=== PATIENT | male | born 1955 | race Caucasian/White ===

== ENCOUNTER 2024-01-23 14:36 | Inpatient (IN) | payer MEDICARE, SELFPAY ==
--- NOTE | ~2024-01-23 | CT_ITS ---
CT brain wo con Ordering provider: Karlie Poon PA-C History: 68 years Male with . SAH on prior image . Comparison: January 24, 2024 Technique: CT of the head without contrast. Radiation reduction technique utilized. DLP is 205.33 mGy . FINDINGS: BRAIN PARENCHYMA AND CSF SPACES: The areas seen in the right cerebellar hemisphere of slightly increa sed density are unchanged. Differential as mentioned previously. Adjacent encephalomalacia seen in th e right cerebellar hemisphere. Mild brain atrophy. No midline shift, mass effect or definite hemorrha ge. The brain parenchyma and CSF spaces are otherwise normal. VISUALIZED PARANASAL SINUSES: Well aerated. MASTOIDS: Right mastoid air cells effusion BONES: The bones appear intact. SOFT TISSUES: Visualized nasopharynx is normal. Superficial soft tissues are normal. IMPRESSION: No change from previous examination. Encephalomalacia in the right cerebellar area medially with slig htly hyperdense areas are noted. Reviewed, dictated and finalized at location A. IMPRESSION: No change from previous examination. Encephalomalacia in the right cerebellar a jennifer medially with slightly hyperdense areas are noted.
--- NOTE | ~2024-01-23 | CT_ITS ---
EXAMINATION: CT brain wo con DATE: 01/24/2024 11:46 INDICATION: Altered mental status post fall TECHNIQUE: Computed tomography (CT) of the head was performed without intravenous contrast. Sagittal and coronal reconstructions were performed. The mA was adjusted according to patient size. Iterative reconstruction technique was employed. The dose-length product was 681.00 mGy-cm. COMPARISON: None FINDINGS: No fracture. Small region of encephalomalacia along the inferomedial aspect of the right cerebellar h emisphere likely sequela of chronic infarction. Lungs reveal encephalomalacia there are couple small regions of mild increased density which could represent either small amount of subarachnoid hemorrhag e or dystrophic calcification related to the suspected prior infarct. No acute infarction or abnormal extra axial fluid collection. Symmetric prominence of the sulci and subarachnoid spaces consistent w ith mild age-appropriate diffuse cerebral and cerebellar volume loss. Ventricles are normal and symme tric. No mass/mass effect. Changes of bilateral intraocular lens replacement. The orbits, paranasal s inuses and left mastoid air cells are normal. Right mastoid effusion. IMPRESSION: 1. Small region of encephalomalacia at the inferomedial right cerebellar hemisphere consistent with s equela of old infarct. 2. Couple small regions of mild increased attenuation along the margins of the region of encephalomal acia which could represent either small amount of acute subarachnoid hemorrhage or dystrophic calcifi c lesion related to the prior infarct. Findings were discussed with Saud Hernandez, the nurse caring for the patient, at 12:01 PM. Reviewed, dictated and finalized at location A. IMPRESSION: 1. Small region of encephalomalacia at the inferomedial right cerebellar hemisp here consistent with sequela of old infarct. 2. Couple small regions of mild increased attenuation along the margins of the region of encephalomalacia which could represent either small amount of acute s ubarachnoid hemorrhage or dystrophic calcific lesion related to the prior infar ct. Findings were discussed with Saud Hernandez, the nurse caring for the patie nt, at 12:01 PM.
--- NOTE | ~2024-01-23 | CT_ITS ---
CT abdomen pelvis wo con Ordering provider: Lala Jackson PA-C History: . flank pain, hematuria . Comparison: None. Technique: CT abdomen without IV and without oral contrast. Additional reduction technique utilized. Findings: VISUALIZED LOWER CHEST: Dependent atelectatic changes with very tiny pleural-based nodules. Calcified left hilar lymph nodes. Coronary calcifications. UPPER ABDOMINAL ORGANS: Liver: Normal. Gallbladder: Normal. Spleen: Tiny calcifications. Stomach/duodenum: Slightly thickened wall of the stomach. Pancreas: Normal. Adrenals: Normal. Kidneys: Left kidney lower pole exophytic cyst measuring 4.7 x 5.1 cm. No stones or hydronephrotic ch anges. Urinary bladder: Normal. VISUALIZED BOWEL AND MESENTERY: Thickening shaped Calcification in the right side of the transverse c olon on defined nature. Fecal material is loaded in the colon. No evidence of appendicitis. The bowel is otherwise normal. No free air or free fluid. No mesenteric lymphadenopathy. RETROPERITONEUM: Mild atheromatous disease of the abdominal aorta. No retroperitoneal lymphadenopathy . MUSCULOSKELETAL: Small right inguinal fat containing gadolinium. Calcifications in the subcutaneous f at seen posteriorly in the lower abdomen which may be postinjection. Otherwise, The superficial soft tissues are normal. Age appropriate degenerative changes of the spine. Bilateral sacroiliacs. Loss of volume of L1 which may be acute or chronic. Healing fracture in the left 11th rib. IMPRESSION: No evidence of renal stones are hydronephrotic changes. Left renal cyst. Constipation No evidence of obstruction or perforation. Area of calcification in the right side of the colon which may be foreign body. Healing fracture of the left 11th rib. Fracture L1 of indeterminate age. Reviewed, dictated and finalized at location A.
[2024-01-23 14:40] VITALS: BP 146/73; PULSE 65; RESP 18; TEMP 36.4; O2SAT 100
[2024-01-23 15:38] VITALS: BP 160/88; PULSE 69; RESP 17; TEMP 36.6; O2SAT 100
[2024-01-23 16:01] LABS: Basophils Absolute Auto 0.1 K/mm3 (0.0-0.1); Basophils Percent Auto 0.9 % (0.2-1.2); Eosinophils Absolute Auto 0.1 K/mm3 (0-0.3); Eosinophils Percent Auto 0.9 % (0-4.4); Hematocrit 42.1 % (42.0-52.0); Hemoglobin 13.9 g/dL (14.0-18.0); Immature Granulocyte Absolute 0.01 K/mm3 (0.00-0.031); Immature Granulocyte Percent A 0.1 % (0-0.5); Lymphocytes Percent Auto 26.2 % (18.3-44.2); Mean Corpuscular Hemoglobin 31.1 pg (26-34); Mean Corpuscular Volume 94.2 fl (80-100); Mean Platelet Volume 10.9 fl (7.4-10.4); Monocytes Absolute Auto 0.6 K/mm3 (0.1-0.6); Monocytes Percent Auto 8.9 % (2.6-8.5); Neutrophils Absolute Auto 4.3 K/mm3 (1.3-6.7); Platelet Count Result 196 k/mm3 (150-375); Red Blood Count 4.47 M/mm3 (4.6-6.20); Red Cell Distribution Width 12.8 % (11.5-14.5); White Blood Count 6.9 K/mm3 (4.5-10.0)
[2024-01-23 16:05] LABS: Appearance Urine Cloudy (Clear); Bacteria Urine 4+ /hpf; Bilirubin Urine Negative (Negative); Blood Urine 3+ (Negative); Color Urine Yellow (Yellow); Glucose Urine UA 3+ mg/dL (Negative); Ketones Urine Trace mg/dL (Negative); Leukocyte Esterase Ur 1+ LEU/UL (Negative); Nitrate Urine Positive (Negative); Non Pathogenic Casts 0-2; Protein Urine 1+ mg/dL (Negative); RBC Urine 51-100 /hpf (0-2); Specific Grav Ur 1.026 (1.001-1.035); Squamous Epithelial Cell Urine None Seen /hpf (Few); WBC Urine >100 /hpf (0-3); pH Urine 5.5 (5.0-9.0)
[2024-01-23 16:11] LABS: Alanine Aminotransferase 16 U/L (6-50); Albumin Level 3.9 g/dL (3.5-5.1); Alkaline Phosphatase 63 U/L (38-126); Anion Gap 5 mmol/L (4-12); Aspartate Amino Transferase 16 U/L (17-59); Bilirubin,Total 0.6 mg/dL (0.2-1.3); Blood Urea Nitrogen 24 mg/dL (9-20); Calcium 9.2 mg/dL (8.4-10.2); Carbon Dioxide 28 mmol/L (22-30); Chloride 105 mmol/L (98-107); Estimated CRCL calculation 63 ml/min; Estimated Glomerular Filt Rate > 60; Glucose 70 mg/dL (65-110); Potassium 4.4 mmol/L (3.4-5.0); Sodium 138 mmol/L (137-145)
[2024-01-23 16:13] LABS: Add Urine Microscopic? YES
[2024-01-23 17:01] VITALS: BP 155/88; PULSE 68; RESP 15; O2SAT 97
--- NOTE | 2024-01-23 17:42 | ED.MALEGU ---
HPI - Male Genitourinary General Chief complaint: Urogenital-Male <Lala Jackson PA-C - Last Filed: 01/23/24 20:59> Stated complaint: blood in urine <Lala Jackson PA-C - Last Filed: 01/23/24 20:59> Time Seen by Provider: 01/23/24 16:30 <Lala Jackson PA-C - Last Filed: 01/23/24 20:59> Source: patient <CURRY Andujar Last Filed: 01/23/24 20:59> Mode of arrival: ambulatory <Lala Jackson PA-C - Last Filed: 01/23/24 20:59> Limitations: other ( poor historian) <Lala Jackson PA-C - Last Filed: 01/23/24 20:59> History of Present Illness HPI Narrative: This is a 68-year-old male that presents to the emergency department for blood in his urine. Reports he has noted this since yesterday. Also reports some flank/low back pain. His brother reports he has had some falls lately. Reports today he fell while in the shower and landed on his bottom. He did not hit his head or lose consciousness. Denies fevers or vomiting. <Lala Jackson PA-C - Last Filed: 01/23/24 20:59> Related Data Home medications: Home Medications Medication Instructions Recorded Confirmed alprazolam 0.5 mg tablet 0.5 mg PO TID PRN Anxiety 01/26/21 01/23/24 benztropine 1 mg tablet 1 mg PO BID 01/26/21 01/23/24 lamotrigine 100 mg tablet 150 mg PO BID 01/26/21 01/23/24 aspirin 81 mg tablet,delayed 81 mg PO DAILY 01/23/24 01/23/24 release baclofen 20 mg tablet 20 mg BID PRN Pain 01/23/24 01/23/24 diclofenac sodium 75 mg 75 mg PO BID PRN hip pain 01/23/24 01/23/24 tablet,delayed release donepezil 10 mg tablet 10 mg PO HS 01/23/24 01/23/24 empagliflozin 10 mg tablet 10 mg PO DAILY 01/23/24 01/23/24 (Jardiance) ergocalciferol (vitamin D2) 1,250 50,000 unit PO WEEKLY 01/23/24 01/23/24 mcg (50,000 unit) capsule (Vitamin D2) fluoxetine 40 mg capsule 40 mg PO QAM 01/23/24 01/23/24 icosapent ethyl 1 gram capsule 1 g PO BIDWMEAL 01/23/24 01/23/24 (Vascepa) lubiprostone 24 mcg capsule 24 mcg PO BIDWMEAL 01/23/24 01/23/24 memantine 10 mg tablet 10 mg PO DAILY 01/23/24 01/23/24 omeprazole 20 mg capsule,delayed 20 mg PO BIDAC 01/23/24 01/23/24 release quetiapine 300 mg tablet,extended 300 mg PO HS 01/23/24 01/23/24 release 24 hr senna 2 tab-cap PO HS 01/23/24 01/23/24 simvastatin 40 mg tablet 40 mg PO HS 01/23/24 01/23/24 sodium chloride 1 g PO BID 01/23/24 01/23/24 tamsulosin 0.4 mg capsule 0.4 mg PO HS 01/23/24 01/23/24 <Lala Jackson PA-C - Last Filed: 01/23/24 20:59> Allergies/Adverse reactions: Allergies Allergy/AdvReac Type Severity Reaction Status Date / Time No Known Allergies Allergy Verified 01/26/21 10:01 <Lala Jackson PA-C - Last Filed: 01/23/24 20:59> Review of Systems Review of Systems: CONSTITUTIONAL: Denies fever GASTROINTESTINAL: Denies abdominal pain, nausea, vomiting GENITOURINARY: Reports hematuria. Denies dysuria <Lala Jackson PA-C - Last Filed: 01/23/24 20:59> All systems reviewed & are unremarkable except as noted in HPI and below <aLla Jackson PA-C - Last Filed: 01/23/24 20:59> [facility] Past Medical History Medical History: Medical History (Updated 01/23/24 @ 20:59 by Lala Jackson PA-C) History of hyperlipidemia <Lala Jackson PA-C - Last Filed: 01/23/24 20:59> Social History Social History: Social History (Updated 01/23/24 @ 17:43 by Lala Jackson PA-C) Substance use: never <Lala Jackson PA-C - Last Filed: 01/23/24 20:59> Exam Narrative: GENERAL: Well-appearing, well-nourished, and in no acute distress. HEAD: Normocephalic, atraumatic. EYES: EOMI. CHEST: Clear to auscultation. No respiratory distress. No wheezes rales or rhonchi HEART: Regular rate and rhythm. No murmur heard. Normal peripheral pulses. ABDOMEN: Soft, nontender, nondistended, normal active bowel sounds. No CVA tenderness EXTREMITIES: Normal range of motion. No edema or obvious deformity. SKIN: Warm, dry, no rash.
[2024-01-23 18:20] VITALS: BP 162/80; PULSE 68; RESP 18; TEMP 36.7; O2SAT 96
--- NOTE | 2024-01-23 19:38 | PM.IMHP ---
H&P: HPI History of Present Illness Date/Time: 01/23/24 19:38 Chief Complaint: fall Narrative: This is a 68 yo male with PMHx significant for Dementia, T2DM, benign prostatic hyperplasia. patient presents to the emergency room after having a fall in the shower however patient has no recollection of this can not really tell why he is in the hospital. A states that he was walking and all of a sudden he felt pain in his body like lightning bolt and then kept repeating this. he knows that he is at [facility] when asked which is day approaching holiday he states weekend. When asked if he has any pain points towards left lower quadrant. Preliminary workup was significant for urinalysis with numerous WBCs present, CT of abdomen and pelvis was significant for healing 11th rib fracture and on the time in at age lumbar vertebrae fracture at the level of L1. Patient has been admitted for further evaluation management and treatment. CT abdomen pelvis wo con Ordering provider: Lala Jackson PA-C History: . flank pain, hematuria . Comparison: None. Technique: CT abdomen without IV and without oral contrast. Additional reduction technique utilized. Findings: VISUALIZED LOWER CHEST: Dependent atelectatic changes with very tiny pleural-based nodules. Calcified left hilar lymph nodes. Coronary calcifications. UPPER ABDOMINAL ORGANS: Liver: Normal. Gallbladder: Normal. Spleen: Tiny calcifications. Stomach/duodenum: Slightly thickened wall of the stomach. Pancreas: Normal. Adrenals: Normal. Kidneys: Left kidney lower pole exophytic cyst measuring 4.7 x 5.1 cm. No stones or hydronephrotic changes. Urinary bladder: Normal. VISUALIZED BOWEL AND MESENTERY: Thickening shaped Calcification in the right side of the transverse colon on defined nature. Fecal material is loaded in the colon. No evidence of appendicitis. The bowel is otherwise normal. No free air or free fluid. No mesenteric lymphadenopathy. RETROPERITONEUM: Mild atheromatous disease of the abdominal aorta. No retroperitoneal lymphadenopathy. MUSCULOSKELETAL: Small right inguinal fat containing gadolinium. Calcifications in the subcutaneous fat seen posteriorly in the lower abdomen which may be postinjection. Otherwise, The superficial soft tissues are normal. Age appropriate degenerative changes of the spine. Bilateral sacroiliacs. Loss of volume of L1 which may be acute or chronic. Healing fracture in the left 11th rib. IMPRESSION: No evidence of renal stones are hydronephrotic changes. Left renal cyst. Constipation No evidence of obstruction or perforation. Area of calcification in the right side of the colon which may be foreign body. Healing fracture of the left 11th rib. Fracture L1 of indeterminate age. Review of Systems Review of Systems: ROS unobtainable: Yes unobtainable due to medical condition (cognitive impairment ) [facility] Past Medical History Medical History (Updated 01/24/24 @ 20:31 by David Lu MD) Anxiety and depression Coronary artery disease GERD (gastroesophageal reflux disease) History of hyperlipidemia Hyperlipidemia Hypertension Seizure Family History Family History (Updated 01/24/24 @ 04:16 by Maile May) Sibling Acute myocardial infarction Sibling Acute myocardial infarction Social History Social History (Updated 01/24/24 @ 04:16 by Maile May) Smoking status: Never smoker Alcohol intake: never Substance use: never Substance use type: does not use Do You Feel Safe in your Home?: Yes Lack of Transportation: No Lack of Food: Never True Current Housing: I Have Housing Concerned About Future Housing: No Difficulty Paying Gas/Electric Bills: No Difficulty Paying for Meds: No Currently Unemployed: No Education: Don't Know Difficulty w/ Childcare or Family Care: No Living arrangements: with family Gender identity (if verbalized by the patient): Male
[2024-01-23 20:45] VITALS: BMI 30.7
[2024-01-23 21:20] VITALS: BP 166/83; PULSE 70; RESP 18; TEMP 36.4; O2SAT 98
--- NOTE | 2024-01-23 23:15 | ADMGEN ---
This patient, Marlon Hicks, was admitted to [facility] Surg Room 317-02 at 2044. Patient/family oriented to hospital policies and general routines including ID bracelet, bed and alarms, visiting hours, pain management, procedures, bathroom and other care routines, personal items, smoking policy, room service/diet, and visiting hours. Information on how to activate the Rapid Response Team has been discussed. Patient/Family are encouraged to report perceived risks to care and to ask questions if they do not understand what they are told or what they should do.
[2024-01-24] MEDS: QUEtiapine FUMARATE XR 200 MG TAB.ER.24H BY MOUTH ×2 (00:26→21:56)
[2024-01-24] MEDS: QUEtiapine FUMARATE XR 50 MG TAB.ER.24H 100 MG BY MOUTH ×2 (00:26→21:57)
[2024-01-24] MEDS: lamoTRIgine 50 MG TABLET PO ×3 (00:26→22:01)
[2024-01-24] MEDS: BENZTROPINE MESYLATE 1 MG TABLET PO ×3 (00:27→21:57)
[2024-01-24] MEDS: lamoTRIgine 100 MG TABLET PO ×3 (00:27→21:57)
[2024-01-24] MEDS: DONEPEZIL HCL 10 MG TABLET PO ×2 (00:28→21:57)
[2024-01-24] MEDS: TAMSULOSIN HCL 0.4 MG CAPSULE PO ×2 (00:28→21:57)
[2024-01-24] MEDS: SIMVASTATIN 20 MG TABLET 40 MG PO ×2 (00:28→21:56)
[2024-01-24] MEDS: ALPRAZolam (*CRX) 0.5 MG TABLET PO (00:28)
[2024-01-24 04:10] VITALS: BP 126/66; PULSE 58; RESP 20; TEMP 35.9; O2SAT 97
[2024-01-24] MEDS: PANTOPRAZOLE 40 MG TABLET PO ×2 (06:10→17:47)
[2024-01-24] MEDS: BACLOFEN 10 MG TABLET 20 MG BY MOUTH (06:58)
--- NOTE | 2024-01-24 07:10 | PM.IMPN ---
Progress Note: A&P Assessment and Plan (1) Subarachnoid hemorrhage: Code(s): I60.9 - Nontraumatic subarachnoid hemorrhage, unspecified Status: Acute Assessment and Plan: Patient reports frequent falls causing him to hit his head. - CT head revealed small region of encephalomalacia at the inferomedial right cerebellar hemisphere consistent with sequela of old infarct and a couple small regions of mild increased attenuation along the margins of the region of encephalomalacia which could represent either small amount of acute subarachnoid hemorrhage or dystrophic calcific lesion related to the prior infarct. - Call made to Dr. Pina neurosurgery. No intervention needed at this time as this is a small SAH and will likely resolve on its own. Will repeat scan in the am to monitor. Per Dr. Pina even if repeat scan shows acute blood likely no need for intervention if no neurological changes. - ASA on hold at this time. - Neuro checks q 2h. He will need to be transferred to IMU for this. RN aware and states she will perform Q2 neurochecks until patient is transferred to IMU (2) Urinary tract infection: Qualifiers: Hematuria presence: with hematuria Urinary tract infection type: acute cystitis Qualified Code(s): N30.01 - Acute cystitis with hematuria Code(s): N39.0 - Urinary tract infection, site not specified Status: Acute Assessment and Plan: - Symptoms: hematuria, increased falls - UA: Cloudy appearance with 1+ protein, 3+ glucose, trace ketones, 3+ blood, positive nitrates, 1+ leukocytes, 51-100 RBC, > 100 WBC, 4+ bacteria - UC obtained on 01/22: pending - No previous micro to be reviewed - started on Rocephin 01/22 - Monitor vital signs, I&Os, BUN/creatinine - Monitor serum electrolytes, Keep serum Potassium>4 and serum Magnesium>2 and CBC (3) Frequent falls: Code(s): R29.6 - Repeated falls Status: Acute Assessment and Plan: Patient reports multiple falls per day, occuring every 2.5 hours. He states that his falls are often mechanical from him tripping over his wheeled walker. He denies dizziness but states he has lost consciousness in the past. He also reports hitting his head on past falls. He is unsure if he is having seizures during those episodes. He remains on Lamictal and levels pending. - CT abdomen/pelvis: Healing fracture of the left 11th rib.Fracture L1 of indeterminate age. 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 - PT/OT, recommending SNF (4) Compression fracture: Status: Acute Assessment and Plan: - See frequent falls #2 (5) Seizure: Code(s): R56.9 - Unspecified convulsions Status: Acute Assessment and Plan: Per patient, he follows Dr. Guerrero. - Continue lamotrigine 150 mg BID - Lamotrigine level ordered - Monitor (6) Anxiety and depression: Code(s): F41.9 - Anxiety disorder, unspecified; F32.A - Depression, unspecified Status: Acute Assessment and Plan: Well controlled on home medications. - Fluoxetine 40 mg daily - Quetiapine 300 mg daily (7) GERD (gastroesophageal reflux disease): Code(s): K21.9 - Gastro-esophageal reflux disease without esophagitis Status: Acute Assessment and Plan: Well controlled on home medications. - Pantoprazole 40 mg BID Time Spent With Patient Time with patient: 25 - 35 minutes Subjective Date/time seen: 01/24/24 07:10 Interval history: 68 year old male with past medical history of hypertension, hyperlipidemia, CAD, seizures, GERD and anxiety/depression presents to the hospital for hematuria and frequent fall
[2024-01-24 08:22] LABS: Basophils Absolute Auto 0.1 K/mm3 (0.0-0.1); Basophils Percent Auto 0.9 % (0.2-1.2); Eosinophils Absolute Auto 0.1 K/mm3 (0-0.3); Eosinophils Percent Auto 1.3 % (0-4.4); Hematocrit 43.7 % (42.0-52.0); Hemoglobin 14.2 g/dL (14.0-18.0); Immature Granulocyte Absolute 0.02 K/mm3 (0.00-0.031); Immature Granulocyte Percent A 0.3 % (0-0.5); Lymphocytes Absolute Auto 1.32 K/mm3 (0.9-3.2); Lymphocytes Percent Auto 19.4 % (18.3-44.2); Mean Corpuscular HGB Conc 32.5 g/dl (32-36); Mean Corpuscular Hemoglobin 30.7 pg (26-34); Mean Corpuscular Volume 94.4 fl (80-100); Monocytes Absolute Auto 0.5 K/mm3 (0.1-0.6); Monocytes Percent Auto 7.8 % (2.6-8.5); Neutrophils Absolute Auto 4.8 K/mm3 (1.3-6.7); Neutrophils Percent Auto 70.3 % (45.5-73.1); Platelet Count Result 191 k/mm3 (150-375); Red Blood Count 4.63 M/mm3 (4.6-6.20); Red Cell Distribution Width 12.7 % (11.5-14.5); White Blood Count 6.8 K/mm3 (4.5-10.0)
[2024-01-24 08:41] LABS: Alanine Aminotransferase 14 U/L (6-50); Albumin Level 3.8 g/dL (3.5-5.1); Alkaline Phosphatase 67 U/L (38-126); Anion Gap 6 mmol/L (4-12); Aspartate Amino Transferase 14 U/L (17-59); Bilirubin,Total 0.9 mg/dL (0.2-1.3); Blood Urea Nitrogen 20 mg/dL (9-20); Calcium 8.8 mg/dL (8.4-10.2); Carbon Dioxide 26 mmol/L (22-30); Chloride 106 mmol/L (98-107); Estimated CRCL calculation 76 ml/min; Estimated Glomerular Filt Rate > 60; Glucose 89 mg/dL (65-110); Potassium 3.9 mmol/L (3.4-5.0); Sodium 138 mmol/L (137-145)
[2024-01-24] MEDS: LUBIPROSTONE 24 MCG CAPSULE PO ×2 (09:30→17:47)
[2024-01-24] MEDS: SODIUM CHLORIDE 1 GM TABLET PO ×2 (09:31→17:46)
[2024-01-24] MEDS: MEMANTINE 10 MG TABLET PO (09:31)
[2024-01-24] MEDS: EMPAGLIFLOZIN 10 MG TABLET PO (09:31)
[2024-01-24] MEDS: OMEGA 3 POLYUNSAT FATTY ACIDS 1 GM CAP PO ×2 (09:31→17:47)
[2024-01-24] MEDS: FLUoxetine HCL 20 MG CAPSULE 40 MG PO (09:31)
[2024-01-24] MEDS: ASPIRIN 81 MG ENTERIC TABLET PO (09:32)
[2024-01-24 14:00] VITALS: BP 143/75; PULSE 77; RESP 16; TEMP 35.9; O2SAT 98
--- NOTE | 2024-01-24 15:48 | WPDNEUROPN ---
Subjective Date/time seen: 01/24/24 15:48 Interval history: Received message from 3 med/surg company secretary regarding consult for possible SAH. I discussed with hospitalist, Yolanda Poon that any concerns regarding SAH should be addressed by neurosurgical service. Recommended reaching out to NSY at tertiary care center for further recommendations. If there are other neurological concerns, I would be happy to consult. Objective Data Vital Signs Vital Signs: Vital Signs - 24 hr 01/23/24 17:01 01/23/24 18:20 01/23/24 21:20 Temperature 36.7 C 36.4 C Pulse Rate 68 68 70 Respiratory Rate 15 18 18 Blood Pressure 155/88 H 162/80 H 166/83 H Pulse Oximetry 97 96 98 Oxygen Delivery 01/23/24 20:45 01/24/24 04:10 01/24/24 09:55 Temperature 35.9 C L Pulse Rate 58 L Respiratory Rate 20 Blood Pressure 126/66 Pulse Oximetry 97 Oxygen Delivery Room Air Room Air 01/24/24 11:30 01/24/24 14:00 Temperature 35.9 C L Pulse Rate 77 Respiratory Rate 16 Blood Pressure 143/75 H Pulse Oximetry 98 Oxygen Delivery Room Air Intake/Output Intake/Output: Intake & Output 01/21/24 01/22/24 01/23/24 01/24/24 23:59 23:59 23:59 23:59 Intake Total 300 1930 Balance 300 1930 Meds/Results Medications: Active Medications Generic Name Dose Route Start Last Admin Trade Name Freq PRN Reason Stop Dose Admin Acetaminophen 650 mg 01/23/24 21:28 Acetaminophen 325 Mg Tablet PO Q4H PRN Mild Pain (1-3) or Fever Al Hydrox/Mg Hydrox/Simethicone 30 ml 01/23/24 21:28 Mag Hydrox/Al Hydrox/Simeth 30 Ml Udc PO QID PRN Dyspepsia Alprazolam 0.5 mg 01/23/24 23:21 01/24/24 00:28 Alprazolam (*Crx) 0.5 Mg Tablet PO 0.5 mg TID PRN Administration Anxiety Aspirin 81 mg 01/24/24 09:00 01/24/24 09:32 Aspirin 81 Mg Enteric Tablet PO 81 mg DAILY ESTEFANIA Administration Baclofen 20 mg 01/23/24 23:21 01/24/24 06:58 Baclofen 10 Mg Tablet BY MOUTH 20 mg BID PRN Administration Pain Benztropine Mesylate 1 mg 01/23/24 23:50 01/24/24 09:30 Benztropine Mesylate 1 Mg Tablet PO 1 mg Q12HR ESTEFANIA Administration Diclofenac Sodium 75 mg 01/23/24 23:21 Diclofenac Sod 75 Mg Tablet.Ec PO BID PRN hip pain Donepezil HCl 10 mg 01/23/24 23:45 01/24/24 00:28 Donepezil Hcl 10 Mg Tablet PO 10 mg HS ESTEFANIA Administration Empagliflozin 10 mg 01/24/24 09:00 01/24/24 09:31 Empagliflozin 10 Mg Tablet PO 10 mg DAILY ESTEFANIA Administration Ergocalciferol 50,000 units 02/02/24 09:00 Ergocalciferol 50,000 Units Capsule PO Harvey@0900 [facility] Fish Oil 1 gm 01/24/24 08:00 01/24/24 09:31 [place] 3 Polyunsat Fatty Acids 1 Gm Cap PO 1 gm BIDWM ESTEFANIA Administration Fluoxetine HCl 40 mg 01/24/24 09:00 01/24/24 09:31 Fluoxetine Hcl 20 Mg Capsule PO 40 mg QAM [facility] Administration Ceftriaxone Sodium 1 gm in 50 mls @ 100 mls/hr 01/24/24 18:00 Rocephin 1 Gm/Ns 50 Ml IVPB Q24H [facility] Lamotrigine 50 mg 01/23/24 23:45 01/24/24 09:30 Lamotrigine 50 Mg Tablet PO 50 mg Q12HR ESTEFANIA Administration Lamotrigine 100 mg 01/23/24 23:45 01/24/24 09:30 Lamotrigine 100 Mg Tablet PO 100 mg Q12HR ESTEFANIA Administration Lubiprostone 24 mcg 01/24/24 08:00 01/24/24 09:30 Lubiprostone 24 Mcg Capsule PO 24 mcg BIDWM [facility] Administration Magnesium Hydroxide 30 ml 01/23/24 21:28 Magnesium Hydroxide Susp 30 Ml Udc PO DAILY PRN Constipation Memantine 10 mg 01/24/24 09:00 01/24/24 09:31 Memantine 10 Mg Tablet PO 10 mg DAILY ESTEFANIA Administration Ondansetron HCl 4 mg 01/23/24 21:28 Ondansetron Inj 4 Mg/2 Ml Vial IV PUSH Q6H PRN Nausea And Vomiting Pantoprazole Sodium 40 mg 01/24/24 06:30 01/24/24 06:10 Pantoprazole 40 Mg Tablet PO 40 mg BIDAC ESTEFANIA Administration Quetiapine Fumarate 200 mg 01/23/24 23:50 01/24/24 00:26 Quetiapine Fumarate Xr 200 Mg Tab.Er.24h BY MOUTH 2
[2024-01-24 20:00] VITALS: PULSE 65; RESP 14; O2SAT 96
[2024-01-24 21:06] VITALS: BP 137/68; PULSE 65; RESP 14; TEMP 36.3; O2SAT 96
[2024-01-24] MEDS: SENNOSIDES 8.6 MG TABLET 17.2 MG PO (21:57)
[2024-01-25] MEDS: ACETAMINOPHEN 325 MG TABLET 650 MG PO ×2 (02:19→21:13)
[2024-01-25] MEDS: PANTOPRAZOLE 40 MG TABLET PO ×2 (05:30→16:50)
[2024-01-25 06:00] VITALS: BP 174/86; PULSE 70; RESP 18; TEMP 36.1; O2SAT 96
[2024-01-25 06:57] LABS: Basophils Absolute Auto 0.1 K/mm3 (0.0-0.1); Basophils Percent Auto 1.4 % (0.2-1.2); Eosinophils Absolute Auto 0.1 K/mm3 (0-0.3); Eosinophils Percent Auto 2.4 % (0-4.4); Hematocrit 45.1 % (42.0-52.0); Hemoglobin 14.4 g/dL (14.0-18.0); Immature Granulocyte Absolute 0.01 K/mm3 (0.00-0.031); Immature Granulocyte Percent A 0.2 % (0-0.5); Lymphocytes Absolute Auto 1.67 K/mm3 (0.9-3.2); Lymphocytes Percent Auto 28.8 % (18.3-44.2); Mean Corpuscular HGB Conc 31.9 g/dl (32-36); Mean Corpuscular Hemoglobin 30.4 pg (26-34); Mean Corpuscular Volume 95.1 fl (80-100); Monocytes Absolute Auto 0.5 K/mm3 (0.1-0.6); Monocytes Percent Auto 8.4 % (2.6-8.5); Neutrophils Absolute Auto 3.4 K/mm3 (1.3-6.7); Neutrophils Percent Auto 58.8 % (45.5-73.1); Platelet Count Result 208 k/mm3 (150-375); Red Blood Count 4.74 M/mm3 (4.6-6.20); Red Cell Distribution Width 12.6 % (11.5-14.5); White Blood Count 5.8 K/mm3 (4.5-10.0)
[2024-01-25 07:12] LABS: Alanine Aminotransferase 14 U/L (6-50); Albumin Level 3.8 g/dL (3.5-5.1); Alkaline Phosphatase 72 U/L (38-126); Anion Gap 6 mmol/L (4-12); Aspartate Amino Transferase 14 U/L (17-59); Bilirubin,Total 0.8 mg/dL (0.2-1.3); Blood Urea Nitrogen 19 mg/dL (9-20); Calcium 8.9 mg/dL (8.4-10.2); Carbon Dioxide 28 mmol/L (22-30); Chloride 105 mmol/L (98-107); Estimated CRCL calculation 76 ml/min; Estimated Glomerular Filt Rate > 60; Glucose 96 mg/dL (65-110); Potassium 3.7 mmol/L (3.4-5.0); Sodium 139 mmol/L (137-145)
[2024-01-25] MEDS: OMEGA 3 POLYUNSAT FATTY ACIDS 1 GM CAP PO ×2 (08:30→16:50)
[2024-01-25] MEDS: BENZTROPINE MESYLATE 1 MG TABLET PO ×2 (08:30→21:15)
[2024-01-25] MEDS: lamoTRIgine 50 MG TABLET PO ×2 (08:30→21:14)
[2024-01-25] MEDS: lamoTRIgine 100 MG TABLET PO ×2 (08:30→21:15)
[2024-01-25] MEDS: SODIUM CHLORIDE 1 GM TABLET PO ×2 (08:30→16:50)
[2024-01-25] MEDS: FLUoxetine HCL 20 MG CAPSULE 40 MG PO (08:31)
[2024-01-25] MEDS: LUBIPROSTONE 24 MCG CAPSULE PO ×2 (08:31→16:50)
[2024-01-25] MEDS: EMPAGLIFLOZIN 10 MG TABLET PO (08:31)
[2024-01-25] MEDS: MEMANTINE 10 MG TABLET PO (08:31)
--- NOTE | 2024-01-25 08:49 | P.PNIM_ITS ---
Progress Note: A&P Assessment and Plan (1) Subarachnoid hemorrhage: Code(s): I60.9 - Nontraumatic subarachnoid hemorrhage, unspecified Status: Acute Assessment and Plan: Patient reports frequent falls causing him to hit his head. 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 - Call made to Dr. Pina neurosurgery. No intervention needed at this time as this is a small SAH and will likely resolve on its own. Will repeat scan in the am to monitor. Per Dr. Pina even if repeat scan shows acute blood likely no need for intervention if no neurological changes. - CT head 01/24 showed No change from previous examination. Encephalomalacia in the right cerebellar area medially with slightly hyperdense areas are noted. - ASA on hold at this time. - Neuro checks q 4h. (2) Urinary tract infection: Qualifiers: Hematuria presence: with hematuria Urinary tract infection type: acute cystitis Qualified Code(s): N30.01 - Acute cystitis with hematuria Code(s): N39.0 - Urinary tract infection, site not specified Status: Acute Assessment and Plan: - Symptoms: hematuria, increased falls - UA: Cloudy appearance with 1+ protein, 3+ glucose, trace ketones, 3+ blood, positive nitrates, 1+ leukocytes, 51-100 RBC, > 100 WBC, 4+ bacteria - UC obtained on 01/22: Final results- no growth - No previous micro to be reviewed - Discontinued Rocephin - Monitor vital signs, I&Os, BUN/creatinine - Monitor serum electrolytes, Keep serum Potassium>4 and serum Magnesium>2 and CBC (3) Frequent falls: Code(s): R29.6 - Repeated falls Status: Acute Assessment and Plan: Patient reports multiple falls per day, occuring every 2.5 hours. He states that his falls are often mechanical from him tripping over his wheeled walker. He denies dizziness but states he has lost consciousness in the past. He also reports hitting his head on past falls. He is unsure if he is having seizures during those episodes. He remains on Lamictal and levels pending. - CT abdomen/pelvis: Healing fracture of the left 11th rib.Fracture L1 of indeterminate age. 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 - PT/OT, recommending SNF . care coordination following (4) Compression fracture: Status: Acute Assessment and Plan: - See frequent falls #3 (5) Seizure: Code(s): R56.9 - Unspecified convulsions Status: Acute Assessment and Plan: Per patient, he follows Dr. Guerrero. - Continue lamotrigine 150 mg BID - Lamotrigine level ordered - Monitor (6) Anxiety and depression: Code(s): F41.9 - Anxiety disorder, unspecified; F32.A - Depression, unspecified Status: Acute Assessment and Plan: Well controlled on home medications. - Fluoxetine 40 mg daily - Quetiapine 300 mg katharine (7) GERD (gastroesophageal reflux disease): Code(s): K21.9 - Gastro-esophageal reflux disease without esophagitis Status: Acute
[2024-01-25 14:00] VITALS: BP 148/84; PULSE 75; RESP 18; TEMP 36.4; O2SAT 99
[2024-01-25 14:30] VITALS: BP 179/80; PULSE 80; RESP 20; TEMP 36.4; O2SAT 97
[2024-01-25 14:53] LABS: Glucose Point of Care 126 mg/dl (65-105)
[2024-01-25] MEDS: LOSARTAN POTASSIUM 12.5 MG TABLET PO (18:46)
[2024-01-25 21:06] VITALS: BP 155/88; PULSE 88; RESP 16; TEMP 36.9; O2SAT 96
[2024-01-25] MEDS: QUEtiapine FUMARATE XR 200 MG TAB.ER.24H BY MOUTH (21:13)
[2024-01-25] MEDS: QUEtiapine FUMARATE XR 50 MG TAB.ER.24H 100 MG BY MOUTH (21:14)
[2024-01-25] MEDS: SIMVASTATIN 20 MG TABLET 40 MG PO (21:14)
[2024-01-25] MEDS: SENNOSIDES 8.6 MG TABLET 17.2 MG PO (21:14)
[2024-01-25] MEDS: TAMSULOSIN HCL 0.4 MG CAPSULE PO (21:14)
[2024-01-25] MEDS: DONEPEZIL HCL 10 MG TABLET PO (21:15)
[2024-01-26 00:31] LABS: Glucose Point of Care 105 mg/dl (65-105)
[2024-01-26 06:00] VITALS: BP 135/79; PULSE 77; RESP 16; TEMP 36.4; O2SAT 97
[2024-01-26] MEDS: PANTOPRAZOLE 40 MG TABLET PO ×2 (06:06→16:24)
[2024-01-26 06:14] LABS: Basophils Absolute Auto 0.1 K/mm3 (0.0-0.1); Basophils Percent Auto 0.6 % (0.2-1.2); Eosinophils Absolute Auto 0.1 K/mm3 (0-0.3); Eosinophils Percent Auto 0.9 % (0-4.4); Hematocrit 43.4 % (42.0-52.0); Hemoglobin 14.3 g/dL (14.0-18.0); Immature Granulocyte Absolute 0.02 K/mm3 (0.00-0.031); Immature Granulocyte Percent A 0.3 % (0-0.5); Lymphocytes Absolute Auto 1.52 K/mm3 (0.9-3.2); Lymphocytes Percent Auto 19.3 % (18.3-44.2); Mean Corpuscular HGB Conc 32.9 g/dl (32-36); Mean Corpuscular Hemoglobin 30.6 pg (26-34); Mean Corpuscular Volume 92.9 fl (80-100); Mean Platelet Volume 10.8 fl (7.4-10.4); Monocytes Absolute Auto 0.7 K/mm3 (0.1-0.6); Monocytes Percent Auto 8.5 % (2.6-8.5); Neutrophils Absolute Auto 5.6 K/mm3 (1.3-6.7); Neutrophils Percent Auto 70.4 % (45.5-73.1); Platelet Count Result 202 k/mm3 (150-375); Red Blood Count 4.67 M/mm3 (4.6-6.20); Red Cell Distribution Width 12.8 % (11.5-14.5); White Blood Count 7.9 K/mm3 (4.5-10.0)
[2024-01-26 06:31] LABS: Alanine Aminotransferase 14 U/L (6-50); Albumin Level 3.6 g/dL (3.5-5.1); Alkaline Phosphatase 66 U/L (38-126); Anion Gap 6 mmol/L (4-12); Aspartate Amino Transferase 15 U/L (17-59); Bilirubin,Total 0.6 mg/dL (0.2-1.3); Blood Urea Nitrogen 21 mg/dL (9-20); Calcium 9.1 mg/dL (8.4-10.2); Carbon Dioxide 27 mmol/L (22-30); Chloride 106 mmol/L (98-107); Estimated CRCL calculation 76 ml/min; Estimated Glomerular Filt Rate > 60; Glucose 102 mg/dL (65-110); Potassium 3.8 mmol/L (3.4-5.0); Sodium 139 mmol/L (137-145)
--- NOTE | 2024-01-26 08:40 | PM.IMPN ---
Progress Note: A&P Assessment and Plan (1) Subarachnoid hemorrhage: Code(s): I60.9 - Nontraumatic subarachnoid hemorrhage, unspecified Status: Acute Assessment and Plan: Patient reports frequent falls causing him to hit his head. 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 - Call made to Dr. Pina neurosurgery. No intervention needed at this time as this is a small SAH and will likely resolve on its own. Will repeat scan in the am to monitor. Per Dr. Pina even if repeat scan shows acute blood likely no need for intervention if no neurological changes. - CT head 01/24 showed No change from previous examination. Encephalomalacia in the right cerebellar area medially with slightly hyperdense areas are noted. - ASA on hold at this time. - Neuro checks q 4h. (2) Urinary tract infection: Qualifiers: Hematuria presence: with hematuria Urinary tract infection type: acute cystitis Qualified Code(s): N30.01 - Acute cystitis with hematuria Code(s): N39.0 - Urinary tract infection, site not specified Status: Acute Assessment and Plan: - Symptoms: hematuria, increased falls - UA: Cloudy appearance with 1+ protein, 3+ glucose, trace ketones, 3+ blood, positive nitrates, 1+ leukocytes, 51-100 RBC, > 100 WBC, 4+ bacteria - UC obtained on 01/22: Final results- no growth - No previous micro to be reviewed - Discontinued Rocephin - Monitor vital signs, I&Os, BUN/creatinine - Monitor serum electrolytes, Keep serum Potassium>4 and serum Magnesium>2 and CBC (3) Frequent falls: Code(s): R29.6 - Repeated falls Status: Acute Assessment and Plan: Patient reports multiple falls per day, occuring every 2.5 hours. He states that his falls are often mechanical from him tripping over his wheeled walker. He denies dizziness but states he has lost consciousness in the past. He also reports hitting his head on past falls. He is unsure if he is having seizures during those episodes. He remains on Lamictal and levels pending. - CT abdomen/pelvis: Healing fracture of the left 11th rib.Fracture L1 of indeterminate age. 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 - PT/OT, recommending SNF. Care coordination following (4) Compression fracture: Status: Acute Assessment and Plan: - See frequent falls #3 (5) Seizure: Code(s): R56.9 - Unspecified convulsions Status: Acute Assessment and Plan: Per patient, he follows Dr. Guerrero. - Continue lamotrigine 150 mg BID - Lamotrigine level ordered - Monitor (6) Anxiety and depression: Code(s): F41.9 - Anxiety disorder, unspecified; F32.A - Depression, unspecified Status: Acute Assessment and Plan: Well controlled on home medications. - Fluoxetine 40 mg daily - Quetiapine 300 mg katharine (7) GERD (gastroesophageal reflux disease): Code(s): K21.9 - Gastro-esophageal reflux disease without esophagitis Status: Acute Assessment and Plan: Well controlled on home medications. - Pantoprazole 40 mg BID (8) Hypertension: Code(s): I10 - Essential (primary) hypertension Status: Acute Assessment and Plan: Patients remains hypertensive throughout admission. Started on low-dose losartan. Will continue to monitor blood pr
[2024-01-26] MEDS: SODIUM CHLORIDE 1 GM TABLET PO ×2 (10:23→16:25)
[2024-01-26] MEDS: MEMANTINE 10 MG TABLET PO (10:23)
[2024-01-26] MEDS: EMPAGLIFLOZIN 10 MG TABLET PO (10:24)
[2024-01-26] MEDS: lamoTRIgine 100 MG TABLET PO ×2 (10:24→21:10)
[2024-01-26] MEDS: LUBIPROSTONE 24 MCG CAPSULE PO ×2 (10:24→16:24)
[2024-01-26] MEDS: OMEGA 3 POLYUNSAT FATTY ACIDS 1 GM CAP PO ×2 (10:24→16:25)
[2024-01-26] MEDS: lamoTRIgine 50 MG TABLET PO ×2 (10:24→21:11)
[2024-01-26] MEDS: BENZTROPINE MESYLATE 1 MG TABLET PO ×2 (10:24→21:11)
[2024-01-26] MEDS: FLUoxetine HCL 20 MG CAPSULE 40 MG PO (10:24)
[2024-01-26] MEDS: LOSARTAN POTASSIUM 12.5 MG TABLET PO (10:24)
[2024-01-26] MEDS: ACETAMINOPHEN 325 MG TABLET 650 MG PO (10:29)
[2024-01-26 14:00] VITALS: BP 171/89; PULSE 88; RESP 22; TEMP 36.9; O2SAT 97
[2024-01-26] MEDS: HALOPERIDOL LACTATE 5 MG/ML VIAL IV PUSH (16:25)
[2024-01-26] MEDS: HALOPERIDOL LACTATE 5 MG/ML VIAL IM (20:52)
[2024-01-26] MEDS: diphenhydrAMINE HCl INJ 50 MG/ML VIAL IM (20:53)
[2024-01-26] MEDS: LORazepam INJ (*CRX) 2 MG/ML VIAL 1 MG IM (20:53)
[2024-01-26] MEDS: TAMSULOSIN HCL 0.4 MG CAPSULE PO (21:10)
[2024-01-26] MEDS: SIMVASTATIN 20 MG TABLET 40 MG PO (21:11)
[2024-01-26] MEDS: DONEPEZIL HCL 10 MG TABLET PO (21:11)
[2024-01-26] MEDS: QUEtiapine FUMARATE XR 50 MG TAB.ER.24H 100 MG BY MOUTH (21:12)
[2024-01-26] MEDS: SENNOSIDES 8.6 MG TABLET 17.2 MG PO (21:12)
[2024-01-26] MEDS: QUEtiapine FUMARATE XR 200 MG TAB.ER.24H BY MOUTH (21:13)
[2024-01-26 21:51] VITALS: BP 145/85; PULSE 82; RESP 20; TEMP 36.7; O2SAT 94
[2024-01-26] MEDS: LORazepam INJ (*CRX) 2 MG/ML VIAL 1 MG IV PUSH (23:44)
[2024-01-26] MEDS: ALPRAZolam (*CRX) 0.5 MG TABLET PO (23:48)
[2024-01-27 06:19] LABS: Basophils Absolute Auto 0.1 K/mm3 (0.0-0.1); Basophils Percent Auto 1.1 % (0.2-1.2); Eosinophils Absolute Auto 0.2 K/mm3 (0-0.3); Eosinophils Percent Auto 2.1 % (0-4.4); Hematocrit 44.5 % (42.0-52.0); Hemoglobin 13.9 g/dL (14.0-18.0); Immature Granulocyte Absolute 0.01 K/mm3 (0.00-0.031); Immature Granulocyte Percent A 0.1 % (0-0.5); Lymphocytes Absolute Auto 2.48 K/mm3 (0.9-3.2); Lymphocytes Percent Auto 34.3 % (18.3-44.2); Mean Corpuscular HGB Conc 31.2 g/dl (32-36); Mean Corpuscular Hemoglobin 30.2 pg (26-34); Mean Corpuscular Volume 96.5 fl (80-100); Mean Platelet Volume 10.9 fl (7.4-10.4); Monocytes Absolute Auto 0.7 K/mm3 (0.1-0.6); Monocytes Percent Auto 10.2 % (2.6-8.5); Neutrophils Absolute Auto 3.8 K/mm3 (1.3-6.7); Neutrophils Percent Auto 52.2 % (45.5-73.1); Platelet Count Result 197 k/mm3 (150-375); Red Blood Count 4.61 M/mm3 (4.6-6.20); Red Cell Distribution Width 12.6 % (11.5-14.5); White Blood Count 7.2 K/mm3 (4.5-10.0)
[2024-01-27 06:30] LABS: Alanine Aminotransferase 15 U/L (6-50); Albumin Level 3.6 g/dL (3.5-5.1); Alkaline Phosphatase 65 U/L (38-126); Anion Gap 3 mmol/L (4-12); Aspartate Amino Transferase 23 U/L (17-59); Bilirubin,Total 0.8 mg/dL (0.2-1.3); Blood Urea Nitrogen 18 mg/dL (9-20); Calcium 8.8 mg/dL (8.4-10.2); Carbon Dioxide 27 mmol/L (22-30); Chloride 108 mmol/L (98-107); Estimated CRCL calculation 76 ml/min; Estimated Glomerular Filt Rate > 60; Glucose 89 mg/dL (65-110); Potassium 4.1 mmol/L (3.4-5.0); Sodium 138 mmol/L (137-145)
--- NOTE | 2024-01-27 07:37 | PM.IMPN ---
Progress Note: A&P Assessment and Plan (1) Altered mental status: Code(s): R41.82 - Altered mental status, unspecified Status: Acute Assessment and Plan: Patient remains AOx4, however throughout assessment will become confused and his stories do not make sense. Brother states that this is not his baseline. Confusion likely due to his dementia and cocurrent delirium. - Neuro checks q4 - No signs of acute infection, labs unremarkable - Imaging unremarkable (2) Subarachnoid hemorrhage: Code(s): I60.9 - Nontraumatic subarachnoid hemorrhage, unspecified Status: Acute Assessment and Plan: Patient reports frequent falls causing him to hit his head. 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 - Call made to Dr. Pina neurosurgery. No intervention needed at this time as this is a small SAH and will likely resolve on its own. Will repeat scan in the am to monitor. Per Dr. Pina even if repeat scan shows acute blood likely no need for intervention if no neurological changes. - CT head 01/24 showed No change from previous examination. Encephalomalacia in the right cerebellar area medially with slightly hyperdense areas are noted. - ASA on hold at this time. - Neuro checks q 4h. (3) Urinary tract infection: Qualifiers: Hematuria presence: with hematuria Urinary tract infection type: acute cystitis Qualified Code(s): N30.01 - Acute cystitis with hematuria Code(s): N39.0 - Urinary tract infection, site not specified Status: Acute Assessment and Plan: - Symptoms: hematuria, increased falls - UA: Cloudy appearance with 1+ protein, 3+ glucose, trace ketones, 3+ blood, positive nitrates, 1+ leukocytes, 51-100 RBC, > 100 WBC, 4+ bacteria - UC obtained on 01/22: Final results- no growth - No previous micro to be reviewed - Discontinued Rocephin - Monitor vital signs, I&Os, BUN/creatinine - Monitor serum electrolytes, Keep serum Potassium>4 and serum Magnesium>2 and CBC (4) Frequent falls: Code(s): R29.6 - Repeated falls Status: Acute Assessment and Plan: Patient reports multiple falls per day, occuring every 2.5 hours. He states that his falls are often mechanical from him tripping over his wheeled walker. He denies dizziness but states he has lost consciousness in the past. He also reports hitting his head on past falls. He is unsure if he is having seizures during those episodes. He remains on Lamictal and levels pending. - CT abdomen/pelvis: Healing fracture of the left 11th rib.Fracture L1 of indeterminate age. 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 - PT/OT, recommending SNF. Care coordination following (5) Compression fracture: Status: Acute Assessment and Plan: - See frequent falls #3 (6) Schizophrenia: Code(s): F20.9 - Schizophrenia, unspecified Status: Acute Assessment and Plan: Patient states he was diagnosed with schizophrenia in 1980. Brother confirms and states that this has been well controlled on home medications, fluphenazine injections q 2 weeks. Patient is due for an injection tomorrow. RN called [facility] to confirm dosing. - Continue fluphenazine (7) Seizure: Code(s): R56.9 - Unspecified convulsions Status: Acute Assessment and
[2024-01-27 08:00] VITALS: PULSE 82; RESP 20; O2SAT 94
--- NOTE | 2024-01-27 08:24 | PCPTNOTE ---
attempted PT treatment, per RN pt is snowed and to try this afternoon , pt is currently drowsy and in restraints, will follow
[2024-01-27] MEDS: lamoTRIgine 50 MG TABLET PO ×2 (08:27→21:05)
[2024-01-27] MEDS: LUBIPROSTONE 24 MCG CAPSULE PO ×2 (08:27→17:56)
[2024-01-27] MEDS: EMPAGLIFLOZIN 10 MG TABLET PO (08:27)
[2024-01-27] MEDS: FLUoxetine HCL 20 MG CAPSULE 40 MG PO (08:27)
[2024-01-27] MEDS: MEMANTINE 10 MG TABLET PO (08:27)
[2024-01-27] MEDS: lamoTRIgine 100 MG TABLET PO ×2 (08:27→21:05)
[2024-01-27] MEDS: LOSARTAN POTASSIUM 12.5 MG TABLET PO (08:27)
[2024-01-27] MEDS: SODIUM CHLORIDE 1 GM TABLET PO ×2 (08:27→17:57)
[2024-01-27] MEDS: OMEGA 3 POLYUNSAT FATTY ACIDS 1 GM CAP PO ×2 (08:27→17:57)
[2024-01-27] MEDS: BENZTROPINE MESYLATE 1 MG TABLET PO ×2 (08:27→21:06)
[2024-01-27 14:00] VITALS: BP 151/87; PULSE 88; RESP 20; TEMP 36.5; O2SAT 96
[2024-01-27] MEDS: PANTOPRAZOLE 40 MG TABLET PO (17:56)
[2024-01-27 20:00] VITALS: O2SAT 96
[2024-01-27 21:00] VITALS: BP 112/81; PULSE 70; RESP 14; TEMP 36.8; O2SAT 96
[2024-01-27] MEDS: QUEtiapine FUMARATE XR 50 MG TAB.ER.24H 100 MG BY MOUTH (21:05)
[2024-01-27] MEDS: SENNOSIDES 8.6 MG TABLET 17.2 MG PO (21:05)
[2024-01-27] MEDS: TAMSULOSIN HCL 0.4 MG CAPSULE PO (21:05)
[2024-01-27] MEDS: SIMVASTATIN 20 MG TABLET 40 MG PO (21:05)
[2024-01-27] MEDS: QUEtiapine FUMARATE XR 200 MG TAB.ER.24H BY MOUTH (21:05)
[2024-01-27] MEDS: ALPRAZolam (*CRX) 0.5 MG TABLET PO (21:05)
[2024-01-27] MEDS: DONEPEZIL HCL 10 MG TABLET PO (21:06)
[2024-01-28 05:06] VITALS: BP 127/81; PULSE 61; RESP 13; TEMP 36.2; O2SAT 100
[2024-01-28] MEDS: PANTOPRAZOLE 40 MG TABLET PO ×2 (05:55→16:33)
[2024-01-28 06:35] LABS: Basophils Absolute Auto 0.1 K/mm3 (0.0-0.1); Basophils Percent Auto 1.6 % (0.2-1.2); Eosinophils Absolute Auto 0.2 K/mm3 (0-0.3); Eosinophils Percent Auto 3.3 % (0-4.4); Hematocrit 44.9 % (42.0-52.0); Immature Granulocyte Absolute 0.02 K/mm3 (0.00-0.031); Immature Granulocyte Percent A 0.3 % (0-0.5); Lymphocytes Absolute Auto 2.01 K/mm3 (0.9-3.2); Lymphocytes Percent Auto 31.8 % (18.3-44.2); Mean Corpuscular HGB Conc 31.2 g/dl (32-36); Mean Corpuscular Hemoglobin 30.2 pg (26-34); Mean Corpuscular Volume 96.8 fl (80-100); Mean Platelet Volume 11.2 fl (7.4-10.4); Monocytes Absolute Auto 0.6 K/mm3 (0.1-0.6); Monocytes Percent Auto 9.8 % (2.6-8.5); Neutrophils Absolute Auto 3.4 K/mm3 (1.3-6.7); Neutrophils Percent Auto 53.2 % (45.5-73.1); Platelet Count Result 200 k/mm3 (150-375); Red Blood Count 4.64 M/mm3 (4.6-6.20); Red Cell Distribution Width 12.8 % (11.5-14.5); White Blood Count 6.3 K/mm3 (4.5-10.0)
[2024-01-28 06:52] LABS: Alanine Aminotransferase 18 U/L (6-50); Albumin Level 3.5 g/dL (3.5-5.1); Alkaline Phosphatase 67 U/L (38-126); Anion Gap 5 mmol/L (4-12); Aspartate Amino Transferase 16 U/L (17-59); Bilirubin,Total 0.8 mg/dL (0.2-1.3); Blood Urea Nitrogen 19 mg/dL (9-20); Calcium 8.6 mg/dL (8.4-10.2); Carbon Dioxide 27 mmol/L (22-30); Chloride 105 mmol/L (98-107); Estimated CRCL calculation 76 ml/min; Estimated Glomerular Filt Rate > 60; Glucose 95 mg/dL (65-110); Potassium 3.9 mmol/L (3.4-5.0); Sodium 137 mmol/L (137-145)
--- NOTE | 2024-01-28 07:53 | PM.IMPN ---
Progress Note: A&P Assessment and Plan (1) Altered mental status: Code(s): R41.82 - Altered mental status, unspecified Status: Acute Assessment and Plan: Patient remains AOx4, however throughout assessment will become confused and his stories do not make sense. Brother states that this is not his baseline. Confusion likely due to his dementia and cocurrent delirium. - Neuro checks q4 - No signs of acute infection, labs unremarkable - Imaging unremarkable (2) Subarachnoid hemorrhage: Code(s): I60.9 - Nontraumatic subarachnoid hemorrhage, unspecified Status: Acute Assessment and Plan: Patient reports frequent falls causing him to hit his head. 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 - Call made to Dr. Pina neurosurgery. No intervention needed at this time as this is a small SAH and will likely resolve on its own. Will repeat scan in the am to monitor. Per Dr. Pina even if repeat scan shows acute blood likely no need for intervention if no neurological changes. - CT head 01/24 showed No change from previous examination. Encephalomalacia in the right cerebellar area medially with slightly hyperdense areas are noted. - ASA on hold at this time. - Neuro checks q 4h. (3) Frequent falls: Code(s): R29.6 - Repeated falls Status: Acute Assessment and Plan: Patient reports multiple falls per day, occuring every 2.5 hours. He states that his falls are often mechanical from him tripping over his wheeled walker. He denies dizziness but states he has lost consciousness in the past. He also reports hitting his head on past falls. He is unsure if he is having seizures during those episodes. He remains on Lamictal and levels pending. - CT abdomen/pelvis: Healing fracture of the left 11th rib.Fracture L1 of indeterminate age. 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 - PT/OT, recommending SNF. Care coordination following (4) Urinary tract infection: Qualifiers: Hematuria presence: with hematuria Urinary tract infection type: acute cystitis Qualified Code(s): N30.01 - Acute cystitis with hematuria Code(s): N39.0 - Urinary tract infection, site not specified Status: Acute Assessment and Plan: - Symptoms: hematuria, increased falls - UA: Cloudy appearance with 1+ protein, 3+ glucose, trace ketones, 3+ blood, positive nitrates, 1+ leukocytes, 51-100 RBC, > 100 WBC, 4+ bacteria - UC obtained on 01/22: Final results- no growth - No previous micro to be reviewed - Discontinued Rocephin - Monitor vital signs, I&Os, BUN/creatinine - Monitor serum electrolytes, Keep serum Potassium>4 and serum Magnesium>2 and CBC (5) Compression fracture: Status: Acute Assessment and Plan: - See frequent falls #3 (6) Schizophrenia: Code(s): F20.9 - Schizophrenia, unspecified Status: Acute Assessment and Plan: Patient states he was diagnosed with schizophrenia in 1980. Brother confirms and states that this has been well controlled on home medications, fluphenazine injections q 2 weeks. Patient is due for an injection tomorrow. RN called [facility] to confirm dosing. - Continue fluphenazine. Brother bring injection from [place] and nurse is to administer today. (7) Seizure: Code(s): R
[2024-01-28 08:00] VITALS: O2SAT 100
[2024-01-28] MEDS: BENZTROPINE MESYLATE 1 MG TABLET PO ×2 (08:23→21:02)
[2024-01-28] MEDS: FLUoxetine HCL 20 MG CAPSULE 40 MG PO (08:24)
[2024-01-28] MEDS: EMPAGLIFLOZIN 10 MG TABLET PO (08:29)
[2024-01-28] MEDS: lamoTRIgine 50 MG TABLET PO ×2 (08:29→21:02)
[2024-01-28] MEDS: LUBIPROSTONE 24 MCG CAPSULE PO ×2 (08:29→16:33)
[2024-01-28] MEDS: lamoTRIgine 100 MG TABLET PO ×2 (08:29→21:02)
[2024-01-28] MEDS: MEMANTINE 10 MG TABLET PO (08:29)
[2024-01-28] MEDS: OMEGA 3 POLYUNSAT FATTY ACIDS 1 GM CAP PO ×2 (08:29→16:33)
[2024-01-28] MEDS: LOSARTAN POTASSIUM 12.5 MG TABLET PO (08:29)
[2024-01-28] MEDS: SODIUM CHLORIDE 1 GM TABLET PO ×2 (08:30→16:33)
[2024-01-28] MEDS: BACLOFEN 10 MG TABLET 20 MG BY MOUTH (13:30)
[2024-01-28 14:00] VITALS: BP 150/74; PULSE 74; RESP 18; TEMP 37; O2SAT 98
--- NOTE | 2024-01-28 15:13 | PHAR ---
PT'S HOME MED FLUPHENAZINE DECANOATE 25 MG/ML MULTI-DOSE VIAL VERIFIED BY PHARMACY
[2024-01-28] MEDS: SIMVASTATIN 20 MG TABLET 40 MG PO (21:01)
[2024-01-28] MEDS: DONEPEZIL HCL 10 MG TABLET PO (21:01)
[2024-01-28] MEDS: QUEtiapine FUMARATE XR 50 MG TAB.ER.24H 100 MG BY MOUTH (21:02)
[2024-01-28] MEDS: QUEtiapine FUMARATE XR 200 MG TAB.ER.24H BY MOUTH (21:02)
[2024-01-28] MEDS: TAMSULOSIN HCL 0.4 MG CAPSULE PO (21:02)
[2024-01-28] MEDS: SENNOSIDES 8.6 MG TABLET 17.2 MG PO (21:04)
[2024-01-28 21:50] VITALS: BP 147/81; PULSE 70; RESP 18; TEMP 36.7; O2SAT 99
[2024-01-29] MEDS: PANTOPRAZOLE 40 MG TABLET PO ×2 (05:17→16:23)
[2024-01-29 05:57] VITALS: BP 134/71; PULSE 98; RESP 18; TEMP 37; O2SAT 98
[2024-01-29 06:23] LABS: Basophils Absolute Auto 0.1 K/mm3 (0.0-0.1); Basophils Percent Auto 1.4 % (0.2-1.2); Eosinophils Absolute Auto 0.2 K/mm3 (0-0.3); Eosinophils Percent Auto 3.1 % (0-4.4); Hematocrit 46.2 % (42.0-52.0); Hemoglobin 14.9 g/dL (14.0-18.0); Immature Granulocyte Absolute 0.02 K/mm3 (0.00-0.031); Immature Granulocyte Percent A 0.3 % (0-0.5); Lymphocytes Absolute Auto 1.79 K/mm3 (0.9-3.2); Lymphocytes Percent Auto 27.5 % (18.3-44.2); Mean Corpuscular HGB Conc 32.3 g/dl (32-36); Mean Corpuscular Hemoglobin 30.5 pg (26-34); Mean Corpuscular Volume 94.7 fl (80-100); Mean Platelet Volume 11.1 fl (7.4-10.4); Monocytes Absolute Auto 0.6 K/mm3 (0.1-0.6); Monocytes Percent Auto 8.4 % (2.6-8.5); Neutrophils Absolute Auto 3.9 K/mm3 (1.3-6.7); Neutrophils Percent Auto 59.3 % (45.5-73.1); Platelet Count Result 191 k/mm3 (150-375); Red Blood Count 4.88 M/mm3 (4.6-6.20); Red Cell Distribution Width 12.7 % (11.5-14.5); White Blood Count 6.5 K/mm3 (4.5-10.0)
[2024-01-29 06:45] LABS: Alanine Aminotransferase 21 U/L (6-50); Albumin Level 3.6 g/dL (3.5-5.1); Alkaline Phosphatase 75 U/L (38-126); Anion Gap 4 mmol/L (4-12); Aspartate Amino Transferase 18 U/L (17-59); Bilirubin,Total 0.9 mg/dL (0.2-1.3); Blood Urea Nitrogen 16 mg/dL (9-20); Calcium 8.8 mg/dL (8.4-10.2); Carbon Dioxide 29 mmol/L (22-30); Chloride 104 mmol/L (98-107); Estimated CRCL calculation 76 ml/min; Estimated Glomerular Filt Rate > 60; Glucose 93 mg/dL (65-110); Potassium 3.8 mmol/L (3.4-5.0); Sodium 137 mmol/L (137-145)
[2024-01-29] MEDS: MEMANTINE 10 MG TABLET PO (08:29)
[2024-01-29] MEDS: BENZTROPINE MESYLATE 1 MG TABLET PO ×2 (08:29→20:14)
[2024-01-29] MEDS: lamoTRIgine 50 MG TABLET PO ×2 (08:29→20:14)
[2024-01-29] MEDS: lamoTRIgine 100 MG TABLET PO ×2 (08:29→20:14)
[2024-01-29] MEDS: EMPAGLIFLOZIN 10 MG TABLET PO (08:29)
[2024-01-29] MEDS: OMEGA 3 POLYUNSAT FATTY ACIDS 1 GM CAP PO ×2 (08:29→16:23)
[2024-01-29] MEDS: LOSARTAN POTASSIUM 12.5 MG TABLET PO (08:29)
[2024-01-29] MEDS: SODIUM CHLORIDE 1 GM TABLET PO ×2 (08:29→16:23)
[2024-01-29] MEDS: FLUoxetine HCL 20 MG CAPSULE 40 MG PO (08:29)
[2024-01-29] MEDS: LUBIPROSTONE 24 MCG CAPSULE PO ×2 (08:29→16:23)
--- NOTE | 2024-01-29 09:15 | P.PNIM_ITS ---
Progress Note: A&P Assessment and Plan (1) Altered mental status: Code(s): R41.82 - Altered mental status, unspecified Status: Acute Assessment and Plan: Patient remains AOx4, however throughout assessment will become confused and his stories do not make sense. Brother states that this is not his baseline. Confusion likely due to his dementia and cocurrent delirium. - Neuro checks q4 - No signs of acute infection, labs unremarkable - Imaging unremarkable (2) Subarachnoid hemorrhage: Code(s): I60.9 - Nontraumatic subarachnoid hemorrhage, unspecified Status: Acute Assessment and Plan: Patient reports frequent falls causing him to hit his head. 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 - Call made to Dr. Pina neurosurgery. No intervention needed at this time as this is a small SAH and will likely resolve on its own. Will repeat scan in the am to monitor. Per Dr. Pina even if repeat scan shows acute blood likely no need for intervention if no neurological changes. - CT head 01/24 showed No change from previous examination. Encephalomalacia in the right cerebellar area medially with slightly hyperdense areas are noted. - ASA on hold at this time. - Neuro checks q 4h. (3) Frequent falls: Code(s): R29.6 - Repeated falls Status: Acute Assessment and Plan: Patient reports multiple falls per day, occuring every 2.5 hours. He states that his falls are often mechanical from him tripping over his wheeled walker. He denies dizziness but states he has lost consciousness in the past. He also reports hitting his head on past falls. He is unsure if he is having seizures during those episodes. He remains on Lamictal and levels pending. - CT abdomen/pelvis: Healing fracture of the left 11th rib.Fracture L1 of indeterminate age. 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 - PT/OT, recommending SNF. Care coordination following (4) Urinary tract infection: Qualifiers: Hematuria presence: with hematuria Urinary tract infection type: acute cystitis Qualified Code(s): N30.01 - Acute cystitis with hematuria Code(s): N39.0 - Urinary tract infection, site not specified Status: Acute Assessment and Plan: - Symptoms: hematuria, increased falls - UA: Cloudy appearance with 1+ protein, 3+ glucose, trace ketones, 3+ blood, positive nitrates, 1+ leukocytes, 51-100 RBC, > 100 WBC, 4+ bacteria - UC obtained on 01/22: Final results- no growth - No previous micro to be reviewed - Discontinued Rocephin - Monitor vital signs, I&Os, BUN/creatinine - Monitor serum electrolytes, Keep serum Potassium>4 and serum Magnesium>2 and CBC - No notable UTI (5) Compression fracture: Status: Acute Assessment and Plan: - See frequent falls #3 (6) Schizophrenia: Code(s): F20.9 - Schizophrenia, unspecified Status: Acute Assessment and Plan: Patient states he was diagnosed with pa
[2024-01-29 13:50] VITALS: BP 117/54; PULSE 97; RESP 20; TEMP 36.2; O2SAT 83
[2024-01-29] MEDS: BACLOFEN 10 MG TABLET 20 MG BY MOUTH (20:13)
[2024-01-29] MEDS: DONEPEZIL HCL 10 MG TABLET PO (20:14)
[2024-01-29] MEDS: QUEtiapine FUMARATE XR 50 MG TAB.ER.24H 100 MG BY MOUTH (20:14)
[2024-01-29] MEDS: QUEtiapine FUMARATE XR 200 MG TAB.ER.24H BY MOUTH (20:14)
[2024-01-29] MEDS: SENNOSIDES 8.6 MG TABLET 17.2 MG PO (20:14)
[2024-01-29] MEDS: SIMVASTATIN 20 MG TABLET 40 MG PO (20:15)
[2024-01-29] MEDS: TAMSULOSIN HCL 0.4 MG CAPSULE PO (20:15)
[2024-01-29 21:18] VITALS: BP 159/83; PULSE 66; RESP 16; TEMP 36.6; O2SAT 96
[2024-01-30 06:00] VITALS: BP 133/69; PULSE 63; RESP 16; TEMP 36.3; O2SAT 99
[2024-01-30] MEDS: PANTOPRAZOLE 40 MG TABLET PO (06:17)
--- NOTE | 2024-01-30 07:44 | PM.DS ---
DS: Admitting Diagnosis Discharge Date 01/30/2024 1200 Admitting Diagnosis hematuria and falls DS: Discharge Diagnosis Discharge Diagnosis (1) Altered mental status: Code(s): R41.82 - Altered mental status, unspecified Status: Acute Assessment and Plan: Patient remains AOx4, however throughout assessment will become confused and his stories do not make sense. Brother states that this is not his baseline. Confusion likely due to his dementia and cocurrent delirium. - Neuro checks q4 - No signs of acute infection, labs unremarkable - Imaging unremarkable (2) Subarachnoid hemorrhage: Code(s): I60.9 - Nontraumatic subarachnoid hemorrhage, unspecified Status: Acute Assessment and Plan: Patient reports frequent falls causing him to hit his head. 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 - Call made to Dr. Pina neurosurgery. No intervention needed at this time as this is a small SAH and will likely resolve on its own. Will repeat scan in the am to monitor. Per Dr. Pina even if repeat scan shows acute blood likely no need for intervention if no neurological changes. - CT head 01/24 showed No change from previous examination. Encephalomalacia in the right cerebellar area medially with slightly hyperdense areas are noted. - ASA on hold at this time. - Neuro checks q 4h. (3) Frequent falls: Code(s): R29.6 - Repeated falls Status: Acute Assessment and Plan: Patient reports multiple falls per day, occuring every 2.5 hours. He states that his falls are often mechanical from him tripping over his wheeled walker. He denies dizziness but states he has lost consciousness in the past. He also reports hitting his head on past falls. He is unsure if he is having seizures during those episodes. He remains on Lamictal and levels pending. - CT abdomen/pelvis: Healing fracture of the left 11th rib.Fracture L1 of indeterminate age. 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 - PT/OT, recommending SNF. Care coordination following (4) Urinary tract infection: Qualifiers: Hematuria presence: with hematuria Urinary tract infection type: acute cystitis Qualified Code(s): N30.01 - Acute cystitis with hematuria Code(s): N39.0 - Urinary tract infection, site not specified Status: Acute Assessment and Plan: - Symptoms: hematuria, increased falls - UA: Cloudy appearance with 1+ protein, 3+ glucose, trace ketones, 3+ blood, positive nitrates, 1+ leukocytes, 51-100 RBC, > 100 WBC, 4+ bacteria - UC obtained on 01/22: Final results- no growth - No previous micro to be reviewed - Discontinued Rocephin - Monitor vital signs, I&Os, BUN/creatinine - Monitor serum electrolytes, Keep serum Potassium>4 and serum Magnesium>2 and CBC - No notable UTI (5) Compression fracture: Status: Acute Assessment and Plan: - See frequent falls #3 (6) Schizophrenia: Code(s): F20.9 - Schizophrenia, unspecified Status: Acute Assessment and Plan: Patient states he was diagnosed with schizophrenia in 1980. Brother confirms and states that this has been well controlled on home medications, fluphenazine injections q 2 weeks. Patient is due for an injection tomorrow. RN called [facility] to confirm dosing.
[2024-01-30] MEDS: FLUoxetine HCL 20 MG CAPSULE 40 MG PO (08:35)
[2024-01-30] MEDS: LUBIPROSTONE 24 MCG CAPSULE PO (08:35)
[2024-01-30] MEDS: OMEGA 3 POLYUNSAT FATTY ACIDS 1 GM CAP PO (08:35)
[2024-01-30] MEDS: BENZTROPINE MESYLATE 1 MG TABLET PO (08:35)
[2024-01-30] MEDS: EMPAGLIFLOZIN 10 MG TABLET PO (08:35)
[2024-01-30] MEDS: lamoTRIgine 50 MG TABLET PO (08:35)
[2024-01-30] MEDS: SODIUM CHLORIDE 1 GM TABLET PO (08:36)
[2024-01-30] MEDS: LOSARTAN POTASSIUM 12.5 MG TABLET PO (08:36)
[2024-01-30] MEDS: lamoTRIgine 100 MG TABLET PO (08:36)
[2024-01-30] MEDS: MEMANTINE 10 MG TABLET PO (08:36)
[2024-01-30 13:23] LABS: SARS-CoV-2 RNA PCR Negative (Negative)
[2024-01-31 16:04] LABS: Lamotrigine Lamictal 5.1 mcg/mL (2.5-15.0)
== END 2024-01-30 14:18 | DRG 884 ==
LOC: ANHED 16:51 → ANH3MEDSUR 20:19
PROVIDERS: Family Medicine; Student in an Organized Health Care Education/Training Program; Admitting Provider Internal Medicine; Emergency Provider Physician Assistant; PCP Internal Medicine; Visit Provider Nurse Practitioner
DX: F03.92 Unspecified dementia, unspecified severity, with psychotic disturbance (principal); S06.6X0A Traumatic subarachnoid hemorrhage without loss of consciousness, initial encounter; G93.41 Metabolic encephalopathy; F05 Delirium due to known physiological condition; D64.9 Anemia, unspecified; R26.9 Unspecified abnormalities of gait and mobility; E78.5 Hyperlipidemia, unspecified; Z20.822 Contact with and (suspected) exposure to COVID-19; W18.2XXA Fall in (into) shower or empty bathtub, initial encounter; R29.6 Repeated falls; R56.9 Unspecified convulsions; R31.9 Hematuria, unspecified; F41.9 Anxiety disorder, unspecified; F32.A Depression, unspecified; K21.9 Gastro-esophageal reflux disease without esophagitis; I10 Essential (primary) hypertension; I25.10 Atherosclerotic heart disease of native coronary artery without angina pectoris
CPT/HCPCS: 36415; 70450; 74176; 80053; 80175; 81001; 82948; 85025; 87086; 87088; 87635; 96365; 97110; 97116; 97161; 97166; 97530; 97535; 99285; A9270; G0378; J0696; J1200; J1630; J2060

== ENCOUNTER 2024-03-01 21:40 | Emergency (ER) | payer MEDICARE, MEDICAID, SELFPAY ==
[2024-03-01] VITALS (11 sets, daily range): BP systolic 122–140; BP diastolic 80–82; PULSE 64–74; RESP 15–18; TEMP 36.7; O2SAT 96–99
--- NOTE | ~2024-03-01 | CT_ITS ---
CT cervical spine wo con Ordering provider: Lala Jackson PA-C History: . neck pain, fall . Comparison: None. Technique: CT of the cervical spine was performed without contrast. Sagittal and coronal reformatted images were also obtained and reviewed. Automated exposure control and iterative reconstruction lei hnique were employed. The dose-length product was 503.52 mGy-cm. FINDINGS: VERTEBRAE: No subluxation or acute fracture. The occipital condyles are intact. Slight loss of volum e of C6 most likely chronic. Degenerative changes of the spine. DISC SPACES: Degenerative disc disease at the level of C3-C4 and C6-C7. Multilevel uncovertebral join t osteoarthritic changes. Bilateral narrowing of the foramina at the level of C3-C4. Bilateral narrow ing of the foramina at the level of C4-C5 bilateral narrowing of the foramina at the level of C6-C7. PARASPINOUS SOFT TISSUES: Bilateral carotid calcifications. Possible nodule in the right lobe of the thyroid. Ultrasound evaluation advised. IMPRESSION: No acute osseous abnormality cervical spine. Reviewed, dictated and finalized at location A.
--- NOTE | ~2024-03-01 | XR_ITS ---
XR hip RT 2V w AP pelvis Ordering provider: Lala Jackson History: . right hip pain, fall . Comparison: None. FINDINGS: BONES: No acute fracture or dislocation. HIP JOINT SPACES: Bilateral hip osteoarthritic changes. SACROILIAC JOINT SPACES/LUMBAR SPINE: The sacroiliac joint spaces are normal. Mild degenerative rowe es of the visualized lower lumbar spine. PUBIC SYMPHYSIS: Normal. SOFT TISSUES: Normal. IMPRESSION: No acute osseous abnormality pelvis and right hip. Reviewed, dictated and finalized at location A.
--- NOTE | ~2024-03-01 | XR_ITS ---
EXAMINATION: XR chest 2V DATE: 03/01/2024 23:06 INDICATION: Fall with neck and low back pain TECHNIQUE: frontal and lateral views of the chest were obtained. COMPARISON: None FINDINGS: Eventration of the anterior right hemidiaphragm. No airspace opacities, pulmonary edema, pleural effu jennifer or pneumothorax. The cardiomediastinal silhouette is normal. Left pectoral implantable cardiac m onitor. Mild thoracic dextrocurvature with mild spondylosis. IMPRESSION: 1. No acute cardiopulmonary disease. Reviewed, dictated and finalized at location A.
--- NOTE | ~2024-03-01 | CT_ITS ---
CT lumbar spine wo con Ordering provider: Lala Jackson PA-C History: 68 years Male with . low back pain, fall . Comparison: None. Technique: CT lumbar spine without contrast. Automated exposure control and iterative reconstruction technique were employed. The dose-length product was 503.52 mGy-cm. FINDINGS: VERTEBRAE: Old fracture of the superior endplate of L1 with sclerotic changes. Schmorl's node is seen in the area. Normal height and alignment. No subluxation or visible acute fracture. Degenerative samm nges of the spine. Facet joint disease at the level of L3-L4, L4-L5 and L5-S1 bilaterally. DISC SPACES: Slight narrowing of the level of L4-L5. Evaluation of the neural foramina and spinal can al are limited without intrathecal contrast. T12-L1: No stenosis. L1-L2: No stenosis. L2-L3: No stenosis. Mild diffuse disc bulge. L3-L4: No stenosis. Diffuse disc bulge with bilateral narrowing of the foramina and the root compress ion. L4-L5: Diffuse disc bulge with bilateral narrowing of the foramina and the root compression. L5-S1: No stenosis. Diffuse disc bulge. PARASPINOUS SOFT TISSUES: Mild atheromatous disease of the abdominal aorta. Right renal cysts. Bilateral sacroiliacs. IMPRESSION: No acute osseous abnormality. Reviewed, dictated and finalized at location A.
--- NOTE | ~2024-03-01 | CT_ITS ---
CT brain wo con Ordering provider: Lala Jackson PA-C History: 68 years Male with . head injury . Comparison: None. Technique: CT of the head without contrast. Radiation reduction technique utilized. DLP is 681mGy-cm. FINDINGS: BRAIN PARENCHYMA AND CSF SPACES: Mild leukoaraiosis and diffuse cortical atrophy. Mild atheromatous d isease. No midline shift, mass effect or hemorrhage. The brain parenchyma and CSF spaces are otherwi se normal. VISUALIZED PARANASAL SINUSES: Well aerated. MASTOIDS: Effusion in the right mastoid air cells. BONES: The bones appear intact. SOFT TISSUES: Visualized nasopharynx is normal. Superficial soft tissues are normal. IMPRESSION: No acute intracranial findings. Reviewed, dictated and finalized at location A.
--- NOTE | 2024-03-01 22:31 | ED.FALL ---
HPI - Fall General Chief Complaint: Fall Stated Complaint: HEAD INJURY & HIP PAIN S/P FALL OUT OF W/C Time Seen by Provider: 03/01/24 22:00 Source: patient and EMS Mode of arrival: EMS Limitations: dementia History of Present Illness HPI Narrative: This is a 68-year-old male that presents to the emergency department after a fall out of wheelchair. Reports he was reaching for to grab something and fell. He did hit his head. He did not lose consciousness. Reports he has had right hip pain since. Also reports low back pain. Denies vomiting, numbness or weakness. Related Data Home Medications Medication Instructions Recorded Confirmed benztropine 1 mg tablet 1 mg PO BID 01/26/21 01/23/24 lamotrigine 100 mg tablet 150 mg PO BID 01/26/21 01/23/24 aspirin 81 mg tablet,delayed 81 mg PO DAILY 01/23/24 01/23/24 release baclofen 20 mg tablet 20 mg BID PRN Pain 01/23/24 01/23/24 diclofenac sodium 75 mg 75 mg PO BID PRN hip pain 01/23/24 01/23/24 tablet,delayed release donepezil 10 mg tablet 10 mg PO HS 01/23/24 01/23/24 empagliflozin 10 mg tablet 10 mg PO DAILY 01/23/24 01/23/24 (Jardiance) ergocalciferol (vitamin D2) 1,250 50,000 unit PO WEEKLY 01/23/24 01/23/24 mcg (50,000 unit) capsule (Vitamin D2) fluoxetine 40 mg capsule 40 mg PO QAM 01/23/24 01/23/24 icosapent ethyl 1 gram capsule 1 g PO BIDWMEAL 01/23/24 01/23/24 (Vascepa) lubiprostone 24 mcg capsule 24 mcg PO BIDWMEAL 01/23/24 01/23/24 memantine 10 mg tablet 10 mg PO DAILY 01/23/24 01/23/24 omeprazole 20 mg capsule,delayed 20 mg PO BIDAC 01/23/24 01/23/24 release quetiapine 300 mg tablet,extended 300 mg PO HS 01/23/24 01/23/24 release 24 hr senna 2 tab-cap PO HS 01/23/24 01/23/24 simvastatin 40 mg tablet 40 mg PO HS 01/23/24 01/23/24 sodium chloride 1 g PO BID 01/23/24 01/23/24 tamsulosin 0.4 mg capsule 0.4 mg PO HS 01/23/24 01/23/24 fluphenazine decanoate 25 mg/mL 50 mg IM DIRECTED 01/28/24 01/28/24 injection solution Allergies Allergy/AdvReac Type Severity Reaction Status Date / Time No Known Allergies Allergy Verified 03/01/24 21:50 Review of Systems Review of Systems: CONSTITUTIONAL: Denies fever GASTROINTESTINAL: Denies vomiting MUSCULOSKELETAL: Reports back pain, joint pain, and myalgia. NEUROLOGIC: Denies numbness, or weakness. All systems reviewed & are unremarkable except as noted in HPI and below PMFSH Past Medical History Medical History (Updated 03/02/24 @ 01:37 by Lala Jackson PA-C) Anxiety and depression Coronary artery disease GERD (gastroesophageal reflux disease) History of hyperlipidemia Hyperlipidemia Hypertension Seizure Family History Family History (Updated 01/24/24 @ 04:16 by Maile May) Sibling Acute myocardial infarction Sibling Acute myocardial infarction Social History Social History (Updated 01/24/24 @ 04:16 by Maile May) Smoking status: Never smoker Alcohol intake: never Substance use: never Substance use type: does not use Do You Feel Safe in your Home?: Yes Lack of Transportation: No Lack of Food: Never True Current Housing: I Have Housing Concerned About Future Housing: No Difficulty Paying Gas/Electric Bills: No Difficulty Paying for Meds: No Currently Unemployed: No Education: Don't Know Difficulty w/ Childcare or Family Care: No Living arrangements: with family Gender identity (if verbalized by the patient): Male Spiritual care concerns: No Agree to blood products: Yes Exam Narrative: GENERAL: Well-appearing, well-nourished, and in no acute distress. HEAD: Normocephalic, atraumatic. EYES: PERRLA and EOMI. ENT: Nares clear, no rhinorrhea or epistaxis. Mucous membranes moist. Oropharynx without tonsillar hypertrophy exudate or other lesions. Bilateral TMs pearly curtis non-bulging NECK: Supple. No adenopathy or masses. Tender to palpation of midline cervical spine CHEST: Clear to auscultation. No respiratory distress. N
[2024-03-02] VITALS (15 sets, daily range): BP systolic 122–148; BP diastolic 79–93; PULSE 64–69; RESP 16–21; O2SAT 95–98
--- NOTE | 2024-03-02 00:30 | PC.NURSE ---
Patient brief changed. Patient also used urinal with assistance. Patient had 100ml urine output.
--- NOTE | 2024-03-02 01:53 | PC.NURSE ---
Report called to RAMA Wagner at [facility] at 0157. Patient awaiting EMS to take him back home.
--- NOTE | 2024-03-02 02:42 | PC.NURSE ---
EMS here to transport patient back to [facility]. Patient transferred with h is chart and belongings.
== END 2024-03-02 02:50 ==
PROVIDERS: Emergency Provider Physician Assistant; PCP Internal Medicine
DX: S09.90XA Unspecified injury of head, initial encounter (principal); M25.551 Pain in right hip; I25.10 Atherosclerotic heart disease of native coronary artery without angina pectoris; E78.5 Hyperlipidemia, unspecified; I10 Essential (primary) hypertension; W05.0XXA Fall from non-moving wheelchair, initial encounter
CPT/HCPCS: 70450; 71046; 72125; 72131; 73502; 99284

== ENCOUNTER 2024-03-31 13:27 | Emergency (ER) | payer MEDICARE, MEDICAID, SELFPAY ==
--- NOTE | ~2024-03-31 | CT_ITS ---
EXAMINATION: CT cervical spine wo con DATE: 03/31/2024 13:56 INDICATION: Head injury. TECHNIQUE: Computed tomography (CT) of the cervical spine was performed without intravenous contrast. Automated exposure control and iterative reconstruction technique were employed. The dose-length pro duct was 681.00 mGy-cm. COMPARISON: CT cervical spine 03/01/2024 FINDINGS: There is a right mastoid effusion. There is kyphosis of lower cervical spine. Vertebral bod y heights are normal. There is moderately decreased disc height at C3-C4 and severely decreased disc height at C6-C7. The following disc levels are specifically discussed: C2-C3: There is mild bilateral uncovertebral joint osteoarthritis. There is mild bilateral facet join t osteoarthritis. There is no neural foraminal stenosis. There is mild central canal stenosis. C3-C4: There is severe bilateral uncovertebral joint osteoarthritis. There is mild bilateral facet diana int osteoarthritis. There is moderate right and mild left neural foraminal stenosis. There is mild ce ntral canal stenosis. C4-C5: There is mild bilateral uncovertebral joint osteoarthritis. There is moderate right and mild l eft facet joint osteoarthritis. There is mild bilateral neural foraminal stenosis. There is mild cent ral canal stenosis. C5-C6: There is no uncovertebral joint osteoarthritis. There is no facet joint osteoarthritis. There is no neural foraminal stenosis. There is mild central canal stenosis. C6-C7: There is severe bilateral uncovertebral joint osteoarthritis. There is moderate right and mild left facet joint osteoarthritis. There is moderate bilateral neural foraminal stenosis. There is mod erate central canal stenosis. C7-T1: There is no uncovertebral joint osteoarthritis. There is mild bilateral facet joint osteoarthr itis. There is mild left neural foraminal stenosis. There is mild central canal stenosis. IMPRESSION: 1. No fracture. 2. Severe cervical spondylosis. Reviewed, dictated and finalized at location A.
--- NOTE | ~2024-03-31 | CT_ITS ---
CT brain wo con Ordering provider: Ashlyn Johnson History: 68 years Male with . fall, hit head no LOC no blood thinners . Comparison: March 01, 2024 Technique: CT of the head without contrast. Radiation reduction technique utilized. The dose-length product was 681 mGy FINDINGS: BRAIN PARENCHYMA AND CSF SPACES: Mild leukoaraiosis and diffuse cortical atrophy. Mild atheromatous d isease. No midline shift, mass effect or hemorrhage. The brain parenchyma and CSF spaces are otherwi se normal. VISUALIZED PARANASAL SINUSES: Well aerated. MASTOIDS: Effusion in the right mastoid air cells. BONES: The bones appear intact. SOFT TISSUES: Visualized nasopharynx is normal. Superficial soft tissues are normal. IMPRESSION: No acute intracranial findings. Reviewed, dictated and finalized at location A.
[2024-03-31 13:27] VITALS: BP 123/75; PULSE 66; RESP 16; TEMP 36.6; O2SAT 97
--- NOTE | 2024-03-31 14:19 | ED.FALL ---
HPI - Fall General Chief Complaint: Fall Stated Complaint: fall Time Seen by Provider: 03/31/24 13:36 History of Present Illness HPI Narrative: 68-year-old male history of schizophrenia, diabetes, BPH, high cholesterol presents to the emergency room for evaluation of a head injury. Patient states that he fell last night. Denies any LOC or altered mental status. States he was talking to his brother on the phone earlier today when he told his brother that he fell and hit his head. Family encouraged patient to come here for further evaluation. Patient denies vision or hearing changes. Denies any neck pain. Related Data Home Medications Medication Instructions Recorded Confirmed benztropine 1 mg tablet 1 mg PO BID 01/26/21 01/23/24 lamotrigine 100 mg tablet 150 mg PO BID 01/26/21 01/23/24 aspirin 81 mg tablet,delayed 81 mg PO DAILY 01/23/24 01/23/24 release baclofen 20 mg tablet 20 mg BID PRN Pain 01/23/24 01/23/24 diclofenac sodium 75 mg 75 mg PO BID PRN hip pain 01/23/24 01/23/24 tablet,delayed release donepezil 10 mg tablet 10 mg PO HS 01/23/24 01/23/24 empagliflozin 10 mg tablet 10 mg PO DAILY 01/23/24 01/23/24 (Jardiance) ergocalciferol (vitamin D2) 1,250 50,000 unit PO WEEKLY 01/23/24 01/23/24 mcg (50,000 unit) capsule (Vitamin D2) fluoxetine 40 mg capsule 40 mg PO QAM 01/23/24 01/23/24 icosapent ethyl 1 gram capsule 1 g PO BIDWMEAL 01/23/24 01/23/24 (Vascepa) lubiprostone 24 mcg capsule 24 mcg PO BIDWMEAL 01/23/24 01/23/24 memantine 10 mg tablet 10 mg PO DAILY 01/23/24 01/23/24 omeprazole 20 mg capsule,delayed 20 mg PO BIDAC 01/23/24 01/23/24 release quetiapine 300 mg tablet,extended 300 mg PO HS 01/23/24 01/23/24 release 24 hr senna 2 tab-cap PO HS 01/23/24 01/23/24 simvastatin 40 mg tablet 40 mg PO HS 01/23/24 01/23/24 sodium chloride 1 g PO BID 01/23/24 01/23/24 tamsulosin 0.4 mg capsule 0.4 mg PO HS 01/23/24 01/23/24 fluphenazine decanoate 25 mg/mL 50 mg IM DIRECTED 01/28/24 01/28/24 injection solution Allergies Allergy/AdvReac Type Severity Reaction Status Date / Time No Known Allergies Allergy Verified 03/01/24 21:50 Review of Systems Review of Systems: ROS unremarkable except for noted in HPI [facility] Past Medical History Medical History Anxiety and depression Coronary artery disease GERD (gastroesophageal reflux disease) History of hyperlipidemia Hyperlipidemia Hypertension Seizure Family History Family History Sibling Acute myocardial infarction Sibling Acute myocardial infarction Social History Social History Smoking status: Never smoker Alcohol intake: never Substance use: never Substance use type: does not use Do You Feel Safe in your Home?: Yes Lack of Transportation: No Lack of Food: Never True Current Housing: I Have Housing Concerned About Future Housing: No Difficulty Paying Gas/Electric Bills: No Difficulty Paying for Meds: No Currently Unemployed: No Education: Don't Know Difficulty w/ Childcare or Family Care: No Living arrangements: with family Gender identity (if verbalized by the patient): Male Spiritual care concerns: No Agree to blood products: Yes Exam Narrative: GENERAL: Well-appearing, well-nourished, no physical limitations, and in no acute distress. HEAD: Normocephalic, atraumatic. EYES: Conjunctivae normal, PERRLA and EOMI. ENT: External nose normal, Nares clear, no rhinorrhea or epistaxis. Mucous membranes moist. Oropharynx without tonsillar hypertrophy exudate or other lesions. External ears normal, bilateral TMs normal bilaterally NECK: Supple. No meningeal signs. No adenopathy or masses. No carotid bruits or JVD CHEST: Clear to auscultation. No respiratory distress. No wheezes rales or rhonchi. No tenderness. HEART: Re
[2024-03-31 14:37] LABS: Basophils Absolute Auto 0.1 K/mm3 (0.0-0.1); Basophils Percent Auto 0.9 % (0.2-1.2); Eosinophils Absolute Auto 0.1 K/mm3 (0-0.3); Hematocrit 40.9 % (42.0-52.0); Hemoglobin 13.6 g/dL (14.0-18.0); Immature Granulocyte Absolute 0.01 K/mm3 (0.00-0.031); Immature Granulocyte Percent A 0.1 % (0-0.5); Lymphocytes Absolute Auto 1.36 K/mm3 (0.9-3.2); Lymphocytes Percent Auto 16.9 % (18.3-44.2); Mean Corpuscular HGB Conc 33.3 g/dl (32-36); Mean Corpuscular Hemoglobin 30.8 pg (26-34); Mean Corpuscular Volume 92.5 fl (80-100); Mean Platelet Volume 10.5 fl (7.4-10.4); Monocytes Absolute Auto 0.5 K/mm3 (0.1-0.6); Monocytes Percent Auto 6.5 % (2.6-8.5); Neutrophils Percent Auto 74.6 % (45.5-73.1); Platelet Count Result 227 k/mm3 (150-375); Red Blood Count 4.42 M/mm3 (4.6-6.20); Red Cell Distribution Width 13.1 % (11.5-14.5)
[2024-03-31 14:49] LABS: Alanine Aminotransferase 17 U/L (6-50); Albumin Level 3.8 g/dL (3.5-5.1); Alkaline Phosphatase 58 U/L (38-126); Anion Gap 8 mmol/L (4-12); Aspartate Amino Transferase 18 U/L (17-59); Bilirubin,Total 0.5 mg/dL (0.2-1.3); Blood Urea Nitrogen 14 mg/dL (9-20); Calcium 8.9 mg/dL (8.4-10.2); Carbon Dioxide 30 mmol/L (22-30); Chloride 96 mmol/L (98-107); Estimated Glomerular Filt Rate > 60; Glucose 104 mg/dL (65-110); Potassium 3.9 mmol/L (3.4-5.0); Sodium 134 mmol/L (137-145)
[2024-03-31 15:11] LABS: Add Urine Microscopic? YES; Appearance Urine Cloudy (Clear); Bacteria Urine 4+ /hpf; Bilirubin Urine Negative (Negative); Blood Urine Trace (Negative); Color Urine Yellow (Yellow); Glucose Urine UA Negative (Negative); Ketones Urine Negative (Negative); Leukocyte Esterase Ur 3+ LEU/UL (Negative); Nitrate Urine Positive (Negative); Non Pathogenic Casts 0-2; Protein Urine Negative (Negative); RBC Urine 0-2 /hpf (0-2); Specific Grav Ur 1.008 (1.001-1.035); Squamous Epithelial Cell Urine None Seen /hpf (Few); WBC Urine >100 /hpf (0-3)
[2024-03-31 16:00] VITALS: BP 114/68; PULSE 84; RESP 16; O2SAT 98
== END 2024-03-31 19:10 | disposition home or self-care (01) ==
PROVIDERS: Emergency Provider Nurse Practitioner Family; PCP Internal Medicine
DX: S09.90XA Unspecified injury of head, initial encounter (principal); N39.0 Urinary tract infection, site not specified; I25.10 Atherosclerotic heart disease of native coronary artery without angina pectoris; E11.9 Type 2 diabetes mellitus without complications; E78.00 Pure hypercholesterolemia, unspecified; N40.0 Benign prostatic hyperplasia without lower urinary tract symptoms; K21.9 Gastro-esophageal reflux disease without esophagitis; F20.9 Schizophrenia, unspecified; F41.9 Anxiety disorder, unspecified; F32.A Depression, unspecified; Z79.82 Long term (current) use of aspirin; Z79.899 Other long term (current) drug therapy; Z79.84 Long term (current) use of oral hypoglycemic drugs; W19.XXXA Unspecified fall, initial encounter
CPT/HCPCS: 36415; 70450; 72125; 80053; 81001; 85025; 87077; 87086; 87088; 87181; 99284

== ENCOUNTER 2024-12-31 13:25 | Inpatient (IN) | payer OTHER, SELFPAY ==
--- NOTE | ~2024-12-31 | XR_ITS ---
XR chest 1V portable 01/08/2025 14:37 Indication: Cough Procedure: AP portable chest Comparison: 12/31/2024 Findings: Heart size normal. No focal air space disease, pulmonary edema, pleural effusion or suspect ed pneumothorax. Lingular infiltrate may represent atelectasis or pneumonia. Impression: 1: Lingular infiltrate, most likely atelectasis/scarring. Reviewed, dictated and finalized at location A. Impression: 1: Lingular infiltrate, most likely atelectasis/scarring.
--- NOTE | ~2024-12-31 | MR_ITS ---
EXAMINATION: MR cervical spine wo con DATE: 01/12/2025 08:41 INDICATION: Cervical radiculopathy TECHNIQUE: Magnetic resonance imaging (MRI) of the cervical spine was performed without intravenous c ontrast. Sequences included sagittal T2-weighted FSE, sagittal T2-weighted FS FSE, sagittal T1-weight ed FSE, axial MERGE and axial T2-weighted FSE. COMPARISON: CT dated 03/31/2024 FINDINGS: Evaluation mildly limited by motion blurring or small amount of motion artifact on multiple sequences . Unchanged mild kyphosis at the lower cervical spine. Vertebral body heights are normal. Moderate d isc height loss at C3-C4, severe disc height loss at C6-C7 and mild disc height loss at remaining cer vical levels. Annular fissure at C6-C7. No are likely artifactual regions of increased cord signal wi th varying locations on a few sequences with no consistent cord signal abnormality identified. Cervic al soft tissues are unremarkable. The following disc levels are specifically discussed: C2-C3: Disc is mildly bulging. There is mild bilateral uncovertebral joint osteoarthritis. There is m ild bilateral facet joint osteoarthritis. There is no neural foraminal stenosis. There is mild centra l canal stenosis. C3-C4: Disc is bulging. There is severe bilateral uncovertebral joint osteoarthritis. There is mild l eft and moderate right facet joint osteoarthritis. There is mild to moderate left and moderate right neural foraminal stenosis. There is mild central canal stenosis. C4-C5: Disc is bulging. There is mild bilateral uncovertebral joint osteoarthritis. There is mild lef t and moderate right facet joint osteoarthritis. There is mild left and mild to moderate right neural foraminal stenosis. There is mild central canal stenosis. C5-C6: Disc is bulging. There is mild bilateral uncovertebral joint osteoarthritis. There is mild grayson ateral facet joint osteoarthritis. There is mild bilateral neural foraminal stenosis. There is mild c entral canal stenosis. C6-C7: Disc is bulging with annular fissure. There is some heterotopic ossification along the posteri or longitudinal ligament. There is severe bilateral uncovertebral joint osteoarthritis. There is mode rate bilateral facet joint osteoarthritis. There is moderate bilateral neural foraminal stenosis. The re is moderate central canal stenosis with indention of the ventral surface of the cord. C7-T1: Disc is bulging. There is no uncovertebral joint osteoarthritis. There is mild bilateral facet joint osteoarthritis. There is mild left neural foraminal stenosis. There is mild central canal sten osis. IMPRESSION: 1. No significant change in severe cervical spondylosis. Reviewed, dictated and finalized at location A.
--- NOTE | ~2024-12-31 | MR_ITS ---
MRI of the lumbar spine Clinical History: Lumbosacral radiculopathy Technique: Axial T2-weighted images, and sagittal T1-weighted, T2-weighted, and and T2 fat-sat images were acquired. Findings: No acute fracture or subluxation of lumbar spine seen. Mild chronic compression deformity o f L1 present. No suspicious bone marrow signal abnormality seen. At L1-L2, there is no disc bulge or herniation. No spinal canal stenosis or neural foraminal narrowin g. L2-L3, there is no disc bulge or herniation. There is moderate facet arthropathy. No central canal st enosis. There is minimal bilateral neural foraminal narrowing. At L3-L4, there is diffuse disc bulge and severe facet arthropathy. There is severe spinal canal sten osis/thecal sac compression. There is severe bilateral neural foraminal compromise. At L4-L5, there is diffuse disc bulge with severe facet arthropathy. There is severe spinal canal judy nosis/thecal sac compression. There is severe bilateral neural foraminal narrowing. At L5-S1, there is minimal disc bulge with moderate to advanced facet arthropathy. No central canal s tenosis. There is moderate to advanced right neural foraminal narrowing, and moderate left neural for aminal narrowing. Paravertebral soft tissues are unremarkable. Impression: Severe degenerative spondylosis at L3-L4 and L4-L5, as detailed above. Moderate to advanced degenerative spondylosis at L5-S1, as detailed above. Mild chronic compression deformity of L1. Reviewed, dictated and finalized at [facility]. Impression: Severe degenerative spondylosis at L3-L4 and L4-L5, as detailed above. Moderate to advanced degenerative spondylosis at L5-S1, as detailed above. Mild chronic compression deformity of L1.
--- NOTE | ~2024-12-31 | CT_ITS ---
EXAMINATION: CT diagnostic chest wo con DATE: 01/09/2025 22:27 INDICATION: Cough TECHNIQUE: Computed tomography (CT) of the chest was performed without intravenous contrast. Addition al 3D reconstructions utilizing coronal maximum intensity projection (MIP) were performed. Automated exposure control and iterative reconstruction technique were employed. The dose-length product was 29 2.79 mGy-cm. COMPARISON: None FINDINGS: Mild discoid atelectasis in the bilateral lower lobes. There are multiple tiny nodules in the basilar left lower lobe with tree-in-bud pattern consistent with endobronchial spread of disease and age-ind eterminate pneumonia. Small calcified left lower lobe nodule along with calcified left hilar lymph no elodia and a few scattered hepatic and splenic calcifications, all consistent with old granulomatous dis ease. There are a couple individual larger 4 mm pulmonary nodules in the bilateral lower lobes which are unchanged since 01/23/2024 most consistent with additional noncalcified benign granuloma.. There a re some mild bronchial wall thickening and a few small subsegmental mucous impacted bronchi in the bi lateral lower lobes. No pulmonary edema or pleural effusion. Heart size is normal. Atherosclerotic co ronary artery calcification is. Minimal pericardial effusion. Thoracic aorta is normal in caliber. No pathologically enlarged thoracic lymphadenopathy. Mild thoracic dextrocurvature with mild to moderat e thoracic spondylosis. Chronic L1 compression fracture with one third anterior vertebral body height loss. IMPRESSION: 1. Tree-in-bud opacities in the basilar left lower lobe consistent with endobronchial spread of disea se and age-indeterminate pneumonia. There is however some associated bronchial wall thickening and so me mucous plugging in the bilateral lower lobes suggesting this is more likely acute. Reviewed, dictated and finalized at location A. IMPRESSION: 1. Tree-in-bud opacities in the basilar left lower lobe consistent with endobro nchial spread of disease and age-indeterminate pneumonia. There is however some associated bronchial wall thickening and some mucous plugging in the bilateral lower lobes suggesting this is more likely acute.
--- NOTE | ~2024-12-31 | XR_ITS ---
XR chest 2V Ordering provider: Franco Sheets MD History: 69 years Male with . weak, HEART PALPITATIONS . Comparison: March 01, 2024 FINDINGS: MEDIASTINUM: The cardiac silhouette is not enlarged. Device projected over the left hemithorax. LUNGS: No infiltrates, effusions or pneumothorax. OTHER: No free air under the diaphragm. Degenerative changes of the spine with dextroscoliosis. IMPRESSION: No acute cardiopulmonary pathology. Reviewed, dictated and finalized at location A.
--- NOTE | ~2024-12-31 | MR_ITS ---
MRI of the thoracic spine Clinical History: Myelopathy Technique: Axial T2-weighted and gradient images, and sagittal T1-weighted, T2-weighted, and STIR herve ges were acquired. Findings: There is no fracture or subluxation of the thoracic spine. Vertebral bodies maintain normal height and alignment. Mild chronic L1 compression fracture is present. There is multilevel moderate degenerative disc narrowing at the mid to lower thoracic spine. No signi ficant disc bulge or herniation seen. No spinal canal stenosis or cord compression at any thoracic le renetta. There is moderate to advanced bilateral neural foraminal narrowing at T10-T11 and T11-T12, with facet joint degenerative changes at these levels. There is advanced left neural foraminal narrowing a t T8-T9 and T9-T10, with facet arthropathy at these levels. No abnormal signal seen in the spinal cord. Paravertebral soft tissues are unremarkable. Impression: Moderate degenerative spondylosis of the lower thoracic spine, as detailed above, with multilevel tereza ral foraminal narrowing. Reviewed, dictated and finalized at location . Impression: Moderate degenerative spondylosis of the lower thoracic spine, as detailed abov e, with multilevel neural foraminal narrowing.
[2024-12-31 13:25] VITALS: BP 111/56; PULSE 54; RESP 18; TEMP 36.8; O2SAT 99
--- NOTE | 2024-12-31 13:33 | ECG_ITS ---
Test Date: 2024-12-31 13:34:10 Measurements Intervals [place] Rate: 53 P: 8 MT: 259 QRS: 21 QRSD: 77 T: 90 QT: 466 QTc: 438 Interpretive Statements SINUS BRADYCARDIA WITH FIRST DEGREE AV BLOCK NONSPECIFIC T-WAVE ABNORMALITY No previous ECG available for comparison Electronically Signed On 12-31-2024 14:15:29 CDT by Harry Alonzo M.D.
[2024-12-31 14:17] LABS: Basophils Absolute Auto 0.1 K/mm3 (0.0-0.1); Basophils Percent Auto 1.4 % (0.2-1.2); Eosinophils Absolute Auto 0.2 K/mm3 (0-0.3); Eosinophils Percent Auto 2.3 % (0-4.4); Hematocrit 42.7 % (42.0-52.0); Hemoglobin 13.1 g/dL (14.0-18.0); Immature Granulocyte Absolute 0.02 K/mm3 (0.00-0.031); Immature Granulocyte Percent A 0.3 % (0-0.5); Lymphocytes Absolute Auto 1.46 K/mm3 (0.9-3.2); Lymphocytes Percent Auto 22.4 % (18.3-44.2); Mean Corpuscular HGB Conc 30.7 g/dl (32-36); Mean Corpuscular Hemoglobin 29.4 pg (26-34); Mean Platelet Volume 11.4 fl (7.4-10.4); Monocytes Absolute Auto 0.9 K/mm3 (0.1-0.6); Monocytes Percent Auto 13.5 % (2.6-8.5); Neutrophils Absolute Auto 3.9 K/mm3 (1.3-6.7); Neutrophils Percent Auto 60.1 % (45.5-73.1); Platelet Count Result 216 k/mm3 (150-375); Red Blood Count 4.45 M/mm3 (4.6-6.20); Red Cell Distribution Width 13.7 % (11.5-14.5); White Blood Count 6.5 K/mm3 (4.5-10.0)
[2024-12-31 14:31] VITALS: BP 115/61; PULSE 53; RESP 14; O2SAT 98
[2024-12-31 14:31] LABS: Alanine Aminotransferase 34 U/L (6-50); Albumin Level 3.5 g/dL (3.5-5.1); Alkaline Phosphatase 57 U/L (38-126); Anion Gap 5 mmol/L (4-12); Aspartate Amino Transferase 26 U/L (17-59); Bilirubin,Total 0.5 mg/dL (0.2-1.3); Blood Urea Nitrogen 26 mg/dL (9-20); Carbon Dioxide 29 mmol/L (22-30); Chloride 105 mmol/L (98-107); Estimated CRCL calculation 65 ml/min; Estimated Glomerular Filt Rate > 60; Sodium 139 mmol/L (137-145)
[2024-12-31 14:42] LABS: Calcium 8.3 mg/dL (8.4-10.2); Glucose 82 mg/dL (65-110); Potassium 4.3 mmol/L (3.4-5.0)
[2024-12-31 15:31] LABS: Add Urine Microscopic? YES; Appearance Urine Turbid (Clear); Bacteria Urine 4+ /hpf; Bilirubin Urine 1+ (Negative); Blood Urine 3+ (Negative); Budding Yeast Urine Present /hpf; Color Urine Dark Yellow (Yellow); Glucose Urine UA Negative (Negative); Ketones Urine 1+ mg/dL (Negative); Leukocyte Esterase Ur 3+ LEU/UL (Negative); Need Manual Microscopic Reviewed; Nitrate Urine Negative (Negative); Non Pathogenic Casts 0-2; Protein Urine 2+ mg/dL (Negative); RBC Urine >100 /hpf (0-2); Specific Grav Ur 1.029 (1.001-1.035); Squamous Epithelial Cell Urine None Seen /hpf (Few); WBC Urine >100 /hpf (0-3)
--- NOTE | 2024-12-31 15:57 | ED.WEAKNESS ---
HPI - Weakness General Chief complaint: Weakness Stated complaint: weakness Time Seen by Provider: 12/31/24 15:53 History of Present Illness HPI Narrative: Pt presents from [facility] with generalized weakness for a few days but worse today to the point he can't walk due to leg weakness. Pt denies fever. Pt has some intermittent pain in legs. Pt denies low back pain or numbness or one sided weakness. Pt denies dysuria or cough Related Data Home Medications ?Medication ?Instructions ?Recorded ?Confirmed ?Last Taken ?Type benztropine 1 mg tablet 1 mg PO BID 01/26/21 01/23/24 Unknown History lamotrigine 100 mg tablet 150 mg PO BID 01/26/21 01/23/24 01/23/24 History aspirin 81 mg tablet,delayed 81 mg PO DAILY 01/23/24 01/23/24 Unknown History release baclofen 20 mg tablet 20 mg BID PRN Pain 01/23/24 01/23/24 Unknown History diclofenac sodium 75 mg 75 mg PO BID PRN hip pain 01/23/24 01/23/24 Unknown History tablet,delayed release donepezil 10 mg tablet 10 mg PO HS 01/23/24 01/23/24 Unknown History empagliflozin 10 mg tablet 10 mg PO DAILY 01/23/24 01/23/24 Unknown History (Jardiance) ergocalciferol (vitamin D2) 1,250 50,000 unit PO WEEKLY 01/23/24 01/23/24 01/19/24 History mcg (50,000 unit) capsule (Vitamin D2) fluoxetine 40 mg capsule 40 mg PO QAM 01/23/24 01/23/24 01/23/24 History icosapent ethyl 1 gram capsule 1 g PO BIDWMEAL 01/23/24 01/23/24 Unknown History (Vascepa) lubiprostone 24 mcg capsule 24 mcg PO BIDWMEAL 01/23/24 01/23/24 Unknown History memantine 10 mg tablet 10 mg PO DAILY 01/23/24 01/23/24 Unknown History omeprazole 20 mg capsule,delayed 20 mg PO BIDAC 01/23/24 01/23/24 Unknown History release quetiapine 300 mg tablet,extended 300 mg PO HS 01/23/24 01/23/24 Unknown History release 24 hr senna 2 tab-cap PO HS 01/23/24 01/23/24 Unknown History simvastatin 40 mg tablet 40 mg PO HS 01/23/24 01/23/24 01/22/24 History sodium chloride 1 g PO BID 01/23/24 01/23/24 Unknown History tamsulosin 0.4 mg capsule 0.4 mg PO HS 01/23/24 01/23/24 01/22/24 History fluphenazine decanoate 25 mg/mL 50 mg IM DIRECTED 01/28/24 01/28/24 Unknown History injection solution Allergies Allergy/AdvReac Type Severity Reaction Status Date / Time No Known Allergies Allergy Verified 12/31/24 13:34 Review of Systems Review of Systems: All systems reviewed & are unremarkable except as noted in HPI and below PMFSH Past Medical History Medical History (Updated 12/31/24 @ 18:33 by Chinyere Conroy APRN) Subarachnoid hemorrhage Post fall, January 2024 Dementia Seizure GERD (gastroesophageal reflux disease) Coronary artery disease Hypertension Anxiety and depression Hyperlipidemia Family History Family History Sibling Acute myocardial infarction Sibling Acute myocardial infarction Social History Social History Smoking status: Never smoker Alcohol intake: never Substance use: never Substance use type: does not use Do You Feel Safe in your Home?: Yes Lack of Transportation: No Lack of Food: Never True Current Housing: I Have Housing Concerned About Future Housing: No Difficulty Paying Gas/Electric Bills: No Difficulty Paying for Meds: No Currently Unemployed: No Education: Don't Know Difficulty w/ Childcare or Family Care: No Living arrangements: with family Gender identity (if verbalized by the patient): Male Spiritual care concerns: No Agree to blood products: Yes Exam Const: General: healthy appearing Nutritional Appearance: well nourished Orientation/consciousness: patient oriented x3 Limitations: no limitations HENMT: Throat: posterior oropharynx normal Eyes: EOM: EOMs intact bilaterally Resp: Effort & Inspection: normal respiratory effort Auscultation: clear to auscultation bilaterally Cardio: Rate: regular rate Rhythm: regular rhythm GI: GI Palp: Yes Soft to palpation and No Tenderness to palpation present (GI) Auscultation: normal bowel sounds Skin: General skin exam: normal color Rashes: no rashes Wounds: no wounds Neuro: General: patient oriented x3, moves all extremities, no meningeal signs, no focal motor deficits and CN's II-XI intact bilaterally Speech: normal speech Extrem: General: normal to inspection and no clubbing, cyanosis or edema Psych: Mental Status: mental status grossly normal Affect: normal affect Attitude: cooperative Course Vital Signs Vital signs: Vital Signs Temperature 98.2 F 12/31/24 13:25 Pulse Rate 54 L 12/31/24 13:25 Respiratory Rate 18 12/31/24 13:25 Blood Pressure 111/56 L 12/31/24 13:25 Pulse Oximetry 99 12/31/24 13:25 Oxygen Delivery Autopap 12/31/24 13:25 Temperature 98.2 F 12/31/24 13:25 Pulse Rate 78 12/31/24 18:37 Respiratory Rate 16 12/31/24 18:37 Blood Pressure 115/69 12/31/24 18:37 Pulse Oximetry 98 12/31/24 18:37 Oxygen Delivery Autopap 12/31/24 13:25 MDM - Weakness MDM Narrative Medical decision making narrative: [place] from local [place] with generalized weakness. will get sepsis work up. Pt has UTI. will start rocephin and admit. discussed with Chinyere Conroy and agrees to admit. Lab Data 12/31/24 14:12 12/31/24 14:12 Labs: Lab Results 12/31/24 12/31/24 Range/Units 14:12 14:46 WBC 6.5 (4.5-10.0) K/mm3 RBC 4.45 L (4.6-6.20) M/mm3 Hgb 13.1 L (14.0-18.0) g/dL Hct 42.7 (42.0-52.0) % MCV 96.0 (80-100) fl MCH 29.4 (26-34) pg MCHC 30.7 L (32-36) g/dl RDW 13.7 (11.5-14.5) % Plt Count 216 (150-375) k/mm3 MPV 11.4 H (7.4-10.4) fl Immature Gran % (Auto) 0.3 (0-0.5) % Neut % (Auto) 60.1 (45.5-73.1) % Lymph % (Auto) 22.4 (18.3-44.2) % [place] % (Auto) 13.5 H (2.6-8.5) % Eos % (Auto) 2.3 (0-4.4) % Baso % (Auto) 1.4 H (0.2-1.2) % Lymph # (Auto) 1.46 (0.9-3.2) K/mm3 [place] # (Auto) 0.9 H (0.1-0.6) K/mm3 Eos # (Auto) 0.2 (0-0.3) K/mm3 Baso # (Auto) 0.1 (0.0-0.1) K/mm3 Abs Immat Gran (auto) 0.02 (0.00-0.031) K/mm3 Absolute Neuts (auto) 3.9 (1.3-6.7) K/mm3 Absolute Nucleated RBC 0.000 (0.0-0.012) K/mm3 Nucleated RBC % 0.0 (0.0-0.2) % Sodium 139 (137-145) mmol/L Potassium 4.3 (3.4-5.0) mmol/L Chloride 105 (98-107) mmol/L Carbon Dioxide 29 (22-30) mmol/L Anion Gap 5 (4-12) mmol/L BUN 26 H D (9-20) mg/dL Creatinine 1.03 (0.7-1.3) mg/dL Estim Creat Clear Calc 65 ml/min Estimated GFR > 60 (59 - ) Glucose 82 (65-110) mg/dL Calcium 8.3 L (8.4-10.2) mg/dL Total Bilirubin 0.5 (0.2-1.3) mg/dL AST 26 (17-59) U/L ALT 34 (6-50) U/L Alkaline Phosphatase 57 (38-126) U/L Total Protein 6.0 L (6.3-8.2) g/dL Albumin 3.5 (3.5-5.1) g/dL Urine Color Dark yellow (Yellow) Urine Appearance Turbid H (Clear) Urine pH 6.0 (5.0-9.0) Ur Specific [place] 1.029 (1.001-1.035) Urine Protein 2+ H (Negative) mg/dL Urine Glucose (UA) Negative (Negative) mg/dL Urine Ketones 1+ H (Negative) mg/dL Ur Blood (Man) 3+ H (Negative) Urine Nitrate Negative (Negative) Urine Bilirubin 1+ H (Negative) Urine Urobilinogen 1.0 (<2.0) mg/dL Add Ur Microanalysis Reviewed Leukocyte Esterase Rfl 3+ H (Negative) DONALD/UL Urine RBC >100 H (0-2) /hpf Urine WBC >100 H (0-3) /hpf Ur Squamous Epith Cells None seen (Few) /hpf Urine Bacteria 4+ H /hpf Urine Casts 0-2 Urine Yeast (Budding) Present H (None) /hpf Discharge Plan Discharge Clinical Impression: Acute UTI, Weakness Patient Disposition: Still a Patient Condition: Stable
[2024-12-31 15:59] VITALS: BP 160/86; PULSE 55; RESP 20; O2SAT 99
--- OUTSIDE RECORDS SUMMARY | 2024-12-31 16:15 | XMS_ITS | Data Portability ---
Author Organization [facility], Main Office Address [address] [place] [address] Assessment Encounter Date Assessment Date Assessment LastModified by Organization Details LastModified Time 10/30/2023 10/30/2023 Assessment: Moderate OSAHS, AHI = 21 PLMD Hypoventilation Plan: The following were reviewed and explained to the patient: primary care/referral note [facility] split night sleep study 10/18/22 HI = 22, supine HI = 62, Figueroa & Cecille large Vitera full face mask @ 8 cmH2O [facility] diagnostic sleep study 10/14/23 AHI = 21, supine AHI = 33, REM AHI = 71 General information on sleep disordered breathing, evaluation of sleep disordered breathing, treatment with PAP therapy, and living with PAP therapy were covered. PSG is medically necessary to determine the management of sleep apnea. We discussed with the patient the impact of weight on: Sleep disordered breathing Prediabetes Hyperlipidemia Hypertension CHF CAD MADELEINE Urge urinary incontinence Gout We discussed with the patient the benefit of PAP therapy on: Sleep disordered breathing Epilepsy Dementia Mood disorders Rhinitis Prediabetes Hypertension CHF DE MADELEINE Urge urinary incontinence Educated the patient on sleep hygiene measures. Relaxing rituals to rest easy, understanding foods with positive and negative impact on sleep, creating a peaceful sleep environment, timing of exercise, using herbal sleep aids, and practicing sleep-friendly meditation were covered. To determine how much sleep is needed, the patient will assess where he falls on the spectrum, examine what lifestyle factor such as stress is affecting the quality and quantity of sleep. In general, adults need 7-9 hours of sleep. Educated the patient regarding foods that promote sleep. These include but are not limited to cherries, bananas, toast, oatmeal, and warm milk. Educated the patient regarding foods and drinks to avoid before bedtime. These include but are not limited to aged cheese, chocolate, spicy foods, tomato-based sauces, soy, ginseng tea and processed meat. Advocated influenza vaccination annually and pneumonia vaccination ANDREAS. Advocated weight loss through diet and exercise. Patient's ideal body weight according to height and gender is up to 185 lbs. Encouraged patient to adjust caloric intake to maintain/achieve ideal body weight, emphasizing on fruits, vegetables, whole grains, and fat-free or low-fat products. These include lean meats, poultry, fish, beans, eggs, and nuts and foods that are low in saturated fats, trans-fats, cholesterol, salt (sodium), and glycemic index. Stressed the importance of regular exercise up to the patient's capacity limits. In this case, we recommend regular (4 x a week or more) walking or other light activity. Patient to monitor BP daily and bring records to PCP for further management. Follow-up: 1 week after titration sleep study [email or web address] Not available 10/30/2023 12:00:24 10/08/2024 10/08/2024 This note is dictated and transcribed by [employer] Software. Street Commissioner variances may occur. Despite proofreading, typographical errors may occur. Occasional wrong-word or '[id number]' substitutions may have occurred due to the inherent limitations of voice recording. Read the chart carefully and recognize, using context, where substitutions have occurred. rob Not available 10/08/2024 14:52:45 Plan of Treatment Reminders Order Date Submit Date Provider Last Modified By Organization Details Last Modified Time Details Appointments None recorded. Lab None recorded. Referral None recorded. Procedures None recorded. Surgeries None recorded. Imaging XR, toe(s), 2 or more view 2024 025 [email or web address] [facility] [place], [address], [place], [address], 5 15:37:04 polysomnog jonas, titration study [email or web address] [place] [address] [facility] [place], [address] [place], [address], 4 09:23:35 Medication Orders None recorded. Patient TargetsNo targets recorded. Patient InstructionsNo instructions recorded. Reason for Referral None Reported. Results Created Date Observation Date Name Description Value Unit Range Abnormal Flag Note LastModifiedBy Organization Detail LastModifiedTime 10/23/19 23 10/18/2022 polys omnog jonas, split night No observ ation record ed. [facility] Not Available 2022 09:35:14 10/24/19 24 10/14/2023 polys omnog jonas, diagn ostic , 6 yrs or older No observ ation record ed. BARCODE Not Available 2023 15:59:56 10/08/19 25 XR, toe(s ), 2 or more view No observ ation record ed. [email or web address] [facility] [place] [address], [place], [address], 10/08/2024 15:37:03 Result Notes None recorded. Problems Name Problem SNOMED Code Status Onset Date Resolution Date Notes Provider Name and Address Organization Details Recorded Time Acquired trigger finger 4768419 Active Not Available [facility] 3 05:55:41 Hypertensi ve disorder 26620114 Active 2019 Not Available [facility] 3 05:55:41 Onychomyco sis 426586124 Active 2019 Not Available [facility] 3 05:55:41 Heart disease 13371833 Active 2017 Not Available [facility] 3 05:55:41 Mental disorder 70114819 Active 1980 Not Available [facility] 3 05:55:41 Obstructiv e sleep apnea syndrome 97029250 Active 2023 Jose Daniel Alejandro MD [address], [address], [place], [address] , [employer] 4 11:59:01 Avulsion of toenail of right foot 7089870723446 9102 Active 2024 Hussain Nation DPM [address], [address], [place], [address] , [employer] 5 14:53:15 Open wound of toe of right foot 2045021882864 9100 Active 2024 Hussain Nation DPM [address], [address], [place], [address] , [employer] 5 14:53:22 Notes:Medical History: Epile psy Dementia Anxiety/Depression/Schizophrenia Bilateral tinnitus Rhinitis with postnasal drip Obesity with mod OSAHS, AHI = 21, 10/14/23 Prediabetes Hyperlipidemia Hypertension with LVH Diastolic CHF CAD s/p DE MADELEINE BPH Urge urinary incontinence Vit D deficiency Gout Onychomycosis Procedure History: Coronary angioplasty/stent placement 2017 Bilateral cataract extraction 2018 Nasoseptal surgery 2019 Left 3rd trigger finger release 2020 Biotronik implantable loop recorder implantation 2020 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 Procedures Surgical History Date Name Laterality Status Provider Name and Address Organization Details Recorded Time 5 Nail Debridement completed Hussain Nation DPM [address], [address], [place], [address], [employer] 10/08/2024 14:52:15 3 Nail Debridement completed Hussain Nation DPM [address], [employer], [place], [address], [employer] 04/30/2023 16:08:42 Imaging Results Imaging Date Name Status LastModified by Organiz ation Details LastModified Time 10/18/2022 polysomnogr am, split night completed [facility] Information not available 10/22/2022 09:35:14 10/14/2023 polysomnogr am, diagnostic, 6 yrs or older completed [facility] Information not available 10/24/2023 15:59:56 10/08/2024 XR, toe(s), 2 or more view completed [email or web address] [facility] [place] [address], [place], [address], 10/08/2024 15:37:03 Procedure Notes None recorded. Medical Equipment None Reported. Allergies No known drug allergies Medications Name Sig Start Date Stop Date Status Note LastModified by Organization Details LastModified Time fluoxetine 40 mg capsule active Not Available Not Available Not Available amoxicillin 500 mg capsule active Not Available Not Available Not Available furosemide 40 mg tablet Take 1 tablet every day by oral route. 06/11 completed Not Available Not Available Not Available atorvastati n 40 mg tablet Take 1 tablet every day by oral route. 06/11 completed Not Available Not Available Not Available metformin 500 mg tablet active Not Available Not Available Not Available carvedilol 6.25 mg tablet Take 1 tablet twice a day by oral route. 06/11 completed Not Available Not Available Not Available Niacor 500 mg tablet active Not Available Not Available No t Available doxycycline hyclate 100 mg capsule 04/27 completed Not Available Not Available Not Available donepezil 5 mg tablet 06/11 completed Not Available Not Available Not Available clindamycin HCl 300 mg capsule 06/11 completed Not Available Not Available Not Available trazodone 50 mg tablet 06/11 completed Not Available Not Available Not Available polyethylen e glycol 3350 17 gram oral powder packet active Not Available Not Available Not Available IBU 800 mg tablet 09/16 completed Not Available Not Available Not Available bisoprolol 10 mg-hydrochl orothiazide 6.25 mg tablet 06/11 completed Not Available Not Available Not Available ofloxacin 0.3 % eye drops 10/19 completed Not Available Not Available Not Available hydrocodone 5 mg-acetamin ophen 325 mg tablet active Not Available Not Available No t Available senna 8.6 mg tablet active Not Available Not Available No t Available donepezil 10 mg tablet active Not Available Not Available Not Available prednisone 20 mg tablet 10/19 completed Not Available Not Available Not Available clonazepam 0.5 mg tablet 06/11 completed Not Available Not Available Not Available sodium chloride 1 gram tablet Take by oral route. active Not Available Not Available No t Available permethrin 5 % topical cream 10/19 completed Not Available Not Available Not Available meclizine 12.5 mg tablet 10/19 completed Not Available Not Available Not Available acetaminoph en 300 mg-codeine 30 mg tablet 09/16 completed Not Available Not Available Not Available clopidogrel 75 mg tablet active Not Available Not Available Not Available allopurinol 100 mg tablet 06/11 completed Not Available Not Available Not Available ciprofloxac in 500 mg tablet active Not Available Not Available Not Available sulfamethox azole 800 mg-trimetho prim 160 mg tablet 09/16 completed Not Available Not Available Not Available tramadol 50 mg tablet 06/11 completed Not Available Not Available Not Available simvastatin 40 mg tablet active Not Available Not Available Not Available baclofen 20 mg tablet active Not Available Not Available No t Available ketorolac 0.5 % eye drops 10/19 completed Not Available Not Available Not Available alprazolam 0.5 mg tablet Take 1 tablet 3 times a day by oral route. active Not Available Not Available No t Available famotidine 20 mg tablet 10/29 completed Not Available Not Available Not Available prednisolon e acetate 1 % eye drops,suspe nsion 10/19 completed Not Available Not Available Not Available tamsulosin 0.4 mg capsule active Not Available Not Available Not Available fluphenazin e decanoate 25 mg/mL injection solution active Not Available Not Available Not Available OneTouch Ultra Test strips 10/19 completed Not Available Not Available Not Available Kenalog 10 mg/mL suspension for injection In office injection administe red by the provider 09/16 completed [facility]: 0003- 0494- 20 Not Available Not Available Not Available meclizine 25 mg tablet 10/29 completed Not Available Not Available Not Available colesevelam 625 mg tablet active Not Available Not Available Not Available baclofen 10 mg tablet 10/29 completed Not Available Not Available Not Available hydrocodone 7.5 mg-acetamin ophen 325 mg tablet 06/11 completed Not Available Not Available Not Available cephalexin 500 mg capsule active Not Available Not Available Not Available pantoprazol e 40 mg tablet,ihsan yed release Take 1 tablet every day by oral route. 06/11 completed Not Available Not Available Not Available simvastatin 20 mg tablet 06/11 completed Not Available Not Available Not Available nystatin 100,000 unit/gram topical cream 10/19 completed Not Available Not Available Not Available ranitidine 150 mg tablet 09/16 completed Not Available Not Available Not Available promethazin e 25 mg tablet 06/11 completed Not Available Not Available Not Available losartan 25 mg tablet Take 1 tablet every day by oral route. 10/29 completed Not Available Not Available Not Available brimonidine 0.2 % eye drops INSTILL 1 DROP INTO AFFECTED EYE(S) BY OPHTHALMI C ROUTE EVERY 8 HOURS 06/11 completed Not Available Not Available Not Available benztropine 1 mg tablet active Not Available Not Available Not Available fluoxetine 10 mg capsule 09/16 completed Not Available Not Available Not Available betamethaso ne dipropionat e 0.05 % topical cream 10/19 completed Not Available Not Available Not Available oxybutynin chloride ER 5 mg tablet,exte nded release 24 hr 10/19 completed Not Available Not Available Not Available gabapentin 300 mg capsule 06/11 completed Not Available Not Available Not Available omeprazole 20 mg capsule,del ayed release active Not Available Not Available Not Available diclofenac sodium 75 mg tablet,ihsan yed release Take 1 tablet twice a day by oral route. active Not Available Not Available No t Available Vitamin D2 1,250 mcg (50,000 unit) capsule active Not Available Not Available Not Available losartan 50 mg-hydrochl orothiazide 12.5 mg tablet active Not Available Not Available Not Available trihexyphen idyl 2 mg tablet 06/11 completed Not Available Not Available Not Available losartan 100 mg tablet 10/19 completed Not Available Not Available Not Available fluoxetine 20 mg capsule 10/29 completed Not Available Not Available Not Available lamotrigine 100 mg tablet active Not Available Not Available Not Available amoxicillin 875 mg-potassiu m clavulanate 125 mg tablet active Not Available Not Available Not Available nabumetone 500 mg tablet 10/29 completed Not Available Not Available Not Available Ventolin HFA 90 mcg/actuati on aerosol inhaler active Not Available Not Available Not Available valsartan 160 mg tablet 06/11 completed Not Available Not Available Not Available Ciprodex 0.3 %-0.1 % ear drops,suspe nsion active Not Available Not Available Not Available memantine 10 mg tablet active Not Available Not Available Not Available memantine 5 mg tablet active Not Available Not Available No t Available Alcohol Prep Pads active Not Available Not Available No t Available solifenacin 10 mg tablet 06/11 completed Not Available Not Available Not Available potassium acetate 06/11 completed Not Available Not Available Not Available Aspir-81 06/11 completed Not Available Not Available Not Available lubiproston e 24 mcg capsule active Not Available Not Available Not Available lidocaine (PF) 10 mg/mL (1 %) injection solution In office injection administe red by the provider 09/16 completed [facility]: 0409- 4276- 17 Not Available Not Available Not Available varenicline tartrate 1 mg tablet 10/19 completed Not Available Not Available Not Available peg 3350-electr olytes 236 gram-22.74 gram-6.74 gram-5.86 gram solution 06/11 completed Not Available Not Available Not Available quetiapine ER 300 mg tablet,exte nded release 24 hr active Not Available Not Available Not Available diclofenac 1 % topical gel 10/19 completed Not Available Not Available Not Available DOK 100 mg tablet Take 1 tablet every day by oral route. 10/19 completed Not Available Not Available Not Available quetiapine ER 150 mg tablet,exte nded release 24 hr active Not Available Not Available Not Available GaviLyte-N 420 gram oral solution 06/11 completed Not Available Not Available Not Available Suprep Bowel Prep Kit 17.5 gram-3.13 gram-1.6 gram oral solution 06/11 completed Not Available Not Available Not Available ticagrelor 90 mg tablet Take 1 tablet twice a day by oral route. 06/11 completed Not Available Not Available Not Available Chantix Starting Month Box 0.5 mg (11)-1 mg (42) tablets in dose pack active Not Available Not Available No t Available Linzess 145 mcg capsule 06/11 completed Not Available Not Available Not Available Vascepa 1 gram capsule Take 1 capsule twice a day by oral route. active Not Available Not Available No t Available Jardiance 10 mg tablet Take 1 tablet every day by oral route. active Not Available Not Available No t Available Senna-Time S 8.6 mg-50 mg tablet Take 2 tablets every day by oral route. active Not Available Not Available No t Available OneTouch Verio Flex Meter 10/19 completed Not Available Not Available Not Available magnesium 200 mg (as magnesium oxide) tablet Take by oral route. 06/11 completed Not Available Not Available Not Available latanoprost (PF) 0.005 % eye drops 06/11 completed Not Available Not Available Not Available Flucelvax Quad 60 mcg (15 mcg x 4)/0.5 mL IM suspension ADM 0.5ML IM UTD 06/11 completed Not Available Not Available Not Available OneTouch Delica Plus Lancet 30 gauge 10/19 completed Not Available Not Available Not Available aspirin 81 mg capsule Take 1 capsule every day by oral route. active Not Available Not Available No t Available Vitals Date Recorded Body mass index (BMI) Body height Oxygen saturation Oxygen saturation in Arterial blood by Pulse oximetry Heart rate Respiratory rate Body temperature Body weight Provider Name and Address Organization Details Last Updated DateTime 1 38.4 kg/m2 175.26 cm 98 % 98 % 75 /min 18 /min 97.9 [degF] 025266. 02 g Not Available [facility] 3 05:53:31 Date Recorded Body mass index (BMI) Body height Body weight Provider Name and Address Organization Details Last Updated DateTime 04/27/2022 38.4 kg/m2 175.26 cm 245627.02 g Not Available [facility] 10/10/2022 05:53:32 Date Recorded Heart rate Respiratory rate Oxygen saturation Oxygen saturation in Arterial blood by Pulse oximetry Systolic blood pressure Diastolic blood pressure Provider Name and Address Organization Details Last Updated DateTime 3 81 /min 14 /min 98 % 98 % 134 mm[Hg] 79 mm[Hg] Sarah Snyder [facility] 3 16:00:05 Date Recorded Body height Body mass index (BMI) Body weight Body temperature Heart rate Oxygen saturation Oxygen saturation in Arterial blood by Pulse oximetry Systolic blood pressure Diastolic blood pressure Provider Name and Address Organization Details Last Updated DateTime 4 180.34 cm 32.4 kg/m2 320391. 43 g 97.5 [degF] 87 /min 96 % 96 % 126 mm[Hg] 72 mm[Hg] Nancy Castro MA [facility] 4 11:15:55 Date Recorded Heart rate Respiratory rate Provider N jenn and Address Organization Details Last Updated DateTime 10/30/2023 87 /min 15 /min Jose Daniel Alejandro MD [address], [address], [place], [address], [employer] 10/30/2023 12:08:19 Date Recorded Body height Body mass index (BMI) Body weight Heart rate Respiratory rate Oxygen saturation Oxygen saturation in Arterial blood by Pulse oximetry Systolic blood pressure Diastolic blood pressure Provider Name and Address Organization Details Last Updated DateTime 180.34 cm 32.4 kg/m2 307522. 43 g 71 /min 14 /min 97 % 97 % 130 mm[Hg] 77 mm[Hg] Sarah Snyder [employer] 14:18:50 Social History Question Answer Notes LastModified by Organizat ion Details LastModified Time Tobacco Smoking Status Never Smoker Not Available [employer] 10/10/2022 05:52:03 What Is Your Level Of Caffeine Consumption? None Information not available 10/30/2023 In The 14 Days Before Symptom Onset, Have You Had Close Contact With A Laboratory-confir med COVID-19 While That Case Was Ill? No Information not available 10/30/2023 In The 14 Days Before Symptom Onset, Have You Had Close Contact With A Person Who Is Under Investigation For COVID-19 While That Person Was Ill? No Information not available 10/30/2023 What Type Of Diet Are You Following? REGULAR Information not available 10/30/2023 Do You Have An Electrostatic Air Filter? No Information not available 10/30/2023 Do You Have A Humidifier? No Information not available 10/30/2023 Where Do You Live? SingleLevelHouse Information not available 10/30/2023 Do You Have Moisture Problems In Your Home? No Information not available 10/30/2023 What Was The Date Of Your Most Recent Tobacco Screening? 10/30/2023 Information not available 10/30/2023 Do You Have Any Pets? Yes Information not available 10/30/2023 Do You Use Your Seat Belt Or Car Seat Routinely? Yes Information not available 10/30/2023 Do You Have Smoke And Carbon Monoxide Detectors In Your Home? Yes Information not available 10/30/2023 Are You Passively Exposed To Smoke? No Information no t available 10/30/2023 Do You Use Sunscreen Routinely? No Information not available 10/30/2023 Have You Recently Traveled Abroad? No [id number] Information not available 10/10/2022 Do You Have Any Dietary Restrictions? No Information not available 10/30/2023 Sex: Unknown Functional Status Question Answer Note LastModified by Organizat ion Details LastModified Time Do you use any illicit or recreational drugs? No Information not available 10/30/2023 What is your level of alcohol consumption? None Information not available 10/30/2023 Have you been exposed to chemicals or toxins? Not that aware of Information not available 10/30/2023 What is your exercise level? None Information not available 10/30/2023 Mental Status Question Answer Note LastModified by Organization D etails LastModified Time Do you feel stressed (tense, restless, nervous, or anxious, or unable to sleep at night)? [id number] Information not available 10/30/2023 Family History Relationship Description Onset Age of this Age Resolved Age Notes LastModified by Organization Details LastModified Time Mother Cerebrovascu lar accident [email or web address] Not available 11:58:10 Mother Open heart surgery [email or web address] Not available 2023 11:58:20 Mother Fracture of lower leg [email or web address] Not available 2023 11:58:33 Brother Congestive heart failure [email or web address] Not available 2023 12:00:04 Brother Osteoarthrit is [email or web address] Not available 2023 12:00:31 Notes:Unable to say Medical History Condition Response HEART DISEASE/HEART PROBLEMS Y Immunizations Vaccine Type Date Status Note Provider Nam e and Address Organization Details Recorded Time Influenza, split virus, quadrivalent, preservative 9 completed Not Available [employer] 10/10/2022 06:04:45 Past Encounters Encounter ID Performer Location Encounter Start Date Encounter Closed Date Diagnosis/Indication Diagnosis SNOMED-CT Code Diagnosis ICD10 Code Diagnosis Note [id number] [facility]_ DEFAULT_1 _1 , 05/05/2021 00:00:00 05/07/2021 20:59:11 [id number] [facility]_ DEFAULT_1 _1 , 04/27/2022 00:00:00 04/29/2022 14:15:51 [id number] Hussain Nation DPM [facility] Pod[facility] [address] [place] [address] 0 04/30/2023 15:57:41 04/30/2023 16:36:27 Onychomycosis 294467284 B35.1 M79.676 Z74.1 recommend over-the-c ounter topical antifungal medication Nails were debrided without incidentFo llow-up in 3 months for nail care [id number] Jose Daniel Alejandro MD [facility] [place] [address] 10/30/2023 10:55:51 10/31/2023 09:11:58 Obstructive sleep apnea syndrome 38747674 G47.33 G47.36 G47.61 G47.30 [id number] Hussain Nation DPM [facility] [place] [address] [place] [address] 10/08/2024 14:13:31 10/09/2024 13:58:48 Onychomycosis 226778136 B35.1 M79.676 Z74.1 recommend over-the-c ounter topical antifungal medication Nails were debrided without incidentFo llow-up in 3 months for nail care Open wound of toe of right foot 9210906073 7177070 S91.201A apply topical antibiotic ointment with Band-Aid daily until healedmoni tor for infection at present seek medical attention immediatel yfollow-up 1 week Avulsion o f toenail of right foot 7278541535 9984533 S91.201A right great toenail as above Health Concerns Section Related Observation LastModified by Organization Detai ls LastModified Time None Recorded Concern Status LastModified by Organization Details LastModified Time None Recorded Advance Directives Directive None Recorded Payers Encounter Date Sequence Insurance Name Policy Number Policy [place] Covered Member ID [place] Member ID Guarantor Name 04/30/2023 1 [place] OR MEDICARE REPLACEMENT PRIMARY) Marlon Hicks [id number] Marlon Hicks 04/30/2023 1 [employer] (MEDICARE REPLACEMENT/AD VANTAGE - PPO) Marlon Loera [place] [id number] Marlon Loera [place] 10/30/2023 1 [employer] (MEDICARE REPLACEMENT/AD VANTAGE - PPO) Marlon Loera [place] [id number] Marlon Hicks 10/08/2024 1 [place]PLACEMENT [place]) Marlon Hicks [id number] Marlon Hicks 10/08/2024 1 [place] Marlon Hicks [id number] Marlon Hicks Notes Date Note Type Note Provider Name and Address Organization Details Recorded Time 04/30/2023 text/html Patient is a 67-year-old male who presents to the office with onychomycosis of his toenails. Patient states he is unable to cut his nails due to the thickened nature. Patient would like to have them cut. Patient states the toenails cause pain to his toes. Patient denies any redness or drainage. Patient denies any other complaints. Hussain Nation, DPM [address] [place] [address], [phone], [facility] 04/30/2023 16:09:10 10/30/2023 text/html Primary care/Referring provider: Juan Carlos Oden MD; Terrance Rucker MD; Ash Steel MD During the [facility] split night sleep study on 10/18/22, HI = 22, supine HI = 62. A [employer] large Vitera full face mask was applied @ 8 cmH2O. He returned his CPAP unit because his [id number]-[id number] full face mask was smashing his nose. During the [facility] diagnostic sleep study on 10/14/23, AHI = 21, supine AHI = 33, REM AHI = 71. At home, the patient sleeps from 10 pm to 8 am and wakes up without an alarm. Snoring: heavy, since 1970s. Snorting: yes Choking: yes Coughing: no Gasping: yes Gagging: yes Sighing: yes Witnessed apnea: yes Twitching or jerking of leg(s), arm(s), body, head: yes Teeth grinding: n/a Teeth clenching: n/a Sleeptalking: yes Sleepwalking: no Sleep crying: yes Bedwetting: no Tongue/lip/gum/sara k biting: no Sleeping with open mouth: yes Sleep paralysis: yes Hypnagogic hallucinations: no Hypnopompic hallucinations: no Vivid dreams: no Difficulty with sleep onset: no Difficulty with sleep maintenance: yes Sleep interruptions: dreams Patient wakes up with: fatigue, xerostomia, jaw pain, disorientation, mobility impairment, dexterity impairment Daytime cataplexy: no Morning hypersomnolence: yes Afternoon hypersomnolence: yes Caffeine sources in diet: coffee 4 cups per day, tea 1 cup per day, soda 1 bottle per week, chocolate 1 candy bar per day Associated medical and psychiatric conditions: Congestive heart failure: yes Coronary artery disease: yes Myocardial infarction: yes Hypertension: yes Stroke: no Bronchial asthma: no Chronic obstructive pulmonary disease: no Depression: yes Bipolar disorder: no Anxiety: yes Panic disorder: no Posttraumatic stress disorder: no Attention deficit and hyperactivity disorder: no Obsessive Compulsive disorder: no Schizophrenia: yes Schizoaffective disorder: no Personality disorder: no Chronic analgesic use: no Chronic sedative/hypnotic use: no EPWORTH SLEEPINESS SCALE (ESS) CHANCE OF DOZING SCORE 0 = would never doze 1 = slight chance of dozing 2 = moderate chance of dozing 3 = high chance of dozing SITUATION AND CHANCE OF DOZING Sitting and reading - 3 Watching television - 3 Sitting inactive in a public place (e.g. a theater or meeting) - 0 As a passenger in a car for an hour without a break - 3 Lying down to rest in the afternoon when circumstances permit - 3 Sitting and talking to someone - 2 Sitting quietly after lunch without alcohol - 3 In a car, while stopped for a few minutes in the traffic - 0 TOTAL SCORE 17 Subjectively, patient has a high chance of dozing. Jose Daniel Alejandro MD [address] [place] [address], [facility] [address], [place], [id number], [place] [employer] 10/30/2023 12:08:42 10/08/2024 text/html . Patient is a 69-year-old male he presents the office with complaints of elongated toenails that are painful. Patient uses a walker to get around. Patient states that he injured the right great toenail to which he has ripped off the right great toenail has a small wound to the dorsal aspect of the nail bed. Patient denies any other complaints. Hussain Nation DPM [address] [address], [place], [phone], [employer] 10/08/2024 15:38:58
--- OUTSIDE RECORDS SUMMARY | 2024-12-31 16:16 | XMS_ITS | CONTINUITY OF CARE DOCUMENT ---
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 Welding Machine Operator Name Role Phone Juan Carlos Oden MD Unavailable GURWINDER ORTEGA MD Unavailable GURWINDER ORTEGA MD Unavailable PROBLEMS Condition Status Date Provider Notes Renal disease, chronic, mild active Juan Carlos Oden MD on jardance beata arb, neg uacr S/P Implantable Loop Recorder-Biotronik ( MRI safe) active Stephanie Keita Hyperlipidemia;NEG CRP active Juan Carlos Oden MD Syncope active Pearlene Mood-Young Vitamin D deficiency active Juan Carlos Miller PREDIABETES active Juan Carlos Oden MD ABNORMAL STRESS NUCLEAR SCAN;2008 WITH 30% STENOSIS CATH active - Juan Carlos Oden MD Dizziness;will croft completed - Juan Carlos Oden MD SHORTNESS OF BREATH completed - Juan Carlos Oden MD Exposure to SARS-associated coronavirus;neg igg;had vaccine active Shilpa Pascual NP Arthritis of hip active Juan Carlos Oden MD Leg pain, bilateral completed - Juan Carlos Oden MD Sleep apnea;non compliant active Juan Carlos Oden MD MICROVASCULAR ANGINA;HELPED BY ECP active Juan Carlos Oden MD Screening active Juan Carlos Oden MD Diastolic CHF AND LVH active Juan Carlos Oden MD Orthostatic;ISORDIL STOPPED AND BP MEDS MOVED TO BEDTIME completed - Juan Carlos Oden MD R/O Sleep apnea;neg home sleep completed - Juan Carlos Oden MD Microvascular angina;ECP HELPed completed - Juan Carlos Oden MD PVD;NEG SOLA 14 completed - Juan Carlos Oden MD CHF;NML BNP 14 completed - Juan Carlos Oden MD ISCHEMIA;MILDLY ABNL 14 NUC, 30% LAD 14 completed - Juan Carlos Oden MD GALLSTONES;NEG US completed - Juan Carlos Oden MD SCHIZOPHRENIA;CONTROLLE D active Juan Carlos Oden MD EPILEPSY, GENERALIZED NONCONVULSIVE active Juan Carlos Oden MD OBESITY; active Juan Carlos Oden MD FAMILY HISTORY OF HEART DISEASE active Juan Carols Oden MD COLONIC POLYPS;REMOVED 2009 active Juan Carlos Oden MD AV block, 1st degree;NML TSH active Juan Carlos Oden MD BRADYCARDIA SINUS;tsh ok active Juan Carlos Oden MD ALKALINE PHOSPHATASE, ELEVATED;PER PRIMARY 2008 completed - Juan Carlos Oden MD LOW HDL completed - Juan Carlos Oden MD CHEST PAIN, 01/18 NUC ISCHEMIA completed - Juan Carlos Oden MD CAD-01/18 CATH NONOBS CAD EF 60 active - Juan Carlos Oden MD CHEST PAIN-TYPE TO BE DETERMINED;12/18, WILL W/U completed - Juan Carlos Oden MD Tobacco use quit active Juan Carlos Oden MD LVH;NML BNP 2009 completed - Juan Carlos Oden MD CHEST PAIN-07/15 NUC FX AP DEF completed - Juan Carlos Oden MD HTN;LABS PER PRIMARY active Juan Carlos Miller insruance no rp;m CAD;CAROTID PLAQUE active Juan Carlos Oden MD cannot tiol x[place]oto HYPERCHOLESTEROLEMIA; GREAT 15 completed - MYOCARDIAL INFARCTION;2003 active Juan Carlos Oden MD BENIGN POSITIONAL VERTIGO active Juan Carlos Oden MD STENT -MULT BM OPEN 14 completed 1 - Juan Carlos Oden MD ENCOUNTERS Date Type Provider Location Encounter Diag nosis - In-person encounter Office Visit Juan Carlos Oden MD [facility] HTN;LABS PER PRIMARYLeg pain, bilateralArthritis of hip - In-person encounter Office Visit Wale Atwood MD [place] [facility] - In-person encounter Office Visit Juan Carlos Oden MD [place] [facility] - In-person encounter Office Visit Juan Carlos Oden MD [place] [facility] - In-person encounter Office Visit Juan Carlos Oden MD [facility] Diastolic CHF AND LVH - In-person encounter Office Visit Juan Carlos Oden MD [place] [facility] CAD;CAROTID PLAQUETobacco use quitAV block, 1st degree;NML TSHSleep apnea;non compliant - In-person encounter Office Visit Juan Carlos Oden MD [place] [facility] - In-person encounter Office Visit Juan Carlos Oden MD [place] [facility] Tobacco use quitExposure to SARS-associated coronavirus;neg igg;had vaccine - In-person encounter Office Visit Juan Carlos Oden MD [place] [facility] Tobacco use quitMICROVASCULAR ANGINA;HELPED BY ECPExposure to SARS-associated coronavirus;neg igg;had vaccine - In-person encounter Office Visit Juan Carlos Oden MD [place] [facility] Tobacco use quitGALLSTONES;NEG USPVD;NEG SOLA 14Microvascular angina;ECP HELPedR/O Sleep apnea;neg home sleep - In-person encounter Office Visit Juan Carlos Oden MD [place] [facility] Tobacco use quitBRADYCARDIA SINUS;tsh okOBESITY;Screening - In-person encounter Office Visit Juan Carlos Oden MD [place] [facility] LOW HDLBRADYCARDIA SINUS;tsh okAV block, 1st degree;NML TSHDizziness;will wuISCHEMIA;MILDLY ABNL 14 NUC, 30% LAD 14CHF;NML BNP 14Diastolic CHF AND LVHScreening - In-person encounter Office Visit Juan Carlos Oden MD [place] [facility] - In-person encounter Office Visit Juan Carlos Oden MD [place] [facility] BRADYCARDIA SINUS;tsh okDiastolic CHF AND LVH - In-person encounter Office Visit Juan Carlos Oden MD [place] [facility] R/O Sleep apnea;neg home sleepOrthostatic;ISORDIL STOPPED AND BP MEDS MOVED TO BEDTIME - In-person encounter Office Visit Judith Alfonso MD [place] [facility] - In-person encounter Office Visit Juan Carlos Oden MD [place] [facility] Microvascular angina;ECP HELPed - In-person encounter Office Visit Juan Carlos Oden MD [place] [facility] Tobacco use quitOBESITY;Dizziness;will wuSHORTNESS OF BREATHMicrovascular angina;ECP HELPedR/O Sleep apnea;neg home sleep - In-person encounter Office Visit Juan Carlos Oden MD [place] [facility] CAD;CAROTID PLAQUESCHIZOPHRENIA;CONTRO LLED - In-person encounter Office Visit Juan Carlos Oden MD [place] [facility] HYPERCHOLESTEROLEMIA; GREAT 15OBESITY;ISCHEMIA;MILDLY ABNL 14 NUC, 30% LAD 14 - In-person encounter Office Visit Juan Carlos Oden MD [place] [facility] - In-person encounter Office Visit Juan Carlos Oden MD [place] - In-person encounter Office Visit Juan Carlos Oden MD [place] [facility] - In-person encounter Office Visit Juan Carlos Oden MD [facility] - In-person encounter Office Visit Juan Carlos Oden MD [place] [facility] - In-person encounter Office Visit Juan Carlos Oden MD [place] [facility] STENT -MULT BM OPEN 14ABNORMAL STRESS NUCLEAR SCAN;2008 WITH 30% STENOSIS CATHOBESITY;Dizziness;will wuISCHEMIA;MILDLY ABNL 14 NUC, 30% LAD 14 - In-person encounter Office Visit Juan Carlos Oden MD [place] [facility] - In-person encounter Office Visit Juan Carlos Oden MD [place] [facility] - In-person encounter Office Visit Juan Carlos Oden MD [place] - In-person encounter Office Visit Juan Carlos Oden MD [place] Tobacco use quitDizziness;will wuISCHEMIA;MILDLY ABNL 14 NUC, 30% LAD 14 - In-person encounter Office Visit Juan Carlos Oden MD [place] [facility] BENIGN POSITIONAL VERTIGOCAD;CAROTID PLAQUETobacco use quitOBESITY;Dizziness;will wuGALLSTONES;NEG US - In-person encounter Office Visit Juan Carlos Oden MD [place] [facility] STENT -MULT BM OPEN 14MYOCARDIAL INFARCTION;2003CAD;CAROTID PLAQUEHTN;LABS PER PRIMARYLVH;NML BNP 2009LOW HDLBRADYCARDIA SINUS;tsh okAV block, 1st degree;NML TSHCOLONIC POLYPS;REMOVED 2010FAMILY HISTORY OF HEART DISEASEOBESITY;EPILEPSY, GENERALIZED NONCONVULSIVESCHIZOPHRENIA ;CONTROLLED - In-person encounter Office Visit Juan Carlos Oden MD [place] [facility] BENIGN POSITIONAL VERTIGOHTN;LABS PER PRIMARYTobacco use quitCHEST PAIN-TYPE TO BE DETERMINED;12/18, WILL W/UCAD-01/18 CATH NONOBS CAD EF 60CHEST PAIN, 01/18 NUC ISCHEMIALOW HDLALKALINE PHOSPHATASE, ELEVATED;PER PRIMARY 2009BRADYCARDIA SINUS;tsh okAV block, 1st degree;NML TSHABNORMAL STRESS NUCLEAR SCAN;2008 WITH 30% STENOSIS CATH - In-person encounter Office Visit Juan Carlos Oden MD [place] [facility] MYOCARDIAL INFARCTION;2002HYPERCHOLES TEROLEMIA; GREAT 15Tobacco use quit - In-person encounter Office Visit Juan Carlos Oden MD [place] [facility] CHEST PAIN-07/15 NUC FX AP DEFLVH;NML BNP 2008 - In-person encounter Office Visit Juan Carlos Oden MD [place] [facility] STENT -MULT BM OPEN 14BENIGN POSITIONAL VERTIGOMYOCARDIAL INFARCTION;2002HYPERCHOLES TEROLEMIA; GREAT 15CAD;CAROTID PLAQUE VITAL SIGNS Date Observation Value Provider Body Mass Index (Ratio) 32.28 kg/m2 Be Atwood MD pulse rate 86 /min [facility] blood pressure, cuff size regular [facility] blood pressure, diastolic 91 mm[Hg] Peyman [facility] blood pressure, systolic 130 mm[Hg] [facility] respiratory rate E&M 16 /min [facility] oxygen saturation, oximetry 98 % [facility] weight E&M 238 [lb_av] [facility] y height E&M 72 [in_i] [facility] Body Mass Index (Ratio) 37.02 kg/m2 Dae Oden MD blood pressure, diastolic 91 mm[Hg] Sh nadya Sarah blood pressure, systolic 150 mm[Hg] She eldaraghav Sarah oxygen saturation, oximetry 97 % Lissa Smith weight E&M 273 [lb_av] Lissa Smith pulse rate 81 /min Lissa Smith respiratory rate E&M 20 /min Lissa Smith height E&M 72 [in_i] Lissa Smith Body Mass Index (Ratio) 37.16 kg/m2 Dae Oden MD blood pressure, diastolic 109 mm[Hg] St jenni Holden blood pressure, systolic 168 mm[Hg] Elizabeth whitlock Hold[facility] weight E&M 274 [lb_av] Elo Holden oxygen saturation, oximetry 96 % Elo Holden respiratory rate E&M 18 /min Elo Angela min pulse rate 91 /min Elo Holden height E&M 72 [in_i] Elo Holden Body Mass Index (Ratio) 37.02 kg/m2 Dae Oden MD blood pressure, cuff size large Ri pennie Fragoso blood pressure, diastolic 75 mm[Hg] Ri pennie Fragoso blood pressure, systolic 144 mm[Hg] Gavin pedro Fragoso pulse rate 94 /min Miya urbina respiratory rate E&M 16 /min Doris Fragoso oxygen saturation, oximetry 95 % Miya Fragoso weight E&M 273 [lb_av] Miya Rich son height E&M 72 [in_i] Miya urbina Body Mass Index (Ratio) 36.07 kg/m2 Dae Oden MD blood pressure, diastolic 101 mm[Hg] Ch astity Rabia blood pressure, systolic 158 mm[Hg] Alayna stity Rabia respiratory rate E&M 16 /min Chastit y Rabia oxygen saturation, oximetry 98 % Chastity Rabia pulse rate 83 /min Chastity Rabia weight E&M 266 [lb_av] Chastity Rabia height E&M 72 [in_i] [facility] 35.94 kg/m2 Dae Oden MD blood pressure, diastolic 82 mm[Hg] astity Rabia blood pressure, systolic 152 mm[Hg] Aalyna stity Rabia weight E&M 265 [lb_av] [facility], [facility] 95 % [facility] 80 /min [facility] E&M 16 /min [facility] height E&M 72 [in_i] [facility] Body Mass Index (Ratio) 35.80 kg/m2 Dae Oden MD blood pressure, diastolic 90 mm[Hg] Li nkLogic blood pressure, systolic 146 mm[Hg] Christi kLog blood pressure, resting Yes Deonte ty [place] blood pressure, cuff size regular Kr isty Manuelito blood pressure, diastolic 90 mm[Hg] Kr isty [place] blood pressure, systolic 146 mm[Hg] Kri sty [place] pulse rate 74 /min Melissa Manuelito oxygen saturation, oximetry 97 % Melissa [place] respiratory rate E&M 19 /min Melissa [place] weight E&M 264 [lb_av] Melissa [place] height E&M 72 [in_i] Melissa Manuelito Body Mass Index (Ratio) 37.43 kg/m2 Dae Oden MD blood pressure, diastolic 86 mm[Hg] Vito Restrepo blood pressure, systolic 144 mm[Hg] Maria Guadalupe Restrepo oxygen saturation, oximetry 98 % Mabel Restrepo blood pressure, cuff size regular Cy ntnu Restrepo pulse rate 81 /min Mabel lópez respiratory rate E&M 16 /min Mabel Restrepo weight E&M 276 [lb_av] Mabel lópez height E&M 72 [in_i] Mabel lópez pulse rate #2 62 [facility] blood pressure, liu tolic, second observation 69 mm[Hg] [place] blood pressure, syst olic, second observation 123 mm[Hg] [facility] oxygen saturation, oximetry 98 % [place] pulse rate 62 /min [place] blood pressure, diastolic 69 mm[Hg] Vi [facility] blood pressure, systolic 123 mm[Hg] Mykel [facility] pulse rate #2 82 [facility] blood pressure, liu tolic, second observation 82 mm[Hg] [facility] blood pressure, syst olic, second observation 133 mm[Hg] [facility] oxygen saturation, oximetry 98 % [facility] pulse rate 82 /min [facility] blood pressure, diastolic 82 mm[Hg] Vi [facility] blood pressure, systolic 133 mm[Hg] Mykel jesus Ted pulse rate #2 59 [facility] blood pressure, liu tolic, second observation 87 mm[Hg] [facility] blood pressure, syst olic, second observation 132 mm[Hg] [facility] oxygen saturation, oximetry 98 % [facility] pulse rate 59 /min [facility] blood pressure, diastolic 87 mm[Hg] Vi ctoria Ted blood pressure, systolic 132 mm[Hg] Mykel sandyia Ted pulse rate #2 60 [facility] blood pressure, liu tolic, second observation 88 mm[Hg] [facility] blood pressure, syst olic, second observation 126 mm[Hg] [facility] oxygen saturation, oximetry 98 % [place] pulse rate 60 /min [facility] blood pressure, diastolic 88 mm[Hg] Vi [facility] blood pressure, systolic 126 mm[Hg] Mykel ann marie pulse rate #2 68 [place] blood pressure, liu tolic, second observation 85 mm[Hg] [place] blood pressure, syst olic, second observation 123 mm[Hg] [place] oxygen saturation, oximetry 98 % [place] pulse rate 68 /min [place] blood pressure, diastolic 85 mm[Hg] Vi [facility] blood pressure, systolic 123 mm[Hg] Mykel sandyia d pulse rate #2 61 [place] blood pressure, liu tolic, second observation 82 mm[Hg] [place] blood pressure, syst olic, second observation 129 mm[Hg] [place] oxygen saturation, oximetry 98 % [place] pulse rate 61 /min [facility] blood pressure, diastolic 82 mm[Hg] Vi [facility] d blood pressure, systolic 129 mm[Hg] Mykel sandyia Ted pulse rate #2 59 [place] blood pressure, liu tolic, second observation 86 mm[Hg] [facility] blood pressure, syst olic, second observation 128 mm[Hg] [place] oxygen saturation, oximetry 98 % [place] pulse rate 59 /min [facility] blood pressure, diastolic 86 mm[Hg] Vi ctoria Ted blood pressure, systolic 128 mm[Hg] Mykel ann marie Tebid pulse rate #2 60 [place] blood pressure, liu tolic, second observation 80 mm[Hg] [facility] d blood pressure, syst olic, second observation 136 mm[Hg] [place] oxygen saturation, oximetry 98 % [place] pulse rate 60 /min [facility] blood pressure, diastolic 80 mm[Hg] Vi [facility] Tebid blood pressure, systolic 136 mm[Hg] Mykel ann marie Tebid pulse rate #2 53 [facility] blood pressure, liu tolic, second observation 84 mm[Hg] [facility] blood pressure, syst olic, second observation 131 mm[Hg] [facility] oxygen saturation, oximetry 98 % [facility] pulse rate 53 /min [facility] blood pressure, diastolic 84 mm[Hg] Vi [facility] Ted blood pressure, systolic 131 mm[Hg] Mykel ann marie Tebid pulse rate #2 57 [place] blood pressure, liu tolic, second observation 85 mm[Hg] [facility] blood pressure, syst olic, second observation 134 mm[Hg] [facility] oxygen saturation, oximetry 98 % [place] pulse rate 57 /min [facility] blood pressure, diastolic 85 mm[Hg] Vi [facility] Tebid blood pressure, systolic 134 mm[Hg] Mykel sandyia Tebid pulse rate #2 61 [place] blood pressure, liu tolic, second observation 88 mm[Hg] [facility], syst olic, second observation 126 mm[Hg] [facility] oxygen saturation, oximetry 98 % [facility] pulse rate 61 /min [facility] blood pressure, diastolic 88 mm[Hg] [facility] blood pressure, systolic 126 mm[Hg] Mykel ann marie Tebid pulse rate #2 67 [place] blood pressure, liu tolic, second observation 84 mm[Hg] [place] blood pressure, syst olic, second observation 123 mm[Hg] [facility] oxygen saturation, oximetry 98 % [place] pulse rate 67 /min [facility] blood pressure, diastolic 84 mm[Hg] Vi ctoria Tebid blood pressure, systolic 123 mm[Hg] Mykel sandyia d pulse rate #2 59 [place] blood pressure, ilu tolic, second observation 82 mm[Hg] [facility] blood pressure, syst olic, second observation 128 mm[Hg] [facility] oxygen saturation, oximetry 98 % [place] pulse rate 59 /min [place] blood pressure, diastolic 82 mm[Hg] Vi [facility] d blood pressure, systolic 128 mm[Hg] Mykel ann marie d pulse rate #2 60 [place] blood pressure, liu tolic, second observation 85 mm[Hg] [facility] blood pressure, syst olic, second observation 121 mm[Hg] [facility] oxygen saturation, oximetry 98 % [place] pulse rate 60 /min [place] blood pressure, diastolic 85 mm[Hg] [facility], systolic 121 mm[Hg] Mykel sandyia d pulse rate #2 58 [facility] blood pressure, liu tolic, second observation 86 mm[Hg] [facility] blood pressure, syst olic, second observation 130 mm[Hg] [facility] oxygen saturation, oximetry 98 % [facility] pulse rate 58 /min [place] blood pressure, diastolic 86 mm[Hg] Vi [facility] d blood pressure, systolic 130 mm[Hg] [facility] 55 [place] blood pressure, liu tolic, second observation 87 mm[Hg] [facility] blood pressure, syst olic, second observation 142 mm[Hg] [place] oxygen saturation, oximetry 98 % [place] pulse rate 55 /min [facility] blood pressure, diastolic 87 mm[Hg] Vi [facility] blood pressure, systolic 142 mm[Hg] Mykel [facility] pulse rate #2 53 [place] blood pressure, ilu tolic, second observation 77 mm[Hg] [facility] blood pressure, syst olic, second observation 136 mm[Hg] [place] oxygen saturation, oximetry 98 % [place] pulse rate 53 /min [place] blood pressure, diastolic 77 mm[Hg] Vi [facility] blood pressure, systolic 136 mm[Hg] Mykel [facility] pulse rate #2 63 [place] blood pressure, liu tolic, second observation 78 mm[Hg] [facility] blood pressure, syst olic, second observation 112 mm[Hg] [facility] oxygen saturation, oximetry 98 % [place] pulse rate 63 /min [place] blood pressure, diastolic 78 mm[Hg] Vi [facility] d blood pressure, systolic 112 mm[Hg] Mykel ann marie d pulse rate #2 62 [facility] blood pressure, liu tolic, second observation 77 mm[Hg] [facility] blood pressure, syst olic, second observation 115 mm[Hg] [place] oxygen saturation, oximetry 98 % [facility] pulse rate 62 /min [facility] blood pressure, diastolic 77 mm[Hg] Vi [facility] d blood pressure, systolic 115 mm[Hg] Mykel ann marie d pulse rate #2 76 [place] blood pressure, liu tolic, second observation 76 mm[Hg] [facility] blood pressure, syst olic, second observation 135 mm[Hg] [facility] oxygen saturation, oximetry 98 % [facility] pulse rate 76 /min [place] blood pressure, diastolic 76 mm[Hg] Vi [facility] d blood pressure, systolic 135 mm[Hg] Mykel ann marie d pulse rate #2 68 [place] blood pressure, liu tolic, second observation 92 mm[Hg] [facility] blood pressure, syst olic, second observation 135 mm[Hg] [facility] oxygen saturation, oximetry 98 % [facility] pulse rate 68 /min [place] blood pressure, diastolic 92 mm[Hg] Vi [facility] d blood pressure, systolic 135 mm[Hg] Mykel jesus d pulse rate #2 65 [place] blood pressure, liu tolic, second observation 78 mm[Hg] [facility] d blood pressure, syst olic, second observation 135 mm[Hg] [facility] oxygen saturation, oximetry 98 % [facility] pulse rate 65 /min [place] blood pressure, diastolic 78 mm[Hg] Vi [facility] d blood pressure, systolic 135 mm[Hg] Mykel sandyia d pulse rate #2 55 [place] blood pressure, liu tolic, second observation 87 mm[Hg] [place] blood pressure, syst olic, second observation 125 mm[Hg] [facility] oxygen saturation, oximetry 98 % [facility] pulse rate 55 /min [place] blood pressure, diastolic 87 mm[Hg] [facility] blood [facility], systolic 125 mm[Hg] Mykel ann marie Tebid pulse rate #2 67 [place] blood pressure, liu tolic, second observation 85 mm[Hg] [place] blood pressure, syst olic, second observation 115 mm[Hg] [place] oxygen saturation, oximetry 98 % [place] pulse rate 67 /min [facility] blood pressure, diastolic 85 mm[Hg] Vi [facility] blood pressure, systolic 115 mm[Hg] Mykel sandyia d pulse rate #2 63 [place] blood pressure, liu tolic, second observation 87 mm[Hg] [facility] blood pressure, syst olic, second observation 124 mm[Hg] [facility] oxygen saturation, oximetry 98 % [facility] pulse rate 63 /min [place] blood pressure, diastolic 87 mm[Hg] [facility], [facility] 124 mm[Hg] Mykel sandyia Ted pulse rate #2 57 [place] blood pressure, liu tolic, second observation 78 mm[Hg] [place] blood pressure, syst olic, second observation 123 mm[Hg] [facility] oxygen saturation, oximetry 98 % [place] pulse rate 57 /min [place] blood pressure, diastolic 78 mm[Hg] Vi ctoria Ted blood pressure, systolic 123 mm[Hg] Mykel sandyia Tebid pulse rate #2 61 [place] blood pressure, liu tolic, second observation 69 mm[Hg] [facility] blood pressure, syst olic, second observation 112 mm[Hg] [facility] oxygen saturation, oximetry 98 % [place] pulse rate 61 /min [place] blood pressure, diastolic 69 mm[Hg] Vi ctoria Ted blood pressure, systolic 112 mm[Hg] Mykel ann marie bid pulse rate #2 58 [place] blood pressure, liu tolic, second observation 85 mm[Hg] [place] blood pressure, syst olic, second observation 123 mm[Hg] [place] oxygen saturation, oximetry 98 % [place] pulse rate 58 /min [facility] blood pressure, diastolic 85 mm[Hg] Vi [facility] Ted blood pressure, systolic 123 mm[Hg] Mykel ann marie d pulse rate #2 74 [place] blood pressure, liu tolic, second observation 74 mm[Hg] [place] blood pressure, syst olic, second observation 127 mm[Hg] [place] oxygen saturation, oximetry 98 % [place] pulse rate 74 /min [place] blood pressure, diastolic 74 mm[Hg] [facility] blood pressure, systolic 127 mm[Hg] Mykel ann marie Ted pulse rate #2 58 [place] blood pressure, liu tolic, second observation 69 mm[Hg] [facility] blood pressure, syst olic, second observation 116 mm[Hg] [place] oxygen saturation, oximetry 98 % [place] pulse rate 58 /min [facility] blood pressure, diastolic 69 mm[Hg] [facility] blood [facility], systolic 116 mm[Hg] Mykel ann marie d pulse rate #2 65 [place] blood pressure, liu tolic, second observation 62 mm[Hg] [place] blood pressure, syst olic, second observation 109 mm[Hg] [place] oxygen saturation, oximetry 98 % [place] pulse rate 65 /min [place] blood pressure, diastolic 62 mm[Hg] [facility], systolic 109 mm[Hg] Mykel [facility] pulse rate #2 62 [place] blood pressure, liu tolic, second observation 73 mm[Hg] [place] blood pressure, syst olic, second observation 121 mm[Hg] [facility] oxygen saturation, oximetry 98 % [place] pulse rate 62 /min [place] blood pressure, diastolic 73 mm[Hg] Vi [facility] blood pressure, systolic 121 mm[Hg] Mykel ann marie d pulse rate #2 74 [place] blood pressure, liu tolic, second observation 83 mm[Hg] [place] blood pressure, syst olic, second observation 117 mm[Hg] [facility] oxygen saturation, oximetry 98 % [place] pulse rate 74 /min [place] blood pressure, diastolic 83 mm[Hg] [facility], systolic 117 mm[Hg] Mykel sandyia d pulse rate #2 58 [place] blood pressure, liu tolic, second observation 74 mm[Hg] [place] blood pressure, syst olic, second observation 117 mm[Hg] [facility] oxygen saturation, oximetry 98 % [place] pulse rate 58 /min [facility] blood pressure, diastolic 74 mm[Hg] Vi ctoria Tebid blood pressure, systolic 117 mm[Hg] Mykel jesus Tebid Body Mass Index (Ratio) 37.56 kg/m2 Dae Oden MD blood pressure, cuff size large Ke rri Gruenenfelder blood pressure, diastolic 90 mm[Hg] Ke rri Gruenenfelder blood pressure, systolic 140 mm[Hg] Ker ri Gruenenfelder oxygen saturation, oximetry 98 % Juanita Gruenenfelder respiratory rate E&M 20 /min Juanita G ruenenfelder pulse rate 73 /min Juanita Gruenenfe lder weight E&M 277 [lb_av] Juanita Gruenenfe lder height E&M 72 [in_i] Juanita Gruenenfe er Body Mass Index (Ratio) 35.26 kg/m2 Dae Oden MD blood pressure, cuff size large Ke rri Gruenenfelder blood pressure, diastolic 96 mm[Hg] Ke rri Gruenenfelder blood pressure, systolic 142 mm[Hg] Ker ri Gruenenfelder oxygen saturation, oximetry 98 % Juanita Gruenenfelder respiratory rate E&M 20 /min Juanita G ruenenfelder pulse rate 79 /min Juanita Gruenenfe lder weight E&M 260 [lb_av] Juanita Gruenenfe lder height E&M 72 [in_i] Juanita Gruenenfe er Body Mass Index (Ratio) 38.78 kg/m2 Dae Oden MD blood pressure, resting No Erin Rae blood pressure, diastolic 72 mm[Hg] Abdirahman Rae blood pressure, systolic 122 mm[Hg] Bren Rae oxygen saturation, oximetry 98 % Brennon Rae respiratory rate E&M 18 /min Tori Rae pulse rate 84 /min Brennon Loco bayronprince weight E&M 286 [lb_av] Brennon waite height E&M 72 [in_i] Brennon Loco nson Body Mass Index (Ratio) 37.56 kg/m2 Kelechi Garzadall PHYSICIAN PRACTICE MANAGER blood pressure, diastolic 70 mm[Hg] Sh nadya Garzadall PHYSICIAN PRACTICE MANAGER blood pressure, systolic 132 mm[Hg] She nicole Garzadall PHYSICIAN PRACTICE MANAGER pulse rate 84 /min Lissa Garcesll PHYSICIAN PRACTICE MANAGER weight E&M 277 [lb_av] Lissa Mosley PHYSICIAN PRACTICE MANAGER blood pressure, diastolic 80 mm[Hg] Ke eldai Lizbet blood pressure, systolic 120 mm[Hg] [place] ri Lizbet pulse rate 63 /min Juanita Lee lder oxygen saturation, oximetry 96 % Juanita Somers respiratory rate E&M 16 /min Juanita torres Body Mass Index (Ratio) 37.70 kg/m2 Jones i Lizbet weight E&M 278 [lb_av] Juanita Lee lder blood pressure, diastolic 83 mm[Hg] Abdirahman Warner Butch blood pressure, systolic 143 mm[Hg] Bren Mirandatamieleigh Rae pulse rate 64 /min Brennon Loco bayronprince oxygen saturation, oximetry 97 % Brennonlenka Rae respiratory rate E&M 18 /min Tori Rae Body Mass Index (Ratio) 38.97 kg/m2 Erin Vazquez Rae weight E&M 287.4 [lb_av] Brennon beeprince pulse rate #2 61 [facility], [facility]u [facility], second observation 78 mm[Hg] [facility], syst olic, second observation 125 mm[Hg] [facility], oxim[facility] 98 % [facility] 61 [facility], diastolic 78 mm[Hg] Vi ctoria Tebid blood pressure, systolic 125 mm[Hg] Mykel ann marie Tebid pulse rate #2 72 [facility], liu tolic, second observation 81 mm[Hg] [facility], syst olic, second observation 135 mm[Hg] [facility], oxim[facility] 98 % [facility] pulse rate 79 /min [facility] blood pressure, diastolic 88 mm[Hg] Vi waoria Tebid blood pressure, systolic 150 mm[Hg] [facility]2 [facility], liu tolic, second observation 72 mm[Hg] [facility], syst olic, second observation 130 mm[Hg] [facility], [facility]xim[facility] 98 % [facility] 78 /min [facility], diastolic 76 mm[Hg] Vi ctoria Tebid blood pressure, systolic 135 mm[Hg] Mykel ann marie Tebid pulse rate #2 79 [facility], liu tolic, second observation 86 mm[Hg] [facility], syst olic, second observation 134 mm[Hg] [facility], oximetry 98 % [facility] pulse rate 78 /min [facility], diastolic 86 mm[Hg] Vi ctoria Tebid blood pressure, systolic 138 mm[Hg] Mykel ann marie Tebid pulse rate #2 68 [place] Tebid blood pressure, liu tolic, second observation 78 mm[Hg] Landy Tebid blood pressure, syst olic, second observation 135 mm[Hg] Landy Tebid oxygen saturation, oximetry 98 % [facility] 71 /min [place] Tebid blood pressure, diastolic 76 mm[Hg] Vi ctoria Tebid blood pressure, systolic 138 mm[Hg] Mykel ann marie Tebid pulse rate #2 64 [place] Tebid blood pressure, liu tolic, second observation 81 mm[Hg] Landy Tebid blood pressure, syst olic, second observation 128 mm[Hg] [facility], [facility] 98 % [facility] 65 /min [place] Tebid blood pressure, diastolic 85 mm[Hg] Vi ctoria Tebid blood pressure, systolic 128 mm[Hg] Mykel ann marie Tebid pulse rate #2 64 [place] Tebid blood pressure, liu tolic, second observation 82 mm[Hg] Landy Tebid blood pressure, syst olic, second observation 127 mm[Hg] Landy Tebid oxygen saturation, oximetry 98 % [facility] Tebid pulse rate 67 /min [place] Tebid blood pressure, diastolic 82 mm[Hg] Vi ctoria Tebid blood pressure, systolic 135 mm[Hg] Mykel ann marie Tebid pulse rate #2 71 [place] Tebid blood pressure, liu tolic, second observation 76 mm[Hg] Landy Tebid blood pressure, syst olic, second observation 131 mm[Hg] Landy Tebid oxygen saturation, oximetry 98 % [place] Tebid pulse rate 74 /min [place] Tebid blood pressure, diastolic 76 mm[Hg] Vi ctoria Tebid blood pressure, systolic 128 mm[Hg] Mykel ann marie Tebid pulse rate #2 68 [place] Tebid blood pressure, liu tolic, second observation 81 mm[Hg] [facility], syst [facility], second observation 134 mm[Hg] Landy Tebid oxygen saturation, oximetry 98 % [place] Tebid pulse rate 72 /min [place] Tebid blood pressure, diastolic 82 mm[Hg] Vi ctoria Tebid blood pressure, systolic 138 mm[Hg] Mykel ann marie Tebid pulse rate #2 61 [place] bid blood pressure, liu tolic, second observation 84 mm[Hg] [facility] 128 mm[Hg] [facility], [facility] 98 % [place] d pulse rate 64 /min [place] Tebid blood pressure, diastolic 87 mm[Hg] Vi ctoria Tebid blood pressure, systolic 135 mm[Hg] Mykel ann marie Tebid pulse rate #2 61 [facility], liu tolic, second observation 78 mm[Hg] [facility], syst olic, second observation 128 mm[Hg] [place] Tebid oxygen saturation, oximetry 98 % [facility] 63 /min [place] Tebid blood pressure, diastolic 82 mm[Hg] Vi ctoria Tebid blood pressure, systolic 135 mm[Hg] Mykel ann marie Tebid pulse rate #2 69 [facility], liu tolic, second observation 78 mm[Hg] [facility], syst olic, second observation 125 mm[Hg] [facility], oximetry 98 % [place] Tebid pulse rate 69 /min [place] Tebid blood pressure, diastolic 78 mm[Hg] Vi ctoria Tebid blood pressure, systolic 125 mm[Hg] Mykel ann marie Tebid pulse rate #2 72 [facility], liu tolic, second observation 68 mm[Hg] [place] Tebid blood pressure, syst olic, second observation 148 mm[Hg] Landy Tebid oxygen saturation, oximetry 98 % [facility] 73 /min [place] Tebi blood pressure, diastolic 83 mm[Hg] Vi ctoria Tebid blood pressure, systolic 158 mm[Hg] Mykel ann marie Tebid pulse rate #2 64 [facility] blood pressure, liu tolic, second observation 84 mm[Hg] [facility], syst olic, second observation 115 mm[Hg] [facility], oximetry 98 % [facility] pulse [facility] 62 /min [facility], diastolic 89 mm[Hg] Vi ctoria Tebid blood pressure, systolic 138 mm[Hg] Mykel ann marie Tebid pulse rate #2 66 [facility] blood pressure, liu tolic, second observation 86 mm[Hg] [place] Tebid blood pressure, syst olic, second observation 134 mm[Hg] [facility] 98 % [facility] pulse rate 66 /min [facility], diastolic 86 mm[Hg] Vi ctoria Tebid blood pressure, systolic 134 mm[Hg] Mykel ann marie Tebid Body Mass Index (Ratio) 37.70 kg/m2 Anea alicia Brown blood pressure, diastolic 84 mm[Hg] An eatris Brown blood pressure, systolic 136 mm[Hg] Ane atribernard Santamaria pulse rate 62 /min Aneatris [facility] oxygen saturation, oximetry 97 % Aneatris Rosalio respiratory rate E&M 18 /min Anebrandoni bernard Santamaria weight E&M 278 [lb_av] Aneatrgema Santamaria pulse rate #2 58 [facility] blood pressure, liu tolic, second observation 88 mm[Hg] [facility] blood pressure, syst olic, second observation 127 mm[Hg] [facility] oxygen saturation, oximetry 98 % [facility] pulse rate 62 /min [facility] blood pressure, diastolic 91 mm[Hg] Vi ctoria Tebid blood pressure, systolic 136 mm[Hg] Mykel sandyia Tebid pulse rate #2 66 [facility] blood pressure, liu tolic, second observation 93 mm[Hg] [facility], syst [facility]lic, second observation 136 mm[Hg] [facility], oximetry 98 % [facility] pulse rate 63 /min [facility], diastolic 90 mm[Hg] Vi ctoria Tebid blood pressure, systolic 138 mm[Hg] Mykel sandyia Tebid pulse rate #2 65 [facility] Tebid blood pressure, liu tolic, second observation 89 mm[Hg] Landy Tebid blood pressure, syst olic, second observation 139 mm[Hg] Landy Tebid oxygen saturation, oximetry 98 % [facility] pulse rate 64 /min [place] Tebid blood pressure, diastolic 83 mm[Hg] Vi ctoria Tebid blood pressure, systolic 133 mm[Hg] Mykel ann marie Tebid pulse rate #2 67 [facility] Tebid blood pressure, liu tolic, second observation 70 mm[Hg] [facility], syst [facility]lic, second observation 131 mm[Hg] [facility], oximetry 98 % [facility] pulse [facility] 65 /min [facility], diastolic 74 mm[Hg] Vi ctoria Tebid blood pressure, systolic 132 mm[Hg] Mykel ann marie Tebid pulse rate #2 61 [facility], liu tolic, second observation 70 mm[Hg] [facility], syst olic, second observation 132 mm[Hg] [facility] oximetry 98 % [facility] pulse rate 59 /min [facility] blood pressure, diastolic 77 mm[Hg] Vi ctoria Tebid blood pressure, systolic 135 mm[Hg] Mykel ann marie Tebid pulse rate #2 68 [facility], liu tolic, second observation 85 mm[Hg] [facility], syst olic, second observation 130 mm[Hg] [facility] Tebid oxygen saturation, oximetry 98 % [facility] pulse rate 65 /min [place] Tebid blood pressure, diastolic 82 mm[Hg] Vi ctoria Tebid blood pressure, systolic 137 mm[Hg] Mykel ann marie Tebid pulse rate #2 68 [place] Tebid blood pressure, liu tolic, second observation 71 mm[Hg] Landy Tebid blood pressure, syst olic, second observation 127 mm[Hg] Landy Tebid oxygen saturation, oximetry 98 % [facility] 72 /min [place] Tebid blood pressure, diastolic 74 mm[Hg] Vi ctoria Tebid blood pressure, systolic 136 mm[Hg] Mykel ann marie Tebid pulse rate #2 63 [facility] Ted blood pressure, liu tolic, second observation 71 mm[Hg] Land[facility] d blood pressure, syst olic, second observation 108 mm[Hg] [facility] d oxygen saturation, oximetry 98 % Landy Ted pulse rate 62 /min Landy Ted blood pressure, diastolic 63 mm[Hg] Vi ctoria Tebid blood pressure, systolic 124 mm[Hg] Mykel ann marie Tebid blood pressure, diastolic 64 mm[Hg] Ri roque Hoskins blood pressure, systolic 114 mm[Hg] Jewell martinez Hoskins Body Mass Index (Ratio) 37.56 kg/m2 Helga loco Hoskins pulse rate 68 /min Joyce Hoskins oxygen saturation, oximetry 97 % Joyce Hoskins respiratory rate E&M 14 /min Joyce Hoskins weight E&M 277 [lb_av] Joyce Hoskins pulse rate #2 61 [place] blood pressure, liu tolic, second observation 76 mm[Hg] [facility], second observation 107 mm[Hg] [facility], oximetry 98 % [facility] pulse rate 58 /min [facility], diastolic 71 mm[Hg] Vi ctoria Tebid blood pressure, systolic 115 mm[Hg] Mykel sandyia Tebid pulse rate #2 58 [place] Ted blood pressure, liu tolic, second observation 81 mm[Hg] Landy Tebid blood pressure, syst olic, second observation 136 mm[Hg] Landy Tebid oxygen saturation, oximetry 98 % Landy Ted pulse rate 57 /min [facility] Tebid blood pressure, diastolic 78 mm[Hg] Vi ctoria Tebid blood pressure, systolic 134 mm[Hg] Mykel ann marie Tebid pulse rate #2 56 [place] Tebid blood pressure, liu tolic, second observation 80 mm[Hg] Landy Tebid blood pressure, syst olic, second observation 126 mm[Hg] Landy Tebid oxygen saturation, oximetry 98 % [facility] Tebid pulse rate 56 /min [place] Tebid blood pressure, diastolic 75 mm[Hg] Vi ctoria Tebid blood pressure, systolic 133 mm[Hg] Mykel ann marie Tebid pulse rate #2 59 [place] Tebid blood pressure, liu tolic, second observation 78 mm[Hg] [facility], syst [facility]lic, second observation 135 mm[Hg] [facility], oximetry 98 % [facility] 61 /min [facility], diastolic 74 mm[Hg] Vi [facility] Tebid blood pressure, systolic 140 mm[Hg] Mykel ann marie Tebid pulse rate #2 63 [facility], liu tolic, second observation 68 mm[Hg] [facility], syst olic, second observation 123 mm[Hg] [facility], oximetry 98 % [facility] pulse [facility] 61 /min [place] Tebid blood pressure, diastolic 82 mm[Hg] Vi ctoria Tebid blood pressure, systolic 136 mm[Hg] Mykel ann marie Tebid pulse rate #2 57 [facility], liu tolic, second observation 63 mm[Hg] [facility], syst olic, second observation 118 mm[Hg] [facility], oximetry 98 % [facility] pulse [facility] 56 /min [place] Tebid blood pressure, diastolic 70 mm[Hg] Vi ctoria Tebid blood pressure, systolic 131 mm[Hg] Mykel ann marie Tebid pulse rate #2 74 [place] d blood pressure, liu tolic, second observation 78 mm[Hg] [facility], syst olic, second observation 132 mm[Hg] [facility], oximetry 98 % [place] d pulse rate 84 /min [facility], diastolic 85 mm[Hg] Vi ctoria Tebid blood pressure, systolic 139 mm[Hg] Mykel ann marie Tebid pulse rate #2 62 [place] d blood pressure, liu tolic, second observation 76 mm[Hg] [facility] blood pressure, syst olic, second observation 121 mm[Hg] [facility], [facility] 98 % [facility] pulse rate 66 /min [place] d blood pressure, diastolic 74 mm[Hg] Vi [facility] Tebid blood pressure, systolic 125 mm[Hg] Mykel ann marie Tebid pulse rate #2 59 [facility], liu tolic, second observation 80 mm[Hg] [facility], syst olic, second observation 121 mm[Hg] [facility], oximetry 98 % [facility] pulse [facility] 57 /min [place] Tebid blood pressure, diastolic 84 mm[Hg] Vi ctoria Tebid blood pressure, systolic 128 mm[Hg] Mykel ann marie Tebid pulse rate #2 60 [facility], liu tolic, second observation 78 mm[Hg] [facility], syst olic, second observation 136 mm[Hg] [facility], oximetry 98 % [facility] pulse [facility] 61 /min [place] Tebid blood pressure, diastolic 84 mm[Hg] Vi ctoria Tebid blood pressure, systolic 143 mm[Hg] Mykel ann marie Tebid pulse rate #2 72 [facility], liu tolic, second observation 83 mm[Hg] [place] Tebid blood pressure, syst olic, second observation 129 mm[Hg] [facility], oximetry 98 % Landy Tebi pulse rate 66 /min [place] Tebi blood pressure, diastolic 81 mm[Hg] Vi [facility] Tebid blood pressure, systolic 124 mm[Hg] Mykel ann marie Tebid pulse rate #2 76 [facility] blood pressure, liu tolic, second observation 78 mm[Hg] [facility] blood pressure, syst olic, second observation 131 mm[Hg] [facility], oximetry 98 % [facility] pulse rate 74 /min [facility] blood pressure, diastolic 82 mm[Hg] Vi [facility] Tebid blood pressure, systolic 127 mm[Hg] Mykel jesus Tebid Body Mass Index (Ratio) 38.11 kg/m2 Anea alicia Rosalio blood pressure, diastolic 84 mm[Hg] An eatris Rosalio blood pressure, systolic 132 mm[Hg] Ane atris Rosalio pulse rate 74 /min Aneatris Rosalio oxygen saturation, oximetry 98 % Adelitaatrgema Santamaria respiratory rate E&M 17 /min Aneatri s Rosalio weight E&M 281 [lb_av] Aneatris Rosalio Body Mass Index (Ratio) 37.57 kg/m2 Dayanara Brooks blood pressure, liu tolic, second observation 78 mm[Hg] Lucie Brooks blood pressure, syst olic, second observation 121 mm[Hg] Lucie Brooks blood pressure, diastolic 78 mm[Hg] Na florence Brooks blood pressure, systolic 121 mm[Hg] Celina Brooks pulse rate 71 /min Lucie Brooks oxygen saturation, oximetry 97 % Lucie Brooks respiratory rate E&M 18 /min Lucie Brooks weight E&M 276 [lb_av] Lucie Baezaoney blood pressure, diastolic 69 mm[Hg] Peyman lenka Apontebernard KIM blood pressure, systolic 124 mm[Hg] Tarun Destiny KIM pulse rate 68 /min Traun Destiny KIM oxygen saturation, oximetry 97 % Tarun Destiny KIM respiratory rate E&M 18 /min Tarun Zenon real RN Body Mass Index (Ratio) 36.89 kg/m2 Tarun Destiny KIM weight E&M 271 [lb_av] Tarun Apontes RN Body Mass Index (Ratio) 37.43 kg/m2 Kelechi hernández Dimitri PHYSICIAN PRACTICE MANAGER weight E&M 275 [lb_av] Lissa Dimitri PHYSICIAN PRACTICE MANAGER blood pressure, diastolic 70 mm[Hg] nadya [place] PHYSICIAN PRACTICE MANAGER blood pressure, systolic 134 mm[Hg] She rry Dimitri PHYSICIAN PRACTICE MANAGER Body Mass Index (Ratio) 37.43 kg/m2 Kelechi ry Dimitri PHYSICIAN PRACTICE MANAGER weight E&M 275 [lb_av] Lissa Dimitri PHYSICIAN PRACTICE MANAGER Body Mass Index (Ratio) 34.44 kg/m2 Kelechi ry Dimitri PHYSICIAN PRACTICE MANAGER weight E&M 253 [lb_av] Lissa Dimitri PHYSICIAN PRACTICE MANAGER pulse rate 72 /min Lissa [place] PHYSICIAN PRACTICE MANAGER blood pressure, cuff size large erry Dimitri PHYSICIAN PRACTICE MANAGER blood pressure, diastolic 62 mm[Hg] erry [place] PHYSICIAN PRACTICE MANAGER blood pressure, systolic 132 mm[Hg] She rry [place] PHYSICIAN PRACTICE MANAGER Body Mass Index (Ratio) 34.52 kg/m2 Kelechi Mosley PHYSICIAN PRACTICE MANAGER weight E&M 253.6 [lb_av] Lissa Mosley PHYSICIAN PRACTICE MANAGER Body Mass Index (Ratio) 34.49 kg/m2 Kelechi Mosley PHYSICIAN PRACTICE MANAGER weight E&M 253.4 [lb_av] Lissa Mosley PHYSICIAN PRACTICE MANAGER Body Mass Index (Ratio) 34.23 kg/m2 Cameronraghav ochoa Herrera blood pressure, diastolic, left arm 68 mm [Hg] [facility] blood pressure, systolic, left arm 114 mm [Hg] [facility] blood pressure, diastolic, right arm 74 m m[Hg] [facility] blood pressure, systolic, right arm 112 m m[Hg] [facility] blood pressure, diastolic 68 mm[Hg] Rojas Herrera blood pressure, systolic 144 mm[Hg] [facility] 64 /min [facility] oxygen saturation, oximetry 98 % [facility] respiratory rate E&M 16 /min [facility] weight E&M 251.50 [lb_av] [facility] blood pressure, liu tolic, second observation 72 mm[Hg] Lacretia Perez PHYSICIAN PRACTICE MANAGER blood pressure, syst olic, second observation 130 mm[Hg] Lacretia Perez PHYSICIAN PRACTICE MANAGER JNC systolic blood pressure goal 140 m m/[Hg] Lacretia Perez PHYSICIAN PRACTICE MANAGER pulse rate 66 /min Lacretia Bang s PHYSICIAN PRACTICE MANAGER blood pressure, cuff size regular La cretia Chris PHYSICIAN PRACTICE MANAGER blood pressure, diastolic 78 mm[Hg] La cretia Perez PHYSICIAN PRACTICE MANAGER blood pressure, systolic 138 mm[Hg] Lac retia Chris PHYSICIAN PRACTICE MANAGER Body Mass Index (Ratio) 34.76 kg/m2 Lacr etia Perez PHYSICIAN PRACTICE MANAGER weight E&M 255.4 [lb_av] Jennifer boogie PHYSICIAN PRACTICE MANAGER blood pressure, diastolic 86 mm[Hg] Peyman Huston PHYSICIAN PRACTICE MANAGER blood pressure, systolic 146 mm[Hg] Ian [place] PHYSICIAN PRACTICE MANAGER pulse rate 64 /min Soni Huston PHYSICIAN PRACTICE MANAGER respiratory rate E&M 18 /min Soni garcia PHYSICIAN PRACTICE MANAGER weight E&M 259 [lb_av] Soni [place]uston PHYSICIAN PRACTICE MANAGER height E&M 72 [in_i] Soni [place]uston PHYSICIAN PRACTICE MANAGER weight E&M 260 [lb_av] Soni [place] PHYSICIAN PRACTICE MANAGER blood pressure, diastolic 83 mm[Hg] [place] blood pressure, systolic 121 mm[Hg] Cameron Herrera pulse rate 63 /min Maritza Herrera oxygen saturation, oximetry 94 % Maritza Herrera respiratory rate E&M 16 /min Maritza Herrera weight E&M 263 [lb_av] Maritza Herrera blood pressure, diastolic, left arm 91 mm [Hg] Tarun Dixon RN blood pressure, systolic, left arm 136 mm [Hg] Tarun Dixon RN blood pressure, diastolic, right arm 79 m m[Hg] Tarun Dixon RN blood pressure, systolic, right arm 121 m m[Hg] Tarun Dixon RN blood pressure, diastolic 91 mm[Hg] Peyman Dixon RN blood pressure, systolic 136 mm[Hg] Tarun Dixon RN pulse rate 71 /min Tarun Dixon RN oxygen saturation, oximetry 97 % Tarun Dixon RN respiratory rate E&M 18 /min Tarun real RN weight E&M 268 [lb_av] Tarun Dixon RN blood pressure, diastolic, left arm 74 mm [Hg] Tarun Dixon RN blood pressure, systolic, left arm 119 mm [Hg] Tarun Dixon RN blood pressure, diastolic, right arm 71 m m[Hg] Tarun Dixon RN blood pressure, systolic, right arm 109 m m[Hg] Tarun Dixon RN blood pressure, diastolic 74 mm[Hg] Peyman Dixon RN blood pressure, systolic 119 mm[Hg] Tarun Dixon RN pulse rate 66 /min Tarun Dixon RN oxygen saturation, oximetry 97 % Tarun Dixon RN respiratory rate E&M 18 /min Tarun real RN weight E&M 265 [lb_av] Tarun Dixon RN blood pressure, diastolic 64 mm[Hg] Bia seph [place] blood pressure, systolic 116 mm[Hg] Da [place] pulse rate 62 /min Joao [place] oxygen saturation, oximetry 98 % Joao [place] respiratory rate E&M 16 /min Joao [place] weight E&M 266 [lb_av] Joao [place] blood pressure, diastolic 65 mm[Hg] Peyman Dixon RN blood pressure, systolic 122 mm[Hg] Tarun Dixon RN pulse rate 75 /min Tarun Dixon RN oxygen saturation, oximetry 97 % Tarun Dixon RN respiratory rate E&M 16 /min Tarun real RN weight E&M 265 [lb_av] Tarun Dixon RN blood pressure, diastolic 68 mm[Hg] Justice Oden MD blood pressure, systolic 120 mm[Hg] Rufus Oedn MD pulse rate 71 /min Tarun Dixon RN oxygen saturation, oximetry 96 % Tarun Dixon RN respiratory rate E&M 18 /min Tarun real RN weight E&M 259 [lb_av] Tarun Dixon RN blood pressure, diastolic 76 mm[Hg] Te dank Al blood pressure, systolic 126 mm[Hg] Ter i Servando pulse rate 65 /min Arabella Servando oxygen saturation, oximetry 96 % Arabella Servando respiratory rate E&M 20 /min Arabella Andrew burroughs weight E&M 260 [lb_av] Arabella Servando ALLERGIES Allergy Name Onset Date Reaction Criticality Status XARELTO synope Low Criticality active ZIAC syncope syncope Low Criticality acti ve ISORDIL TITRADOSE DIZZTY Low Criticality ac tive RESULTS Date Observation Value Provider Reference Range Interpretation Location prothrombin time (patient) 11.3 s [facility] 9.1-12.0 international normalized ratio (INR) 1.1 [facility] 0.9-1.2 lipoprotein, beta, serum, point, quantitative, calculated 35 mg/dL [facility] 0-99 HDL cholesterol, serum 34 mg/dL [facility] >39 Low triglyceride, serum, random 94 mg/dL [facility] 0-149 cholesterol, serum 87 mg/dL [facility] 100-199 Low calcium, serum 9.4 mg/dL [facility] 8.6-10.2 carbon dioxide, venous blood 22 mmol/L [facility] 20-29 chloride, serum 105 mmol/L [facility] 96-106 potassium, serum 4.7 mmol/L [facility] 3.5-5.2 sodium, serum 140 mmol/L [facility] [id number] 8562/07/ 30 urea nitrogen/creatinine ratio, serum 14 [facility] 10-24 eGFR if 73 mL/min/{1 .73_m2} [facility] >59 eGFR if not 63 mL/min/{1 .73_m2} [facility] >59 creatinine, serum 1.21 mg/dL [facility] 0.76-1.27 urea nitrogen, blood 17 mg/dL [facility] 8-27 blood glucose, random 133 mg/dL [facility] 65-99 High basophil count, absolute 0.1 x10E3/uL [facility] 0.0-0.2 Eosinophil Absolute Count 0.1 X10E3/UL [facility] 0.0-0.4 monocyte count, blood, automated 0.6 X10E3/UL [facility] 0.1-0.9 lymphocyte count, blood, automated 1.4 X10E3/UL [facility] 0.7-3.1 Absolute Neutrophils 3.6 X10E3/UL [facility] 1.4-7.0 basophils as percent of blood leukocytes 1 % [facility] Not Estab. eosinophils as percent of blood leukocytes 1 % [facility] Not Estab. monocytes as percent of blood leukocytes 10 % [facility] Not Estab. lymphocytes as percent of blood leukocytes 24 % [facility] Not Estab. neutrophils as percent of blood leukocytes 64 % [facility] Not Estab. platelet count 235 X10E3/UL [facility] [phone]/07/ 30 red blood cell distribution width 11.9 % [facility] 11.6-15.4 mean corpuscular hemoglobin concentration, RBC 32.3 G/DL [facility] 31.5-35.7 mean corpuscular hemoglobin, RBC 29.0 pg [facility] 26.6-33.0 mean corpuscular volume, RBC 90 fL [facility] 79-97 hematocrit, blood 44.6 % [facility] 37.5-51.0 hemoglobin, blood 14.4 g/dL [facility] 13.0-17.7 erythrocyte (RBC) count 4.97 X10E6/UL [facility] 4.14-5.80 leukocyte count, blood 5.7 X10E3/UL [facility] 3.4-10.8 lipoprotein, beta, serum, point, quantitative, calculated 41 mg/dL [facility] 0-99 very low density lipoproteins 25 mg/dL [facility] 5-40 HDL cholesterol, serum 37 mg/dL [facility] >39 Low triglyceride, serum, random 126 mg/dL [facility] 0-149 cholesterol, serum 103 mg/dL [facility] [phone]/02/ 07 lipoprotein, beta, serum, point, quantitative, calculated 31 mg/dL [facility] 0-99 very low density lipoproteins 34 mg/dL [facility] 5-40 HDL cholesterol, serum 34 mg/dL [facility] >39 Low triglyceride, serum, random 169 mg/dL [facility] 0-149 High cholesterol, serum 99 mg/dL [facility] 100-199 Low pro brain natriuretic peptide 32 pg/mL [facility] 0-210 lipoprotein, beta, serum, point, quantitative, calculated 27 mg/dL [facility] 0-99 very low density lipoproteins 31 mg/dL [facility] 5-40 HDL cholesterol, serum 32 mg/dL [facility] >39 Low triglyceride, serum, random 157 mg/dL [facility] 0-149 High cholesterol, serum 90 mg/dL [facility] 100-199 Low pro brain natriuretic peptide 86.7 pg/mL [facility] 0.0 - 125.0 folate, serum 16.4 NG/MLM [facility] 4.4 - 31.0 vitamin b12, serum 504.7 pg/mL [facility] 211.0 - 946.0 free thyroxine index 5.1 ??g/dL [facility] 4.4 - 11.4 triiodothyronine uptake 1.0 TBI [facility] 0.8 - 1.3 thyroxine, serum, total 5.1 ??G/DL [facility] 4.5 - 11.7 thyroid stimulating hormone, serum 1.210 ??IU/ML [facility] 0.270 - 4.200 pro brain natriuretic peptide 151.8 pg/mL [facility] 0.0 - 125.0 High very low density lipoproteins 43.4 mg/dL [facility] 5.0 - 40.0 High LDL/HDL (low-density lipoprotein/high-den sity lipoprotein) ratio 1.5 RATIO [facility] - lipoprotein, beta, serum, point, quantitative, calculated 46.6 (?) [facility] 0.0 - 100.0 HDL cholesterol, serum 31.0 mg/dL [facility] 35.0 - 55.0 Low cholesterol, serum 121.0 mg/dL [facility] 0.0 - 200.0 triglyceride, serum, fasting 217.0 mg/dL [facility] 0.0 - 150.0 High ferritin, serum 153.4 ng/mL [facility] 30.0 - 400.0 anion gap, serum 10.9 [facility] - albumin/globulin ratio, serum 1.5 g/dL [facility] 1.1 - 2.5 globulin, serum 2.6 [facility] 2.3 - 3.8 urea nitrogen/creatinine ratio, serum 13.6 [facility] - Estimated Glomerular Filtration Rate (calc) 72.8 (?) [facility] 59.0 - chloride, serum 98.1 mmol/L [facility] 98.0 - 107.0 potassium, serum 4.4 mmol/L [facility] 3.5 - 5.1 sodium, serum 137.0 mmol/L [facility] 136.0 - 145.0 creatinine, serum 1.1 mg/dL [facility] 0.7 - 1.2 carbon dioxide, venous blood 28.0 mmol/L [facility] 22.0 - 29.0 albumin, serum 4.0 g/dL [facility] 3.5 - 5.2 calcium, serum 9.8 mg/dL [facility] 8.6 - 10.2 aspartate aminotransferase (SGOT), serum 18.0 1/L [facility] 0.0 - 40.0 alkaline phosphatase, serum 69.0 1/L [facility] 40.0 - 130.0 alanine aminotransferase (SGPT), serum 26.0 1/L [facility] 0.0 - 41.0 protein, total, serum 6.6 g/dL [facility] 6.6 - 8.7 bilirubin, serum, total 0.2 mg/dL [facility] 0.0 - 1.2 urea nitrogen, blood 15.0 mg/dL [facility] 6.0 - 20.0 blood glucose, random 111.0 mg/dL [facility] 74.0 - 99.0 High red blood cell distribution width, size density 46.1 fL [facility] - immature granulocytes, percentage of total cells, blood 0.2 % [facility] - nucleated red blood cells as percent of blood leukocytes 0.0 % [facility] - red blood cell (erythrocyte) count, per high power field 0.0 10*3/UL [facility] - eosinophils as percent of blood leukocytes 3.0 % [facility] - neutrophils as percent of blood leukocytes 53.0 % [facility] - Absolute Neutrophils 3.2 CELLS/UL [facility] 1.5 - 7.8 basophils as percent of blood leukocytes 1.5 % [facility] - Absolute Basophils 0.1 CELLS/UL [facility] 0.0 - 0.2 monocytes as percent of blood leukocytes 8.5 % [facility] - Absolute Monocytes 0.5 CELLS/UL [facility] 0.2 - 1.0 lymphocytes as percent of blood leukocytes 33.8 % [facility] - Absolute Lymphocytes 2.0 CELLS/UL [facility] 0.9 - 3.9 mean platelet volume 11.8 (?) [facility] - platelet count 212.0 THOUSAND/ UL [facility] 100.0 - 400.0 mean corpuscular hemoglobin concentration, RBC 32.2 G/DL [facility] 31.0 - 38.0 mean corpuscular hemoglobin, RBC 30.6 pg [facility] 25.0 - 35.0 mean corpuscular volume, RBC 94.9 fL [facility] 75.0 - 100.0 hematocrit, blood 44.7 % [facility] 35.0 - 55.0 hemoglobin, blood 14.4 [facility] - 16.5 erythrocyte count, whole blood 4.7 MILLION/U L [facility] 3.5 - 5.5 iron, serum 66.0 ug/dL [facility] 31.0 - 144.0 iron saturation percent, serum 23.1 % [facility] 20.0 - 50.0 iron binding capacity, total 285.6 ug/dL [facility] 250.0 - 450.0 hemoglobin A1C, blood, as % of total hemoglobin 6.0 % [facility] 4.0 - 5.6 High triglyceride, serum, fasting 369 mg/dL [facility] HDL cholesterol, serum 22 mg/dL [facility] LDL cholesterol, serum 116 mg/dL [facility] cholesterol, serum 112 mg/dL [facility] B-type natriuretic peptide 42 (?) [facility] 0-100 Normal folate, serum 15.2 ng/mL [facility] 7.3-26.1 Normal vitamin b12, serum 499 pg/mL [facility] [phone] Normal hemoglobin A1C, blood, as % of total hemoglobin 5.9 % [facility] Normal international normalized ratio (INR) 0.93 RATIO [facility] 0.81-1.21 Normal prothrombin time (patient) 12.9 s [facility] 11.5-15.5 Normal activated partial thromboplastin time (aPTT) 30.3 s [facility] Normal bilirubin, serum, total 0.3 mg/dL [facility] 0-1.2 Normal alanine aminotransferase (SGPT), serum 53 1/L [facility] 0-41 High aspartate aminotransferase (SGOT), serum 29 1/L [facility] 0-40 Normal alkaline phosphatase, serum 65 1/L [facility] 40-129 Normal albumin/globulin ratio, serum 2.0 ratio [facility] 1.0-2.6 Normal globulin, serum 2.3 [facility] 1.6-4.0 Normal albumin, serum 4.5 g/dL [facility] 3.97-4.94 Normal protein, total, serum 6.8 g/dL [facility] 6.6-8.7 Normal calcium, serum 9.8 mg/dL [facility] 8.6-10.0 Normal blood glucose, random 136 mg/dL [facility] 74-109 High eGFR if 89 mL/min/{1 .73_m2} [facility] >60 Normal eGFR if not 73 mL/min/{1 .73_m2} [facility] >60 Normal urea nitrogen/creatinine ratio, serum 15.5 ratio [facility] 8.0-25.0 Normal creatinine, serum 1.1 mg/dL [facility] 0.70-1.20 Normal urea nitrogen, blood 17 mg/dL [facility] 6-20 Normal carbon dioxide, venous blood 25 mmol/L [facility] 22-29 Normal chloride, serum 102 MEQ/L [facility] 98-107 Normal potassium, serum 4.4 MEQ/L [facility] 3.5-5.1 Normal sodium, serum 140 MEQ/L [facility] 136-145 Normal basophils, absolute, manual 0.09 K/UL [facility] 0.0-0.1 Normal basophils as percent of blood leukocytes 1.8 % [facility] 0.3-0.9 High eosinophils, absolute, manual 0.12 K/UL [facility] 0.1-0.5 Normal eosinophils as percent of blood leukocytes 2.4 % [facility] 1.1-7.6 Normal monocyte count, blood 0.64 10*3/mm3 [facility] 0.2-0.7 Normal monocytes as percent of blood leukocytes 12.6 % [facility] 4.2-11.2 High lymphocytes as percent of blood leukocytes 1.77 K/UL [facility] 0.6-3.4 Normal lymphocytes, absolute 34.7 % [facility] 19.8-46.2 Normal neutrophil count, absolute 2.48 K/uL [facility] 1.9-5.9 Normal neutrophils as percent of blood leukocytes 48.5 % [facility] 42.7-72.4 Normal mean platelet volume 9.6 % [facility] 7.4-9.9 Normal red blood cell distribution width 11.6 % [facility] 10.9-14.6 Normal platelet count 182 10*3/mm3 [facility] 165-429 Normal mean corpuscular hemoglobin concentration, RBC 34.1 % [facility] 32.5-34.5 Normal mean corpuscular hemoglobin, RBC 30.1 pg [facility] 21.5-33.3 Normal mean corpuscular volume, RBC 88 fL [facility] 76-98 Normal hematocrit, blood 44.5 % [facility] 34.4-47.3 Normal hemoglobin, blood 15.2 g/dL [facility] 12.5-17.2 Normal erythrocyte (RBC) count 5.04 M/UL [facility] 3.8-5.5 Normal leukocyte count, blood 5.1 10*3/mm3 [facility] 3.7-8.9 Normal triglyceride, target level 150 mg/dL Lissa Mosley NP HDL cholesterol, serum, target level 40 mg/dL Lissa Mosley NP LDL target level 100 mg/dL Lissa Mosley NP cholesterol, target level 200 mg/dL Lissa Dimitri PHYSICIAN PRACTICE MANAGER TOTAL NON-HDL-C (LDL VLDL) 101 Lissa [place] PHYSICIAN PRACTICE MANAGER cholesterol/HDL ratio, serum 5.1 Lissa [place] PHYSICIAN PRACTICE MANAGER triglyceride, serum, fasting 369 mg/dL Lissa Dimitri PHYSICIAN PRACTICE MANAGER High HDL cholesterol, serum 24 mg/dL Lissa [place] PHYSICIAN PRACTICE MANAGER Low LDL cholesterol, serum 27 mg/dL Lissa Dimitri PHYSICIAN PRACTICE MANAGER Normal cholesterol, serum 125 mg/dL Lissa [place] PHYSICIAN PRACTICE MANAGER TOTAL NON-HDL-C (LDL VLDL) 99 Lissa [place] PHYSICIAN PRACTICE MANAGER cholesterol/HDL ratio, serum 4.7 Lissa Dimitri PHYSICIAN PRACTICE MANAGER cholesterol, serum 126 mg/dL Lissa Dimitri PHYSICIAN PRACTICE MANAGER Normal triglyceride, target level 150 mg/dL Lissa Dimitri PHYSICIAN PRACTICE MANAGER HDL cholesterol, serum, target level 40 mg/dL Lissa [place] PHYSICIAN PRACTICE MANAGER triglyceride, serum, fasting 320 mg/dL Lissa [place] PHYSICIAN PRACTICE MANAGER High HDL cholesterol, serum 27 mg/dL Lissa [place] PHYSICIAN PRACTICE MANAGER Low LDL cholesterol, serum 35 mg/dL Lissa Dimitri PHYSICIAN PRACTICE MANAGER Normal LDL target level 100 mg/dL Lissa Dimitri PHYSICIAN PRACTICE MANAGER cholesterol, target level 200 mg/dL Lissa Dimitri PHYSICIAN PRACTICE MANAGER TOTAL NON-HDL-C (LDL VLDL) 99 Lissa [place] PHYSICIAN PRACTICE MANAGER alanine aminotransferase (SGPT), serum 17 1/L Lissa [place] PHYSICIAN PRACTICE MANAGER aspartate aminotransferase (SGOT), serum 24 1/L Lissa Dimitri PHYSICIAN PRACTICE MANAGER cholesterol/HDL ratio, serum 4.8 Lissa Dimitri PHYSICIAN PRACTICE MANAGER cholesterol, serum 125 mg/dL Lissa [place] PHYSICIAN PRACTICE MANAGER triglyceride, target level 150 mg/dL Lissa [place] PHYSICIAN PRACTICE MANAGER HDL cholesterol, serum, target level 40 mg/dL Lissa [place] PHYSICIAN PRACTICE MANAGER triglyceride, serum, fasting 327 mg/dL Lissa [place] PHYSICIAN PRACTICE MANAGER High HDL cholesterol, serum 26 mg/dL Lissa Garzadall PHYSICIAN PRACTICE MANAGER Low LDL cholesterol, serum 22 mg/dL Lissa Garzadall PHYSICIAN PRACTICE MANAGER Normal LDL target level 100 mg/dL Lissa [place] PHYSICIAN PRACTICE MANAGER cholesterol, target level 200 mg/dL Lissa Dimitri PHYSICIAN PRACTICE MANAGER triglyceride, target level 150 mg/dL Lissabetty Garcesll PHYSICIAN PRACTICE MANAGER HDL cholesterol, serum, target level 40 mg/dL Lissa Dimitri PHYSICIAN PRACTICE MANAGER LDL target level 100 mg/dL Lissa Dimitri PHYSICIAN PRACTICE MANAGER cholesterol, target level 200 mg/dL Lissa [place] PHYSICIAN PRACTICE MANAGER TOTAL NON-HDL-C (LDL VLDL) 88 Lissabetty Garcesll PHYSICIAN PRACTICE MANAGER alanine aminotransferase (SGPT), serum 19 1/L Lissabetty Garcesll PHYSICIAN PRACTICE MANAGER aspartate aminotransferase (SGOT), serum 20 1/L Lissabetty Garcesll PHYSICIAN PRACTICE MANAGER cholesterol/HDL ratio, serum 4.5 Lissabetty Garcesll PHYSICIAN PRACTICE MANAGER triglyceride, serum, fasting 272 mg/dL Lissabetty Garcesll PHYSICIAN PRACTICE MANAGER High HDL cholesterol, serum 25 mg/dL Lissabetty Garcesll PHYSICIAN PRACTICE MANAGER Low LDL cholesterol, serum 34 mg/dL Lissabetty Garcesll PHYSICIAN PRACTICE MANAGER Normal cholesterol, serum 114 mg/dL Lissabetty Garcesll PHYSICIAN PRACTICE MANAGER international normalized ratio (INR) 1.0 Adelia Lee RN alanine aminotransferase (SGPT), serum 54 1/L Adelia Lee RN aspartate aminotransferase (SGOT), serum 26 1/L Adelia Lee RN blood glucose, fasting 99 mg/dL Adelia Lee RN creatinine, serum 1.21 mg/dL Adelia Lee RN urea nitrogen, blood 14 mg/dL Adelia Lee RN carbon dioxide, serum, total 31 mmol/L Adelia Lee RN chloride, serum 105 mmol/L Adelia Lee RN potassium, serum 4.1 mmol/L Adelia Lee RN sodium, serum 138 mmol/L Adelia Lee RN platelet count 168 10*3/uL Adelia Lee RN hematocrit, blood 45.5 % Adelia Lee RN hemoglobin, blood 15.4 g/dL Adelia Lee RN leukocyte count, blood 5.6 10*3/mm3 Adelia Lee RN triglyceride, serum, fasting 199 mg/dL Adelia Lee RN HDL cholesterol, serum 30 mg/dL Adelia Lee RN LDL cholesterol, serum 43 mg/dL Adelia Lee RN cholesterol, serum 113 mg/dL Adelia Lee RN HISTORY OF MEDICATION USE Medication Status Instructions Dates Provider Indications Com ments Vascepa 1 gram capsule active TAKE 1 CAPSULE BY MOUTH TWICE A DAY WITH MEALS Jose R Schroeder Jardiance 10 mg tablet active Take 1 tablet by mouth once a day Juanita Somers Vascepa 1 gram capsule completed Take 1 gram by mouth twice a day with meals - Willow Blue Vascepa 1 gram capsule completed - Arabella Al Jardiance 10 mg tablet completed Take 1 tablet by mouth once daily - Juan Carlos Oden MD losartan 100 mg tablet active Juan Carlos Oden MD ergocalciferol (vitamin D2) 1,250 mcg (50,000 unit) capsule active Take 1 capsule by mouth once a week Juan Carlos Oden MD alprazolam 0.5 mg tablet active Juan Carlos Oden MD Vascepa 1 gram capsule completed TAKE 2 CAPSULES BY MOUTH TWICE DAILY - Juan Carlos Oden MD quetiapine 300 mg tablet extended release 24 hr active Juan Carlos Oden MD fluoxetine 20 mg capsule active Juan Carlos Oden MD fluphenazine decanoate 25 mg/mL solution active Juan Carlos Oden MD lamotrigine 100 mg tablet active Juan Carlos Oden MD colesevelam 625 mg tablet active Juan Carlos Oden MD Vascepa 1 gram capsule completed - Shilpa Pascual NP QC VITAMIN D3 25 MCG (1000 UT) CAPS completed - Juan Carlos Oden MD VASCEPA 1 GM ORAL CAPSULE completed two pills twice a day - Juan Carlos Oden MD donepezil 10 mg tablet active Take 1 every night Juanita Somers oxybutynin chloride 5 mg tablet completed Take 1 once a day - Juanita Somers Linzess 145 mcg capsule completed Take 1 once a day - Juanita Somers aspirin 81 mg tablet,delayed release (/EC) active Take 1 tablet by mouth every morning Shilpa Pascual NP COMPASS ASA/ RIVAROXABAN completed ASA 100mg once daily and Rivaroxaban 2.5mg BID - Joyce Hoskins Cozaar 100 mg tablet completed Take 1 tablet once a day - Juan Carlos Oden MD SULFAMETHOXAZOLE- TRIMETHOPRIM 800-160 MG ORAL TABLET completed 6 more days - Juanita Somers #14, 7 days supply, Filled 12/02/2017 WELCHOL 625 MG ORAL TABLET completed 3 TABS TWICE DAILY - Juan Carlos Oden MD ASPIRIN ADULT LOW DOSE 81 MG ORAL TABLET DELAYED RELEASE completed One Tab By Mouth Daily - Susan Willard VITAMIN D3 5000 UNIT ORAL TABLET completed Take one tab by mouth daily - Juanita Somers hydrocodone-aceta minophen 7.5-325 mg tablet completed every eight hours as needed - Brennon Rae baclofen 10 mg tablet active three times a day as needed Brennon Rae tramadol 50 mg tablet completed 50 mg every eight hours - Brennon Rae ASPIRIN ADULT LOW DOSE 81 MG ORAL TABLET DELAYED RELEASE completed One Tab By Mouth Daily - Brennon Rae VITAMIN D3 5000 UNIT ORAL CAPSULE completed one a day - Brennon Rae let him know vit d is low Prozac 10 mg capsule completed Take 1 once a day - Juanita Torrezciprianovalentina DIOVAN 40 MG ORAL TABLET completed ONE TAB. DAILY - Juanita Lizbet benztropine 1 mg tablet active Take 1 twice a day Juanita VEE PROTONIX VS PLACEBO completed - Ce Rivera RN COMPASS ASA/ RIVAROXABAN completed - Ce Rivera RN NORTRIPTYLINE HCL 50 MG ORAL CAPSULE completed twice daily - Juanita VEE RUN IN ASA 100MG / PLACEBO XARELTO completed - Ce Rivera RN ISOSORBIDE DINITRATE 30 MG ORAL TABLET completed ONE TAB. DAILY - Juan Carlos Oden MD docusate sodium 100 mg tablet completed 1 tablet twice a day - Juan Carlos Oden MD VITAMIN D 1000 UNIT CAPS completed 1 daily - Aneatris Brown NORTRIPTYLINE HCL 50 MG ORAL CAPSULE completed 1 twice katharine y - Aneatris Brown allopurinol 100 mg tablet completed twice a day - Juan Carlos Oden MD simvastatin 40 mg tablet active Take 1 tablet by mouth every night Shilpa Pascual NP NIACOR 500 MG ORAL TABLET completed Take one tablet PO daily - Juan Carlos Oden MD FISH OIL 1000 MG ORAL CAPSULE completed take two bid - Aneatris Brown NORTRIPTYLINE HCL CAPS completed 50mg twice daily - Tarun Dixon RN LOVAZA 1 GM ORAL CAPSULE completed Dispense as written-one a day - Manan Chadwick PROLIXIN completed 1 every two weeks - Tarun Dixon RN DICLOFENAC SODIUM 75 MG ORAL TABLET DELAYED RELEASE completed take one tab twice daily - Tarun Dixon RN VITAMIN D3 TABS completed 1000 units daily - Tarun Dixon RN FENOFIBRATE TABS completed 134mg take one tab daily - Juan Carlos Oden MD MECLIZINE HCL TABS completed 12.5mg one or two tabs as needed for dizziness - Tarun Dixon RN ASPIRIN 81 MG ORAL TABLET completed ONE TAB. DAILY - Marisa Burrell meclizine 12.5 mg tablet completed 1 tablet by mouth three times a day - Juan Carlos Oden MD ZOCOR 20 MG ORAL TABLET completed ONE TAB. AT BEDTIME - Soni Huston NP ASPIRIN 325 MG ORAL TABLET completed one tab daily - Joao Pelletier Lamictal 100 mg tablet completed 1.5 twice a day - Juan Carlos Oden MD NIASPAN 500 MG ORAL TABLET EXTENDED RELEASE completed ONE TAB. AT BEDTIME - Dispense as written - Maritza Herrera ALLOPURINOL 100 MG ORAL TABLET completed one tab at bedtime for 7 days, 2 tabs at bedtime for 7 days, then 3 tabs at bedtime thereafter. - Tarun Dixon RN VISTARIL 25 MG ORAL CAPSULE completed three times a day - Brennon Rae TRIHEXYPHENIDYL HCL 2 MG ORAL TABLET completed one tablet three times daily - Juanita Somers nabumetone 500 mg tablet active 1 twice a day Juanita Somers ZIAC 10-6.25 MG ORAL TABLET completed one a day - Juan Carlos Oden MD PLAVIX 75 MG ORAL TABLET completed ONE TAB. DAILY - Juan Carlos Oden MD RANITIDINE HCL 150 MG ORAL TABLET completed 1 tablet by mouth twice daily - Juan Carlos Oden MD MECLIZINE HCL 12.5 MG ORAL TABLET completed 1 or 2 tablets three times a day as neeed - Tarun Dixon RN COMBIVENT AEROSOL completed - Arabella Al Seroquel XR 300 mg tablet extended release 24 hr completed bedtime - Juan Carlos Oden MD GEMFIBROZIL 600 MG ORAL TABLET completed 1 tablet by mouth twice daily - Tarun Dixon RN ABILIFY 30 MG ORAL TABLET completed 1 tablet by mouth daily - Tarun Dixon RN Xanax 0.5 mg tablet completed 1 tablet by mouth once a day - Juan Carlos Oden MD LOMOTIL TABLET completed - Arabella Al TRAZODONE HCL 50 MG TABS completed Take 1 once a day - Juanita Somers SOCIAL HISTORY Date Observation Value Provider drug use no Juan Carlos Miller alcohol use no Juan Carlos Miller passive cigarette sm rosemary exposure no Juan Carlos Oden MD smoking status Never smoker Juan Carlos Oden MD drug use no Kaur Ventimig ben [facility] alcohol use no Kaur Ventimig ben [facility] smoking status Never smoker Kaur stoner [facility] smoking status Never smoker Lissa Smith drug use no Kaur Ventimig ben [facility] alcohol use no Kaur Ventimig ben [facility] seatbelt usage 100 % Elo Hatch exercise type cardiopulmonary Elo Hathc physical exercise, frequency, days per week yes Elo Hatch caffeine use, averag e drinks per day yes Elo Hatch passive cigarette sm rosemary exposure no Elo Hatch cigar use yes Elo Hatch smoking status Former smoker Elo Hatch social history E&M Marital Statu s: Single L ryan with family/friends E thnicity: Smoking History: Hawk sorto is a former smoker. Juan Carlos Oden MD social history revie wed E&M reviewed - no changes required Juan Carlos Oden MD seatbelt usage 100 % Miya baron exercise type cardiopulmonary Miya manleyon physical exercise, frequency, days per week yes Miya Fragoso caffeine use, averag e drinks per day yes Miya Fragoso passive cigarette sm rosemary exposure no Miya Fragoso cigar use yes Miya Rich son smoking status Former smoker Miya oliveira quit smoking, stage quit Juan Carlos huff MD social history E&M Marital Statu s: Single L ryan with family/friends E thnicity: Smoking History: Hawk sorto is a former smoker. Juan Carlos Oden MD social history revie wed E&M reviewed - no changes required Juan Carlos Oden MD seatbelt usage 100 % Chastity Hogu e exercise type cardiopulmonary Chastity Ho henrry physical exercise, frequency, days per week yes Chastity Rabia caffeine use, averag e drinks per day yes Chastity Rabia passive cigarette sm rosmeary exposure no Chastity Rabia cigar use yes Chastity Rabia smoking status Former smoker Chastity Hog ue seatbelt usage 100 % Chastity Hogu e exercise type cardiopulmonary Chastity Ho henrry physical exercise, frequency, days per week yes Chastity Rabia caffeine use, averag e drinks per day yes Chastity Rabia passive cigarette sm rosemary exposure no Chastity Rabia cigar use yes Chastity Rabia smoking status Former smoker Chastity Hog ue social history revie wed E&M reviewed - no changes required Shilpaed Youngpr[employer]ek VAZQUEZ seatbelt usage 100 % Melissa Diazby exercise type cardiopulmonary Melissa Dubois y physical exercise, frequency, days per week yes Melissa Diazby caffeine use, averag e drinks per day yes Melissa Diazby passive cigarette sm rosemary exposure no Melissa Diazby cigar use yes Melissa Diazby smoking status Former smoker Melissa Diazby social history E&M Marital Statu s: Single L ryan with family/friends E thnicity: Smoking History: Hawk sorto is a former smoker. Juan Carlos Oden MD social history [facility] E&M reviewed - no changes required Juan Carlos Oden MD seatbelt usage 100 % Mabel fagan exercise type cardiopulmonary Mabel cross physical exercise, frequency, days per week yes Mabel Restrepo caffeine use, averag e drinks per day yes Mabel Restrepo passive cigarette sm rosemary exposure no Mabel Restrepo cigar use yes Mabel lópez smoking status Former smoker Mabel Ace sol social history E&M Marital Statu s: Single L ryan with family/friends E thnicity: Smoking History: Hawk sorto is a former smoker. Juan Carlos Oden MD social history [facility] E&M reviewed - no changes required Juan Carlos Oden MD seatbelt usage 100 % Juanita hernández exercise type cardiopulmonary Juanita cole physical exercise, frequency, days per week yes Juanita Somers alcohol use, average drinks per day none Juanita Somers alcohol use no Juanita mas caffeine use, averag e drinks per day yes Juanita Somers drug use no Juanita Lee lder passive cigarette sm rosemary exposure no Juanita Somers cigar use yes Juanita Lee lder smoking status Former smoker [facility] social history E&M Marital Statu s: Single L ryan with family/friends E thnicity: Smoking History: P atludy is a former smoker. Juan Carlos Oden MD social history revie wed E&M reviewed - no changes required Juan Carlos Oden MD seatbelt usage 100 % Juanita Horan edgar exercise type cardiopulmonary Juanita Young douglas physical exercise, frequency, days per week yes Juanita Bravolinnvalentina alcohol use, average drinks per day none Juanita Somers alcohol use no Juanita Lee er caffeine use, averag e drinks per day yes Juanita Somers drug use no Juanita Lee er passive cigarette sm rosemary exposure no Juanita Somers cigar use yes Juanita Lee er smoking status Former smoker [facility] E&M Marital Statu s: Single L ryan with family/friends E thnicity: Smoking History: P macario is a former smoker. Juan Carlos Oden MD social history revie wed E&M reviewed - no changes required Juan Carlos Oden MD seatbelt usage 100 % Brennon Rowley exercise type cardiopulmonary Brennon solis physical exercise, frequency, days per week yes Brennon Rae alcohol use, average drinks per day none Brennon Rae alcohol use no Brennon waite caffeine use, averag e drinks per day yes Brennon Rae drug use no Brennon waite passive cigarette sm rosemary exposure no Brennon Rae cigar use yes Brennon Loco nsprince smoking status Former smoker Brennon Santana smoking status Former smoker Lissa willett NP social history E&M Marital Statu s: Single L ryan with family/friends E thnicity: Smoking History: P atient is a former smoker. Juan Carlos Oden MD social history revie wed E&M reviewed - no changes required Juan Carlos Oden MD cigar use yes Juanita Jesus oswalder smoking status Former smoker Juanita Torrezisaias singh seatbelt usage 100 % Juanita hernández exercise type cardiopulmonary Juanita cole physical exercise, frequency, days per week yes Juanita Lizbet alcohol use, average drinks per day none Juanita Lizbet alcohol use no Juanita Jesus er caffeine use, averag e drinks per day yes Juanita Lizbet drug use no Juanita Lee er passive cigarette sm rosemary exposure no Juanita Lizbet smoking/tobacco cessation, patient education and counseling yes Juan Carlos Oden MD quit smoking, stage quit Juan Carlos huff MD smoking status Former smoker Juan Carlos wise MD social history E&M Marital Statu s: Single L ryan with family/friends E thnicity: Smoking History: P atludy is a former smoker. Juan Carlos Oden MD social history revie wed E&M reviewed - no changes required Juan Carlos Oedn MD seatbelt usage 100 % Brennon Rowley exercise type cardiopulmonary Brennon solis physical exercise, frequency, days per week yes Brennon Rae alcohol use, average drinks per day none Brennon Rae alcohol use no Brennon waite caffeine use, averag e drinks per day yes Brennon Rae drug use no Brennon waite passive cigarette sm rosemary exposure no Brennon Rae cigar use yes Brennon waite smoking/tobacco cessation, patient education and counseling No Judith Alfonso MD social history E&M Marital Statu s: Single L ryan with family/friends E thnicity: Smoking History: Hawk sorto is a former smoker. Judith Alfonso MD social history revie wed E&M reviewed - no changes required Judith Alfonso MD smoking status Former smoker Randal calderon social history revie wed E&M reviewed - no changes required Juan Carlos Oden MD smoking status Former smoker Marisa Peña kay seatbelt usage 100 % Joyce og exercise type cardiopulmonary Joyce neumann physical exercise, frequency, days per week yes Joyce Hoskins alcohol use, average drinks per day none Joyce Hoskins caffeine use, averag e drinks per day yes Joyce Hoskins drug use no Joyce Hoskins passive cigarette sm rosemary exposure no Joyce Hoskins smoking/tobacco cessation, patient education and counseling yes Joyce Hoskins cigar use yes Joyce Hoskins smoking status Former smoker Joyce bryan smoking/tobacco cessation, patient education and counseling yes Juan Carlos Oden MD quit smoking, stage quit Juan Carlos huff MD social history revie wed E&M reviewed - no changes required Juan Carlos Oden MD smoking status Former smoker Randal calderon social history revie wed E&M reviewed Juan Carlos Oden MD quit smoking, stage quit Juan Carlos huff MD social history revie wed E&M reviewed Tarun Dixon RN smoking/tobacco cessation, patient education and counseling yes Lissa Mosley NP quit smoking, stage quit Juan Carlos huff MD smoking history, tot al pack/year 12 Juan Carlos Oden MD smoking, year quit 2011 Juan Carlos crowe MD smoking status former smoker Juan Carlos wise MD social history revie wed E&M reviewed Tarun Dixon RN smoking/tobacco cessation, patient education and counseling yes Jennifer Perez PHYSICIAN PRACTICE MANAGER smoking status current some day smoker Pamela Perez PHYSICIAN PRACTICE MANAGER drug use no Jennifer Cuenca s PHYSICIAN PRACTICE MANAGER social history revie wed E&M reviewed Jennifer Perez PHYSICIAN PRACTICE MANAGER exercise type cardiopulmonary Soni og NP seatbelt usage 100 % Soni Huston NP passive cigarette sm rosemary exposure no Soni Huston PHYSICIAN PRACTICE MANAGER drug use no Soni Huston NP smoking/tobacco cessation, patient education and counseling yes Soni Huston NP cigar use yes Soni Huston NP smoking, date started 2007 Soni quinn NP smoking status current every day smoker Jeanine Huston NP smoking status current Lilyshashank Guillend smoking status Quit Juan Carlos Oden MD social history revie wed E&M reviewed Juan Carlos Oden MD quit smoking, stage quit Juan Carlos huff MD smoking/tobacco cessation, patient education and counseling yes Tarun Dixon RN social history revie wed E&M reviewed Tarun Dixon RN smoking/tobacco cessation, patient education and counseling yes Tarun Dixon RN social history revie wed E&M reviewed Tarun Dixon RN social history revie wed E&M reviewed Tarun Dixon RN smoking/tobacco cessation, patient education and counseling yes Juan Carlos Oden MD social history revie wed E&M reviewed Tarun Dixon RN social history E&M Marital Statu s: Single L ryan with family/friends E thnicity: Tarun Dixon RN social history revie wed E&M reviewed Tarun Dixon RN social history E&M L ryan with family/friends E thnicity: Juan Carlos Oden MD smoking/tobacco cessation, patient education and counseling yes Juan Carlos Oden MD smoking status Smoker Juan Carlos Oden MD social history revie wed E&M reviewed Juan Carlos Oden MD physical exercise, frequency, days per week yes LinkLogic caffeine use, averag e drinks per day yes [employer]Logic alcohol use, average drinks per day none [employer]Logic number of years as a smoker less than 10 years [employer] FUNCTIONAL STATUS Date Observation Value Provider HRA, CV Assess/Plan, Angina (inactive) Management Plan continue current therapy Juan Carlos Oden MD HRA, CV Assess/Plan, Angina (inactive) Management Plan continue current therapy Kaur Alexandra [employer] HRA, CV Assess/Plan, Angina (inactive) Management Plan continue current therapy Wilber Gonzalez NP HRA, CV Assess/Plan, Angina (inactive) Management Plan continue current therapy Rick Burton HRA, CV Assess/Plan, Angina (inactive) Management Plan continue current therapy Juan Carlos Oden MD HRA, CV Assess/Plan, Angina (inactive) Management Plan continue current therapy Juan Carlos Oden MD HRA, CV Assess/Plan, Angina (inactive) Management Plan continue current therapy Lissa Lizama NP HRA, CV Assess/Plan, Angina (inactive) Management Plan continue current therapy Shilpa Pascual NP HRA, CV Assess/Plan, Angina (inactive) Management Plan continue current therapy Juan Carlos Oden MD HRA, CV Assess/Plan, Angina (inactive) Management Plan continue current therapy Juan Carlos Oden MD HRA, CV Assess/Plan, Angina (inactive) Management Plan continue current therapy Juan Carlos Oden MD HRA, CV Assess/Plan, Angina (inactive) Management Plan continue current therapy Juan Carlos Oden MD HRA, CV Assess/Plan, Angina (inactive) Management Plan continue current therapy Juan Carlos Oden MD periodic limb moveme nt index absent (0) Elle Poon MD MENTAL STATUS Date Observation Value Provider energy level yes Landy Tebid energy level yes Landy Tebid energy level yes Montrose Tebid energy level yes Landy Tebid energy level yes Montrose Tebid energy level yes Montrose Tebid energy level yes Montrose Tebid energy level yes Montrose Tebid energy level yes Montrose Tebid energy level yes Montrose Tebid energy level yes Montrose Tebid energy level yes Montrose Tebid energy level yes Montrose Tebid energy level yes Montrose Tebid energy level yes Montrose Tebid energy level yes Montrose Tebid energy level yes Montrose Tebid energy level yes Montrose Tebid energy level yes Montrose Tebid energy level yes Montrose Tebid energy level yes Montrose Tebid energy level yes Montrose Tebid energy level yes Montrose Tebid energy level yes Montrose Tebid energy level yes Landy Tebid energy level yes Montrose Tebid energy level yes Montrose Tebid energy level yes Montrose Tebid energy level yes Montrose Tebid energy level yes Montrose Tebid energy level yes Montrose Tebid energy level yes Montrose Tebid energy level no Landy Tebid energy level no Landy Tebid energy level yes Landy Tebid energy level yes Landy Tebid energy level yes Montrose Tebid energy level yes Montrose Tebid energy level yes Montrose Tebid energy level yes Montrose Tebid energy level yes Montrose Tebid energy level yes Montrose Tebid energy level yes Montrose Tebid energy level yes Montrose Tebid energy level yes Montrose Tebid energy level yes Montrose Tebid energy level yes Montrose Tebid energy level yes Montrose Tebid energy level yes Montrose Tebid energy level yes Montrose Tebid energy level yes Montrose Tebid energy level yes Montrose Tebid energy level yes Montrose Tebid energy level yes Montrose Tebid energy level yes Montrose Tebid energy level yes Montrose Tebid energy level yes Montrose Tebid energy level yes Montrose Tebid energy level yes Montrose Tebid energy level yes Montrose Tebid energy level yes Montrose Tebid energy level yes Montrose Tebid energy level yes Montrose Tebid energy level yes Montrose Tebid energy level yes Montrose Tebid energy level yes Montrose Tebid energy level yes Montrose Tebid energy level no Montrose Tebid energy level no Landy Tebid assessment of judgme nt and insight E&M Alert and oriented to time, place and person. Mood and affect are normal. Juan Carlos Oden MD assessment of judgme nt and insight E&M Alert and oriented to time, place and person. Mood and affect are normal. Tarun Dixon RN assessment of judgme nt and insight E&M Alert and oriented to time, place and person. Mood and affect are normal. Lissa Mosley PHYSICIAN PRACTICE MANAGER assessment of judgme nt and insight E&M Alert and oriented to time, place and person. Mood and affect are normal. Lissa Mosley PHYSICIAN PRACTICE MANAGER assessment of judgme nt and insight E&M Alert and oriented to time, place and person. Mood and affect are normal. Tarun Dixon RN assessment of judgme nt and insight E&M Alert and oriented to time, place and person. Mood and affect are normal. Jennifer Perez PHYSICIAN PRACTICE MANAGER assessment of judgme nt and insight E&M Alert and oriented to time, place and person. Mood and affect are normal. Soni Huston PHYSICIAN PRACTICE MANAGER assessment of judgme nt and insight E&M Alert and oriented to time, place and person. Mood and affect are normal. Juan Carlos Oden MD assessment of judgme nt and insight E&M Alert and oriented to time, place and person. Mood and affect are normal. Tarun Dixon RN assessment of judgme nt and insight E&M Alert and oriented to time, place and person. Mood and affect are normal. Juan Carlos Oden MD assessment of judgme nt and insight E&M Alert and oriented to time, place and person. Mood and affect are normal. Tarun Dixon RN assessment of judgme nt and insight E&M Alert and oriented to time, place and person. Mood and affect are normal. Tarun Dixon RN assessment of judgme nt and insight E&M Alert and oriented to time, place and person. Mood and affect are normal. Tarun Dixon RN assessment of judgme nt and insight E&M Alert and oriented to time, place and person. Mood and affect are normal. Juan Carlos Oden MD FAMILY HISTORY Family Member Condition Full Sister Family History of Harvey dden Cardiac : Full Brother Family History of Harvey dden Cardiac : INSURANCE PROVIDERS Payer name Policy type / Coverage type Ivette red constitution party ID NEYMAR COMPLETE (2) Medicare [id number] ADVANCE DIRECTIVES Name Date DISCUSSED - NO DECISION MADE TREATMENT PLAN Date Name Performer [id number],C,H as had recurrent syncope etiology remains unclear C ardiac w/u to date has been negative H liannee recommended he be evaluated by neurology H as ILR in place with no documented arrhythmia I LR without symptoms or pain will leave in place Kaur Alexandra [facility] [id number],C, W ill check SOLA, Arterial sensilase and venous dopplers. [facility] [id number],C, o pen in 14 n eg nuc 16 m ult stents in past continue ASA, did not tolerate xarelto [facility] [id number],C, s /p loop recorder insertion. No incidences recorded despite patient reporting syncope episodes. E RI reached. [facility] [id number],C, [facility] [id number],C, m od [facility] [id number],C, H is updated medication list for this problem includes: Aspirin 81 Mg Tablet,delayed Release (dr/ec) (Aspirin) ..... Take 1 tablet by mouth every morning [facility] [id number],C, B P today: 150/91 P rior BP: 168/109 (09/18/2022) w ill order RPM His updated medication list for this problem includes: Losartan 100 Mg Tablet (Losartan) Aspirin 81 Mg Tablet,delayed Release (dr/ec) (Aspirin) ..... Take 1 tablet by mouth every morning [facility] [id number],C, p ro 106,lvedp 20 a ppears compensated His updated medication list for this problem includes: Losartan 100 Mg Tablet (Losartan) Aspirin 81 Mg Tablet,delayed Release (dr/ec) (Aspirin) ..... Take 1 tablet by mouth every morning [facility] [id number],C,mod Juan Carlos crowe MD [id number],C,pro 106,lvedp 20 Juan Carlos Oden MD [id number],C,55 Juan Carlos juarez MD [id number],C,H as trace bilateral LE edema. Will update BNP and add Jardiance H is updated medication list for this problem includes: Losartan 100 Mg Tablet (Losartan) Aspirin 81 Mg Tablet,delayed Release (dr/ec) (Aspirin) ..... Take 1 tablet by mouth every morning [facility] [id number],C,w ill update sleep study as HTN, obesity, poor sleep quality. Known NOEL [facility] [id number],C,w ill update lipids H is updated medication list for this problem includes: Vascepa 1 Gram Capsule (Icosapent ethyl) ..... Take 1 gram by mouth twice a day with meals Colesevelam 625 Mg Tablet (Colesevelam) Simvastatin 40 Mg Tablet (Simvastatin) ..... Take 1 tablet by mouth every night [facility] [id number],C,B P not at goal 147/91 on recheck and average of 161/90 per home RPM. Will add Jardiance to regimen to help with BP, edema, HF and pre-diabetes. Will continue home monitoring and f/u in 3 mos. If BP remains elevated consider HCTZ. 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 Take 1 tablet by mouth every morning [facility] [id number],SJuan Carlos MD [id number],SJuan Carlos MD [id number],S, n eg pft i orn ,b12 and foalte okJuan Carlos MD [id number],S, 6 Juan Carlos Oden MD [id number],S, o pen in 14 n eg nuc 16 m ult stentes in past continue ASA, did not tolerate xarelto Juan Carlos Oden MD [id number],S, H is updated medication list for this problem includes: Vascepa 1 Gram Capsule (Icosapent ethyl) ..... Take 2 capsules by mouth twice daily Colesevelam 625 Mg Tablet (Colesevelam) Simvastatin 40 Mg Tablet (Simvastatin) ..... Take 1 tablet by mouth every night C HOL: 87 (03/10/2021) HDL: 34 (03/10/2021) CHOL (goal): 200 (10/07/2013) LDL (goal): 100 (10/07/2013) HDL (goal): 40 (10/07/2013) TG (goal): 150 (10/07/2013) Juan Carlos Oden MD [id number],S, H is updated medication list for this problem includes: Cozaar 100 Mg Tablet (Losartan) ..... Take 1 tablet once a day Aspirin 81 Mg Tablet,delayed Release (dr/ec) (Aspirin) ..... Take 1 tablet by mouth every morning BP today: 144/75 P rior BP: 158/101 (11/01/2021) Prior 10 Yr Risk Heart Disease: N/A (04/29/2012) Labs Reviewed: C reat: 1.21 (03/10/2021) C hol: 87 (03/10/2021) HDL: 34 (03/10/2021) Juan Carlos Oden MD [id number],S, N OTHIGN ON LOOP s /p loop recorder insertion . Juan Carlos Oden MD [id number],S, n ml por but lvedp 20 Juan Carlos Oden MD [id number],S, Juan Carlos wise MD [id number],S, n eg pft i orn ,b12 and foalte ok, Juan Carlos Oden MD [id number],B, T he following medications were removed from the medication list: Vascepa 1 Gram Capsule (Icosapent ethyl) His updated medication list for this problem includes: Vascepa 1 Gram Capsule (Icosapent ethyl) ..... Take 2 capsules by mouth twice daily Colesevelam 625 Mg Tablet (Colesevelam) Simvastatin 40 Mg Tablet (Simvastatin) ..... Take 1 tablet by mouth every night C HOL: 87 (03/10/2021) HDL: 34 (03/10/2021) CHOL (goal): 200 (10/07/2013) LDL (goal): 100 (10/07/2013) HDL (goal): 40 (10/07/2013) TG (goal): 150 (10/07/2013) Juan Carlos Oden MD [id number],Juan Carlos Cantu MD [id number],SJuan Carlos MD [id number],S,T he patient is between 55-77 years old and has smoked at least 30 pack years. The patient is either a current smoker or has quit within the past 15 years. T he patient is recommended to have low dose CT scan for lung cancer screening. Has been counseled regarding the importance of tobacco cessation and abstinence. Shared decision making during this office visit included discussion of the benefits and harms of screening, possible future recommendations of follow-up diagnostic testing, and total amount of radiation exposure. The patient was recommended to have annual low dose CT scan for lung cancer screening and is willing to undergo diagnosis and treatment. Juan Carlos Oden MD [id number],S, n ml por but lvedp 20 Juan Carlos Oden MD [id number],Juan Carlos Cantu MD [id number],S,N OTHIGN ON LOOP s /p loop recorder insertion . Juan Carlos Oden MD [id number],Lissa Cantu NP [id number],S, Lissa malone PHYSICIAN PRACTICE MANAGER [id number],S, Lissa malone PHYSICIAN PRACTICE MANAGER [id number],S,nml por but l vedp 20 Lissa Lizama PHYSICIAN PRACTICE MANAGER [id number],S,s /p loop recorder insertion . Lisas Lizama PHYSICIAN PRACTICE MANAGER [id number],S, H is updated medication list for this problem includes: Simvastatin 40 Mg Tablet (Simvastatin) ..... Take 1 tablet by mouth every night Vascepa 1 Gram Capsule (Icosapent ethyl) Lissa Lizama [id number],S,c ontinues to report episodes of syncope l ast holter 03/2020 negative ILR 04/03 with PC [facility] [id number],B, d oes not want diet pills, has lost 10# in the last 1 year [facility] [id number],S, n eg pft i orn ,b12 and foalte ok, tsh ok [facility] [id number],S, still no angina [facility] [id number],B,quit 5 months ago, on chantix [facility] [id number],S,LDL 51, trig 126 [facility] [id number],S, B P today: 146/90 P rior BP: 144/86 (03/17/2020) Prior 10 Yr Risk Heart Disease: N/A (04/29/2012) Labs Reviewed: C reat: 1.1 (06/13/2016) C hol: 103 (03/18/2020) HDL: 37 (03/18/2020) [facility] [id number],S, o pen in 14 n eg nuc 16 m ult stentes in past continue ASA, did not tolerate xarelto Shilpa Pascual PHYSICIAN PRACTICE MANAGER [id number],S, n ml cassius Shilpa Pascual PHYSICIAN PRACTICE MANAGER Take your medication s every day as directed. Failing to take your medication properly can have a negative impact on your treatment. Please monitor your blood pressure and heart rate regularly, at least weekly. Sit quietly for 5 minutes before taking your blood pressure and heart rate. Recommend a healthy diet plan which would include lots of vegetables and fruits, poultry and fish, low fat dairy products. It would include lower quantities of carbohydrates, like breads, potatoes, rice and pasta. Only small amounts of sweets should be included. Recommend a low salt, or no added salt diet. Exercise of at least 3 times a week is recommended. Even small amounts of exercise regularly can be less intimidating but still beneficial. Please contact us if you have new Chest Pain, Shortness of Breath, Palpitations, Dizziness, or Edema. Arabella [facility] Juan Carlos Oden MD TeleHealth: H is updated medication list for this problem includes: Losartan 100 Mg Tablet (Losartan) Aspirin 81 Mg Tablet,delayed Release (dr/ec) (Aspirin) ..... Take 1 tablet by mouth every morning Prior BP: 130/91 (06/25/2023) Prior 10 Yr Risk Heart Disease: N/A (04/29/2012) Labs Reviewed: C reat: 1.21 (03/10/2021) C hol: 87 (03/10/2021) HDL: 34 (03/10/2021) LDL: 35 (03/10/2021) T (03/10/2021) Juan Carlos Oden MD TeleHealth Juan Carlos Oden MD TeleHealth: T he patient is between 55-77 years old and has smoked at least 30 pack years. The patient is either a current smoker or has quit within the past 15 years. T he patient is recommended to have low dose CT scan for lung cancer screening. Has been counseled regarding the importance of tobacco cessation and abstinence. Shared decision making during this office visit included discussion of the benefits and harms of screening, possible future recommendations of follow-up diagnostic testing, and total amount of radiation exposure. The patient was recommended to have annual low dose CT scan for lung cancer screening and is willing to undergo diagnosis and treatment. Juan Carlos Oden MD TeleHealth:neg sola n eg pft i orn ,b12 and foalte ok, Juan Carlos Oden MD TeleHealth: o pen in 14 n eg nuc 16 m ult stents in past continue ASA, did not tolerate xarelto Juan Carlos Oden MD TeleHealth Juan Carlos Oden MD [facility] Juan Carlos Oden MD TeleHealth: H is updated medication list for this problem includes: Vascepa 1 Gram Capsule (Icosapent ethyl) ..... Take 1 capsule by mouth twice a day with meals Colesevelam 625 Mg Tablet (Colesevelam) Simvastatin 40 Mg Tablet (Simvastatin) ..... Take 1 tablet by mouth every night C HOL: 87 (03/10/2021) LDL: 35 (03/10/2021) HDL: 34 (03/10/2021) T (03/10/2021) C HOL (goal): 200 (10/07/2013) LDL (goal): 100 (10/07/2013) HDL (goal): 40 (10/07/2013) TG (goal): 150 (10/07/2013) Juan Carlos Oden MD TeleHealth Juan Carlos Oden MD TeleHealth: p ro 106,lvedp 20 Juan Carlos Oden MD TeleHealth: karen castro get sleep study Juan Carlos Oden MD TeleHealth: 5 5 Juan Carlos Oden MD Electrophysiology:Rendon s had recurrent syncope etiology remains unclear C ardiac w/u to date has been negative H ave recommended he be evaluated by neurology H as ILR in place with no documented arrhythmia I LR without symptoms or pain will leave in place Kaur Chappellmilucille [employer] SCOURER Cardiology: W ill check SOLA, Arterial sensilase and venous dopplers. Wilber Gonzalez NP Cardiology: o pen in 14 n eg nuc 16 m ult stents in past continue ASA, did not tolerate xarelto Verah Bonarenc PHYSICIAN PRACTICE MANAGER Cardiology: s /p loop recorder insertion. No incidences recorded despite patient reporting syncope episodes. E RI reached. Wilber Kellydank PHYSICIAN PRACTICE MANAGER Cardiology: F juanita with psych at [facility] Wilber Gonzalez Cardiology: m od Wilber Kellydank PHYSICIAN PRACTICE MANAGER Cardiology: H is updated medication list for this problem includes: Aspirin 81 Mg Tablet,delayed Release (dr/ec) (Aspirin) ..... Take 1 tablet by mouth every morning Wilber Kellydank VAZQUEZ Cardiology: B P today: 150/91 P rior BP: 168/109 (09/18/2022) w ill order RPM His updated medication list for this problem includes: Losartan 100 Mg Tablet (Losartan) Aspirin 81 Mg Tablet,delayed Release (dr/ec) (Aspirin) ..... Take 1 tablet by mouth every morning [facility]: p ro 106,lvedp 20 a ppears compensated His updated medication list for this problem includes: Losartan 100 Mg Tablet (Losartan) Aspirin 81 Mg Tablet,delayed Release (dr/ec) (Aspirin) ..... Take 1 tablet by mouth every morning [facility] Sarabiaramesh VAZQUEZ :mod Juan Carlos Oden MD :pro 106,lvedp 20 Juan Carlos Oden MD :55 Juan Carlos dOen MD Cardiology:Has trace bilateral LE edema. Will update BNP and add Jardiance H is updated medication list for this problem includes: Losartan 100 Mg Tablet (Losartan) Aspirin 81 Mg Tablet,delayed Release (dr/ec) (Aspirin) ..... Take 1 tablet by mouth every morning Kauredgar Alexandra [facility] Cardiology:will upda te sleep study as HTN, obesity, poor sleep quality. Known NOLE Solomon Tamiglmichael [facility] Cardiology:will upda te lipids H is updated medication list for this problem includes: Vascepa 1 Gram Capsule (Icosapent ethyl) ..... Take 1 gram by mouth twice a day with meals Colesevelam 625 Mg Tablet (Colesevelam) Simvastatin 40 Mg Tablet (Simvastatin) ..... Take 1 tablet by mouth every night Solomon Fabriziofreemanmichael [facility] Cardiology:BP not at goal 147/91 on recheck and average of 161/90 per home RPM. Will add Jardiance to regimen to help with BP, edema, HF and pre-diabetes. Will continue home monitoring and f/u in 3 mos. If BP remains elevated consider HCTZ. 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 Take 1 tablet by mouth every morning Kauredgar Alexandra [facility] Cardiology Juan Carlos Oden MD Cardiology Juan Carlos Oden MD Cardiology: n eg pft i orn ,b12 and foalte ok, Juan Carlos Oden MD Cardiology: 6 Juan Carlos Oden MD Cardiology: o pen in 14 n eg nuc 16 m ult stentes in past continue ASA, did not tolerate xarelto Juan Carlos Oden MD Cardiology: H is updated medication list for this problem includes: Vascepa 1 Gram Capsule (Icosapent ethyl) ..... Take 2 capsules by mouth twice daily Colesevelam 625 Mg Tablet (Colesevelam) Simvastatin 40 Mg Tablet (Simvastatin) ..... Take 1 tablet by mouth every night C HOL: 87 (03/10/2021) HDL: 34 (03/10/2021) CHOL (goal): 200 (10/07/2013) LDL (goal): 100 (10/07/2013) HDL (goal): 40 (10/07/2013) TG (goal): 150 (10/07/2013) Juan Carlos Oden MD Cardiology: H is updated medication list for this problem includes: Cozaar 100 Mg Tablet (Losartan) ..... Take 1 tablet once a day Aspirin 81 Mg Tablet,delayed Release (dr/ec) (Aspirin) ..... Take 1 tablet by mouth every morning BP today: 144/75 P rior BP: 158/101 (11/01/2021) Prior 10 Yr Risk Heart Disease: N/A (04/29/2012) Labs Reviewed: C reat: 1.21 (03/10/2021) C hol: 87 (03/10/2021) HDL: 34 (03/10/2021) Juan Carlos dOen MD Cardiology: N OTHIGN ON LOOP s /p loop recorder insertion . Juan Carlos Oden MD Cardiology: n ml por but lvedp 20 Juan Carlos Oden MD Cardiology Juan Carlos Oden MD Cardiology: n eg pft i orn ,b12 and foalte ok, Juan Carlos Oden MD Cardiology: T he following medications were removed from the medication list: Vascepa 1 Gram Capsule (Icosapent ethyl) His updated medication list for this problem includes: Vascepa 1 Gram Capsule (Icosapent ethyl) ..... Take 2 capsules by mouth twice daily Colesevelam 625 Mg Tablet (Colesevelam) Simvastatin 40 Mg Tablet (Simvastatin) ..... Take 1 tablet by mouth every night C HOL: 87 (03/10/2021) HDL: 34 (03/10/2021) CHOL (goal): 200 (10/07/2013) LDL (goal): 100 (10/07/2013) HDL (goal): 40 (10/07/2013) TG (goal): 150 (10/07/2013) Juan Carlos Oden MD Cardiology Juan Carlos Oden MD Cardiology Juan Carlos Oden MD Cardiology:The patie nt is between 55-77 years old and has smoked at least 30 pack years. The patient is either a current smoker or has quit within the past 15 years. T he patient is recommended to have low dose CT scan for lung cancer screening. Has been counseled regarding the importance of tobacco cessation and abstinence. Shared decision making during this office visit included discussion of the benefits and harms of screening, possible future recommendations of follow-up diagnostic testing, and total amount of radiation exposure. The patient was recommended to have annual low dose CT scan for lung cancer screening and is willing to undergo diagnosis and treatment. Juan Carlos Oden MD Cardiology: n ml por but lvedp 20 Juan Carlos Oden MD Cardiology Juan Carlos dOen MD Cardiology:NOTHIGN O N LOOP s /p loop recorder insertion . Juan Carlos Oden MD Cardiology [facility] [place] Cardiology [facility] [employer]ACTICE MANAGER Cardiology [facility] [place] Cardiology:nml por but lvedp 20 [facility] [place] Cardiology:s/p loop recorder ins ertion . [facility]: H is updated medication list for this problem includes: Simvastatin 40 Mg Tablet (Simvastatin) ..... Take 1 tablet by mouth every night Vascepa 1 Gram Capsule (Icosapent ethyl) Lissa Dl [place] Cardiology:continues to report episodes of syncope l ast holter 03/2020 negative ILR 04/03 with PC Shilpa Pascual NP Cardiology: d oes not want diet pills, has lost 10# in the last 1 year Shilpa Pascual NP Cardiology: n eg pft i orn ,b12 and foalte ok, tsh ok Shilpa Pascual NP Cardiology: still no angina Shilpa Pascual NP Cardiology:quit 5 months ago, on chantix Shilpa Pascual NP Cardiology:LDL 51, trig 126 Ashl malia Pascual NP Cardiology: B P today: 146/90 P rior BP: 144/86 (03/17/2020) Prior 10 Yr Risk Heart Disease: N/A (04/29/2012) Labs Reviewed: C reat: 1.1 (06/13/2016) C hol: 103 (03/18/2020) HDL: 37 (03/18/2020) Shilpa Pascual NP Cardiology: o pen in 14 n eg nuc 16 m ult stentes in past continue ASA, did not tolerate xarelto Shilpa Pascual NP Cardiology: n ml proo Shilpa Pascual NP Cardiology follow up :6 Juan Carlos huff MD Cardiology follow up Juan Carlos sun MD Cardiology follow up Juan Carlos sun MD Cardiology follow up : n ml cassius Oden MD Cardiology follow up Juan Carlos sun MD Cardiology follow up : o pen in 14 n eg nuc 16 m ult stentes in past Juan Carlos Oden MD Cardiology follow up : T he patient is between 55-77 years old and has smoked at least 30 pack years. The patient is either a current smoker or has quit within the past 15 years. T he patient is recommended to have low dose CT scan for lung cancer screening. Has been counseled regarding the importance of tobacco cessation and abstinence. Shared decision making during this office visit included discussion of the benefits and harms of screening, possible future recommendations of follow-up diagnostic testing, and total amount of radiation exposure. The patient was recommended to have annual low dose CT scan for lung cancer screening and is willing to undergo diagnosis and treatment. 2 Juan Carlos Oden MD Cardiology follow up Juan Carlos sun MD Cardiology follow up : n ml cassius Oden MD Cardiology Follow up : d oes not want diel pills, will see jaswinder Oden MD Cardiology Follow up :better at home Juan Carlos Oden MD Cardiology Follow up :open in 14 n eg nuc 16 m ult stentes in past Juan Carlos Oden MD Cardiology Follow up : H is updated medication list for this problem includes: Welchol 625 Mg Oral Tablet (Colesevelam hcl) ..... 3 tabs twice daily Zocor 20 Mg Oral Tablet (Simvastatin) ..... One tab. at bedtime C HOL: 90 (12/13/2017) HDL: 32 (12/13/2017) CHOL (goal): 200 (10/07/2013) LDL (goal): 100 (10/07/2013) HDL (goal): 40 (10/07/2013) TG (goal): 150 (10/07/2013) Juan Carlos Oden MD Cardiology Follow up : T he patient is between 55-77 years old and has smoked at least 30 pack years. The patient is either a current smoker or has quit within the past 15 years. T he patient is recommended to have low dose CT scan for lung cancer screening. Has been counseled regarding the importance of tobacco cessation and abstinence. Shared decision making during this office visit included discussion of the benefits and harms of screening, possible future recommendations of follow-up diagnostic testing, and total amount of radiation exposure. The patient was recommended to have annual low dose CT scan for lung cancer screening and is willing to undergo diagnosis and treatment. 2 Juan Carlos Oden MD Cardiology Follow up :neg pft i orn ,b12 and foalte ok, tsh ok Juan Carlos Oden MD Cardiology Follow up Juan Carlos sun MD Cardiology Follow up Juan Carlos sun MD Cardiology Follow up Juan Carlos sun MD Cardiology Follow up : n ml proo Juan Carlos Oden MD Cardiology Follow up :holter neg now, pt thiink do to xarelto h r got to 49 on montitor, will stop ziac non sicne Juan Carlos Oden MD Cardiology Follow up ;echo peinghng:does not want diel pills, will see jaswinder Oden MD Cardiology Follow up ;echo peinghng: n eg nuc 16 m ult stentes in past Juan Carlos Oden MD Cardiology Follow up ;echo peinghng:add karina H is updated medication list for this problem includes: Diovan 160 Mg Oral Tablet (Valsartan) ..... One tab. daily Aspirin Adult Low Dose 81 Mg Oral Tablet Delayed Release (Aspirin) ..... One tab by mouth daily BP today: 142/96 P rior BP: 122/72 (12/05/2016) Prior 10 Yr Risk Heart Disease: N/A (04/29/2012) Labs Reviewed: C reat: 1.1 (06/13/2016) C hol: 121.0 (06/13/2016) HDL: 31.0 (06/13/2016) T.0 (06/13/2016) Juan Carlos Oden MD Cardiology Follow up ;echo peinghng:The patient is between 55-77 years old and has smoked at least 30 pack years. The patient is either a current smoker or has quit within the past 15 years. T he patient is recommended to have low dose CT scan for lung cancer screening. Has been counseled regarding the importance of tobacco cessation and abstinence. Shared decision making during this office visit included discussion of the benefits and harms of screening, possible future recommendations of follow-up diagnostic testing, and total amount of radiation exposure. The patient was recommended to have annual low dose CT scan for lung cancer screening and is willing to undergo diagnosis and treatment. Juan Carlos Oden MD Cardiology Follow up ;echo peinghng: h r got to 48 on montitor, will stop ziac non sicne Juan Carlos Oden MD Cardiology Follow up ;echo peing hng:may need zeita Juan Carlos Oden MD Cardiology Follow up ;echo peing hng:nml proo Juan Carlos Oden MD Cardiology:hr got to 48 on margarito tor, will stop ziac Juan Carlos Oden MD Cardiology Juan Carlos Oden MD Cardiology:iorn ,b12 and foalte ok, tsh ok Juan Carlos Oden MD Cardiology:CHOL: 121 .0 (06/13/2016) HDL: 31.0 (06/13/2016) T.0 (06/13/2016) C HOL (goal): 200 (10/07/2013) LDL (goal): 100 (10/07/2013) HDL (goal): 40 (10/07/2013) TG (goal): 150 (10/07/2013) His updated medication list for this problem includes: Zocor 40 Mg Tabs (Simvastatin) ..... One tab. at bedtime Juan Carlos Oden MD Cardiology:6, wants welchol Dae Oden MD Cardiology:will rx Juan Carlos Oden MD Cardiology:neg nuc 16 Juan Carlos juarez MD Cardiology - BP clin ic:BP stable. No changes. Lissa Mosley NP Cardiology Follow up :WILL STOP THE ZIAC AND SEE IF BETTER Juan Carlos Oden MD Cardiology Follow up :1. Normal left ventricular systolic function. Normal left ventricular size. Normal left ventricular wall t hickness. Mitral inflow Doppler demonstrates pseudonormal pattern consistent with diastolic d ysfunction. Normal E/E` 11.0. Left ventricular ejection fraction is estimated at 60 %. 2 . There is mild enlargement of the left atrium. 3 . There is non-specific thickening of the mitral valve leaflets. No mitral valve regurgitation is seen. 4 . Aortic valve leaflets appear structurally normal. Velocities, as well as gradients across the aortic v alve are normal. No evidence of aortic insufficiency. 5 . The tricuspid valve is normal in appearance and function. No evidence of tricuspid regurgitation. I VC is normal in size with normal respiratory response. Unable to adequately assess the RVSP. 6 . Normal pericardium with no pericardial or pleural effusion. 7 . Normal aortic root size. Juan Carlos Oden MD Cardiology Juan Carlos Oden MD Cardiology:yves de oliveira ded B P today: 143/83 P rior BP: 125/78 (02/22/2015) Prior 10 Yr Risk Heart Disease: N/A (04/29/2012) Labs Reviewed: C reat: 1.1 (11/05/2013) C hol: 112 (01/20/2014) HDL: 22 (01/20/2014) LDL: 116 (01/20/2014) T (01/20/2014) His updated medication list for this problem includes: Diovan 40 Mg Tabs (Valsartan) ..... One tab. daily Ziac 10-6.25 Mg Tabs (Bisoprolol-hydrochlorothiazide) ..... One a day Juan Carlos Oden MD Cardiology: H is updated medication list for this problem includes: Ziac 10-6.25 Mg Tabs (Bisoprolol-hydrochlorothiazide) ..... One a day Juan Carlos Oden MD Cardiology:none H is updated medication list for this problem includes: Ziac 10-6.25 Mg Tabs (Bisoprolol-hydrochlorothiazide) ..... One a day Juan Carlos Oden MD Cardiology:neg holer 15 H is updated medication list for this problem includes: Ziac 10-6.25 Mg Tabs (Bisoprolol-hydrochlorothiazide) ..... One a day Juan Carlos Oden MD follow up: H is updated medication list for this problem includes: Zocor 40 Mg Tabs (Simvastatin) ..... One tab. at bedtime Judith Alfonso MD follow up: H is updated medication list for this problem includes: Ziac 10-6.25 Mg Tabs (Bisoprolol-hydrochlorothiazide) ..... 1 tablet by mouth every night Judith Alfonso MD follow up Judith Miller follow up: H is updated medication list for this problem includes: Ziac 10-6.25 Mg Tabs (Bisoprolol-hydrochlorothiazide) ..... 1 tablet by mouth every night Judith Alfonso MD follow up Judith Miller follow up Juan Carlos Oden MD follow up : H is updated medication list for this problem includes: Ziac 10-6.25 Mg Tabs (Bisoprolol-hydrochlorothiazide) ..... 1 tablet by mouth every morning Aspirin 81 Mg Tabs (Aspirin) ..... One tab. daily Zocor 40 Mg Tabs (Simvastatin) ..... One tab. at bedtime Juan Carlos Oden MD follow up : H is updated medication list for this problem includes: Xanax 0.5 Mg Tabs (Alprazolam) ..... 1 tablet by mouth twice daily Ziac 10-6.25 Mg Tabs (Bisoprolol-hydrochlorothiazide) ..... 1 tablet by mouth every morning Vistaril 25 Mg Caps (Hydroxyzine pamoate) ..... One tab in am, 2 tab pm Aspirin 81 Mg Tabs (Aspirin) ..... One tab. daily Juan Carlos Oden MD follow up Juan Carlos Oden MD follow up Juan Carlos Oden MD follow up Juan Carlos Oden MD follow up Juan Carlos Oden MD follow up : H is updated medication list for this problem includes: Ziac 10-6.25 Mg Tabs (Bisoprolol-hydrochlorothiazide) ..... 1 tablet by mouth every morning Aspirin 81 Mg Tabs (Aspirin) ..... One tab. daily Juan Carlos Oden MD follow up : H is updated medication list for this problem includes: Ziac 10-6.25 Mg Tabs (Bisoprolol-hydrochlorothiazide) ..... 1 tablet by mouth every morning Aspirin 81 Mg Tabs (Aspirin) ..... One tab. daily Juan Carlos Oden MD follow up Juan Carlos Oden MD follow up : H is updated medication list for this problem includes: Ziac 10-6.25 Mg Tabs (Bisoprolol-hydrochlorothiazide) ..... 1 tablet by mouth every morning Aspirin 81 Mg Tabs (Aspirin) ..... One tab. daily Zocor 40 Mg Tabs (Simvastatin) ..... One tab. at bedtime Juan Carlos Oden MD regularcatheres, review echo [facility] Juan Carlos Oden MD regularcatheres, review echo [facility] Juan Carlos Oden MD regularcatheres, review echo [facility] Juan Carlos Oden MD regularcatheres, review echo [facility] Juan Carlos Oden MD regularcatheres, rev iew echo though: V ITAMIN D, 25-HYDROXY, LC/MS/MS (73684) X -Ray, Chest, PA & Lateral (CPT-24679) C ardiac Cath - Left - GC (*) Juan Carlos Oden MD regularcatheres, rev iew echo though: A rterial Duplex Bi-Lower EX (CPT-12319) C BC (H/H, RBC, INDICES, WBC, PLT) (1759) P ROTHROMBIN TIME WITH INR (8847) P ARTIAL THROMBOPLASTIN TIME, ACTIVATED (763) V ITAMIN B12 (927) V ITAMIN D, 25-HYDROXY, LC/MS/MS (81148) X -Ray, Chest, PA & Lateral (CPT-23042) C ardiac Cath - Left - GC (*) Juan Carlos Oden MD regularcatheres, review echo o [facility] Juan Carlos Oden MD regularcatheres, review echo [facility] Juan Carlos Oden MD regularcatheres, rev iew echo though: H is updated medication list for this problem includes: Ziac 10-6.25 Mg Tabs (Bisoprolol-hydrochlorothiazide) ..... 1 tablet by mouth every morning Aspirin 81 Mg Tabs (Aspirin) ..... One tab. daily BP today: 124/69 Prior BP: 134/70 (07/08/2013) H gb: 15.4 (01/26/2009) HCT: 45.5 (01/26/2009) WBC: 5.6 (01/26/2009) B UN: 14 (01/26/2009) Creat: 1.21 (01/26/2009) Glucose: 99 (01/26/2009) N a+: 138 (01/26/2009) K+: 4.1 (01/26/2009) Cl: 105 (01/26/2009) EK . Normal Sinus Rhythm 2 .1st degree AV Block (P-R interval 0.28sec 0.28) ................................................... .................BERNARDO MCKEON MD April 29, 2012 4:18 PM 3. Incomplete RBBB otherwise normal ECG (04/29/2012) H olter Monitor Comments: Sinus rhythm with rare premature atrial contraction as well as rare premature ventricular contractions. (06/30/2007) N uclear Stress Findings: 1. Abnormal myocardial perfusion imaging after vasodilator stress with Regadenoson. 2 . Normal left ventricular systolic function with a calculated ejection fraction of 59%. 3 . Myocardial scintigraphy demonstrates a small reversible inferolateral wall defect consitent with ischemia. - GC (10/15/2013) C ardiac Cath: 80% stenosis of the mid left anterior descending with a filling defect. Continued patency of the stent of the right coronary artery. Normal ejection fraction of 60%. Successful closure of the right groin using a 6-Nepalese Angio close device. - [facility] (04/07/2012) C ardiac Cath Comments: Status post stenting of the left anterior descending with a 3.0 x 12 mm Vision stent. - [facility] (04/07/2012) Orders: E KG (CPT-18088) B TYPE NATRIURETIC PEPTIDE (BNP) (21510) C OMPREHENSIVE METABOLIC PANEL W/EGFR (06263) L IPID PANEL (7600) H EMOGLOBIN A1c (496) C arotid Duplex Bilateral (CPT-65694) A rterial Duplex Bi-Lower EX (CPT-20475) Juan Carlos Oden MD regularcatheres, review echo [facility] Juan Carlos Oden MD regularcatheres, review echo [facility] Juan Carlos Oden MD regularcatheres, review echo [facility] Juan Carlos Oden MD regularcatheres, review echo [facility] Juan Carlos Oden MD regularcatheres, rev iew echo though: H is updated medication list for this problem includes: Lamictal 100 Mg Tabs (Lamotrigine) ..... One tab twice daily Labs Reviewed: H gb: 15.4 (01/26/2009) Hct: 45.5 (01/26/2009) WBC: 5.6 (01/26/2009) S GOT: 24 (03/25/2013) SGPT: 17 (03/25/2013) Juan Carlos Oden MD regularcatheres, rev iew echo though: H is updated medication list for this problem includes: Ziac 10-6.25 Mg Tabs (Bisoprolol-hydrochlorothiazide) ..... 1 tablet by mouth every morning Aspirin 81 Mg Tabs (Aspirin) ..... One tab. daily Zocor 40 Mg Tabs (Simvastatin) ..... One tab. at bedtime Orders: B TYPE NATRIURETIC PEPTIDE (BNP) (23691) C OMPREHENSIVE METABOLIC PANEL W/EGFR (49077) H EMOGLOBIN A1c (496) C arotid Duplex Bilateral (CPT-73967) A rterial Duplex Bi-Lower EX (CPT-79165) C BC (H/H, RBC, INDICES, WBC, PLT) (1759) P ROTHROMBIN TIME WITH INR (8847) P ARTIAL THROMBOPLASTIN TIME, ACTIVATED (763) V ITAMIN B12 (927) V ITAMIN D, 25-HYDROXY, LC/MS/MS (27573) X -Ray, Chest, PA & Lateral (CPT-10153) Juan Carlos Oden MD regularcatheres, rev iew echo though: H is updated medication list for this problem includes: Ziac 10-6.25 Mg Tabs (Bisoprolol-hydrochlorothiazide) ..... 1 tablet by mouth every morning Aspirin 81 Mg Tabs (Aspirin) ..... One tab. daily Zocor 40 Mg Tabs (Simvastatin) ..... One tab. at bedtime BP today: 124/69 Prior BP: 134/70 (07/08/2013) E K . Normal Sinus Rhythm 2 .1st degree AV Block (P-R interval 0.28sec 0.28) ................................................... .................BERNARDO MCKEON MD April 29, 2012 4:18 PM 3. Incomplete RBBB otherwise normal ECG (04/29/2012) N uclear Stress Findings: 1. Abnormal myocardial perfusion imaging after vasodilator stress with Regadenoson. 2 . Normal left ventricular systolic function with a calculated ejection fraction of 59%. 3 . Myocardial scintigraphy demonstrates a small reversible inferolateral wall defect consitent with ischemia. - (10/15/2013) C ardiac Cath: 80% stenosis of the mid left anterior descending with a filling defect. Continued patency of the stent of the right coronary artery. Normal ejection fraction of 60%. Successful closure of the right groin using a 6-Nepalese Angio close device. - [facility] (04/07/2012) C ardiac Cath Comments: Status post stenting of the left anterior descending with a 3.0 x 12 mm Vision stent. - [facility] (04/07/2012) C arotid Doppler/Duplex: Normal GCO (09/21/2010) C HOL: 125 (10/07/2013) LDL: 27 (10/07/2013) HDL: 24 (10/07/2013) T (10/07/2013) H gb: 15.4 (01/26/2009) HCT: 45.5 (01/26/2009) WBC: 5.6 (01/26/2009) B UN: 14 (01/26/2009) Creat: 1.21 (01/26/2009) Glucose: 99 (01/26/2009) N a+: 138 (01/26/2009) K+: 4.1 (01/26/2009) Cl: 105 (01/26/2009) INR: 1.0 (01/26/2009) Juan Carlos Oden MD regularcatheres, rev iew echo though: H is updated medication list for this problem includes: Zocor 40 Mg Tabs (Simvastatin) ..... One tab. at bedtime BP today: 124/69 Prior BP: 134/70 (07/08/2013) C HOL: 125 (10/07/2013) LDL: 27 (10/07/2013) HDL: 24 (10/07/2013) T (10/07/2013) C HOL (goal): 200 (10/07/2013) LDL (goal): 100 (10/07/2013) HDL (goal): 40 (10/07/2013) TG (goal): 150 (10/07/2013) Juan Carlos Oden MD regularcatheres, rev iew echo though: O rders: B TYPE NATRIURETIC PEPTIDE (BNP) (09542) C OMPREHENSIVE METABOLIC PANEL W/EGFR (23208) H EMOGLOBIN A1c (496) C arotid Duplex Bilateral (CPT-82291) A rterial Duplex Bi-Lower EX (CPT-04137) C BC (H/H, RBC, INDICES, WBC, PLT) (1759) P ROTHROMBIN TIME WITH INR (8847) P ARTIAL THROMBOPLASTIN TIME, ACTIVATED (763) V ITAMIN B12 (927) V ITAMIN D, 25-HYDROXY, LC/MS/MS (53232) X -Ray, Chest, PA & Lateral (CPT-18370) Juan Carlos Oden MD regularcatheres, rev iew echo though: H is updated medication list for this problem includes: Xanax 0.5 Mg Tabs (Alprazolam) ..... 1 tablet by mouth twice daily Ziac 10-6.25 Mg Tabs (Bisoprolol-hydrochlorothiazide) ..... 1 tablet by mouth every morning Vistaril 25 Mg Caps (Hydroxyzine pamoate) ..... One tab in am, 2 tab pm Aspirin 81 Mg Tabs (Aspirin) ..... One tab. daily O rders: B TYPE NATRIURETIC PEPTIDE (BNP) (87941) C OMPREHENSIVE METABOLIC PANEL W/EGFR (85750) H EMOGLOBIN A1c (496) C arotid Duplex Bilateral (CPT-22162) A rterial Duplex Bi-Lower EX (CPT-48677) C BC (H/H, RBC, INDICES, WBC, PLT) (1759) P ROTHROMBIN TIME WITH INR (8847) P ARTIAL THROMBOPLASTIN TIME, ACTIVATED (763) V ITAMIN B12 (927) V ITAMIN D, 25-HYDROXY, LC/MS/MS (57449) X -Ray, Chest, PA & Lateral (CPT-17891) Juan Carlos Oden MD regularcatheres, rev iew echo though: H is updated medication list for this problem includes: Zocor 40 Mg Tabs (Simvastatin) ..... One tab. at bedtime BP today: 124/69 Prior BP: 134/70 (07/08/2013) C HOL: 125 (10/07/2013) LDL: 27 (10/07/2013) HDL: 24 (10/07/2013) T (10/07/2013) C HOL (goal): 200 (10/07/2013) LDL (goal): 100 (10/07/2013) HDL (goal): 40 (10/07/2013) TG (goal): 150 (10/07/2013) Orders: B TYPE NATRIURETIC PEPTIDE (BNP) (76232) C OMPREHENSIVE METABOLIC PANEL W/EGFR (83992) H EMOGLOBIN A1c (496) C arotid Duplex Bilateral (CPT-09663) A rterial Duplex Bi-Lower EX (CPT-36906) C BC (H/H, RBC, INDICES, WBC, PLT) (1759) P ROTHROMBIN TIME WITH INR (8847) P ARTIAL THROMBOPLASTIN TIME, ACTIVATED (763) V ITAMIN B12 (927) VITAMIN D, 25-HYDROXY, LC/MS/MS (02513) X -Ray, Chest, PA & Lateral (CPT-06616) Juan Carlos Oden MD regularcatheres, rev iew echo though: H is updated medication list for this problem includes: Ziac 10-6.25 Mg Tabs (Bisoprolol-hydrochlorothiazide) ..... 1 tablet by mouth every morning Aspirin 81 Mg Tabs (Aspirin) ..... One tab. daily BP today: 124/69 P rior BP: 134/70 (07/08/2013) Prior 10 Yr Risk Heart Disease: N/A (04/29/2012) Labs Reviewed: C reat: 1.21 (01/26/2009) C hol: 125 (10/07/2013) HDL: 24 (10/07/2013) LDL: 27 (10/07/2013) T (10/07/2013) Orders: B TYPE NATRIURETIC PEPTIDE (BNP) (45787) C OMPREHENSIVE METABOLIC PANEL W/EGFR (92041) H EMOGLOBIN A1c (496) C arotid Duplex Bilateral (CPT-12962) A rterial Duplex Bi-Lower EX (CPT-81220) C BC (H/H, RBC, INDICES, WBC, PLT) (1759) P ROTHROMBIN TIME WITH INR (8847) P ARTIAL THROMBOPLASTIN TIME, ACTIVATED (763) V ITAMIN B12 (927) V ITAMIN D, 25-HYDROXY, LC/MS/MS (72520) X -Ray, Chest, PA & Lateral (CPT-75267) Juan Carlos Oden MD regularcatheres, review echo tho [facility] Juan Carlos Oden MD regularcatheres, rev iew echo though: O rders: X -Ray, Chest, PA & Lateral (CPT-86348) Juan Carlos Oden MD Lipid clinic:Patient reports some chest pain associated with palpiations last night. States he took one full strength ASA and then fell asleep. No precipitating factors. No N/V, diaphoresis or SOB. He will be scheduled for a stress test and follow up with Dr. Oden. He is instructed to call the office his he has a recurrence of his symptoms prior to evaluation. Lissa Mosley NP Lipid clinic: H is updated medication list for this problem includes: Zocor 40 Mg Tabs (Simvastatin) ..... One tab. at bedtime Patient here for lipid clinic. He states he has been complaint with medications. Is trying to watch sugars and starches in his diet. Triglycerides continue to be elevated. Will discuss with Dr. Oden. Lissa Mosley NP : H is updated medication list for this problem includes: Zocor 40 Mg Tabs (Simvastatin) ..... One tab. at bedtime Patient presents for lipid clinic. His triglycerides continue to be elevated. He states he continues to eat donuts and desserts on a daily basis. He will attempt to modify his diet. Increased his Fish Oil to 2000mg bid. He will return in one month. If no improvement will add Niaspan. Lissa Mosley NP Lipid clinic : H is updated medication list for this problem includes: Zocor 40 Mg Tabs (Simvastatin) ..... One tab. at bedtime Patient presents for lipid clinic. His triglycerides are not at goal. He states he had sugared creamer in his coffee this am as well as eating a sigifnicant amount of sugar on a daily basis. He will decrease his sugar intake and return for HTN/Lipid clinic in 3 months. He is reminded he needs to be fasting, including coffee. Lissa Mosley NP Hypertension clinic : H is updated medication list for this problem includes: Ziac 10-6.25 Mg Tabs (Bisoprolol-hydrochlorothiazide) ..... 1 tablet by mouth every morning Aspirin 81 Mg Tabs (Aspirin) ..... One tab. daily Patient is doing well. Repeat BP today 128/70. Patient will continue current medications and return to HTN and Lipid clinic in 3 months. Lissa Mosley NP Cholesterol manageme nt: H is updated medication list for this problem includes: Zocor 40 Mg Tabs (Simvastatin) ..... One tab. at bedtime Patient presents for lipid clinic. Triglycerides are above goal. Patient reluctant to add more medications. Discussed dietary modification. He will return in 2 months for repeat lipids and LFTs. If no improvement additional medication therapy will be recommended. Lissa Mosley NP follow up: H is updated medication list for this problem includes: Lamictal 100 Mg Tabs (Lamotrigine) ..... One tab twice daily Labs Reviewed: H gb: 15.4 (01/26/2009) Hct: 45.5 (01/26/2009) WBC: 5.6 (01/26/2009) S GOT: 26 (01/26/2009) SGPT: 54 (01/26/2009) Juan Carlos Oden MD follow up Juan Carlos Oden MD follow up Juan Carlos Oedn MD follow up: T he following medications were removed from the medication list: Niacor 500 Mg Tabs (Niacin) ..... Take one tablet po daily His updated medication list for this problem includes: Ziac 10-6.25 Mg Tabs (Bisoprolol-hydrochlorothiazide) ..... 1 tablet by mouth every morning Aspirin 81 Mg Tabs (Aspirin) ..... One tab. daily Zocor 40 Mg Tabs (Simvastatin) ..... One tab. at bedtime BP today: 144/68 Prior BP: 138/78 (08/20/2012) E K . Normal Sinus Rhythm 2 .1st degree AV Block (P-R interval 0.28sec 0.28) ................................................... .................BERNARDO MCKEON MD April 29, 2012 4:18 PM 3. Incomplete RBBB otherwise normal ECG (04/29/2012) N uclear Stress Findings: 1. Abnormal myocardial perfusion imaging after vasodilator stress with Regadenoson. 2 . Normal left ventricular systolic function with a calculated ejection fraction of 57%. 3 . Myocardial scintigraphy demonstrates a small reversible inferior wall ischemia. (10/18/2011) C ardiac Cath: 80% stenosis of the mid left anterior descending with a filling defect. Continued patency of the stent of the right coronary artery. Normal ejection fraction of 60%. Successful closure of the right groin using a 6-Nepalese Angio close device. - [facility] (04/07/2012) C ardiac Cath Comments: Status post stenting of the left anterior descending with a 3.0 x 12 mm Vision stent. - [facility] (04/07/2012) C arotid Doppler/Duplex: Normal [facility] [place] C HOL: 113 (01/26/2009) LDL: 43 (01/26/2009) HDL: 30 (01/26/2009) T (01/26/2009) H gb: 15.4 (01/26/2009) HCT: 45.5 (01/26/2009) WBC: 5.6 (01/26/2009) B UN: 14 (01/26/2009) Creat: 1.21 (01/26/2009) Glucose: 99 (01/26/2009) N a+: 138 (01/26/2009) K+: 4.1 (01/26/2009) Cl: 105 (01/26/2009) INR: 1.0 (01/26/2009) Juan Carlos Oden MD follow up: T he following medications were removed from the medication list: Niacor 500 Mg Tabs (Niacin) ..... Take one tablet po daily His updated medication list for this problem includes: Zocor 40 Mg Tabs (Simvastatin) ..... One tab. at bedtime BP today: 144/68 Prior BP: 138/78 (08/20/2012) C HOL: 113 (01/26/2009) LDL: 43 (01/26/2009) HDL: 30 (01/26/2009) T (01/26/2009) Juan Carlos Oden MD follow up: H is updated medication list for this problem includes: Ziac 10-6.25 Mg Tabs (Bisoprolol-hydrochlorothiazide) ..... 1 tablet by mouth every morning Aspirin 81 Mg Tabs (Aspirin) ..... One tab. daily Zocor 40 Mg Tabs (Simvastatin) ..... One tab. at bedtime BP today: 144/68 Prior BP: 138/78 (08/20/2012) E K . Normal Sinus Rhythm 2 .1st degree AV Block (P-R interval 0.28sec 0.28) ................................................... .................BERNARDO MCKEON MD April 29, 2012 4:18 PM 3. Incomplete RBBB otherwise normal ECG (04/29/2012) N uclear Stress Findings: 1. Abnormal myocardial perfusion imaging after vasodilator stress with Regadenoson. 2 . Normal left ventricular systolic function with a calculated ejection fraction of 57%. 3 . Myocardial scintigraphy demonstrates a small reversible inferior wall ischemia. (10/18/2011) C ardiac Cath: 80% stenosis of the mid left anterior descending with a filling defect. Continued patency of the stent of the right coronary artery. Normal ejection fraction of 60%. Successful closure of the right groin using a 6-Nepalese Angio close device. - [facility] (04/07/2012) C ardiac Cath Comments: Status post stenting of the left anterior descending with a 3.0 x 12 mm Vision stent. - [facility] (04/07/2012) C arotid Doppler/Duplex: Normal O (09/21/2010) C HOL: 113 (01/26/2009) LDL: 43 (01/26/2009) HDL: 30 (01/26/2009) T (01/26/2009) H gb: 15.4 (01/26/2009) HCT: 45.5 (01/26/2009) WBC: 5.6 (01/26/2009) B UN: 14 (01/26/2009) Creat: 1.21 (01/26/2009) Glucose: 99 (01/26/2009) N a+: 138 (01/26/2009) K+: 4.1 (01/26/2009) Cl: 105 (01/26/2009) INR: 1.0 (01/26/2009) Orders: e Prescribe - Check this box if eRx is used (CPT-G8553) E KG (CPT-21682) Juan Carlos Oden MD follow up: H is updated medication list for this problem includes: Ziac 10-6.25 Mg Tabs (Bisoprolol-hydrochlorothiazide) ..... 1 tablet by mouth every morning Aspirin 81 Mg Tabs (Aspirin) ..... One tab. daily BP today: 144/68 P rior BP: 138/78 (08/20/2012) Prior 10 Yr Risk Heart Disease: N/A (04/29/2012) Labs Reviewed: C reat: 1.21 (01/26/2009) C hol: 113 (01/26/2009) HDL: 30 (01/26/2009) LDL: 43 (01/26/2009) T (01/26/2009) Orders: e Prescribe - Check this box if eRx is used (CPT-G8553) E KG (CPT-07149) Juan Carlos Oden MD follow up: O rders: e Prescribe - Check this box if eRx is used (CPT-G8553) E KG (CPT-00893) Juan Carlos Oden MD follow up: T he following medications were removed from the medication list: Niacor 500 Mg Tabs (Niacin) ..... Take one tablet po daily His updated medication list for this problem includes: Zocor 40 Mg Tabs (Simvastatin) ..... One tab. at bedtime BP today: 144/68 Prior BP: 138/78 (08/20/2012) C HOL: 113 (01/26/2009) LDL: 43 (01/26/2009) HDL: 30 (01/26/2009) T (01/26/2009) Orders: e Prescribe - Check this box if eRx is used (CPT-G8553) E KG (CPT-80505) Juan Carlos Oden MD follow up: H is updated medication list for this problem includes: Ziac 10-6.25 Mg Tabs (Bisoprolol-hydrochlorothiazide) ..... 1 tablet by mouth every morning Aspirin 81 Mg Tabs (Aspirin) ..... One tab. daily BP today: 144/68 Prior BP: 138/78 (08/20/2012) H gb: 15.4 (01/26/2009) HCT: 45.5 (01/26/2009) WBC: 5.6 (01/26/2009) B UN: 14 (01/26/2009) Creat: 1.21 (01/26/2009) Glucose: 99 (01/26/2009) N a+: 138 (01/26/2009) K+: 4.1 (01/26/2009) Cl: 105 (01/26/2009) EK . Normal Sinus Rhythm 2 .1st degree AV Block (P-R interval 0.28sec 0.28) ................................................... .................BERNARDO MCKEON MD April 29, 2012 4:18 PM 3. Incomplete RBBB otherwise normal ECG (04/29/2012) H olter Monitor Comments: Sinus rhythm with rare premature atrial contraction as well as rare premature ventricular contractions. (06/30/2007) N uclear Stress Findings: 1. Abnormal myocardial perfusion imaging after vasodilator stress with Regadenoson. 2 . Normal left ventricular systolic function with a calculated ejection fraction of 57%. 3 . Myocardial scintigraphy demonstrates a small reversible inferior wall ischemia. (10/18/2011) C ardiac Cath: 80% stenosis of the mid left anterior descending with a filling defect. Continued patency of the stent of the right coronary artery. Normal ejection fraction of 60%. Successful closure of the right groin using a 6-Nepalese Angio close device. - [facility] (04/07/2012) C ardiac Cath Comments: Status post stenting of the left anterior descending with a 3.0 x 12 mm Vision stent. - [facility] (04/07/2012) Orders: e Prescribe - Check this box if eRx is used (CPT-G8553) E KG (CPT-80783) Juan Carlos Oden MD follow up: H is updated medication list for this problem includes: Xanax 0.5 Mg Tabs (Alprazolam) ..... 1 tablet by mouth twice daily Ziac 10-6.25 Mg Tabs (Bisoprolol-hydrochlorothiazide) ..... 1 tablet by mouth every morning Vistaril 25 Mg Caps (Hydroxyzine pamoate) ..... One tab three times daily Aspirin 81 Mg Tabs (Aspirin) ..... One tab. daily BP today: 144/68 Prior BP: 138/78 (08/20/2012) H gb: 15.4 (01/26/2009) HCT: 45.5 (01/26/2009) WBC: 5.6 (01/26/2009) B UN: 14 (01/26/2009) Creat: 1.21 (01/26/2009) Glucose: 99 (01/26/2009) N a+: 138 (01/26/2009) K+: 4.1 (01/26/2009) Cl: 105 (01/26/2009) EK . Normal Sinus Rhythm 2 .1st degree AV Block (P-R interval 0.28sec 0.28) ................................................... .................BERNARDO MCKEON MD April 29, 2012 4:18 PM 3. Incomplete RBBB otherwise normal ECG (04/29/2012) H olter Monitor Comments: Sinus rhythm with rare premature atrial contraction as well as rare premature ventricular contractions. (06/30/2007) N uclear Stress Findings: 1. Abnormal myocardial perfusion imaging after vasodilator stress with Regadenoson. 2 . Normal left ventricular systolic function with a calculated ejection fraction of 57%. 3 . Myocardial scintigraphy demonstrates a small reversible inferior wall ischemia. (10/18/2011) C ardiac Cath: 80% stenosis of the mid left anterior descending with a filling defect. Continued patency of the stent of the right coronary artery. Normal ejection fraction of 60%. Successful closure of the right groin using a 6-Nepalese Angio close device. - [facility] (04/07/2012) C ardiac Cath Comments: Status post stenting of the left anterior descending with a 3.0 x 12 mm Vision stent. - [facility] (04/07/2012) Orders: e Prescribe - Check this box if eRx is used (CPT-G8553) E KG (CPT-15854) Juan Carlos Oden MD follow up Juan Carlos Oden MD follow up: H is updated medication list for this problem includes: Ziac 10-6.25 Mg Tabs (Bisoprolol-hydrochlorothiazide) ..... 1 tablet by mouth every morning Aspirin 81 Mg Tabs (Aspirin) ..... One tab. daily Zocor 40 Mg Tabs (Simvastatin) ..... One tab. at bedtime BP today: 144/68 Prior BP: 138/78 (08/20/2012) E K . Normal Sinus Rhythm 2 .1st degree AV Block (P-R interval 0.28sec 0.28) ................................................... .................BERNARDO MCKEON MD April 29, 2012 4:18 PM 3. Incomplete RBBB otherwise normal ECG (04/29/2012) N uclear Stress Findings: 1. Abnormal myocardial perfusion imaging after vasodilator stress with Regadenoson. 2 . Normal left ventricular systolic function with a calculated ejection fraction of 57%. 3 . Myocardial scintigraphy demonstrates a small reversible inferior wall ischemia. (10/18/2011) C ardiac Cath: 80% stenosis of the mid left anterior descending with a filling defect. Continued patency of the stent of the right coronary artery. Normal ejection fraction of 60%. Successful closure of the right groin using a 6-Nepalese Angio close device. - [facility] (04/07/2012) C ardiac Cath Comments: Status post stenting of the left anterior descending with a 3.0 x 12 mm Vision stent. - [facility] (04/07/2012) C arotid Doppler/Duplex: Normal [facility] (09/21/2010) C HOL: 113 (01/26/2009) LDL: 43 (01/26/2009) HDL: 30 (01/26/2009) T (01/26/2009) H gb: 15.4 (01/26/2009) HCT: 45.5 (01/26/2009) WBC: 5.6 (01/26/2009) B UN: 14 (01/26/2009) Creat: 1.21 (01/26/2009) Glucose: 99 (01/26/2009) N a+: 138 (01/26/2009) K+: 4.1 (01/26/2009) Cl: 105 (01/26/2009) INR: 1.0 (01/26/2009) Orders: e Prescribe - Check this box if eRx is used (CPT-G8553) E KG (CPT-07388) Juan Carlos Oden MD follow up: B P today: 144/68 Prior BP: 138/78 (08/20/2012) E K . Normal Sinus Rhythm 2 .1st degree AV Block (P-R interval 0.28sec 0.28) ................................................... .................BERNARDO MCKEON MD April 29, 2012 4:18 PM 3. Incomplete RBBB otherwise normal ECG (04/29/2012) N uclear Stress Findings: 1. Abnormal myocardial perfusion imaging after vasodilator stress with Regadenoson. 2 . Normal left ventricular systolic function with a calculated ejection fraction of 57%. 3 . Myocardial scintigraphy demonstrates a small reversible inferior wall ischemia. (10/18/2011) C ardiac Cath: 80% stenosis of the mid left anterior descending with a filling defect. Continued patency of the stent of the right coronary artery. Normal ejection fraction of 60%. Successful closure of the right groin using a 6-Nepalese Angio close device. - [facility] (04/07/2012) C ardiac Cath Comments: Status post stenting of the left anterior descending with a 3.0 x 12 mm Vision stent. - [facility] (04/07/2012) C arotid Doppler/Duplex: Normal O (09/21/2010) C HOL: 113 (01/26/2009) LDL: 43 (01/26/2009) HDL: 30 (01/26/2009) T (01/26/2009) H gb: 15.4 (01/26/2009) HCT: 45.5 (01/26/2009) WBC: 5.6 (01/26/2009) B UN: 14 (01/26/2009) Creat: 1.21 (01/26/2009) Glucose: 99 (01/26/2009) N a+: 138 (01/26/2009) K+: 4.1 (01/26/2009) Cl: 105 (01/26/2009) INR: 1.0 (01/26/2009) Juan Carlos Oden MD follow up: H is updated medication list for this problem includes: Xanax 0.5 Mg Tabs (Alprazolam) ..... 1 tablet by mouth twice daily Ziac 10-6.25 Mg Tabs (Bisoprolol-hydrochlorothiazide) ..... 1 tablet by mouth every morning Vistaril 25 Mg Caps (Hydroxyzine pamoate) ..... One tab three times daily Aspirin 81 Mg Tabs (Aspirin) ..... One tab. daily BP today: 144/68 Prior BP: 138/78 (08/20/2012) H gb: 15.4 (01/26/2009) HCT: 45.5 (01/26/2009) WBC: 5.6 (01/26/2009) B UN: 14 (01/26/2009) Creat: 1.21 (01/26/2009) Glucose: 99 (01/26/2009) N a+: 138 (01/26/2009) K+: 4.1 (01/26/2009) Cl: 105 (01/26/2009) EK . Normal Sinus Rhythm 2 .1st degree AV Block (P-R interval 0.28sec 0.28) ................................................... .................BERNARDO MCKEON MD April 29, 2012 4:18 PM 3. Incomplete RBBB otherwise normal ECG (04/29/2012) H olter Monitor Comments: Sinus rhythm with rare premature atrial contraction as well as rare premature ventricular contractions. (06/30/2007) N uclear Stress Findings: 1. Abnormal myocardial perfusion imaging after vasodilator stress with Regadenoson. 2 . Normal left ventricular systolic function with a calculated ejection fraction of 57%. 3 . Myocardial scintigraphy demonstrates a small reversible inferior wall ischemia. (10/18/2011) C ardiac Cath: 80% stenosis of the mid left anterior descending with a filling defect. Continued patency of the stent of the right coronary artery. Normal ejection fraction of 60%. Successful closure of the right groin using a 6-N[place]alese Angio close device. - [facility] (04/07/2012) C ardiac Cath Comments: Status post stenting of the left anterior descending with a 3.0 x 12 mm Vision stent. - [facility] (04/07/2012) Juan Carlos Oden MD follow up: O rders: S tress Test - Adenosine (97366) His updated medication list for this problem includes: Ziac 10-6.25 Mg Tabs (Bisoprolol-hydrochlorothiazide) ..... 1 tablet by mouth every morning Aspirin 81 Mg Tabs (Aspirin) ..... One tab. daily Juan Carlos Oden MD follow up: T he following medications were removed from the medication list: Niaspan 500 Mg Tbcr (Niacin (antihyperlipidemic)) ..... One tab. at bedtime - dispense as written Fenofibrate Tabs (Fenofibrate tabs) ..... 134mg take one tab daily His updated medication list for this problem includes: Ziac 10-6.25 Mg Tabs (Bisoprolol-hydrochlorothiazide) ..... 1 tablet by mouth every morning Zocor 20 Mg Tabs (Simvastatin) ..... One tab. at bedtime Aspirin 81 Mg Tabs (Aspirin) ..... One tab. daily Lovaza 1 Gm Caps (Zqbyw-1-ifql ethyl esters) ..... Dispense as written-one a day Orders: E vent Recorder (*) S tress Test - Adenosine (88840) e Prescribe - Check this box if eRx is used (CPT-G8553) X -Ray, Chest, PA & Lateral (CPT-76185) Juan Carlos Oden MD follow up Juan Carlos Oden MD follow up Juan Carlos Oden MD follow up: H is updated medication list for this problem includes: Ziac 10-6.25 Mg Tabs (Bisoprolol-hydrochlorothiazide) ..... 1 tablet by mouth every morning Aspirin 81 Mg Tabs (Aspirin) ..... One tab. daily Orders: E vent Recorder (*) S tress Test - Adenosine (23332) e Prescribe - Check this box if eRx is used (CPT-G8553) X -Ray, Chest, PA & Lateral (CPT-66942) Juan Carlos Oden MD follow up: H is updated medication list for this problem includes: Ziac 10-6.25 Mg Tabs (Bisoprolol-hydrochlorothiazide) ..... 1 tablet by mouth every morning Aspirin 81 Mg Tabs (Aspirin) ..... One tab. daily Orders: E vent Recorder (*) S tress Test - Adenosine (68172) e Prescribe - Check this box if eRx is used (CPT-G8553) X -Ray, Chest, PA & Lateral (CPT-01294) Juan Carlos Oden MD follow up: O rders: E vent Recorder (*) S tress Test - Adenosine (95204) e Prescribe - Check this box if eRx is used (CPT-G8553) X -Ray, Chest, PA & Lateral (CPT-33800) Juan Carlos Oden MD follow up: T he following medications were removed from the medication list: Niaspan 500 Mg Tbcr (Niacin (antihyperlipidemic)) ..... One tab. at bedtime - dispense as written Fenofibrate Tabs (Fenofibrate tabs) ..... 134mg take one tab daily His updated medication list for this problem includes: Ziac 10-6.25 Mg Tabs (Bisoprolol-hydrochlorothiazide) ..... 1 tablet by mouth every morning Zocor 20 Mg Tabs (Simvastatin) ..... One tab. at bedtime Aspirin 81 Mg Tabs (Aspirin) ..... One tab. daily Lovaza 1 Gm Caps (Usywf-1-bufp ethyl esters) ..... Dispense as written-one a day Orders: E vent Recorder (*) S tress Test - Adenosine (08956) e Prescribe - Check this box if eRx is used (CPT-G8553) X -Ray, Chest, PA & Lateral (CPT-74130) Juan Carlos Oden MD follow up: H is updated medication list for this problem includes: Xanax 0.5 Mg Tabs (Alprazolam) ..... 1 tablet by mouth twice daily Ziac 10-6.25 Mg Tabs (Bisoprolol-hydrochlorothiazide) ..... 1 tablet by mouth every morning Vistaril 25 Mg Caps (Hydroxyzine pamoate) ..... One tab three times daily Aspirin 81 Mg Tabs (Aspirin) ..... One tab. daily Orders: E vent Recorder (*) S tress Test - Adenosine (98574) e Prescribe - Check this box if eRx is used (CPT-G8553) X -Ray, Chest, PA & Lateral (CPT-33729) Juan Carlos Oden MD follow up: T he following medications were removed from the medication list: Niaspan 500 Mg Tbcr (Niacin (antihyperlipidemic)) ..... One tab. at bedtime - dispense as written Fenofibrate Tabs (Fenofibrate tabs) ..... 134mg take one tab daily His updated medication list for this problem includes: Zocor 20 Mg Tabs (Simvastatin) ..... One tab. at bedtime Lovaza 1 Gm Caps (Homdv-9-terb ethyl esters) ..... Dispense as written-one a day Orders: S tress Test - Adenosine (67153) e Prescribe - Check this box if eRx is used (CPT-G8553) X -Ray, Chest, PA & Lateral (CPT-88705) Juan Carlos Oden MD follow up Juan Carlos Oden MD follow up: O rders: Aramis vent Recorder (*) Juan Carlos Oden MD follow up Juan Carlos Oden MD routine : O rders: Kee allbladder Ultrasound (CPT-50195) Juan Carlos Oden MD routine : H is updated medication list for this problem includes: Xanax 0.5 Mg Tabs (Alprazolam) ..... 1 tablet by mouth twice daily Ziac 10-6.25 Mg Tabs (Bisoprolol-hydrochlorothiazide) ..... 1 tablet by mouth every morning Vistaril 25 Mg Caps (Hydroxyzine pamoate) ..... One tab three times daily Aspirin 81 Mg Tabs (Aspirin) ..... One tab. daily Orders: H olter Monitor 24 Hr (CPT-64319) C arotid Duplex Bilateral (CPT-04567) Juan Carlos Oden MD routine Juan Carlos Oden MD routine : H is updated medication list for this problem includes: Lamictal 100 Mg Tabs (Lamotrigine) ..... One tab twice daily Labs Reviewed: H gb: 15.4 (01/26/2009) Hct: 45.5 (01/26/2009) WBC: 5.6 (01/26/2009) S GOT: 26 (01/26/2009) SGPT: 54 (01/26/2009) Juan Carlos Oden MD routine Juan Carlos Oden MD routine Juan Carlos Oden MD routine : H is updated medication list for this problem includes: Ziac 10-6.25 Mg Tabs (Bisoprolol-hydrochlorothiazide) ..... 1 tablet by mouth every morning Niaspan 500 Mg Tbcr (Niacin (antihyperlipidemic)) ..... One tab. at bedtime - dispense as written Zocor 20 Mg Tabs (Simvastatin) ..... One tab. at bedtime Aspirin 81 Mg Tabs (Aspirin) ..... One tab. daily Fenofibrate Tabs (Fenofibrate tabs) ..... 134mg take one tab daily Lovaza 1 Gm Caps (Ukesi-2-xhpx ethyl esters) ..... Dispense as written-one a day BP today: 136/91 Prior BP: 119/74 (09/22/2009) Nuclear Stress Findings: 1. Adenosine mediated myocardial perfusion study, patient developed second degree heart block that resolved spontaneously. 2 . Normal left ventricular systolic function with a calculated ejection fraction of 51%. 3 . Myocardial scintigraphy demonstrates a small reversible inferolateral wall defect consistent with ischemia [facility] (01/10/2009) C ardiac Cath: Nonobstructive CAD. Normal LV function. Elevated LV diastolic pressure. EF 60%. [facility] (01/25/2009) C ardiac Cath Comments: Successful stenting of the RCA with a 5.0 x 32mm [employer] bare metal stent. (07/05/2007) C arotid Doppler/Duplex: normal: (07/08/2007) C HOL: 113 (01/26/2009) LDL: 43 (01/26/2009) HDL: 30 (01/26/2009) T (01/26/2009) H gb: 15.4 (01/26/2009) HCT: 45.5 (01/26/2009) WBC: 5.6 (01/26/2009) B UN: 14 (01/26/2009) Creat: 1.21 (01/26/2009) Glucose: 99 (01/26/2009) N a+: 138 (01/26/2009) K+: 4.1 (01/26/2009) Cl: 105 (01/26/2009) INR: 1.0 (01/26/2009) Juan Carlos Oden MD routine : H is updated medication list for this problem includes: Niaspan 500 Mg Tbcr (Niacin (antihyperlipidemic)) ..... One tab. at bedtime - dispense as written Zocor 20 Mg Tabs (Simvastatin) ..... One tab. at bedtime Fenofibrate Tabs (Fenofibrate tabs) ..... 134mg take one tab daily Lovaza 1 Gm Caps (Osrsb-0-emfb ethyl esters) ..... Dispense as written-one a day & #13;BP today: 136/91 Prior BP: 119/74 (09/22/2009) C HOL: 113 (01/26/2009) LDL: 43 (01/26/2009) HDL: 30 (01/26/2009) T (01/26/2009) Juan Carlos Oden MD routine : H is updated medication list for this problem includes: Ziac 10-6.25 Mg Tabs (Bisoprolol-hydrochlorothiazide) ..... 1 tablet by mouth every morning Niaspan 500 Mg Tbcr (Niacin (antihyperlipidemic)) ..... One tab. at bedtime - dispense as written Zocor 20 Mg Tabs (Simvastatin) ..... One tab. at bedtime Aspirin 81 Mg Tabs (Aspirin) ..... One tab. daily Fenofibrate Tabs (Fenofibrate tabs) ..... 134mg take one tab daily Lovaza 1 Gm Caps (Nuwbi-6-ldag ethyl esters) ..... Dispense as written-one a day BP today: 136/91 Prior BP: 119/74 (09/22/2009) Nuclear Stress Findings: 1. Adenosine mediated myocardial perfusion study, patient developed second degree heart block that resolved spontaneously. 2 . Normal left ventricular systolic function with a calculated ejection fraction of 51%. 3 . Myocardial scintigraphy demonstrates a small reversible inferolateral wall defect consistent with ischemia [facility] (01/10/2009) C ardiac Cath: Nonobstructive CAD. Normal LV function. Elevated LV diastolic pressure. EF 60%. [facility] (01/25/2009) C ardiac Cath Comments: Successful stenting of the RCA with a 5.0 x 32mm Liberte bare metal stent. (07/05/2007) C arotid Doppler/Duplex: normal: (07/08/2007) C HOL: 113 (01/26/2009) LDL: 43 (01/26/2009) HDL: 30 (01/26/2009) T (01/26/2009) H gb: 15.4 (01/26/2009) HCT: 45.5 (01/26/2009) WBC: 5.6 (01/26/2009) B UN: 14 (01/26/2009) Creat: 1.21 (01/26/2009) Glucose: 99 (01/26/2009) N a+: 138 (01/26/2009) K+: 4.1 (01/26/2009) Cl: 105 (01/26/2009) INR: 1.0 (01/26/2009) Juan Carlos Oden MD routine : H is updated medication list for this problem includes: Ziac 10-6.25 Mg Tabs (Bisoprolol-hydrochlorothiazide) ..... 1 tablet by mouth every morning Aspirin 81 Mg Tabs (Aspirin) ..... One tab. daily BP today: 136/91 P rior BP: 119/74 (09/22/2009) Labs Reviewed: C reat: 1.21 (01/26/2009) C hol: 113 (01/26/2009) HDL: 30 (01/26/2009) LDL: 43 (01/26/2009) T (01/26/2009) Orders: H olter Monitor 24 Hr (CPT-88385) C arotid Duplex Bilateral (CPT-58033) Juan Carlos Oden MD routine : H is updated medication list for this problem includes: Niaspan 500 Mg Tbcr (Niacin (antihyperlipidemic)) ..... One tab. at bedtime - dispense as written Zocor 20 Mg Tabs (Simvastatin) ..... One tab. at bedtime Fenofibrate Tabs (Fenofibrate tabs) ..... 134mg take one tab daily Lovaza 1 Gm Caps (Zqpum-5-ddwx ethyl esters) ..... Dispense as written-one a day & #13;BP today: 136/91 Prior BP: 119/74 (09/22/2009) C HOL: 113 (01/26/2009) LDL: 43 (01/26/2009) HDL: 30 (01/26/2009) T (01/26/2009) Orders: H olter Monitor 24 Hr (CPT-69750) C arotid Duplex Bilateral (CPT-82453) Juan Carlos Oden MD routine : O rders: H olter Monitor 24 Hr (CPT-27332) C arotid Duplex Bilateral (CPT-74875) Juan Carlos Oden MD routine : H is updated medication list for this problem includes: Xanax 0.5 Mg Tabs (Alprazolam) ..... 1 tablet by mouth twice daily Ziac 10-6.25 Mg Tabs (Bisoprolol-hydrochlorothiazide) ..... 1 tablet by mouth every morning Vistaril 25 Mg Caps (Hydroxyzine pamoate) ..... One tab three times daily Aspirin 81 Mg Tabs (Aspirin) ..... One tab. daily BP today: 136/91 Prior BP: 119/74 (09/22/2009) H gb: 15.4 (01/26/2009) HCT: 45.5 (01/26/2009) WBC: 5.6 (01/26/2009) B UN: 14 (01/26/2009) Creat: 1.21 (01/26/2009) Glucose: 99 (01/26/2009) N a+: 138 (01/26/2009) K+: 4.1 (01/26/2009) Cl: 105 (01/26/2009) Holter Monitor Comments: Sinus rhythm with rare premature atrial contraction as well as rare premature ventricular contractions. (06/30/2007) N uclear Stress Findings: 1. Adenosine mediated myocardial perfusion study, patient developed second degree heart block that resolved spontaneously. 2 . Normal left ventricular systolic function with a calculated ejection fraction of 51%. 3 . Myocardial scintigraphy demonstrates a small reversible inferolateral wall defect consistent with ischemia [facility] (01/10/2009) E chocardiogram: Normal LV systolic function and LV size. E to A ratio is consistent with restrictive physiology. Normal E/E` 6.0. LV EF 55%. Normal pericardium with no significant pericardial effusion. [facility] [place] C ardiac Cath: Nonobstructive CAD. Normal LV function. Elevated LV diastolic pressure. EF 60%. [facility] (01/25/2009) C ardiac Cath Comments: Successful stenting of the RCA with a 5.0 x 32mm Liberte bare metal stent. (07/05/2007) Orders: H olter Monitor 24 Hr (CPT-68169) C arotid Duplex Bilateral (CPT-83972) Juan Carlos Oden MD routine : H is updated medication list for this problem includes: Ziac 10-6.25 Mg Tabs (Bisoprolol-hydrochlorothiazide) ..... 1 tablet by mouth every morning Aspirin 81 Mg Tabs (Aspirin) ..... One tab. daily BP today: 136/91 Prior BP: 119/74 (09/22/2009) H gb: 15.4 (01/26/2009) HCT: 45.5 (01/26/2009) WBC: 5.6 (01/26/2009) B UN: 14 (01/26/2009) Creat: 1.21 (01/26/2009) Glucose: 99 (01/26/2009) N a+: 138 (01/26/2009) K+: 4.1 (01/26/2009) Cl: 105 (01/26/2009) Holter Monitor Comments: Sinus rhythm with rare premature atrial contraction as well as rare premature ventricular contractions. (06/30/2007) N uclear Stress Findings: 1. Adenosine mediated myocardial perfusion study, patient developed second degree heart block that resolved spontaneously. 2 . Normal left ventricular systolic function with a calculated ejection fraction of 51%. 3 . Myocardial scintigraphy demonstrates a small reversible inferolateral wall defect consistent with ischemia & #13;[facility] (01/10/2009) E chocardiogram: Normal LV systolic function and LV size. E to A ratio is consistent with restrictive physiology. Normal E/E` 6.0. LV EF 55%. Normal pericardium with no significant pericardial effusion. [facility] [place] C ardiac Cath: Nonobstructive CAD. Normal LV function. Elevated LV diastolic pressure. EF 60%. [facility] (01/25/2009) C ardiac Cath Comments: Successful stenting of the RCA with a 5.0 x 32mm Liberte bare metal stent. (07/05/2007) Orders: H olter Monitor 24 Hr (CPT-18681) C arotid Duplex Bilateral (CPT-03450) Juan Carlos Oden MD routine : O rders: H olter Monitor 24 Hr (CPT-27179) C arotid Duplex Bilateral (CPT-70843) Juan Carlos Oden MD routine : H is updated medication list for this problem includes: Ziac 10-6.25 Mg Tabs (Bisoprolol-hydrochlorothiazide) ..... 1 tablet by mouth every morning Niaspan 500 Mg Tbcr (Niacin (antihyperlipidemic)) ..... One tab. at bedtime - dispense as written Zocor 20 Mg Tabs (Simvastatin) ..... One tab. at bedtime Aspirin 81 Mg Tabs (Aspirin) ..... One tab. daily Fenofibrate Tabs (Fenofibrate tabs) ..... 134mg take one tab daily Lovaza 1 Gm Caps (Accey-8-kekv ethyl esters) ..... Dispense as written-one a day BP today: 136/91 Prior BP: 119/74 (09/22/2009) Nuclear Stress Findings: 1. Adenosine mediated myocardial perfusion study, patient developed second degree heart block that resolved spontaneously. 2 . Normal left ventricular systolic function with a calculated ejection fraction of 51%. 3 . Myocardial scintigraphy demonstrates a small reversible inferolateral wall defect consistent with ischemia [facility] (01/10/2009) C ardiac Cath: Nonobstructive CAD. Normal LV function. Elevated LV diastolic pressure. EF 60%. [facility] (01/25/2009) C ardiac Cath Comments: Successful stenting of the RCA with a 5.0 x 32mm Liberte bare metal stent. (07/05/2007) C arotid Doppler/Duplex: normal: (07/08/2007) C HOL: 113 (01/26/2009) LDL: 43 (01/26/2009) HDL: 30 (01/26/2009) T (01/26/2009) H gb: 15.4 (01/26/2009) HCT: 45.5 (01/26/2009) WBC: 5.6 (01/26/2009) B UN: 14 (01/26/2009) Creat: 1.21 (01/26/2009) Glucose: 99 (01/26/2009) N a+: 138 (01/26/2009) K+: 4.1 (01/26/2009) Cl: 105 (01/26/2009) INR: 1.0 (01/26/2009) Orders: H olter Monitor 24 Hr (CPT-42219) C arotid Duplex Bilateral (CPT-43389) Juan Carlos Oden MD routine: T he following medications were removed from the medication list: Gemfibrozil 600 Mg Tabs (Gemfibrozil) ..... 1 tablet by mouth twice daily His updated medication list for this problem includes: Ziac 10-6.25 Mg Tabs (Bisoprolol-hydrochlorothiazide) ..... 1 tablet by mouth every morning Zocor 20 Mg Tabs (Simvastatin) ..... One tab. at bedtime Aspirin 325 Mg Tab (Aspirin) ..... Take one (1) tablet by mouth daily Fenofibrate Tabs (Fenofibrate tabs) ..... 134mg take one tab daily BP today: 119/74 Prior BP: 116/64 (02/17/2009) N uclear Stress Findings: 1. Adenosine mediated myocardial perfusion study, patient developed second degree heart block that resolved spontaneously. 2 . Normal left ventricular systolic function with a calculated ejection fraction of 51%. 3 . Myocardial scintigraphy demonstrates a small reversible inferolateral wall defect consistent with ischemia [facility] (01/10/2009) C ardiac Cath: Nonobstructive CAD. Normal LV function. Elevated LV diastolic pressure. EF 60%. [facility] (01/25/2009) C ardiac Cath Comments: Successful stenting of the RCA with a 5.0 x 32mm Liberte bare metal stent. (07/05/2007) C arotid Doppler/Duplex: normal: (07/08/2007) C HOL: 113 (01/26/2009) LDL: 43 (01/26/2009) HDL: 30 (01/26/2009) T (01/26/2009) H gb: 15.4 (01/26/2009) HCT: 45.5 (01/26/2009) WBC: 5.6 (01/26/2009) B UN: 14 (01/26/2009) Creat: 1.21 (01/26/2009) Glucose: 99 (01/26/2009) N a+: 138 (01/26/2009) K+: 4.1 (01/26/2009) Cl: 105 (01/26/2009) INR: 1.0 (01/26/2009) Orders: S pirometry (CPT-57895) Juan Carlos Oden MD routine: T he following medications were removed from the medication list: Gemfibrozil 600 Mg Tabs (Gemfibrozil) ..... 1 tablet by mouth twice daily His updated medication list for this problem includes: Ziac 10-6.25 Mg Tabs (Bisoprolol-hydrochlorothiazide) ..... 1 tablet by mouth every morning Niacor 500 Mg Tabs (Niacin) ..... One tablet at night Zocor 20 Mg Tabs (Simvastatin) ..... One tab. at bedtime Aspirin 325 Mg Tab (Aspirin) ..... Take one (1) tablet by mouth daily Fenofibrate Tabs (Fenofibrate tabs) ..... 134mg take one tab daily BP today: 119/74 Prior BP: 116/64 (02/17/2009) N uclear Stress Findings: 1. Adenosine mediated myocardial perfusion study, patient developed second degree heart block that resolved spontaneously. 2 . Normal left ventricular systolic function with a calculated ejection fraction of 51%. 3 . Myocardial scintigraphy demonstrates a small reversible inferolateral wall defect consistent with ischemia [facility] (01/10/2009) C ardiac Cath: Nonobstructive CAD. Normal LV function. Elevated LV diastolic pressure. EF 60%. [facility] (01/25/2009) C ardiac Cath Comments: Successful stenting of the RCA with a 5.0 x 32mm Liberte bare metal stent. (07/05/2007) C arotid Doppler/Duplex: normal: (07/08/2007) C HOL: 113 (01/26/2009) LDL: 43 (01/26/2009) HDL: 30 (01/26/2009) T (01/26/2009) H gb: 15.4 (01/26/2009) HCT: 45.5 (01/26/2009) WBC: 5.6 (01/26/2009) B UN: 14 (01/26/2009) Creat: 1.21 (01/26/2009) Glucose: 99 (01/26/2009) N a+: 138 (01/26/2009) K+: 4.1 (01/26/2009) Cl: 105 (01/26/2009) INR: 1.0 (01/26/2009) Juan Carlos Oden MD routine: T he following medications were removed from the medication list: Gemfibrozil 600 Mg Tabs (Gemfibrozil) ..... 1 tablet by mouth twice daily His updated medication list for this problem includes: Niacor 500 Mg Tabs (Niacin) ..... One tablet at night Zocor 20 Mg Tabs (Simvastatin) ..... One tab. at bedtime Fenofibrate Tabs (Fenofibrate tabs) ..... 134mg take one tab daily BP today: 119/74 Prior BP: 116/64 (02/17/2009) C HOL: 113 (01/26/2009) LDL: 43 (01/26/2009) HDL: 30 (01/26/2009) T (01/26/2009) Juan Carlos Oden MD routine: B P today: 119/74 Prior BP: 116/64 (02/17/2009) N uclear Stress Findings: 1. Adenosine mediated myocardial perfusion study, patient developed second degree heart block that resolved spontaneously. 2 . Normal left ventricular systolic function with a calculated ejection fraction of 51%. 3 . Myocardial scintigraphy demonstrates a small reversible inferolateral wall defect consistent with ischemia [facility] (01/10/2009) C ardiac Cath: Nonobstructive CAD. Normal LV function. Elevated LV diastolic pressure. EF 60%. [facility] (01/25/2009) C ardiac Cath Comments: Successful stenting of the RCA with a 5.0 x 32mm Liberte bare metal stent. (07/05/2007) C arotid Doppler/Duplex: normal: (07/08/2007) C HOL: 113 (01/26/2009) LDL: 43 (01/26/2009) HDL: 30 (01/26/2009) T (01/26/2009) H gb: 15.4 (01/26/2009) HCT: 45.5 (01/26/2009) WBC: 5.6 (01/26/2009) B UN: 14 (01/26/2009) Creat: 1.21 (01/26/2009) Glucose: 99 (01/26/2009) N a+: 138 (01/26/2009) K+: 4.1 (01/26/2009) Cl: 105 (01/26/2009) INR: 1.0 (01/26/2009) Orders: E KG (CPT-10078) S pirometry (CPT-92421) Juan Carlos Oden MD routine: O rders: T OBACCO USE CESSATION INTERMEDIATE 3-10 MINUTES (CPT-00092) S pirometry (CPT-26410) Juan Carlos Oden MD routine: T he following medications were removed from the medication list: Gemfibrozil 600 Mg Tabs (Gemfibrozil) ..... 1 tablet by mouth twice daily His updated medication list for this problem includes: Niacor 500 Mg Tabs (Niacin) ..... One tablet at night Zocor 20 Mg Tabs (Simvastatin) ..... One tab. at bedtime Fenofibrate Tabs (Fenofibrate tabs) ..... 134mg take one tab daily BP today: 119/74 Prior BP: 116/64 (02/17/2009) C HOL: 113 (01/26/2009) LDL: 43 (01/26/2009) HDL: 30 (01/26/2009) T (01/26/2009) Orders: S pirometry (CPT-34685) Juan Carlos Oden MD routine Juan Carlos Oden MD routine: B P today: 119/74 Prior BP: 116/64 (02/17/2009) H gb: 15.4 (01/26/2009) HCT: 45.5 (01/26/2009) WBC: 5.6 (01/26/2009) B UN: 14 (01/26/2009) Creat: 1.21 (01/26/2009) Glucose: 99 (01/26/2009) N a+: 138 (01/26/2009) K+: 4.1 (01/26/2009) Cl: 105 (01/26/2009) Holter Monitor Comments: Sinus rhythm with rare premature atrial contraction as well as rare premature ventricular contractions. (06/30/2007) N uclear Stress Findings: 1. Adenosine mediated myocardial perfusion study, patient developed second degree heart block that resolved spontaneously. 2 . Normal left ventricular systolic function with a calculated ejection fraction of 51%. 3 . Myocardial scintigraphy demonstrates a small reversible inferolateral wall defect consistent with ischemia [facility] (01/10/2009) E chocardiogram: Normal LV systolic function and LV size. E to A ratio is consistent with restrictive physiology. Normal E/E` 6.0. LV EF 55%. Normal pericardium with no significant pericardial effusion. [facility] [place] C ardiac Cath: Nonobstructive CAD. Normal LV function. Elevated LV diastolic pressure. EF 60%. [facility] (01/25/2009) C ardiac Cath Comments: Successful stenting of the RCA with a 5.0 x 32mm Liberte bare metal stent. (07/05/2007) Juan Carlos Oden MD routine: H is updated medication list for this problem includes: Lamictal 100 Mg Tabs (Lamotrigine) ..... One tab twice daily BP today: 119/74 Prior BP: 116/64 (02/17/2009) H gb: 15.4 (01/26/2009) HCT: 45.5 (01/26/2009) WBC: 5.6 (01/26/2009) B UN: 14 (01/26/2009) Creat: 1.21 (01/26/2009) Glucose: 99 (01/26/2009) N a+: 138 (01/26/2009) K+: 4.1 (01/26/2009) Cl: 105 (01/26/2009) Holter Monitor Comments: Sinus rhythm with rare premature atrial contraction as well as rare premature ventricular contractions. (06/30/2007) N uclear Stress Findings: 1. Adenosine mediated myocardial perfusion study, patient developed second degree heart block that resolved spontaneously. 2 . Normal left ventricular systolic function with a calculated ejection fraction of 51%. 3 . Myocardial scintigraphy demonstrates a small reversible inferolateral wall defect consistent with ischemia [facility] (01/10/2009) E chocardiogram: Normal LV systolic function and LV size. E to A ratio is consistent with restrictive physiology. Normal E/E` 6.0. LV EF 55%. Normal pericardium with no significant pericardial effusion. [facility] [place] C ardiac Cath: Nonobstructive CAD. Normal LV function. Elevated LV diastolic pressure. EF 60%. [facility] (01/25/2009) C ardiac Cath Comments: Successful stenting of the RCA with a 5.0 x 32mm Liberte bare metal stent. (07/05/2007) Juan Carlos Oden MD routine Juan Carlos Oden MD stable post stent, r ecent neg cath: O rders: T OBACCO USE CESSATION INTERMEDIATE 3-10 MINUTES (CPT-06240) Juan Carlos Oden MD stable post stent, recent neg ca th Juan Carlos Oden MD stable post stent, recent neg ca th Juan Carlos Oden MD stable post stent, recent neg ca th Juan Carlos Oden MD stable post stent, r ecent neg cath: H is updated medication list for this problem includes: Gemfibrozil 600 Mg Tabs (Gemfibrozil) ..... 1 tablet by mouth twice daily Niacor 500 Mg Tabs (Niacin) ..... One tablet at night Zocor 20 Mg Tabs (Simvastatin) ..... One tab. at bedtime Orders: T OBACCO USE CESSATION INTERMEDIATE 3-10 MINUTES (CPT-99199) BP today: 116/64 Prior BP: 122/65 (12/30/2008) C HOL: 113 (01/26/2009) LDL: 43 (01/26/2009) HDL: 30 (01/26/2009) T (01/26/2009) Juan Carlos Oden MD stable post stent, recent neg ca th Juan Carlos Oden MD stable post stent, r ecent neg cath: T he following medications were removed from the medication list: Aspirin 325 Mg Tabs (Aspirin) ..... One tab daily His updated medication list for this problem includes: Gemfibrozil 600 Mg Tabs (Gemfibrozil) ..... 1 tablet by mouth twice daily Ziac 10-6.25 Mg Tabs (Bisoprolol-hydrochlorothiazide) ..... 1 tablet by mouth every morning Zocor 20 Mg Tabs (Simvastatin) ..... One tab. at bedtime Aspirin 325 Mg Tab (Aspirin) ..... Take one (1) tablet by mouth daily BP today: 116/64 Prior BP: 122/65 (12/30/2008) N uclear Stress Findings: 1. Adenosine mediated myocardial perfusion study, patient developed second degree heart block that resolved spontaneously. 2 . Normal left ventricular systolic function with a calculated ejection fraction of 51%. 3 . Myocardial scintigraphy demonstrates a small reversible inferolateral wall defect consistent with ischemia [facility] (01/10/2009) C ardiac Cath: Nonobstructive CAD. Normal LV function. Elevated LV diastolic pressure. EF 60%. [facility] (01/25/2009) C ardiac Cath Comments: Successful stenting of the RCA with a 5.0 x 32mm Liberte bare metal stent. (07/05/2007) C arotid Doppler/Duplex: normal: (07/08/2007) C HOL: 113 (01/26/2009) LDL: 43 (01/26/2009) HDL: 30 (01/26/2009) T (01/26/2009) H gb: 15.4 (01/26/2009) HCT: 45.5 (01/26/2009) WBC: 5.6 (01/26/2009) B UN: 14 (01/26/2009) Creat: 1.21 (01/26/2009) Glucose: 99 (01/26/2009) N a+: 138 (01/26/2009) K+: 4.1 (01/26/2009) Cl: 105 (01/26/2009) INR: 1.0 (01/26/2009) Juan Carlos Oden MD stable post stent, r ecent neg cath: T he following medications were removed from the medication list: Aspirin 325 Mg Tabs (Aspirin) ..... One tab daily His updated medication list for this problem includes: Gemfibrozil 600 Mg Tabs (Gemfibrozil) ..... 1 tablet by mouth twice daily Ziac 10-6.25 Mg Tabs (Bisoprolol-hydrochlorothiazide) ..... 1 tablet by mouth every morning Niacor 500 Mg Tabs (Niacin) ..... One tablet at night Zocor 20 Mg Tabs (Simvastatin) ..... One tab. at bedtime Aspirin 325 Mg Tab (Aspirin) ..... Take one (1) tablet by mouth daily BP today: 116/64 Prior BP: 122/65 (12/30/2008) N uclear Stress Findings: 1. Adenosine mediated myocardial perfusion study, patient developed second degree heart block that resolved spontaneously. 2 . Normal left ventricular systolic function with a calculated ejection fraction of 51%. 3 . Myocardial scintigraphy demonstrates a small reversible inferolateral wall defect consistent with ischemia [facility] (01/10/2009) C ardiac Cath: Nonobstructive CAD. Normal LV function. Elevated LV diastolic pressure. EF 60%. [facility] (01/25/2009) C ardiac Cath Comments: Successful stenting of the RCA with a 5.0 x 32mm Liberte bare metal stent. (07/05/2007) C arotid Doppler/Duplex: normal: (07/08/2007) C HOL: 113 (01/26/2009) LDL: 43 (01/26/2009) HDL: 30 (01/26/2009) T (01/26/2009) H gb: 15.4 (01/26/2009) HCT: 45.5 (01/26/2009) WBC: 5.6 (01/26/2009) B UN: 14 (01/26/2009) Creat: 1.21 (01/26/2009) Glucose: 99 (01/26/2009) N a+: 138 (01/26/2009) K+: 4.1 (01/26/2009) Cl: 105 (01/26/2009) INR: 1.0 (01/26/2009) Juan Carlos Oden MD stable post stent, r ecent neg cath: H is updated medication list for this problem includes: Gemfibrozil 600 Mg Tabs (Gemfibrozil) ..... 1 tablet by mouth twice daily Niacor 500 Mg Tabs (Niacin) ..... One tablet at night Zocor 20 Mg Tabs (Simvastatin) ..... One tab. at bedtime Juan Carlos Oden MD stable post stent, r ecent neg cath: T he following medications were removed from the medication list: Aspirin 325 Mg Tabs (Aspirin) ..... One tab daily His updated medication list for this problem includes: Gemfibrozil 600 Mg Tabs (Gemfibrozil) ..... 1 tablet by mouth twice daily Ziac 10-6.25 Mg Tabs (Bisoprolol-hydrochlorothiazide) ..... 1 tablet by mouth every morning Zocor 20 Mg Tabs (Simvastatin) ..... One tab. at bedtime Aspirin 325 Mg Tab (Aspirin) ..... Take one (1) tablet by mouth daily BP today: 116/64 Prior BP: 122/65 (12/30/2008) N uclear Stress Findings: 1. Adenosine mediated myocardial perfusion study, patient developed second degree heart block that resolved spontaneously. 2 . Normal left ventricular systolic function with a calculated ejection fraction of 51%. 3 . Myocardial scintigraphy demonstrates a small reversible inferolateral wall defect consistent with ischemia [facility] (01/10/2009) C ardiac Cath: Nonobstructive CAD. Normal LV function. Elevated LV diastolic pressure. EF 60%. [facility] (01/25/2009) C ardiac Cath Comments: Successful stenting of the RCA with a 5.0 x 32mm Liberte bare metal stent. (07/05/2007) C arotid Doppler/Duplex: normal: (07/08/2007) C HOL: 113 (01/26/2009) LDL: 43 (01/26/2009) HDL: 30 (01/26/2009) T (01/26/2009) H gb: 15.4 (01/26/2009) HCT: 45.5 (01/26/2009) WBC: 5.6 (01/26/2009) B UN: 14 (01/26/2009) Creat: 1.21 (01/26/2009) Glucose: 99 (01/26/2009) N a+: 138 (01/26/2009) K+: 4.1 (01/26/2009) Cl: 105 (01/26/2009) INR: 1.0 (01/26/2009) Juan Carlos Oden MD stable post stent, r ecent neg cath: T he following medications were removed from the medication list: Aspirin 325 Mg Tabs (Aspirin) ..... One tab daily His updated medication list for this problem includes: Ziac 10-6.25 Mg Tabs (Bisoprolol-hydrochlorothiazide) ..... 1 tablet by mouth every morning Aspirin 325 Mg Tab (Aspirin) ..... Take one (1) tablet by mouth daily BP today: 116/64 P rior BP: 122/65 (12/30/2008) Labs Reviewed: C reat: 1.21 (01/26/2009) C hol: 113 (01/26/2009) HDL: 30 (01/26/2009) LDL: 43 (01/26/2009) T (01/26/2009) Juan Carlos Oden MD stable post stent, r ecent neg cath: T he following medications were removed from the medication list: Aspirin 325 Mg Tabs (Aspirin) ..... One tab daily His updated medication list for this problem includes: Ziac 10-6.25 Mg Tabs (Bisoprolol-hydrochlorothiazide) ..... 1 tablet by mouth every morning Aspirin 325 Mg Tab (Aspirin) ..... Take one (1) tablet by mouth daily BP today: 116/64 Prior BP: 122/65 (12/30/2008) N uclear Stress Findings: 1. Adenosine mediated myocardial perfusion study, patient developed second degree heart block that resolved spontaneously. 2 . Normal left ventricular systolic function with a calculated ejection fraction of 51%. 3 . Myocardial scintigraphy demonstrates a small reversible inferolateral wall defect consistent with ischemia [facility] (01/10/2009) C ardiac Cath: Nonobstructive CAD. Normal LV function. Elevated LV diastolic pressure. EF 60%. [facility] (01/25/2009) C ardiac Cath Comments: Successful stenting of the RCA with a 5.0 x 32mm Liberte bare metal stent. (07/05/2007) C arotid Doppler/Duplex: normal: (07/08/2007) C HOL: 113 (01/26/2009) LDL: 43 (01/26/2009) HDL: 30 (01/26/2009) T (01/26/2009) H gb: 15.4 (01/26/2009) HCT: 45.5 (01/26/2009) WBC: 5.6 (01/26/2009) B UN: 14 (01/26/2009) Creat: 1.21 (01/26/2009) Glucose: 99 (01/26/2009) N a+: 138 (01/26/2009) K+: 4.1 (01/26/2009) Cl: 105 (01/26/2009) INR: 1.0 (01/26/2009) Juan Carlos Oden MD stable post stent, recent neg ca th Juan Carlos Oden MD will w/u cp in a cad patient: H is updated medication list for this problem includes: Ziac 10-6.25 Mg Tabs (Bisoprolol-hydrochlorothiazide) ..... One per day Aspirin 325 Mg Tabs (Aspirin) ..... One tab daily BP today: 122/65 Prior BP: 120/68 (09/16/2008) N uclear Stress Findings: EF - 51%. U nremarkable Adenosine stress EKG. M oderate size fixed anterior wall defect. S mall fixed apical defect. D ilated LV. (07/27/2004) C ardiac Cath: EF - 60%. M oderate hypokinesis of the diaphragmatic segment. A cute myocardial infarction of the inferior wall due to high grade stenoses and thrombus in the distal RCA. (07/05/2007) C ardiac Cath Comments: Successful stenting of the RCA with a 5.0 x 32mm Liberte bare metal stent. (07/05/2007) Carotid Doppler/Duplex: normal: (07/08/2007) E chocardiogram: EF 55%. Wall thinkness is increased consistent with mild concentric left ventricular hypertrophy. The left ventrical is Moderate enlarged. There is E: A reversal of mitral inflow velocities consistent with diastolic dysfunction.Normal left ventricular function. No evidence of mitral valve regurgitation. N o evidence of aortic valve regurgitation.no evidence of tricuspid valve regurgitation. No evidence of pulmonic valve regurgitation. (01/21/2008) Juan Carlos Oden MD will w/u cp in a cad patient Rufus Oden MD will w/u cp in a cad patient: H is updated medication list for this problem includes: Gemfibrozil 600 Mg Tabs (Gemfibrozil) ..... One tab twice daily Ziac 10-6.25 Mg Tabs (Bisoprolol-hydrochlorothiazide) ..... One per day Aspirin 325 Mg Tabs (Aspirin) ..... One tab daily Zocor 20 Mg Tabs (Simvastatin) ..... One tab. at bedtime BP today: 122/65 Prior BP: 120/68 (09/16/2008) N uclear Stress Findings: EF - 51%. U nremarkable Adenosine stress EKG. M oderate size fixed anterior wall defect. S mall fixed apical defect. D ilated LV. (07/27/2004) C ardiac Cath: EF - 60%. M oderate hypokinesis of the diaphragmatic segment. A cute myocardial infarction of the inferior wall due to high grade stenoses and thrombus in the distal RCA. (07/05/2007) C ardiac Cath Comments: Successful stenting of the RCA with a 5.0 x 32mm Liberte bare metal stent. (07/05/2007) C arotid Doppler/Duplex: normal: (07/08/2007) Juan Carlos Oden MD will w/u cp in a cad patient: H is updated medication list for this problem includes: Gemfibrozil 600 Mg Tabs (Gemfibrozil) ..... One tab twice daily Ziac 10-6.25 Mg Tabs (Bisoprolol-hydrochlorothiazide) ..... One per day Niacor 500 Mg Tabs (Niacin) ..... One tablet at night Aspirin 325 Mg Tabs (Aspirin) ..... One tab daily Zocor 20 Mg Tabs (Simvastatin) ..... One tab. at bedtime BP today: 122/65 Prior BP: 120/68 (09/16/2008) N uclear Stress Findings: EF - 51%. U nremarkable Adenosine stress EKG. M oderate size fixed anterior wall defect. S mall fixed apical defect. D ilated LV. (07/27/2004) C ardiac Cath: EF - 60%. M oderate hypokinesis of the diaphragmatic segment. A cute myocardial infarction of the inferior wall due to high grade stenoses and thrombus in the distal RCA. (07/05/2007) C ardiac Cath Comments: Successful stenting of the RCA with a 5.0 x 32mm Liberte bare metal stent. (07/05/2007) C arotid Doppler/Duplex: normal: (07/08/2007) Juan Carlos Oden MD will w/u cp in a cad patient: H is updated medication list for this problem includes: Gemfibrozil 600 Mg Tabs (Gemfibrozil) ..... One tab twice daily Niacor 500 Mg Tabs (Niacin) ..... One tablet at night Zocor 20 Mg Tabs (Simvastatin) ..... One tab. at bedtime BP today: 122/65 Prior BP: 120/68 (09/16/2008) Juan Carlos Oden MD will w/u cp in a cad patient: H is updated medication list for this problem includes: Gemfibrozil 600 Mg Tabs (Gemfibrozil) ..... One tab twice daily Ziac 10-6.25 Mg Tabs (Bisoprolol-hydrochlorothiazide) ..... One per day Aspirin 325 Mg Tabs (Aspirin) ..... One tab daily Zocor 20 Mg Tabs (Simvastatin) ..... One tab. at bedtime BP today: 122/65 Prior BP: 120/68 (09/16/2008) N uclear Stress Findings: EF - 51%. U nremarkable Adenosine stress EKG. M oderate size fixed anterior wall defect. S mall fixed apical defect. D ilated LV. (07/27/2004) C ardiac Cath: EF - 60%. M oderate hypokinesis of the diaphragmatic segment. A cute myocardial infarction of the inferior wall due to high grade stenoses and thrombus in the distal RCA. (07/05/2007) C ardiac Cath Comments: Successful stenting of the RCA with a 5.0 x 32mm Liberte bare metal stent. (07/05/2007) C arotid Doppler/Duplex: normal: (07/08/2007) Orders: S tress Test - Adenosine ([id number]) Juan Carlos Oden MD will w/u cp in a cad patient: H is updated medication list for this problem includes: Ziac 10-6.25 Mg Tabs (Bisoprolol-hydrochlorothiazide) ..... One per day Aspirin 325 Mg Tabs (Aspirin) ..... One tab daily BP today: 122/65 P rior BP: 120/68 (09/16/2008) Juan Carlos Oden MD will w/u cp in a cad patient: H is updated medication list for this problem includes: Ziac 10-6.25 Mg Tabs (Bisoprolol-hydrochlorothiazide) ..... One per day Aspirin 325 Mg Tabs (Aspirin) ..... One tab daily BP today: 122/65 Prior BP: 120/68 (09/16/2008) N uclear Stress Findings: EF - 51%. U nremarkable Adenosine stress EKG. M oderate size fixed anterior wall defect. S mall fixed apical defect. D ilated LV. (07/27/2004) C ardiac Cath: EF - 60%. M oderate hypokinesis of the diaphragmatic segment. A cute myocardial infarction of the inferior wall due to high grade stenoses and thrombus in the distal RCA. (07/05/2007) C ardiac Cath Comments: Successful stenting of the RCA with a 5.0 x 32mm Liberte bare metal stent. (07/05/2007) Carotid Doppler/Duplex: normal: (07/08/2007) Orders: C omplete Echo (CPT-[id number]) Juan Carlos Oden MD f/u mi and stents from 06/18, pl avix stopped Juan Carlos Oden MD f/u mi and stents fr om 06/18, plavix stopped: T he following medications were removed from the medication list: Plavix 75 Mg Tabs (Clopidogrel bisulfate) ..... One tab. daily His updated medication list for this problem includes: Gemfibrozil 600 Mg Tabs (Gemfibrozil) ..... One tab twice daily Ziac 10-6.25 Mg Tabs (Bisoprolol-hydrochlorothiazide) ..... One per day Aspirin 325 Mg Tabs (Aspirin) ..... One tab daily BP today: / Prior BP: 126/76 (02/26/2008) N uclear Stress Findings: EF - 51%. U nremarkable Adenosine stress EKG. M oderate size fixed anterior wall defect. S mall fixed apical defect. D ilated LV. (07/27/2004) C ardiac Cath: EF - 60%. M oderate hypokinesis of the diaphragmatic segment. A cute myocardial infarction of the inferior wall due to high grade stenoses and thrombus in the distal RCA. (07/05/2007) C ardiac Cath Comments: Successful stenting of the RCA with a 5.0 x 32mm Liberte bare metal stent. (07/05/2007) C arotid Doppler/Duplex: normal: (07/08/2007) Orders: Aramis KG (CPT-[id number]) Juan Carlos Oden MD f/u mi and stents fr om 06/18, plavix stopped: T he following medications were removed from the medication list: Plavix 75 Mg Tabs (Clopidogrel bisulfate) ..... One tab. daily His updated medication list for this problem includes: Gemfibrozil 600 Mg Tabs (Gemfibrozil) ..... One tab twice daily Ziac 10-6.25 Mg Tabs (Bisoprolol-hydrochlorothiazide) ..... One per day Niacor 500 Mg Tabs (Niacin) ..... One tablet at night Aspirin 325 Mg Tabs (Aspirin) ..... One tab daily BP today: / Prior BP: 126/76 (02/26/2008) N uclear Stress Findings: EF - 51%. Unremarkable Adenosine stress EKG. M oderate size fixed anterior wall defect. S mall fixed apical defect. D ilated LV. (07/27/2004) C ardiac Cath: EF - 60%. M oderate hypokinesis of the diaphragmatic segment. A cute myocardial infarction of the inferior wall due to high grade stenoses and thrombus in the distal RCA. (07/05/2007) C ardiac Cath Comments: Successful stenting of the RCA with a 5.0 x 32mm Liberte bare metal stent. (07/05/2007) C arotid Doppler/Duplex: normal: (07/08/2007) Juan Carlos Oden MD f/u mi and stents fr om 06/18, plavix stopped: H is updated medication list for this problem includes: Gemfibrozil 600 Mg Tabs (Gemfibrozil) ..... One tab twice daily Niacor 500 Mg Tabs (Niacin) ..... One tablet at night BP today: / Prior BP: 126/76 (02/26/2008) Juan Carlos Oden MD f/u mi and stents fr om 06/18, plavix stopped: T he following medications were removed from the medication list: Plavix 75 Mg Tabs (Clopidogrel bisulfate) ..... One tab. daily His updated medication list for this problem includes: Gemfibrozil 600 Mg Tabs (Gemfibrozil) ..... One tab twice daily Ziac 10-6.25 Mg Tabs (Bisoprolol-hydrochlorothiazide) ..... One per day Aspirin 325 Mg Tabs (Aspirin) ..... One tab daily BP today: / Prior BP: 126/76 (02/26/2008) N uclear Stress Findings: EF - 51%. U nremarkable Adenosine stress EKG. M oderate size fixed anterior wall defect. S mall fixed apical defect. D ilated LV. (07/27/2004) C ardiac Cath: EF - 60%. M oderate hypokinesis of the diaphragmatic segment. A cute myocardial infarction of the inferior wall due to high grade stenoses and thrombus in the distal RCA. (07/05/2007) C ardiac Cath Comments: Successful stenting of the RCA with a 5.0 x 32mm Liberte bare metal stent. (07/05/2007) C arotid Doppler/Duplex: normal: (07/08/2007) Juan Carlos Oden MD f/u mi and stents fr om 06/18, plavix stopped: H is updated medication list for this problem includes: Ziac 10-6.25 Mg Tabs (Bisoprolol-hydrochlorothiazide) ..... One per day Aspirin 325 Mg Tabs (Aspirin) ..... One tab daily Prior BP: 126/76 (02/26/2008) Juan Carlos Oden MD f/u mi and stents fr om 06/18, plavix stopped: T he following medications were removed from the medication list: Plavix 75 Mg Tabs (Clopidogrel bisulfate) ..... One tab. daily His updated medication list for this problem includes: Ziac 10-6.25 Mg Tabs (Bisoprolol-hydrochlorothiazide) ..... One per day Aspirin 325 Mg Tabs (Aspirin) ..... One tab daily BP today: / Prior BP: 126/76 (02/26/2008) N uclear Stress Findings: EF - 51%. U nremarkable Adenosine stress EKG. M oderate size fixed anterior wall defect. S mall fixed apical defect. D ilated LV. (07/27/2004) C ardiac Cath: EF - 60%. M oderate hypokinesis of the diaphragmatic segment. A cute myocardial infarction of the inferior wall due to high grade stenoses and thrombus in the distal RCA. (07/05/2007) C ardiac Cath Comments: Successful stenting of the RCA with a 5.0 x 32mm Liberte bare metal stent. (07/05/2007) C arotid Doppler/Duplex: normal: (07/08/2007) E chocardiogram: EF 55%. Wall thinkness is increased consistent with mild concentric left ventricular hypertrophy. The left ventrical is Moderate enlarged. There is E: A reversal of mitral inflow velocities consistent with diastolic dysfunction.Normal left ventricular function. No evidence of mitral valve regurgitation. N o evidence of aortic valve regurgitation.no evidence of tricuspid valve regurgitation. No evidence of pulmonic valve regurgitation. (01/21/2008) Orders: C omplete Echo ([id number]) Juan Carlos Oden MD fu tests : H is updated medication list for this problem includes: Gemfibrozil 600 Mg Tabs (Gemfibrozil) ..... One tab twice daily Plavix 75 Mg Tabs (Clopidogrel bisulfate) ..... One tab. daily Ziac 10-6.25 Mg Tabs (Bisoprolol-hydrochlorothiazide) ..... One per day N uclear Stress Findings: EF - 51%. U nremarkable Adenosine stress EKG. M oderate size fixed anterior wall defect. S mall fixed apical defect. D ilated LV. (07/27/2004) E cho: EF 55%. Wall thinkness is increased consistent with mild concentric left ventricular hypertrophy. The left ventrical is Moderate enlarged. There is E: A reversal of mitral inflow velocities consistent with diastolic dysfunction.Normal left ventricular function. No evidence of mitral valve regurgitation. N o evidence of aortic valve regurgitation.no evidence of tricuspid valve regurgitation. No evidence of pulmonic valve regurgitation. (01/21/2008) C ardiac Cath: EF - 60%. M oderate hypokinesis of the diaphragmatic segment. A cute myocardial infarction of the inferior wall due to high grade stenoses and thrombus in the distal RCA. (07/05/2007) C ardiac Cath Comments: Successful stenting of the RCA with a 5.0 x 32mm Liberte bare metal stent. (07/05/2007) C arotid Doppler/Duplex: normal: (07/08/2007) Juan Carlos Oden MD fu tests : H is updated medication list for this problem includes: Gemfibrozil 600 Mg Tabs (Gemfibrozil) ..... One tab twice daily Juan Carlos Oden MD fu tests : H is updated medication list for this problem includes: Gemfibrozil 600 Mg Tabs (Gemfibrozil) ..... One tab twice daily Plavix 75 Mg Tabs (Clopidogrel bisulfate) ..... One tab. daily Ziac 10-6.25 Mg Tabs (Bisoprolol-hydrochlorothiazide) ..... One per day N uclear Stress Findings: EF - 51%. U nremarkable Adenosine stress EKG. M oderate size fixed anterior wall defect. S mall fixed apical defect. D ilated LV. (07/27/2004) E cho: EF 55%. Wall thinkness is increased consistent with mild concentric left ventricular hypertrophy. The left ventrical is Moderate enlarged. There is E: A reversal of mitral inflow velocities consistent with diastolic dysfunction.Normal left ventricular function. No evidence of mitral valve regurgitation. N o evidence of aortic valve regurgitation.no evidence of tricuspid valve regurgitation. No evidence of pulmonic valve regurgitation. (01/21/2008) C ardiac Cath: EF - 60%. M oderate hypokinesis of the diaphragmatic segment. A cute myocardial infarction of the inferior wall due to high grade stenoses and thrombus in the distal RCA. (07/05/2007) C ardiac Cath Comments: Successful stenting of the RCA with a 5.0 x 32mm Liberte bare metal stent. (07/05/2007) C arotid Doppler/Duplex: normal: (07/08/2007) Juan Carlos Oden MD Date Name Bariatric Surgery - [facility] Bariatric Surgery - [facility] Low Dose Lung CT PROBNP, N TERMINAL Renal Artery Duplex Kidney Ultrasound Complete Echo Lipoprotein (a) HEMOGLOBIN A1c BASIC METABOLIC PANE L W/EGFR LIPID PANEL CBC (INCLUDES DIFF/P LT) CBC (INCLUDES DIFF/P LT) Stress Regadenoson RPM (remote patient monitoring) LIPID PANEL BASIC METABOLIC PANE L W/EGFR HEMOGLOBIN A1c Arterial - SENSILASE Venous Doppler Bilat eral LE - Reflux Arterial Duplex Bi-L ower EX Lipoprotein (a) Sleep Study - split night LIPID PANEL CRP, high sensitivit y HEMOGLOBIN A1c PROBNP, N TERMINAL BASIC METABOLIC PANE L W/EGFR Microalb/Creatinine Urine, Random HEMOGLOBIN A1c PROBNP, N TERMINAL LIPID PANEL CRP, high sensitivit y Microalb/Creatinine Urine, Random BASIC METABOLIC PANE L W/EGFR RPM (remote patient monitoring) Low Dose Lung CT Complete Echo RPM (remote patient monitoring) PROTHROMBIN TIME WIT H INR LIPID PANEL CBC (INCLUDES DIFF/P LT) BASIC METABOLIC PANE L W/EGFR RPM (remote patient monitoring) Loop Rec Implant - S LHV Complete Echo Complete Echo Holter Monitor [address] Covid Antibody Igg LIPID PANEL LIPID PANEL Low Dose Lung CT Complete Echo DLCO - 72926 FRC - 80679 FVC - 57276 Vitamin D, 25-Hydrox y ZIO Holter PROBNP, N TERMINAL Low Dose Lung CT LIPID PANEL Complete Echo Complete Echo PROBNP, N TERMINAL VITAMIN D, 25-HYDROX Y, LC/MS/MS HEMOGLOBIN A1c VITAMIN B12 IRON AND TOTAL IRON BINDING CAPACITY FOLATE, SERUM FERRITIN CBC (INCLUDES DIFF/P LT) COMPREHENSIVE METABO LIC PANEL W/EGFR LIPID PANEL THYROID PANEL WITH T SH, 3RD GENERATION PROBNP, N TERMINAL Mobile Cardiac Tele STR - Adenosine Complete Echo STR - Adenosine Holter Monitor 24 Hr Sleep Study Home Sleep Study Home ECP - Medicare Full PFT Cardiac Cath - Left - GC X-Ray, Chest, PA & L ateral VITAMIN D, 25-HYDROX Y, LC/MS/MS VITAMIN B12 PARTIAL THROMBOPLAST IN TIME, ACTIVATED PROTHROMBIN TIME WIT H INR CBC (H/H, RBC, INDIC ES, WBC, PLT) Arterial Duplex Bi-L ower EX Carotid Duplex Bilat eral HEMOGLOBIN A1c COMPREHENSIVE METABO LIC PANEL W/EGFR B TYPE NATRIURETIC P EPTIDE (BNP) Complete Echo X-Ray, Chest, PA & L ateral Stress Test - Adenos ine Event Recorder Gallbladder Ultrasou nd Carotid Duplex Bilat eral Holter Monitor 24 Hr Spirometry Stress Test - Adenos ine Complete Echo Complete Echo Complete Echo HISTORY OF PROCEDURES Procedure Date Procedure Name Provider Procedure Notes S tatus Counseling LDCT Juan Carlos Oden MD com pleted Counseling LDCT Juan Carlos Oden MD com pleted Counseling LDCT Juan Carlos Oden MD com pleted EKG Juan Carlos Oden MD complete d Counseling LDCT Juan Carlos Oden MD com pleted SpO2 w/o 6min walk/titration Juan Carlos Oden MD completed FVC / MVV - 26115 Juan Carlos Oden MD c ompleted FRC - 34914 Juan Carlos Oden MD complet ed DLCO - 17758 Juan Carlos Oden MD comple cuong ZIO Holter Hookup Juan Carlos Oden MD c ompleted Counseling LDCT Juan Carlos Oden MD com pleted EKG Juan Carlos Oden MD complete d SNOMED-CT: [id number] Current Medications Documented Juan Carlos Oden MD completed ZIO Holter Hookup Juan Carlos Oden MD c ompleted Stress EKG Wale Atwood MD complete d Cardiolite, 2 units Juan Carlos Oden MD completed SPECT Images Elle Poon MD complet ed Mobile Cardiac Telem etry - Tech Yanet Kearns completed Mobile Cardiac Telem etry - Prof Yanet Kearns completed EKG Juan Carlos Oden MD complete d SNOMED-CT: [id number] Current Medications Documented Juan Carlos Oden MD completed SNOMED-CT: [id number] Current Medications Documented Juan Carlos Oden MD completed YAEL Alfonso MD complet ed EKKee Oden MD complete d DLME - 66741 Juan Carlos Oden MD comple cuong [facility] - [id number] Juan Carlos Oden MD complet ed [facility] - [id number] Juan Carlos Oden MD complet ed YAEL Oden MD complete d YAEL Oden MD complete d ePrescribe - Check t his box if eRx is used Juan Carlos Oden MD completed ePrescribe - Check t his box if eRx is used Juan Carlos Oden MD completed YAEL Oden MD complete d YAEL Oden MD complete d EKKee Oden MD complete d
--- OUTSIDE RECORDS SUMMARY | 2024-12-31 16:16 | XMS_ITS | Data Portability ---
Author Organization [facility] Address [address] [place] [address] Assessment No assessment recorded. Plan of Treatment Reminders Order Date Submit Date Provider Last Modified By Organization Details Last Modified Time Details Appointments None recorded . Lab PSA, serum or plasma 2019 020 [email or web address] [facility], [address] [place] [address], [address], [place], [address], 0 09:52:37 vitamin D, 25-hydro xy, total, serum 2019 020 MAREK [facility], [address] [place] [address], [address], [place], [address], 0 16:11:54 vitamin B12, serum 2019 020 MAREK [facility], [address] [place] [address], [address], [place], [address], 0 16:11:55 Referral sleep medicine referral - Please call patient to schedule appt. Thank you 2019 020 [facility], [address], [address], [place], [address], 0 15:38:33 Procedures None recorded . Surgeries None recorded . Imaging None recorded . Medication Orders nystatin 100,000 unit/gra m topical cream 2019 INTERFACE [facility]- [address] , [address], [place], [place], [id number], 0 10:56:16 Vascepa 1 gram capsule 2019 020 INTERFACE [facility]- [address] , [address], [place], [id number], 0 10:56:17 Pennsaid 20 mg/gram/ actuatio n (2 %) topical soln in metered- dose pump 2019 020 INTERFACE Not available 0 16:09:02 Patient TargetsNo targets recorded. Patient Instructions Encounter Date Encounter Id Patient Instructions Last Modified By Organization Details Last Modified Time 10/13/2019 [id number] reviewed exercis e , need to walk daily 5 days per week ... reviewed portion sizes .... , avoid sweets ..... [email or web address] Not available 10/15/2019 17:00:51 Reason for Referral Sleep Medicine Referral for Apnea snores , wakes up gasping for air at times Please call patient to schedule appt. Thank you Referring Physician: Eduard Gilbert, Family Medicine, Encounter Date: 09/15/2019 Results Created Date Observation Date Name Description Value Unit Range Abnormal Flag Note LastModifiedBy Organization Detail LastModifiedTime 09/17/19 25 09/17/2024 Drugs ident ified in Urine by Scree n metho d amphetamines [presence] in urine Negati ve normal Not Available Not Available 21:03:42 09/17/19 25 09/17/2024 Drugs ident ified in Urine by Scree n metho d barbiturates [presence] in urine Negati ve normal Not Available Not Available 21:03:42 09/17/19 25 09/17/2024 Drugs ident ified in Urine by Scree n metho d benzodiazepi wil [presence] in urine Positi ve Not Available Not Available 21:03:42 09/17/19 25 09/17/2024 Drugs ident ified in Urine by Scree n metho d cocaine [presence] in urine Negati ve normal Not Available Not Available 21:03:42 09/17/19 25 09/17/2024 Drugs ident ified in Urine by Scree n metho d fentanyl Negati ve normal Not Available Not Available 21:03:42 09/17/19 25 09/17/2024 Drugs ident ified in Urine by Scree n metho d methadone [presence] in urine Negati ve normal Not Available Not Available 21:03:42 09/17/19 25 09/17/2024 Drugs ident ified in Urine by Scree n metho d opiates [presence] in urine Negati ve normal Not Available Not Available 21:03:42 09/17/19 25 09/17/2024 Drugs ident ified in Urine by Scree n metho d oxycodone [presence] in urine Negati ve normal Not Available Not Available 21:03:42 09/17/19 25 09/17/2024 Drugs ident ified in Urine by Scree n metho d phencyclidin e [presence] in urine Negati ve normal Not Available Not Available 21:03:42 09/17/19 25 09/17/2024 Drugs ident ified in Urine by Scree n metho d cannabinoids [presence] in urine Negati ve normal Not Available Not Available 21:03:42 09/17/19 25 09/17/2024 Urina lysis compl ete W Refle x Cultu re panel - Urine color of urine by auto Color of urine normal Not Available Not Available 21:03:42 09/17/19 25 09/17/2024 Urina lysis compl ete W Refle x Cultu re panel - Urine appearance of urine Urine specim en normal Not Available Not Available 21:03:42 09/17/19 25 09/17/2024 Urina lysis compl ete W Refle x Cultu re panel - Urine specific gravity of urine by test strip 1.013 1 low: 1.001h igh: 1.03 normal Not Available Not Available 09/22/2024 21:03:42 09/17/19 25 09/17/2024 Urina lysis compl ete W Refle x Cultu re panel - Urine pH of urine by test strip 5.5 pH_un its low: 5pH unitsh igh: 9pH units normal Not Available Not Available 09/22/2024 21:03:42 09/17/19 25 09/17/2024 Urina lysis compl ete W Refle x Cultu re panel - Urine leukocytes [#/volume] in urine by test strip 25 evette/u L text: negati ve Not Available Not Available 09/22/2024 21:03:42 09/17/19 25 09/17/2024 Urina lysis compl ete W Refle x Cultu re panel - Urine nitrite [presence] in urine by test strip Labora tory test findin g text: negati ve normal Not Available Not Available 09/22/2024 21:03:42 09/17/19 25 09/17/2024 Urina lysis compl ete W Refle x Cultu re panel - Urine protein [mass/volume ] in urine by test strip Urine findin g text: negati ve normal Not Available Not Available 09/22/2024 21:03:42 09/17/19 25 09/17/2024 Urina lysis compl ete W Refle x Cultu re panel - Urine glucose [moles/volum e] in urine by test strip Labora tory test findin g text: normal normal Not Available Not Available 09/22/2024 21:03:42 09/17/19 25 09/17/2024 Urina lysis compl ete W Refle x Cultu re panel - Urine ketones [moles/volum e] in urine by test strip Labora tory test findin g text: negati ve normal Not Available Not Available 09/22/2024 21:03:42 09/17/19 25 09/17/2024 Urina lysis compl ete W Refle x Cultu re panel - Urine urobilinogen [mass/volume ] in urine by test strip Urobil inogen measur ement, urine text: normal normal Not Available Not Available 09/22/2024 21:03:42 09/17/19 25 09/17/2024 Urina lysis compl ete W Refle x Cultu re panel - Urine bilirubin.to valerie [mass/volume ] in urine by test strip Urine dipsti ck for biliru bin text: negati ve normal Not Available Not Available 09/22/2024 21:03:42 09/17/19 25 09/17/2024 Urina lysis compl ete W Refle x Cultu re panel - Urine erythrocytes [#/volume] in urine by test strip 0.03 mg/dL text: negati ve Not Available Not Available 09/22/2024 21:03:42 09/17/19 25 09/17/2024 Urina lysis compl ete W Refle x Cultu re panel - Urine leukocytes [#/area] in urine sediment by automated count Leukoc ytes in urine low: 0/[hpf ]high: 8/[hpf ] Not Available Not Available 09/22/2024 21:03:42 09/17/19 25 09/17/2024 Urina lysis compl ete W Refle x Cultu re panel - Urine erythrocytes [#/area] in urine sediment by automated count Blood in urine low: 0/[hpf ]high: 4/[hpf ] Not Available Not Available 09/22/2024 21:03:42 09/17/19 25 09/17/2024 Urina lysis compl ete W Refle x Cultu re panel - Urine bacteria [presence] in urine by automated Urine findin g normal Not Available Not Available 21:03:42 09/17/19 25 09/17/2024 Urina lysis compl ete W Refle x Cultu re panel - Urine mucus [#/area] in urine sediment by automated count Urine findin g Not Available Not Available 21:03:42 09/17/19 25 09/17/2024 Urina lysis compl ete W Refle x Cultu re panel - Urine epithelial cells.squamo us [#/area] in urine sediment by automated count Urine findin g Not Available Not Available 21:03:42 09/17/19 25 09/17/2024 CBC W Auto Diffe renti al panel - Blood leukocytes [#/volume] in blood by automated count 6 x10'3 /uL low: 4.2x10 '3/uLh igh: 10.8x1 0'3/uL normal Not Available Not Available 09/22/2024 21:03:41 02/06/20 25 09/17/2024 CBC W Auto Diffe renti al panel - Blood erythrocytes [#/volume] in blood by automated count 4.14 x10'6 /uL low: 4.1x10 '6/uLh igh: 5.8x10 '6/uL normal Not Available Not Available 09/22/2024 21:03:41 09/17/19 25 09/17/2024 CBC W Auto Diffe renti al panel - Blood hemoglobin [mass/volume ] in blood 12.7 g/dL low: 13.2g/ dLhigh : 17g/dL low Not Available Not Available 09/22/2024 21:03:41 09/17/19 25 09/17/2024 CBC W Auto Diffe renti al panel - Blood hematocrit [volume fraction] of blood by automated count 38.7 % low: 39.3%h igh: 50% low Not Available Not Available 09/22/2024 21:03:41 09/17/19 25 09/17/2024 CBC W Auto Diffe renti al panel - Blood MCV [entitic volume] by automated count 93.5 fL low: 80fLhi gh: 97fL normal Not Available Not Available 09/22/2024 21:03:41 09/17/19 25 09/17/2024 CBC W Auto Diffe renti al panel - Blood MCH [entitic mass] by automated count 30.7 pg low: 27pghi gh: 33pg normal Not Available Not Available 09/22/2024 21:03:41 09/17/19 25 09/17/2024 CBC W Auto Diffe renti al panel - Blood MCHC [mass/volume ] by automated count 32.8 g/dL low: 31g/dL high: 36g/dL normal Not Available Not Available 09/22/2024 21:03:41 09/17/19 25 09/17/2024 CBC W Auto Diffe renti al panel - Blood erythrocyte distribution width [ratio] 13.2 % low: 11.8%h igh: 15.5% normal Not Available Not Available 09/22/2024 21:03:41 09/17/19 25 09/17/2024 CBC W Auto Diffe renti al panel - Blood platelets [#/volume] in blood by automated count 201 x10'3 /uL low: 150x10 '3/uLh igh: 400x10 '3/uL normal Not Available Not Available 09/22/2024 21:03:41 09/17/19 25 09/17/2024 CBC W Auto Diffe renti al panel - Blood platelet mean volume [entitic volume] in blood by automated count 10.6 fL low: 9fLhig h: 12.4fL normal Not Available Not Available 09/22/2024 21:03:41 09/17/19 25 09/17/2024 CBC W Auto Diffe renti al panel - Blood neutrophils/ 100 leukocytes in blood 56.7 % low: 39%hig h: 72% normal Not Available Not Available 09/22/2024 21:03:41 09/17/19 25 09/17/2024 CBC W Auto Diffe renti al panel - Blood lymphocytes/ 100 leukocytes in blood 31.6 % low: 16%hig h: 47% normal Not Available Not Available 09/22/2024 21:03:41 09/17/19 25 09/17/2024 CBC W Auto Diffe renti al panel - Blood monocytes/10 0 leukocytes in blood 8.6 % low: 5%high : 12% normal Not Available Not Available 09/22/2024 21:03:41 09/17/19 25 09/17/2024 CBC W Auto Diffe renti al panel - Blood eosinophils [#/volume] in blood 1.8 % low: 1%high : 7% normal Not Available Not Available 09/22/2024 21:03:41 09/17/19 25 09/17/2024 CBC W Auto Diffe renti al panel - Blood basophils/10 0 leukocytes in blood 1 % low: 0%high : 2% normal Not Available Not Available 09/22/2024 21:03:41 09/17/19 25 09/17/2024 CBC W Auto Diffe renti al panel - Blood immature granulocytes /100 leukocytes in blood 0.3 % low: 0%high : 0.5% normal Not Available Not Available 09/22/2024 21:03:41 09/17/19 25 09/17/2024 CBC W Auto Diffe renti al panel - Blood neutrophils [#/volume] in blood 3.41 x10'3 /uL low: 1.5x10 '3/uLh igh: 8x10'3 /uL normal Not Available Not Available 09/22/2024 21:03:41 09/17/19 25 09/17/2024 CBC W Auto Diffe renti al panel - Blood lymphocytes [#/volume] in blood 1.9 x10'3 /uL low: 1.07x1 0'3/uL high: 3.43x1 0'3/uL normal Not Available Not Available 09/22/2024 21:03:41 09/17/19 25 09/17/2024 CBC W Auto Diffe renti al panel - Blood monocytes [#/volume] in blood 0.52 x10'3 /uL low: 0.29x1 0'3/uL high: 0.99x1 0'3/uL normal Not Available Not Available 09/22/2024 21:03:41 09/17/19 25 09/17/2024 CBC W Auto Diffe renti al panel - Blood eosinophils [#/volume] in blood 0.11 x10'3 /uL low: 0.02x1 0'3/uL high: 0.53x1 0'3/uL normal Not Available Not Available 09/22/2024 21:03:41 09/17/19 25 09/17/2024 CBC W Auto Diffe renti al panel - Blood basophils [#/volume] in blood 0.06 x10'3 /uL low: 0.01x1 0'3/uL high: 0.08x1 0'3/uL normal Not Available Not Available 09/22/2024 21:03:41 09/17/19 25 09/17/2024 CBC W Auto Diffe renti al panel - Blood immature granulocytes [#/volume] in blood 0.02 x10'3 /uL low: 0x10'3 /uLhig h: 0.05x1 0'3/uL normal Not Available Not Available 09/22/2024 21:03:41 09/17/19 25 09/17/2024 CBC W Auto Diffe renti al panel - Blood nucleated erythrocytes /100 leukocytes [ratio] in blood 0 % high: 0% normal Not Available Not Available 09/22/2024 21:03:41 09/17/19 25 09/17/2024 CBC W Auto Diffe renti al panel - Blood nucleated erythrocytes [#/volume] in blood by automated count 0 x10'3 /uL normal Not Available Not Available 09/22/19 21:03:41 09/17/19 25 09/17/2024 Magne sium [Mass /volu me] in Serum or Plasm a magnesium [mass/volume ] in serum or plasma 2.1 mg/dL low: 1.6mg/ dLhigh : 2.3mg/ dL normal Not Available Not Available 09/22/2024 21:03:42 09/17/19 25 09/17/2024 Sid ol [Mass /volu me] in Serum or Plasm a ethanol [mass/volume ] in serum or plasma <10 low: 0mg/dL high: 10mg/d L normal Not Available Not Available 09/22/2024 21:03:41 09/17/19 25 09/17/2024 Compr ehens cruzito metab olic 1999 panel - Serum or Plasm a sodium [moles/volum e] in blood 136 mmol/ L low: 137mmo l/Lhig h: 145mmo l/L low Not Available Not Available 09/22/2024 21:03:41 09/17/19 25 09/17/2024 Compr ehens cruzito metab olic 1999 panel - Serum or Plasm a potassium [moles/volum e] in serum or plasma 3.9 mmol/ L low: 3.5mmo l/Lhig h: 5.1mmo l/L normal Not Available Not Available 09/22/2024 21:03:41 09/17/19 25 09/17/2024 Compr ehens cruzito metab olic 1999 panel - Serum or Plasm a chloride [moles/volum e] in serum or plasma 105 mmol/ L low: 98mmol /Lhigh : 107mmo l/L normal Not Available Not Available 09/22/2024 21:03:41 09/17/19 25 09/17/2024 Compr ehens cruzito metab olic 1999 panel - Serum or Plasm a carbon dioxide, total [moles/volum e] in serum or plasma 28 mmol/ L low: 22mmol /Lhigh : 30mmol /L normal Not Available Not Available 09/22/2024 21:03:41 09/17/19 25 09/17/2024 Compr ehens cruzito metab [place] [address] panel - Serum or Plasm a anion gap in serum or plasma 6.9 mmol/ L low: 14mmol /Lhigh : 22mmol /L low Not Available Not Available 09/22/2024 21:03:41 09/17/19 25 09/17/2024 [facility] panel - Serum or Plasm a glucose [mass/volume ] in serum or plasma 90 mg/dL low: 70mg/d Lhigh: 99mg/d L normal Not Available Not Available 09/22/2024 21:03:41 09/17/19 25 09/17/2024 [facility] panel - Serum or Plasm a urea nitrogen [mass or moles/volume ] in serum or plasma 20 mg/dL low: 8mg/dL high: 19mg/d L high Not Available Not Available 09/22/2024 21:03:41 09/17/19 25 09/17/2024 [place] [address] panel - Serum or Plasm a creatinine [mass/volume ] in serum or plasma 0.98 mg/dL low: 0.66mg /dLhig h: 1.25mg /dL normal Not Available Not Available 09/22/2024 21:03:41 09/17/19 25 09/17/2024 [facility] cruzito [place] [address] panel - Serum or Plasm a glomerular filtration rate/1.73 sq M.predicted [volume rate/area] in serum, plasma or blood >60 normal Not Available Not Available 09/12 21:03:41 09/17/19 25 09/17/2024 [facility] [place] [address] panel - Serum or Plasm a alkaline phosphatase [enzymatic activity/vol ume] in serum or plasma 52 U/L low: 38U/Lh igh: 126U/L normal Not Available Not Available 09/22/2024 21:03:41 09/17/19 25 09/17/2024 [facility] [place] [address] panel - Serum or Plasm a alanine aminotransfe rase [enzymatic activity/vol ume] in serum or plasma 16 U/L low: 0U/Lhi gh: 50U/L normal Not Available Not Available 09/22/2024 21:03:41 09/17/19 25 09/17/2024 [facility] [employer] cruzito [employer] [facility] 1999 panel - Serum or Plasm a aspartate aminotransfe rase [enzymatic activity/vol ume] in serum or plasma 19 U/L low: 15U/Lh igh: 46U/L normal Not Available Not Available 09/22/2024 21:03:41 09/17/19 25 09/17/2024 [facility] [place] [facility] 1999 panel - Serum or Plasm a bilirubin.to valerie [mass/volume ] in serum or plasma 0.7 mg/dL low: 0.2mg/ dLhigh : 1.3mg/ dL normal Not Available Not Available 09/22/2024 21:03:41 09/17/19 25 09/17/2024 [facility] [employer] [facility] 1999 panel - Serum or Plasm a calcium [mass/volume ] in serum or plasma 8.7 mg/dL low: 8.4mg/ dLhigh : 10.2mg /dL normal Not Available Not Available 09/22/2024 21:03:41 09/17/19 25 09/17/2024 [facility] 1999 panel - Serum or Plasm a protein [mass/volume ] in serum or plasma 6 g/dL low: 6.3g/d Lhigh: 8.2g/d L low Not Available Not Available 09/22/2024 21:03:41 09/17/19 25 09/17/2024 [facility] [place] [address] panel - Serum or Plasm a albumin [mass/volume ] in serum or plasma 3.6 g/dL low: 3g/dLh igh: 4.4g/d L normal Not Available Not Available 09/22/2024 21:03:41 09/17/19 25 09/17/2024 [facility] Edamam cruzito [employer] [facility] 1999 panel - Serum or Plasm a globulin [mass/volume ] in serum 2.4 g/dL low: 2.6g/d Lhigh: 4.2g/d L low Not Available Not Available 09/22/2024 21:03:41 09/17/19 25 09/17/2024 [facility] Edamam cruzito [place] [address] panel - Serum or Plasm a albumin/glob ulin [mass ratio] in serum or plasma 1.5 ratio low: 1ratio high: 2ratio normal Not Available Not Available 09/22/2024 21:03:41 09/17/19 25 09/17/2024 Lacta te [Mole s/vol ume] in Serum or Plasm a lactate [moles/volum e] in serum or plasma 0.8 mmol/ L low: 0.7mmo l/Lhig h: 1.9mmo l/L normal Not Available Not Available 09/22/2024 21:03:41 09/17/19 25 09/17/2024 Gluco se [Mass /volu me] in Capil wilmar blood by Gluco meter glucose [mass/volume ] in capillary blood by glucometer 84 mg/dL low: 74mg/d Lhigh: 99mg/d L normal Not Available Not Available 09/22/2024 21:03:42 03/14/20 20 03/13/2020 CT, head, w/o contr ast No observ ation record ed. [email or web address] [place] [address] (Imaging) [address] [place], [address], 03/14/2020 17:40:36 03/22/20 20 03/18/2020 sergio r ECG patie nt diary * No observ ation record ed. [facility] [address], [place], [address], 04/22/2020 10:53:19 03/28/20 20 03/28/2020 trans -thor acic echoc ardio gram (TTE) (PROC ) No observ ation record ed. [facility] [address], [place], [address], 04/22/2020 10:53:31 10/23/19 23 10/18/2022 polys omnog jonas No observ ation record ed. [facility] [address], [place], [address], 10/24/2022 14:12:04 11/09/19 23 11/08/2022 CT, head, w/o contr ast No observ ation record ed. [email or web address] [address] [place], [address], 11/08/2022 13:41:03 11/10/19 23 11/09/2022 XR, hip + pelvi s, bilat eral No observ ation record ed. [facility] [address] [place], [address], 11/13/2022 11:12:53 01/12/20 23 01/11/2023 XR, pelvi s, 1 or 2 view No observ ation record ed. [facility] [address] [place], [address], 01/14/2023 13:20:14 03/14/20 23 03/13/2023 LDCT, chest , for lung cance r scree marco No observ ation record ed. [facility] [address] [place], [address], 03/15/2023 16:39:28 04/07/20 23 04/07/2023 CT, head, w/o contr ast No observ ation record ed. [facility] [address] [place], [address], 04/08/2023 12:42:41 04/07/20 23 04/07/2023 imagi ng/di agnos tic resul t No observ ation record ed. [facility] [address] [place], [address], 04/08/2023 12:45:37 05/22/20 23 05/22/2023 CT, head, w/o contr ast No observ ation record ed. [facility] [address] [place], [address], 05/23/2023 16:16:46 09/05/19 24 09/05/2023 XR, hip + pelvi s, bilat eral, 2 view No observ ation record ed. BAR[facility] Not Available 2023 11:19:46 04/29/20 24 04/29/2024 XR, ribs, unila teral , w/ PA chest No observ ation record ed. [facility] [address] [place], [address], 04/30/2024 10:38:33 09/17/19 25 09/16/2024 XR, chest No observ ation record ed. [facility] [address] [place], [address], 09/18/2024 09:29:25 09/17/19 25 09/16/2024 CT, head + brain , w/o contr ast No observ ation record ed. [facility] [address] [place], [address], 09/17/2024 10:15:52 12/09/19 25 12/08/2024 XR, chest No observ ation record ed. [facility] [address] [place], [address], 12/10/2024 09:48:55 12/09/19 25 12/08/2024 CT, head, w/wo contr ast No observ ation record ed. [facility] [address] [place], [address], 12/10/2024 09:48:43 12/09/19 25 12/08/2024 CT, cervi arturo spine , w/o contr ast No observ ation record ed. [facility] [address] [place], [address], 12/10/2024 09:48:03 Result Notes None recorded. Problems Name Problem SNOMED Code Status Onset Date Resolution Date Notes Provider Name and Address Organization Details Recorded Time Impaired glucose tolerance 4333355 Active 2016 Not Available [facility] 3 03:51:06 Acquired trigger finger 0606885 Active Not Available [facility] 3 03:51:06 Gastroeso phageal reflux disease 881637912 Active Not Available [facility] 3 03:51:06 Hypertens cruzito disorder 84765447 Active Not Available [facility] 3 03:51:06 Hyperlipi demia 09434939 Active Not Available [employer] 3 03:51:06 Seizure 28765812 Active Not Available [facility] 3 03:51:06 Obesity 292976773 Active Not Available [facility] 3 03:51:06 Constipat ion 27307997 Active Not Available [facility] 3 03:51:06 Screening colonosco py Completed 201710/21/2017 Eduard Gilbert PA-C Attn: Accounting ,[address] [place], [address] , [facility] 8 16:11:18 Screening for malignant neoplasm of colon Active 2017 Not Available [facility] 3 03:51:06 Pain of left wrist 23445733960 9102 Active 2017 Not Available [facility] 3 03:51:06 Chronic idiopathi c constipat ion 03484740 Active 2017 Not Available [facility] 3 03:51:06 Administr ation of influenza vaccine Active 2017 Not Available [facility] 3 03:51:06 Depressiv e disorder 08773433 Active 2017 Not Available [facility] 3 03:51:06 Insomnia 130779105 Active 2017 Not Available [facility] 3 03:51:06 Vitamin D deficienc y 24161919 Active 2018 Not Available [facility] 3 03:51:06 Acute urinary tract infection 684781894 Active Not Available [facility] 3 03:51:06 Immunizat ion/vacci nation managemen t Completed 201812/10/2018 Marichuy Pathak MA null, [place] - [facility] 9 12:46:10 Immunizat ion status unknown 594381221 Active 2018 Not Available [facility] 3 03:51:06 Acute otitis media 3434355 Active 2018 Not Available [facility] 3 03:51:06 Low back pain 733437494 Active 2018 Not Available [facility] 3 03:51:06 Obese 197323470 Active 2018 Not Available [facility] 3 03:51:06 Apnea 5143895 Active 2019 Not Available [facility] 3 03:51:06 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 e Active Not Available [facility] 3 03:51:06 First degree atriovent ricular block 630240272 Active Not Available [facility] 3 03:51:06 Ingrowing nail 107151884 Active Not Available [facility] 3 03:51:06 Dizziness 289920261 Active Not Available [facility] 3 03:51:06 Low back strain 161980516 Active Not Available [facility] 3 03:51:06 Candidias is 08884945 Active Not Available [facility] 3 03:51:06 Pain in right arm 380993333 Active Not Available [facility] 3 03:51:06 Traumatic rupture of biceps tendon 918551071 Active Not Available [facility] 3 03:51:06 Painful urging to urinate 77093945 Active Not Available [facility] 3 03:51:06 Excessive thirst 75111897 Active Not Available [facility] 3 03:51:06 High hemoglobi n A1c level 962490351 Active Not Available [facility] 3 03:51:06 Syncope 529664693 Active Not Available [facility] 3 03:51:06 Otitis media 75594892 Active 2016 Not Available [facility] 3 03:51:06 Cramp in lower limb 558437322 Active 2016 Not Available [facility] 3 03:51:06 Screening for malignant neoplasm of prostate Active 2016 Not Available [facility] 3 03:51:06 Administr ation of pneumococ arturo vaccine Active 2016 Not Available [facility] 3 03:51:06 Urinary incontine nce 400066642 Active 2016 Not Available [facility] 3 03:51:06 Prediabet es 091843686 Active 2016 Not Available [facility] 3 03:51:06 Notes:PFTs WNL on 12/12/2017, and previously on 11/26/2013 Problem Notes None recorded. Procedures Surgical History Date Name Laterality Status Provider Name and Address Organization Details Recorded Time Heart Surgery completed Debbie Escalona MA PA - SIF 09/08/2014 12:16:24 Imaging Results Imaging Date Name Status LastModified by Organization Details LastModified Time 03/13/2020 CT, head, w/o contrast completed [address] (Imaging) [address] [place], [address], 03/14/2020 17:40:36 03/18/2020 holter ECG patient diary* completed [facility] [address], [place], [address], 04/22/2020 10:53:19 03/28/2020 trans-thoracic echocardiogram (TTE) (PROC) completed [facility] [address], [place], [address], 04/22/2020 10:53:31 10/18/2022 polysomnogram completed [facility] [address], [place], [address], 10/24/2022 14:12:04 11/08/2022 CT, head, w[facility] [address] [place], [address], 11/08/2022 13:41:03 11/09/2022 XR, hip + pelvis, bilateral completed [facility] [address] [place], [address], 11/13/2022 11:12:53 01/11/2023 XR, pelvis, 1 or 2 view completed [facility] [address] [place], [address], 01/14/2023 13:20:14 03/13/2023 LDCT, chest, for lung cancer screening completed [facility] [address] [place], [address], 03/15/2023 16:39:28 04/07/2023 CT, head, w/o contrast completed [facility] [address] [place], [address], 04/08/2023 12:42:41 04/07/2023 imaging/diagnostic result completed [facility] [address] [place], [address], 04/08/2023 12:45:37 05/22/2023 CT, head, w/o contrast completed [facility] [address] [place], [address], 05/23/2023 16:16:46 09/05/2023 XR, hip + pelvis, bilateral, 2 view completed [facility] Information not available 09/05/2023 11:19:46 04/29/2024 XR, ribs, unilateral, w/ PA chest completed [facility] [address] [place], [address], 04/30/2024 10:38:33 09/16/2024 XR, chest completed [facility] [address] [place], [address], 09/18/2024 09:29:25 09/16/2024 CT, head + brain, w/o contrast completed [facility] [address] [place], [address], 09/17/2024 10:15:52 12/08/2024 XR, chest completed [facility] [address] [place], [address], 12/10/2024 09:48:55 12/08/2024 CT, head, w/wo contrast completed [facility] [address] [place], [address], 12/10/2024 09:48:43 12/08/2024 CT, cervical spine, w/o contrast completed [facility] [address] [place], [address], 12/10/2024 09:48:03 Procedure Notes None recorded. Medical Equipment None Reported. Allergies No known drug allergies Medications Name Sig Start Date Stop Date Status Note LastModified by Organization Details LastModified Time allopurin ol 100 mg tabs active Not Available Not Available Not Available lamotrigi ne tab 150mglamo trigine active Not Available Not Available Not Available trazodone tab 100mgtraz odone hcl active Not Available Not Available No t Available lamotrigi ne 100 mg tabs active Not Available Not Available Not Available simvastat in 40 mg tabs active Not Available Not Available Not Available ranitidin e tab 150mgrani tidine hcl active Not Available Not Available Not Available ranitidin e hcl 150 mg tabs active Not Available Not Available Not Available meclizine tab 12.5mgmec lizine hcl active Not Available Not Available Not Available fluphenaz de inj 25mg/mlfl uphenazin e decanoate active Not Available Not Available No t Available alprazola m 0.5 mg tabs active Not Available Not Available Not Available hydroco/a pap tab 7.5-325hy drocodone /acetamin ophen active Not Available Not Available Not Available nabumeton e tab 500mgnabu metone active Not Available Not Available Not Available seroquel xr 300 mg tb24 active Not Available Not Available Not Available bisoprl/h ctz tab 10/6.25bi soprolol fumarate/ hydrochlo rothiazid e active Not Available Not Available Not Available allopurin ol tab 100mgallo purinol active Not Available Not Available Not Available cephalexi n cap 500mgceph alexin active Not Available Not Available Not Available hydroxyz anayeli cap 25mghydro xyzine pamoate active Not Available Not Available Not Available hydroxyzi ne pamoate 25 mg caps active Not Available Not Available Not Available isosorb din tab 30mgisoso rbide dinitrate active Not Available Not Available No t Available trazodone hcl 100 mg tabs active Not Available Not Available Not Available oxybutyni n chloride er 5 mg tb24 active Not Available Not Available Not Available ciproflox acn tab 500mgcipr ofloxacin hcl active Not Available Not Available Not Available nabumeton e 500 mg tabs active Not Available Not Available Not Available bisoprolo l fumarate/ hydrochlo rothiazid e 10-6.25 mg tabs active Not Available Not Available Not Available tramadol hcl 50 mg tabs active Not Available Not Available Not Available simvastat in tab 40mgsimva statin active Not Available Not Available Not Available lamotrigi ne tab 100mglamo trigine active Not Available Not Available Not Available meclizine hcl 12.5 mg tabs active Not Available Not Available Not Available lamotrigi ne 150 mg tabs active Not Available Not Available Not Available seroquel xr tab 300mgsero quel xr active Not Available Not Available Not Available alprazola m tab 0.5mgalpr azolam active Not Available Not Available Not Available nystatin cre [id number] tatin active Not Available Not Available Not Available fluphenaz ine decanoate 25 mg/ml soln active Not Available Not Available Not Available trihexyph en tab 2mgtrihex yphenidyl hcl active Not Available Not Available Not Available trihexyph enidyl hcl 2 mg tabs active Not Available Not Available Not Available lamotrigi ne 150 mg tablet active Not Available Not Available Not Available silver sulfadiaz ine 1 % topical cream 10/21 completed Not Available Not Available Not Available doxycycli ne hyclate 100 mg capsule active Not Available Not Available Not Available donepezil 5 mg tablet 09/16 completed Not Available Not Available Not Available clindamyc in HCl 300 mg capsule 09/16 completed Not Available Not Available Not Available trazodone 50 mg tablet Take 1 tablet as needed by oral route at bedtime for 30 days. 04/20 completed Not Available Not Available Not Available IBU 800 mg tablet active Not Available Not Available No t Available bisoprolo l 10 mg-hydroc hlorothia zide 6.25 mg tablet 09/16 completed Not Available Not Available Not Available hydrocodo ne 5 mg-acetam inophen 325 mg tablet 09/16 completed Not Available Not Available Not Available donepezil 10 mg tablet active Not Available Not Available Not Available prednison e 20 mg tablet Take 2 tablets twice a day by oral route as directed for 2 days. active Not Available Not Available No t Available clonazepa m 0.5 mg tablet active Not Available Not Available Not Available meclizine 12.5 mg tablet TAKE 1 TABLET BY MOUTH THREE TIMES A DAY NEEDED 2019 active Not Available Not Available Not Avai lable acetamino phen 300 mg-codein e 30 mg tablet active Not Available Not Available Not Available allopurin ol 100 mg tablet TAKE ONE TABLET BY MOUTH TWICE DAILY active Not Available Not Available No t Available ciproflox acin 500 mg tablet Take 1 tablet every 12 hours by oral route for 10 days. 10/21 completed Not Available Not Available Not Available sulfameth oxazole 800 mg-trimet hoprim 160 mg tablet active Not Available Not Available Not Available aspirin 81 mg tablet,de layed release TAKE 1 TABLET BY MOUTH EVERY MORNING active Not Available Not Available No t Available tramadol 50 mg tablet 09/16 completed Not Available Not Available Not Available simvastat in 40 mg tablet active Not Available Not Available Not Available Depo-Medr ol 80 mg/mL suspensio n for injection 2014 active Not Available Not Available Not Avai lable isosorbid e dinitrate 30 mg tablet active Not Available Not Available Not Available alprazola m 0.5 mg tablet active Not Available Not Available Not Available famotidin e 20 mg tablet active Not Available Not Available Not Available DOK 100 mg capsule TAKE 2 CAPSULES BY MOUTH TWICE A DAY 2019 active Not Available Not Available Not Avai lable trazodone 100 mg tablet 09/16 completed Not Available Not Available Not Available fluphenaz ine decanoate 25 mg/mL injection solution active Not Available Not Available Not Available colesevel am 625 mg tablet TAKE 3 TABLETS BY MOUTH TWICE A DAY active Not Available Not Available No t Available baclofen 10 mg tablet TAKE 1 TABLET BY MOUTH THREE TIMES A DAY NEEDED active Not Available Not Available No t Available hydrocodo ne 7.5 mg-acetam inophen 325 mg tablet 09/16 completed Not Available Not Available Not Available simvastat in 20 mg tablet Take 1 tablet(s ) every day by oral route in the evening 12/10 completed Not Available Not Available Not Available nystatin 100,000 unit/gram topical cream APPLY TO THE AFFECTED AREA TWICE A DAY active Not Available Not Available No t Available ranitidin e 150 mg tablet TAKE ONE TABLET BY MOUTH TWICE DAILY 01/27 completed contamin ants Not Available Not Available Not Available promethaz ine 25 mg tablet active Not Available Not Available Not Available losartan 25 mg tablet active Not Available Not Available Not Available benztropi ne 1 mg tablet active Not Available Not Available Not Available fluoxetin e 10 mg capsule Take 1 capsule every day by oral route for 30 days. active Not Available Not Available No t Available betametha sone dipropion ate 0.05 % topical cream active Not Available Not Available Not Available oxybutyni n chloride ER 5 mg tablet,ex tended release 24 hr TAKE 1 TABLET BY MOUTH DAILY 2019 active Not Available Not Available Not Avai lable gabapenti n 300 mg capsule 09/16 completed Not Available Not Available Not Available omeprazol e 20 mg capsule,d elayed release TAKE 1 CAPSULE BY MOUTH TWICE A DAY 30 MINUTES BEFORE MEALS active Not Available Not Available No t Available Citrate of Magnesia oral Take 296 mL as needed by oral route as needed for 1 day. 09/16 completed Not Available Not Available Not Available ranitidin e 150 mg capsule 1 tab po BID 12/10 completed Not Available Not Available Not Available trihexyph enidyl 2 mg tablet 1 tab poTID 09/16 completed Not Available Not Available Not Available losartan 100 mg tablet TAKE 1 TABLET BY MOUTH EVERY MORNING active Not Available Not Available No t Available fluoxetin e 20 mg capsule active Not Available Not Available Not Available lamotrigi ne 100 mg tablet active Not Available Not Available Not Available amoxicill in 875 mg-potass ium clavulana te 125 mg tablet Take 1 tablet every 12 hours by oral route for 10 days. 02/18 completed Not Available Not Available Not Available nabumeton e 500 mg tablet TAKE 1 TABLET BY MOUTH TWICE A DAY WITH FOOD active Not Available Not Available No t Available Ventolin HFA 90 mcg/actua tion aerosol inhaler active Not Available Not Available Not Available hydroxyzi ne pamoate 25 mg capsule 1 cap po in the a.m., then 2 cap's po qhs 09/16 completed Not Available Not Available Not Available valsartan 160 mg tablet 09/16 completed Not Available Not Available Not Available valsartan 40 mg tablet 09/16 completed Not Available Not Available Not Available Alcohol Prep Pads USE 1 PAD DAILY active Not Available Not Available No t Available hydrocodo ne 10 mg-acetam inophen 300 mg tablet Take 1 tablet every 6 hours by oral route. active Not Available Not Available No t Available solifenac in 10 mg tablet TAKE ONE TABLET BY MOUTH EVERY DAY active Not Available Not Available No t Available Aspir-81 active Not Available Not Avai lable Not Available Vitamin D active Not Available Not Moon ilable Not Available varenicli ne tartrate 1 mg tablet active Not Available Not Available Not Available Zostavax (PF) 19,400 unit/0.65 mL subcutane ous suspensio n 10/21 completed Not Available Not Available Not Available peg 3350-elec trolytes 236 gram-22.7 4 gram-6.74 gram-5.86 gram solution active Not Available Not Available Not Available quetiapin e ER 300 mg tablet,ex tended release 24 hr active Not Available Not Available Not Available diclofena c 1 % topical gel APPLY 2GM TO TO THE AFFECTED AREA FOUR TIMES A DAY TOPICALL Y 2019 active Not Available Not Available Not Avai lable GaviLyte- N 420 gram oral solution active Not Available Not Available Not Available Suprep Bowel Prep Kit 17.5 gram-3.13 gram-1.6 gram oral solution Take 300 mL by oral route for 1 day. active Not Available Not Available No t Available Chantix Starting Month Box 0.5 mg (11)-1 mg (42) tablets in dose pack active Not Available Not Available Not Available Linzess 145 mcg capsule 2018 active Not Available Not Available Not Avai lable Vascepa 1 gram capsule Take 2 capsule( s) twice a day by oral route for 30 days. active Not Available Not Available No t Available Pennsaid 20 mg/gram/a ctuation (2 %) topical soln in metered-d ose pump APPLY 2 PUMPS (40 MG) TO THE AFFECTED KNEE(S) BY TOPICAL ROUTE 2 TIMES PER DAY 2019 active Not Available Not Available Not Avai lable Jardiance 10 mg tablet active Not Available Not Available Not Available True Metrix Glucose Test Strip TEST USING ONE STRIP EVERY DAY 2021 active Not Available Not Available Not Avai lable omega 3 350 mg-dha 235 mg-epa 90 mg-fish oil 597 mg capsule,d elay rel Take 1 capsule every day by oral route. active Not Available Not Available No t Available OneTouch Verio Flex Meter active Not Available Not Available Not Available OneTouch Delica Plus Lancet 30 gauge TEST USING ONE LANCET EVERY DAY active Not Available Not Available No t Available Vitals Date Recorded Body height Body mass index (BMI) Body weight Oxygen saturation Oxygen saturation in Arterial blood by Pulse oximetry Heart rate Body temperature Systolic blood pressure Diastolic blood pressure Provider Name and Address Organization Details Last Updated DateTime 0 180.34 cm 38.7 kg/m2 846543. 52 g 95 % 95 % 92 /min 98.2 [degF] 152 mm[Hg] 82 mm[Hg] Marichuy Pathak [facility] 0 15:40:40 Date Recorded Body height Body mass index (BMI) Body weight Oxygen saturation Oxygen saturation in Arterial blood by Pulse oximetry Heart rate Body temperature Systolic blood pressure Diastolic blood pressure Provider Name and Address Organization Details Last Updated DateTime 0 180.34 cm 38.4 kg/m2 751853. 9 g 95 % 95 % 80 /min 98.5 [degF] 152 mm[Hg] 82 mm[Hg] Marichuy Pathak [facility] 0 15:04:51 Date Recorded Body height Provider Name an d Address Organization Details Last Updated DateTime 12/16/2019 180.34 cm Marichuy De Pamela Cr maia [facility] 12/16/2019 10:58:06 Date Recorded Body height Provider Name an d Address Organization Details Last Updated DateTime 03/24/2020 180.34 cm Marichuy De La Cr maia [facility] 03/24/2020 10:35:30 Social History Question Answer Notes LastModified by Organizat ion Details LastModified Time Tobacco Smoking Status Never Smoker Debbie Escalona MA [facility], [facility] 09/08/2014 12:16:23 Do You Have An Advance Directive? No Information not available 09/08/2014 Are You Blind Or Do You Have Difficulty Seeing? No Information not available 09/08/2014 What Is Your Level Of Caffeine Consumption? Heavy Information not available 09/08/2014 Are You Deaf Or Do You Have Serious Difficulty Hearing? Yes Information not available 09/08/2014 What Type Of Diet Are You Following? REGULAR Information not available 09/08/2014 Education 2 Year College Information not available 09/08/2014 Are There Any Guns Present In Your Home? No Information not available 09/08/2014 Hard Of Hearing Or Deaf In One Or Both Ears? No Information not available 09/08/2014 Legally Blind In One Or Both Eyes? No Information not available 09/08/2014 Marital Status Single Informatio n not available 09/08/2014 What Was The Date Of Your Most Recent Tobacco Screening? 10/13/2019 Information not available 10/13/2019 Performs Monthly Self-breast Exam? No Information not available 09/08/2014 Seat Belts Used Routinely Yes Information not available 09/08/2014 Smoke Alarm In Home Yes Information not available 09/08/2014 How Much Tobacco Do You Smoke? No Information not available 09/08/2014 General Stress Level High Information not available 09/08/2014 Do You Use Sunscreen Routinely? Yes Information not available 09/08/2014 On What Date Was Tobacco Cessation Counseling Provided? 03/24/2020 Information not available 03/24/2020 Do You Have Difficulty Walking Or Climbing Stairs? No Information not available 09/08/2014 Sex: Unknown Functional Status Question Answer Note LastModified by Organizat ion Details LastModified Time What is your level of alcohol consumption? None Information not available 09/08/2014 Do you have difficulty doing errands alone? 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 No Information not available 09/08/2014 What is your exercise level? None Information not available 09/08/2014 Mental Status Question Answer Note LastModified by Organization D etails LastModified Time Do you have difficulty concentrating, remembering or making decisions? Yes Information no t available 09/08/2014 Family History Relationship Description Onset Age of this Age Resolved Age Notes LastModified by Organization Details LastModified Time Sister Heart disease [email or web address] Not available 2015 10:22:49 Sister Asthma Not available 12/16/2015 10:22:49 Sister Sleep apnea Not avail able 12/16/2015 10:22:49 Medical History Condition Response Anxiety Disorder Y Coronary Artery Disease Y High Blood Pressure Y Acid Reflux (GERD) Y Heart Attack (MD) Y Headaches Y Depression Y Immunizations Vaccine Type Date Status Note Provider Nam e and Address Organization Details Recorded Time Influenza, split virus, quadrivalent, preservative 6 completed Not Available [facility] 08/29/2019 02:43:39 Influenza, split virus, quadrivalent, preservative 7 completed Not Available [facility] 08/29/2019 02:34:22 Influenza, split virus, quadrivalent, preservative 9 completed Not Available [facility] 08/29/2019 02:38:42 Influenza, split virus, quadrivalent, preservative 5 completed Not Available [facility] 08/29/2019 02:50:31 Past Encounters Encounter ID Performer Location Encounter Start Date Encounter Closed Date Diagnosis/Indication Diagnosis SNOMED-CT Code Diagnosis ICD10 Code Diagnosis Note [id number] MD Dianne Gibson (Adult Med) [address] [place] [address] 09/08/2014 11:57:16 09/08/2014 12:41:13 Acquired trigger finger 8137452 Gastroesop hageal reflux disease 278322375 Hypertensive disorder 03451723 Hyperlipidemia 15255263 Seizure 63082274 Obesity 078655100 Constipation 78841197 [id number] CURRY Salguero (Adult Med) [address] [place] [id number] 01/14/2015 14:49:39 01/14/2015 15:57:12 Acquired trigger finger 4522539 Constipation 37122579 Gastroesop hageal reflux disease 655912060 Hyperlipidemia 00283980 Hypertensive disorder 73763084 Obesity 825916793 Seizure 74906646 Bladder mu scle dysfunction - overactive 337382596 [id number] CURRY Salguero (Adult Med) [address] [place] [phone] 0 03/18/2015 15:40:13 03/18/2015 17:51:19 First degree atrioventricular block 119099830 Bladder mu scle dysfunction - overactive 648009793 Acquired t aquarium specialist finger 2956822 Obesity 737263952 Acute urin mark tract infection 296446735 Hypertensive disorder 14987101 Gastroesop hageal reflux disease 874535071 Seizure 82407117 Constipation 91836127 Hyperlipidemia 17362999 Ingrowing nail 927366109 for one year : great toe on the right [id number] MD Dianne Gibson (Adult Med) [address] [place] [phone] 04/14/2015 15:45:50 04/14/2015 17:53:03 Acquired trigger finger 0073694 Low back strain 014391704 Gastroesop hageal reflux disease 694713743 [id number] CURRY Salguero (Adult Med) [address] [place] [id number] 05/24/2015 13:43:26 05/24/2015 16:54:50 Acquired trigger finger 2925085 M65.30 Acute urin mark tract infection 699908243 N39.0 Bladder mu scle dysfunction - overactive 416906908 N32.81 Constipation 78325909 K5 9.00 Dizziness 310509716 R42 First degr ee atrioventricular block 206526636 I44.0 Gastroesop hageal reflux disease 776483310 K21.9 Hyperlipidemia 41489539 E78.5 Hypertensive disorder 38 349744 I10 Low back strain 94715638 1 S39.012D Obesity 749443331 E66.9 Seizure 68352217 R56.9 Active or passive immunization 611031994 Z23 [id number] CURRY Salguero (Adult Med) [address] [place] [id number] 07/25/2015 14:16:08 07/25/2015 14:54:08 Candidiasis 33533001 B37.9 right groin Acquired t aquarium specialist finger 6093130 M65.30 Gastroesop hageal reflux disease 765500513 K21.9 Hyperlipidemia 18641843 E78.5 Hypertensive disorder 38 912768 I10 Low back strain 69044568 1 S39.012D Obesity 198630589 E66.9 First degr ee atrioventricular block 631969783 I44.0 Seizure 21088043 R56.9 [id number] CURRY Salguero (Adult Med) [address] [place] [id number] 10/06/2015 14:14:08 10/06/2015 14:50:05 Pain in right arm 556013268 M79.601 upper arm , distal lateral aspect , no contusion Gastroesop hageal reflux disease 925252496 K21.9 Hyperlipidemia 28278860 E78.5 Constipation 25152189 K5 9.00 Obesity 672195383 E66.9 Seizure 13963420 R56.9 [id number] CURRY Salguero (Adult Med) [address] [place] [id number] 12/02/2015 16:12:26 12/02/2015 17:04:44 First degree atrioventricular block 018747626 I44.0 Gastroesop hageal reflux disease 255344197 K21.9 Hyperlipidemia 05390144 E78.5 Diabetes m ellitus screening 988042102 Z13.1 Administra tion of pneumococcal vaccine 18361288 Z23 Traumatic rupture of biceps tendon 567153422 S46.211S at physical therapy 6 months ago [id number] CURRY Salguero (Adult Med) [address] [place] [address] [id number] 12/16/2015 10:04:07 12/16/2015 10:35:14 Excessive thirst 18461159 R63.1 Constipation 07600297 K5 9.00 First degr ee atrioventricular block 396571169 I44.0 Gastroesop hageal reflux disease 588715520 K21.9 Hyperlipidemia 81679572 E78.5 Hypertensive disorder 38 481327 I10 Low back strain 56240910 1 S39.012D Obesity 311686966 E66.9 Pain in right arm 007335 004 M79.601 upper arm , distal lateral aspect , no contusion Seizure 96817508 R56.9 High hemog lobin A1c level 961416810 R73.09 [id number] MD Dianne Gibson (Adult Med) [address] [place] [address] [id number] 02/03/2016 14:21:14 02/09/2016 03:48:13 Painful urging to urinate 43620981 R30.0 Candidiasis 46718630 B37 .9 left groin worse than right Constipation 23122599 K5 9.00 [id number] Wendy Mckenna MD [facility] (Adult Med) [address] [place] [address] [id number] 02/16/2016 16:51:57 02/17/2016 09:18:02 First degree atrioventricular block 150331772 I44.0 Gastroesop hageal reflux disease 435078706 K21.9 High hemog lobin A1c level 535134512 R73.09 Hyperlipidemia 54836608 E78.5 Hypertensive disorder 38 760057 I10 Low back strain 84912999 1 S39.012D Obesity 037956307 E66.9 Seizure 67585127 R56.9 [id number] MD Dianne Gibson (Adult Med) [address] [place] [address] [id number] 04/30/2016 14:40:39 04/30/2016 18:00:22 Dizziness 938614301 R42 Syncope 975807205 R55 Administra tion of influenza vaccine 76931090 Z23 [id number] Wendy Mckenna MD Dianne (Adult Med) [address] [place] [address] [phone] 09/13/2016 10:45:26 09/13/2016 14:05:55 Gastroesophageal reflux disease 100745642 K21.9 Syncope 865733446 R55 Hypertensive disorder 38 235390 I10 High hemog lobin A1c level 061691240 R73.09 Hyperlipidemia 76185314 E78.5 Seizure 34690975 R56.9 Otitis media 74196329 H6 6.93 Cramp in lower limb 4499 43219 R25.2 [id number] MD Dianne Gibson (Adult Med) [address] [place] [address] [id number] 0 11/12/2016 14:48:39 11/12/2016 16:10:46 Administration of pneumococcal vaccine 90302209 Z23 High hemog lobin A1c level 022069731 R73.09 [id number] MD Dianne Gibson (Adult Med) [address] [place] [address] [id number] 03/14/2017 13:46:35 03/18/2017 10:58:39 Urinary incontinence 106079359 R32 twice yesterday Seizure 67287697 R56.9 Hyperlipidemia 17361665 E78.5 High hemog lobin A1c level 037231811 R73.09 Obesity 778279455 E66.9 Hypertensive disorder 38 593217 I10 Low back strain 26518849 1 S39.012D [id number] MD Dianne Gibson (Adult Med) [address] [place] [address] [phone] 0 05/23/2017 12:13:21 05/27/2017 10:48:22 High hemoglobin A1c level 884696899 R73.09 Prediabetes 455941812 R7 3.03 [id number] MD Dianne Gibson (Adult Med) [address] [place] [address] [phone] 05/27/2017 14:03:47 05/27/2017 14:41:12 Administration of influenza vaccine 30485859 Z23 [id number] MD Dianne Gibson (Adult Med) [address] [place] [address] [phone] 0 07/03/2017 10:40:19 07/03/2017 13:39:39 First degree atrioventricular block 310480160 I44.0 Hyperlipidemia 95413653 E78.5 Seizure 34338586 R56.9 Gastroesop hageal reflux disease 338202803 K21.9 Constipation 17933488 K5 9.00 [id number] Wendy Mckenna MD [facility] (Adult Med) [address] [place] [address] [phone] 0 10/21/2017 15:18:57 10/21/2017 16:40:11 Candidiasis 51381440 B37.9 left groin worse than right Screening for malignant neoplasm of colon 459647876 Z12.11 Screening for malignant neoplasm of prostate 058752357 Z12.5 Hypertensive disorder 38 186241 I10 Obesity 998308286 E66.9 Seizure 75276460 R56.9 Hyperlipidemia 34992123 E78.5 Gastroesop hageal reflux disease 015108719 K21.9 [id number] Wendy Mckenna MD [facility] (Adult Med) [address] [place] [address] 45697-194 0 12/31/2017 13:05:34 12/31/2017 13:44:01 Pain of left wrist 0952318415 94070 M25.532 Seizure 32858399 R56.9 Gastroesop hageal reflux disease 108186936 K21.9 Hyperlipidemia 52678295 E78.5 Obesity 168636863 E66.9 Hypertensive disorder 38 953356 I10 [id number] [facility] [address] [place] [address] [phone] 0 03/31/2018 10:59:02 03/31/2018 12:18:51 Chronic idiopathic constipation 54921573 K59.04 High hemog lobin A1c level 287717379 R73.09 Seizure 78596265 R56.9 Hyperlipidemia 83438742 E78.5 Obesity 869832519 E66.9 Hypertensive disorder 38 872189 I10 Constipation 23332254 K5 9.00 Impaired g lucose tolerance 4512639 R73.02 [id number] MD Dianne Gibson (Adult Med) [address] [place] [address] [phone] 0 06/16/2018 15:10:43 06/16/2018 16:23:40 Candidiasis 36248740 B37.9 left groin worse than right High hemog lobin A1c level 545905992 R73.09 Administra tion of influenza vaccine 09154952 Z23 Chronic id iopathic constipation 33266098 K59.04 Seizure 70427708 R56.9 Hyperlipidemia 92734873 E78.5 Obesity 822964706 E66.9 Gastroesop hageal reflux disease 583475686 K21.9 Depressive disorder 3548 9007 F33.8 Hypertensive disorder 38 693848 I10 Low back strain 22937726 1 S39.012D Bladder mu scle dysfunction - overactive 315569848 N32.81 Dizziness 553404360 R42 Insomnia 987234808 G47.0 0 Impaired g lucose tolerance 5459434 R73.02 [id number] CURRY Salguero (Adult Med) [address] [place] [address] [phone] 0 09/16/2018 08:50:58 09/16/2018 11:08:37 Vitamin D deficiency 50271517 E55.9 Hypertensive disorder 38 528090 I10 Hyperlipidemia 37866768 E78.5 Seizure 94417907 R56.9 Obesity 432040244 E66.9 Gastroesop hageal reflux disease 594585351 K21.9 Impaired g lucose tolerance 2563711 R73.02 Screening for malignant neoplasm of prostate 317509117 Z12.5 Candidiasis 73746157 B37 .9 left groin worse than right Insomnia 272383977 G47.0 0 Depressive disorder 3548 9007 F33.8 Chronic id iopathic constipation 72617151 K59.04 [id number] MD Dianne Gibson (Adult Med) [address] [place] [address] [phone] 0 12/10/2018 12:14:55 12/11/2018 08:58:24 Immunization status unknown 098347023 Z76.89 Screening for malignant neoplasm of colon 437176372 Z12.11 Acute otitis media 35914 03 H66.93 Vitamin D deficiency 347 31535 E55.9 Insomnia 934121269 G47.0 0 Depressive disorder 3548 9007 F33.8 Chronic id iopathic constipation 53961294 K59.04 Impaired g lucose tolerance 9631651 R73.02 Gastroesop hageal reflux disease 971636637 K21.9 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 Seizure 86843652 R56.9 Hyperlipidemia 84180725 E78.5 Obesity 688540845 E66.9 Hypertensive disorder 38 458845 I10 [id number] MD Dianne Gibson (Adult Med) [address] [place] [address] [phone] 0 02/18/2019 09:26:01 02/19/2019 08:42:15 Candidiasis 50749927 B37.9 left groin worse than right Depressive disorder 3548 9007 F33.8 Hypertensive disorder 38 192700 I10 Dizziness 451087008 R42 Insomnia 810757738 G47.0 0 Cramp in lower limb 4499 16549 R25.2 Low back pain 434976965 M54.5 Urinary incontinence 165 957557 R32 twice yesterday Gastroesop hageal reflux disease 379672993 K21.9 Hyperlipidemia 40594297 E78.5 Vitamin D deficiency 347 82362 E55.9 Impaired g lucose tolerance 3060587 R73.02 Obese 887197775 E66.9 [id number] MD Dianne Gibson (Adult Med) [address] [place] [address] [phone] 0 04/20/2019 10:10:37 04/22/2019 09:22:42 Obese 709251962 E66.9 Low back pain 280684984 M54.5 Vitamin D deficiency 347 96917 E55.9 Insomnia 512282426 G47.0 0 Depressive disorder 3548 9007 F33.8 Gastroesop hageal reflux disease 454266658 K21.9 Hypertensive disorder 38 821145 I10 Hyperlipidemia 97118691 E78.5 Seizure 30164908 R56.9 [id number] [facility] [address] [place] [address] [phone] 0 06/04/2019 14:50:46 06/05/2019 08:40:17 Administration of influenza vaccine 20258298 Z23 [id number] MD Dianne Gibson (Adult Med) [address] [place] [address] [phone] 0 09/15/2019 14:58:55 09/15/2019 16:11:08 Apnea 7007982 R06.81 Gastroesop hageal reflux disease 713919230 K21.9 Hyperlipidemia 41574821 E78.5 Hypertensive disorder 38 814705 I10 Insomnia 404344505 G47.0 0 Low back pain 568323192 M54.5 Vitamin D deficiency 347 04989 E55.9 Screening for malignant neoplasm of prostate 285396590 Z12.5 Seizure 43509197 R56.9 Obese 387517193 E66.9 First degr ee atrioventricular block 722091790 I44.0 Depressive disorder 3548 9007 F33.8 Chronic id iopathic constipation 37102547 K59.04 [id number] Wendy Mckenna MD [facility] (Adult Med) [address] [place] [address] [phone] 0 10/13/2019 14:22:54 10/13/2019 15:38:29 Hyperlipidemia 09575382 E78.5 Obese 428138542 E66.9 Vitamin D deficiency 347 41148 E55.9 Low back pain 709204465 M54.5 Insomnia 391499153 G47.0 0 Gastroesop hageal reflux disease 647168275 K21.9 Chronic id iopathic constipation 49362624 K59.04 Impaired g lucose tolerance 4472260 R73.02 First degr ee atrioventricular block 147882991 I44.0 Depressive disorder 3548 9007 F33.8 Bladder mu scle dysfunction - overactive 979483595 N32.81 [id number] Wendy Mckenna MD [facility] (Adult Med) [address] [place] [address] [phone] 0 12/16/2019 10:26:42 12/16/2019 11:54:16 Vitamin D deficiency 12749746 E55.9 High hemog lobin A1c level 797411121 R73.09 Hyperlipidemia 22977842 E78.5 Hypertensive disorder 38 152616 I10 Obese 857982754 E66.9 [id number] [facility] [address] [place] [address] [phone] 0 03/24/2020 09:35:54 03/24/2020 10:44:20 Gastroesophageal reflux disease 460988303 K21.9 Hyperlipidemia 74435607 E78.5 Vitamin D deficiency 347 75627 E55.9 Low back pain 481589736 M54.5 Candidiasis 51700955 B37 .9 left groin worse than right Health Concerns Section Related Observation LastModified by Organization Detai ls LastModified Time None Recorded Concern Status LastModified by Organization Details LastModified Time None Recorded Advance Directives Directive N: Payers Encounter Date Sequence Insurance Name Policy Number Policy [place] Covered Member ID [place] Member ID Guarantor Name 06/04/2019 2 [place] OR MEDICARE REPLACEMENT PRIMARY) Marlon Hicks [id number] Marlon Hicks 06/04/2019 1 [place] Marlon Hicks [id number] Marlon Hicks 09/15/2019 2 [place] REPLACEMENT PRIMARY) Marlon Hicks [id number] Marlon Hicks 09/15/2019 1 [place] Marlon Hicks [id number] Marlon Hicks 10/13/2019 2 [place]PLACEMENT PR[place]) Marlon Hicks [id number] Marlon Hicks 10/13/2019 1 [place] Marlon Hicks [id number] Marlon Hicks 12/16/2019 2 [place]IC[place] REPLACEMENT PRIMARY) Marlon Hicks [id number] Marlon Hicks 12/16/2019 1 [place] Marlon Hicks [id number] Marlon Hicks 03/24/2020 2 [place] OR MEDICARE REPLACEMENT PRIMARY) Marlon Hicks [id number] Marlon Hicks 03/24/2020 1 [place] Marlon Hicks [id number] Marlon Hicks Notes Date Note Type Note Provider Name and Address Organization Details Recorded Time 09/15/2019 text/html snores , wakes up gasping for air at times Eduard Gilbert PA-C Attn: Accounting,[address] [place], [address], [facility] 09/17/2019 20:36:40 12/16/2019 text/html no changes Eduard Gilbert PA-C Attn: Accounting,[address] [facility], [place], [address], [facility] 12/17/2019 20:32:50 03/24/2020 text/html Is going to start Prozac from Dr. Gurerero. Eduard Gilbert PA-C Attn: Accounting,[address] [place], [address], [facility] 03/26/2020 10:27:01
[2024-12-31] MEDS: cefTRIAXone 2 GM/NS 100 ML 2 GM/100 ML BAG IVPB (16:23)
--- NOTE | 2024-12-31 18:18 | PM.IMHP ---
H&P: HPI History of Present Illness Date/Time: 12/31/24 18:18 Chief Complaint: Generalized Weakness Narrative: 69 y/o M with PMH of anxiety, depression, coronary artery disease, subarachnoid hemorrhage post fall in 2023, GERD, HLD, HTN, and seizures presents here with generalized weakness. The patient presents here from [facility] (Rehab) on 12/31 for further evaluation of generalized weakness. He reports this is been ongoing for the past week and is accompanied by bilateral low back pain, nausea, dysuria, and urinary frequency. He denies fever, chills, body aches, vomiting, or diarrhea. He has been at rehab for the past 2-3 weeks for strengthening post-fall. Patient unable to ambulate in ED therefore unable to go back to rehab. Initial VS at presentation: 98.2? F, HR 54, RR 18, BP 111/56, and 99%. ED workup showed: No leukocytosis, hemoglobin 13.1 (at baseline), no significant electrolyte derangements, creatinine 1.03 and GFR >60. UA consistent with UTI. CXR showed no acute cardiopulmonary pathology. Review of Systems Review of Systems: All systems reviewed & are unremarkable except as noted in HPI and below PMFSH Past Medical History Medical History (Updated 12/31/24 @ 18:33 by Chinyere Conroy APRN) Subarachnoid hemorrhage Post fall, January 2024 Dementia Seizure GERD (gastroesophageal reflux disease) Coronary artery disease Hypertension Anxiety and depression Hyperlipidemia Family History Family History Sibling Acute myocardial infarction Sibling Acute myocardial infarction Social History Social History Smoking status: Never smoker Alcohol intake: never Substance use: never Substance use type: does not use Do You Feel Safe in your Home?: Yes Lack of Transportation: No Lack of Food: Never True Current Housing: I Have Housing Concerned About Future Housing: No Difficulty Paying Gas/Electric Bills: No Difficulty Paying for Meds: No Currently Unemployed: No Education: Decline to Answer Difficulty w/ Childcare or Family Care: No Living arrangements: with family Gender identity (if verbalized by the patient): Male Spiritual care concerns: No Agree to blood products: Yes Meds Home Medications and Allergies Home Medications ?Medication ?Instructions ?Recorded ?Confirmed ?Type lamotrigine 100 mg tablet 150 mg PO BID 01/26/21 12/31/24 History baclofen 20 mg tablet 20 mg PO BID 01/23/24 12/31/24 History diclofenac sodium 75 mg 75 mg PO BID PRN hip pain 01/23/24 12/31/24 History tablet,delayed release donepezil 10 mg tablet 10 mg PO HS 01/23/24 12/31/24 History icosapent ethyl 1 gram capsule 1 g PO BIDWMEAL 01/23/24 12/31/24 History (Vascepa) alprazolam 0.5 mg tablet 0.5 mg PO TID PRN Anxiety #7 tabs 01/30/24 12/31/24 Rx hydrocodone 10 mg-acetaminophen 1 tablet PO Q6H PRN pain (scale 12/31/24 12/31/24 History 325 mg tablet score 7-10) hydrocodone 5 mg-acetaminophen 325 1 tablet PO Q4H PRN pain (scale 12/31/24 12/31/24 History mg tablet score 4-6) lamotrigine 100 mg tablet 150 mg PO BID 12/31/24 12/31/24 History (Lamictal) losartan 25 mg tablet 50 mg PO DAILY 12/31/24 12/31/24 History magnesium citrate (Citroma oral 296 ml PO ONCE PRN constipation 12/31/24 12/31/24 History solution) magnesium hydroxide 400 mg/5 mL 30 ml PO HS PRN constipation 12/31/24 12/31/24 History oral suspension (Dulcolax (magnesium hydroxide)) mineral oil (Fleet Mineral Oil 118 ml RECTAL DAILY PRN 12/31/24 12/31/24 History enema) constipation polyethylene glycol 3350 17 gram 17 g PO DAILY PRN constipation 12/31/24 12/31/24 History oral powder packet quetiapine 150 mg tablet,extended 150 mg PO HS 12/31/24 12/31/24 History release 24 hr scopolamine base 1 mg over 3 days 1 patch transdermal Q3D SECRECTIONS 12/31/24 12/31/24 History transdermal patch sennosides 8.6 mg tablet (senna) 17.2 mg PO DAILY PRN constipation 12/31/24 12/31/24 History Allergies Allergy/AdvReac Type Severity Reaction Status Date / Time No Known Allergies Allergy Verified 12/31/24 13:34 Vital Signs Vital Signs - 24 hr 12/31/24 13:25 12/31/24 14:31 12/31/24 15:59 Temperature 98.2 F Pulse Rate 54 L 53 L 55 L Respiratory Rate 18 14 20 Blood Pressure 111/56 L 115/61 160/86 H Pulse Oximetry 99 98 99 Oxygen Delivery Autopap Exam Const: General: comfortable and no acute distress Other: , male, chronically ill-appearing HENMT: Face/Nose/Sinus: Normal nares present Mouth: Yes moist mucous membranes Eyes: General: appearance normal, both eyes and all related structures Sclera: sclerae normal Pupils: Equal, round and reactive pupils present EOM: EOMs intact bilaterally Resp: Effort & Inspection: normal respiratory effort Auscultation: clear to auscultation bilaterally Cardio: Rate: regular rate Rhythm: regular rhythm Other: S1-S2 present without murmur, rub, ectopy GI: Other: Abdomen soft, nondistended, nontender. Normoactive bowel sounds in all quadrants. Neuro: Speech: normal speech Motor exam (neuro): 5/5 motor strength present throughout Sensory Exam: normal sensation Other: A&O x4 Extrem: General: normal to inspection Psych: Mental Status: mental status grossly normal Other: Flat affect, fair insight and judgment. H&P: Results Labs Labs: Short CBC 12/31/24 Range/Units 14:12 WBC 6.5 (4.5-10.0) K/mm3 Hgb 13.1 L (14.0-18.0) g/dL Hct 42.7 (42.0-52.0) % Plt Count 216 (150-375) k/mm3 BMP 12/31/24 14:12 Sodium 139 Potassium 4.3 Chloride 105 Carbon Dioxide 29 BUN 26 H D Creatinine 1.03 Glucose 82 Calcium 8.3 L Liver Function 12/31/24 Range/Units 14:12 Total Bilirubin 0.5 (0.2-1.3) mg/dL AST 26 (17-59) U/L ALT 34 (6-50) U/L Alkaline Phosphatase 57 (38-126) U/L Albumin 3.5 (3.5-5.1) g/dL Urine 12/31/24 Range/Units 14:46 Urine Color Dark yellow (Yellow) Urine Appearance Turbid H (Clear) Urine pH 6.0 (5.0-9.0) Ur Specific [place] 1.029 (1.001-1.035) Urine Protein 2+ H (Negative) mg/dL Urine Glucose (UA) Negative (Negative) mg/dL Assessment and Plan Assessment and plan (1) Acute UTI: Code(s): N39.0 - Urinary tract infection, site not specified Status: Acute Assessment and Plan: - reporting a profound generalized weakness, no significant electrolyte derangements or anemia. Vital signs stable. UA consistent with UTI, suspect this is source of patient's generalized weakness. - UA: Turbid, 2+ protein, 1+ ketones, 3+ blood, 1+ bilirubin, 3+ leuks, greater than 100 RBC and WBC, 4+ bacteria, yeast present. - UC pending - previous micro reviewed. Patient grew coag-negative staph that was pansensitive in March of 2024. - started on Ceftriaxone on 12/31 (2) Seizure: Code(s): R56.9 - Unspecified convulsions Status: Chronic Assessment and Plan: - continue home medication: Lamotrigine 150 mg b.i.d. - monitor (3) Hypertension: Qualifiers: Hypertension type: primary hypertension Qualified Code(s): I10 - Essential (primary) hypertension Code(s): I10 - Essential (primary) hypertension Status: Chronic Assessment and Plan: - chronic, currently 160/86 - continue home medications: Losartan - monitor Plan Will continue PT while inpatient to avoid deconditioning. Diet: Heart healthy GI Prophylaxis: Not currently indicated DVT Prophylaxis: SCDs IV fluids: NS 125 mL/hour Lines/Tubes: Peripheral IV Code Status: Full code Quality VTE Prophylaxis VTE prophylaxis: mechanical ordered Hospitalist [facility] Advance Care Plan I have confirmed that the patient's Advanced Care Plan is present, code status is documented, or surrogate decision maker is listed in patient medical record.: Yes Medication Reconciliation I have utilized all available resources to obtain, update and review the patients current medications (includes all prescriptions, OTC, herbals, cannabis, and nutritional supplements).: Yes
[2024-12-31 18:37] VITALS: BP 115/69; PULSE 78; RESP 16; O2SAT 98
[2024-12-31 19:47] VITALS: BMI 28.7
[2024-12-31 20:00] VITALS: O2SAT 98
[2024-12-31] MEDS: SODIUM CHLORIDE 0.9% IV 1,000 ML 125 ML IV CONT (21:10)
[2024-12-31] MEDS: SCOPOLAMINE 1 MG PATCH 1 PATCH TRANSDERM (22:01)
[2024-12-31] MEDS: ALPRAZolam (*CRX) 0.5 MG TABLET PO (22:02)
[2024-12-31] MEDS: lamoTRIgine 50 MG TABLET PO (22:02)
[2024-12-31] MEDS: BACLOFEN 10 MG TABLET 20 MG PO (22:02)
[2024-12-31] MEDS: HYDROcodone/acetaminophen (*CRX) 5-325 MG TABLET 1 TAB PO (22:02)
[2024-12-31] MEDS: lamoTRIgine 100 MG TABLET PO (22:02)
[2024-12-31 22:05] VITALS: BP 130/68; PULSE 60; RESP 16; TEMP 36.6; O2SAT 99
[2024-12-31] MEDS: QUEtiapine FUMARATE XR 50 MG TAB.ER.24H 150 MG PO (22:06)
--- NOTE | 2025-01-01 05:08 | PC.NURSE ---
This patient, Marlon Hicks, was admitted to 3 [facility] Surg Room 333-01. Patient/family oriented to hospital policies and general routines including ID bracelet, bed and alarms, visiting hours, pain management, procedures, bathroom and other care routines, personal items, smoking policy, room service/diet, PT arrived to unit at 1900 hours. Information on how to activate the Rapid Response Team has been discussed. Patient/Family are encouraged to report perceived risks to care and to ask questions if they do not understand what they are told or what they should do.
[2025-01-01] MEDS: SODIUM CHLORIDE 0.9% IV 1,000 ML 125 ML IV CONT (05:10)
[2025-01-01 06:35] LABS: Basophils Absolute Auto 0.1 K/mm3 (0.0-0.1); Eosinophils Absolute Auto 0.2 K/mm3 (0-0.3); Eosinophils Percent Auto 2.2 % (0-4.4); Hematocrit 42.4 % (42.0-52.0); Hemoglobin 13.3 g/dL (14.0-18.0); Immature Granulocyte Absolute 0.01 K/mm3 (0.00-0.031); Immature Granulocyte Percent A 0.1 % (0-0.5); Lymphocytes Percent Auto 17.9 % (18.3-44.2); Mean Corpuscular HGB Conc 31.4 g/dl (32-36); Mean Corpuscular Hemoglobin 29.7 pg (26-34); Mean Corpuscular Volume 94.6 fl (80-100); Mean Platelet Volume 11.1 fl (7.4-10.4); Monocytes Absolute Auto 0.6 K/mm3 (0.1-0.6); Monocytes Percent Auto 8.9 % (2.6-8.5); Neutrophils Absolute Auto 4.7 K/mm3 (1.3-6.7); Neutrophils Percent Auto 69.9 % (45.5-73.1); Platelet Count Result 184 k/mm3 (150-375); Red Blood Count 4.48 M/mm3 (4.6-6.20); Red Cell Distribution Width 13.7 % (11.5-14.5); White Blood Count 6.7 K/mm3 (4.5-10.0)
[2025-01-01 06:51] VITALS: BP 139/72; PULSE 60; RESP 16; TEMP 36.6; O2SAT 100
[2025-01-01 06:52] LABS: Anion Gap 4 mmol/L (4-12); Blood Urea Nitrogen 27 mg/dL (9-20); Calcium 8.3 mg/dL (8.4-10.2); Carbon Dioxide 30 mmol/L (22-30); Chloride 104 mmol/L (98-107); Estimated CRCL calculation 67 ml/min; Estimated Glomerular Filt Rate > 60; Glucose 83 mg/dL (65-110); Potassium 4.2 mmol/L (3.4-5.0); Sodium 138 mmol/L (137-145)
[2025-01-01] MEDS: BACLOFEN 10 MG TABLET 20 MG PO ×2 (09:18→16:00)
[2025-01-01] MEDS: lamoTRIgine 50 MG TABLET PO ×2 (09:18→20:35)
[2025-01-01] MEDS: OMEGA 3 POLYUNSAT FATTY ACIDS 1 GM CAP PO ×2 (09:18→16:00)
[2025-01-01] MEDS: LOSARTAN POTASSIUM 25 MG TABLET 50 MG PO (09:19)
[2025-01-01] MEDS: lamoTRIgine 100 MG TABLET PO ×2 (09:19→20:34)
[2025-01-01 10:05] LABS: Magnesium 2.1 mg/dL (1.6-2.3)
--- NOTE | 2025-01-01 11:46 | P.PNIM_ITS ---
Progress Note: A&P Assessment and Plan (1) Acute UTI: Code(s): N39.0 - Urinary tract infection, site not specified Status: Acute Assessment and Plan: - reporting a profound generalized weakness, no significant electrolyte derangements or anemia. Vital signs stable. UA consistent with UTI, suspect this is source of patient's generalized weakness. - UA: Turbid, 2+ protein, 1+ ketones, 3+ blood, 1+ bilirubin, 3+ leuks, greater than 100 RBC and WBC, 4+ bacteria, yeast present. - UC pending - previous micro reviewed. Patient grew coag-negative staph that was pansensitive in March of 2024. - started on Ceftriaxone on 12/31 - encourage water to drink (2) Seizure: Code(s): R56.9 - Unspecified convulsions Status: Chronic Assessment and Plan: - continue home medication: Lamotrigine 150 mg b.i.d. - monitor (3) Hypertension: Qualifiers: Hypertension type: primary hypertension Qualified Code(s): I10 - Essential (primary) hypertension Code(s): I10 - Essential (primary) hypertension Status: Chronic Assessment and Plan: - chronic, currently 139/72 - continue home medications: Losartan - monitor (4) Weakness: Code(s): R53.1 - Weakness Status: Acute Assessment and Plan: * Physical therapy Plan Will continue PT while inpatient to avoid deconditioning. Diet: Heart healthy GI Prophylaxis: Not currently indicated DVT Prophylaxis: SCDs IV fluids: NS 75 mL/hour Lines/Tubes: Peripheral IV Code Status: Full code Subjective Date/time seen: 01/01/25 11:46 Interval history: Patient lying in bed sleeping. Patient reports occasional nausea. Patient denies chest pain, palpitations, headache, dizziness, or vomiting. Review of Systems Review of Systems: All systems reviewed & are unremarkable except as noted in HPI and below Exam Const: General: comfortable and no acute distress Other: , male, chronically ill-appearing. Resp: Effort & Inspection: normal respiratory effort Auscultation: clear to auscultation bilaterally Cardio: Rate: regular rate Rhythm: regular rhythm GI: GI Palp: Yes Soft to palpation Auscultation: normal bowel sounds Neuro: Speech: normal speech Extrem: General: no pedal edema Psych: Mental Status: mental status grossly normal Affect: normal affect Objective Data Vital Signs Vital Signs: Vital Signs - 24 hr 12/31/24 13:25 12/31/24 14:31 12/31/24 15:59 Temperature 98.2 F Pulse Rate 54 L 53 L 55 L Respiratory Rate 18 14 20 Blood Pressure 111/56 L 115/61 160/86 H Pulse Oximetry 99 98 99 Oxygen Delivery Autopap 12/31/24 18:37 12/31/24 20:00 12/31/24 22:05 Temperature 97.9 F Pulse Rate 78 60 Respiratory Rate 16 16 Blood Pressure 115/69 130/68 Pulse Oximetry 98 98 99 Oxygen Delivery Room Air 01/01/25 06:51 01/01/25 08:00 Temperature 97.9 F Pulse Rate 60 Respiratory Rate 16 Blood Pressure 139/72 Pulse Oximetry 100 Oxygen Delivery Room Air Intake/Output Intake/Output: Intake & Output 12/29/24 12/30/24 12/31/24 01/01/25 23:59 23:59 23:59 23:59 Intake Total 100 1780 Output Total 900 Balance 100 880 Meds/Results Medications: Active Medications Generic Name Dose Route Start Last Admin Trade Name Freq PRN Reason Stop Dose Admin Acetaminophen 650 mg 12/31/24 18:37 Acetaminophen 325 Mg Tablet PO Q6H PRN Mild Pain (1-3) or Fever Hydrocodone Bitart/Acetaminophen 1 tab 12/31/24 21:38 12/31/24 22:02 Hydrocodone/Acetaminophen (*Crx) 5-325 Mg Tablet PO 1 tab Q4H PRN Administration pain (scale score 4-6) Hydrocodone Bitart/Acetaminophen 1 tab 12/31/24 21:38 Hydrocodone/Acetaminophen (*Crx) 10-325 Mg Tablet PO Q6H PRN pain (scale score 7-10) Alprazolam 0.5 mg 12/31/24 21:38 12/31/24 22:02 Alprazolam (*Crx) 0.5 Mg Tablet PO 0.5 mg TID PRN Administration Anxiety Baclofen 20 mg 12/31/24 21:50 01/01/25 09:18 Baclofen 10 Mg Tablet PO 20 mg BID ESTEFANIA Administration Diclofenac Sodium 75 mg 12/31/24 21:38 Diclofenac Sod 75 Mg Tablet.Ec PO BID PRN hip pain Donepezil HCl 10 mg 01/01/25 21:00 Donepezil Hcl 10 Mg Tablet PO HS ESTEFANIA Fish Oil 1 gm 01/01/25 08:00 01/01/25 09:18 [place] 3 Polyunsat Fatty Acids 1 Gm Cap PO 1 gm BIDWM ESTEFANIA Administration Sodium Chloride 1,000 mls @ 125 mls/hr 12/31/24 16:35 01/01/25 10:21 Normal Saline Iv IV CONT Not Given .Q8H ESTEFANIA Ceftriaxone Sodium 1 gm in 50 mls @ 100 mls/hr 01/01/25 16:00 Rocephin 1 Gm/Ns 50 Ml IVPB 01/08/25 15:59 Q24H ESTEFANIA Lamotrigine 100 mg 12/31/24 21:55 01/01/25 09:19 Lamotrigine 100 Mg Tablet PO 100 mg Q12HR ESTEFANIA Administration Lamotrigine 50 mg 12/31/24 21:55 01/01/25 09:18 Lamotrigine 50 Mg Tablet PO 50 mg Q12HR ESTEFANIA Administration Losartan Potassium 50 mg 01/01/25 09:00 01/01/25 09:19 Losartan Potassium 25 Mg Tablet PO 50 mg DAILY ESTEFANIA Administration Magnesium Citrate 296 ml 01/01/25 00:07 Magnesium Citrate 300 Ml Btl PO DAILY PRN constipation Magnesium Hydroxide 30 ml 12/31/24 21:38 Magnesium Hydroxide Susp 30 Ml Udc PO HS PRN constipation Miscellaneous Information 1 each 12/31/24 21:51 Central Supply Item XX 01/01/25 21:50 PRN PRN Informational Ondansetron HCl 4 mg 12/31/24 18:37 Ondansetron Hcl Odt 4 Mg Tablet PO Q6H PRN Nausea And Vomiting Polyethylene Glycol 17 gm 12/31/24 21:38 Polyethylene Glycol 3350 17 Gm Powd.Pack PO DAILY PRN constipation Quetiapine Fumarate 150 mg 12/31/24 21:50 12/31/24 22:06 Quetiapine Fumarate Xr 50 Mg Tab.Er.24h PO 150 mg HS REPLACED BY [facility] Administration Scopolamine 1 patch 12/31/24 21:40 12/31/24 22:01 Scopolamine 1 Mg Patch TRANSDERM 1 patch Q72HR REPLACED BY [facility] Administration Senna 17.2 mg 12/31/24 21:38 Sennosides 8.6 Mg Tablet PO DAILY PRN constipation Radiology Results: ITS Impressions Chest X-Ray 12/31/24 14:23 IMPRESSION: No acute cardiopulmonary pathology. Labs Labs: Laboratory Results - last 24 hr 12/31/24 12/31/24 01/01/25 14:12 14:46 06:22 WBC 6.5 6.7 RBC 4.45 L 4.48 L Hgb 13.1 L 13.3 L Hct 42.7 42.4 MCV 96.0 94.6 MCH 29.4 29.7 MCHC 30.7 L 31.4 L RDW 13.7 13.7 Plt Count 216 184 MPV 11.4 H 11.1 H Immature Gran % (Auto) 0.3 0.1 Neut % (Auto) 60.1 69.9 Lymph % (Auto) 22.4 17.9 L [place] % (Auto) 13.5 H 8.9 H Eos % (Auto) 2.3 2.2 Baso % (Auto) 1.4 H 1.0 Lymph # (Auto) 1.46 1.20 [place] # (Auto) 0.9 H 0.6 Eos # (Auto) 0.2 0.2 Baso # (Auto) 0.1 0.1 Abs Immat Gran (auto) 0.02 0.01 Absolute Neuts (auto) 3.9 4.7 Absolute Nucleated RBC 0.000 0.000 Nucleated RBC % 0.0 0.0 Sodium 139 138 Potassium 4.3 4.2 Chloride 105 104 Carbon Dioxide 29 30 Anion Gap 5 4 BUN 26 H D 27 H Creatinine 1.03 0.99 Estim Creat Clear Calc 65 67 Estimated GFR > 60 > 60 Glucose 82 83 Calcium 8.3 L 8.3 L Magnesium Total Bilirubin 0.5 AST 26 ALT 34 Alkaline Phosphatase 57 Total Protein 6.0 L Albumin 3.5 Urine Color Dark yellow Urine Appearance Turbid H Urine pH 6.0 Ur Specific [place] 1.029 Urine Protein 2+ H Urine Glucose (UA) Negative Urine Ketones 1+ H Ur Blood (Man) 3+ H Urine Nitrate Negative Urine Bilirubin 1+ H Urine Urobilinogen 1.0 Add Ur Microanalysis Reviewed Leukocyte Esterase Rfl 3+ H Urine RBC >100 H Urine WBC >100 H Ur Squamous Epith Cells None seen Urine Bacteria 4+ H Urine Casts 0-2 Urine Yeast (Budding) Present H 01/01/25 08:23 WBC RBC Hgb Hct MCV MCH MCHC RDW Plt Count MPV Immature Gran % (Auto) Neut % (Auto) Lymph % (Auto) [place] % (Auto) Eos % (Auto) Baso % (Auto) Lymph # (Auto) [place] # (Auto) Eos # (Auto) Baso # (Auto) Abs Immat Gran (auto) Absolute Neuts (auto) Absolute Nucleated RBC Nucleated RBC % Sodium Potassium Chloride Carbon Dioxide Anion Gap BUN Creatinine Estim Creat Clear Calc Estimated GFR Glucose Calcium Magnesium 2.1 Total Bilirubin AST ALT Alkaline Phosphatase Total Protein Albumin Urine Color Urine Appearance Urine pH Ur Specific [place] Urine Protein Urine Glucose (UA) Urine Ketones Ur Blood (Man) Urine Nitrate Urine Bilirubin Urine Urobilinogen Add Ur Microanalysis Leukocyte Esterase Rfl Urine RBC Urine WBC Ur Squamous Epith Cells Urine Bacteria Urine Casts Urine Yeast (Budding) Quality VTE Prophylaxis VTE prophylaxis: mechanical ordered
[2025-01-01 14:20] VITALS: BP 115/56; PULSE 64; RESP 18; TEMP 36.4; O2SAT 99
[2025-01-01] MEDS: SODIUM CHLORIDE 0.9% IV 1,000 ML 75 ML IV CONT (15:56)
[2025-01-01 20:25] VITALS: BP 142/57; PULSE 65; RESP 16; TEMP 36.8; O2SAT 96
[2025-01-01] MEDS: ALPRAZolam (*CRX) 0.5 MG TABLET PO (20:34)
[2025-01-01] MEDS: HYDROcodone/acetaminophen (*CRX) 5-325 MG TABLET 1 TAB PO (20:34)
[2025-01-01] MEDS: QUEtiapine FUMARATE XR 50 MG TAB.ER.24H 150 MG PO (20:34)
[2025-01-01] MEDS: DONEPEZIL HCL 10 MG TABLET PO (20:35)
[2025-01-02 00:54] LABS: Glucose Point of Care 172 mg/dl (65-105)
[2025-01-02 05:45] VITALS: BP 184/89; PULSE 60; RESP 20; TEMP 36.3; O2SAT 100
[2025-01-02 05:50] LABS: Basophils Absolute Auto 0.1 K/mm3 (0.0-0.1); Basophils Percent Auto 1.1 % (0.2-1.2); Eosinophils Absolute Auto 0.1 K/mm3 (0-0.3); Eosinophils Percent Auto 2.4 % (0-4.4); Hematocrit 41.6 % (42.0-52.0); Hemoglobin 12.9 g/dL (14.0-18.0); Immature Granulocyte Absolute 0.01 K/mm3 (0.00-0.031); Immature Granulocyte Percent A 0.2 % (0-0.5); Lymphocytes Absolute Auto 0.99 K/mm3 (0.9-3.2); Lymphocytes Percent Auto 21.5 % (18.3-44.2); Mean Corpuscular Hemoglobin 29.6 pg (26-34); Mean Corpuscular Volume 95.4 fl (80-100); Mean Platelet Volume 11.4 fl (7.4-10.4); Monocytes Absolute Auto 0.6 K/mm3 (0.1-0.6); Monocytes Percent Auto 11.9 % (2.6-8.5); Neutrophils Absolute Auto 2.9 K/mm3 (1.3-6.7); Neutrophils Percent Auto 62.9 % (45.5-73.1); Platelet Count Result 162 k/mm3 (150-375); Red Blood Count 4.36 M/mm3 (4.6-6.20); Red Cell Distribution Width 13.6 % (11.5-14.5); White Blood Count 4.6 K/mm3 (4.5-10.0)
[2025-01-02 06:02] LABS: Alanine Aminotransferase 26 U/L (6-50); Albumin Level 3.2 g/dL (3.5-5.1); Alkaline Phosphatase 46 U/L (38-126); Anion Gap 7 mmol/L (4-12); Aspartate Amino Transferase 21 U/L (17-59); Bilirubin,Total 0.3 mg/dL (0.2-1.3); Blood Urea Nitrogen 25 mg/dL (9-20); Calcium 8.2 mg/dL (8.4-10.2); Carbon Dioxide 28 mmol/L (22-30); Chloride 104 mmol/L (98-107); Estimated CRCL calculation 73 ml/min; Estimated Glomerular Filt Rate > 60; Glucose 83 mg/dL (65-110); Potassium 3.7 mmol/L (3.4-5.0); Sodium 139 mmol/L (137-145)
[2025-01-02 08:16] VITALS: O2SAT 97
[2025-01-02] MEDS: OMEGA 3 POLYUNSAT FATTY ACIDS 1 GM CAP PO ×2 (08:56→16:21)
[2025-01-02] MEDS: lamoTRIgine 100 MG TABLET PO ×2 (08:56→21:20)
[2025-01-02] MEDS: lamoTRIgine 50 MG TABLET PO ×2 (08:56→21:19)
[2025-01-02] MEDS: BACLOFEN 10 MG TABLET 20 MG PO ×2 (08:56→16:21)
[2025-01-02] MEDS: LOSARTAN POTASSIUM 25 MG TABLET 50 MG PO (08:56)
--- NOTE | 2025-01-02 10:29 | P.PNIM_ITS ---
Progress Note: A&P Assessment and Plan (1) Acute UTI: Code(s): N39.0 - Urinary tract infection, site not specified Status: Acute Assessment and Plan: - reporting a profound generalized weakness, no significant electrolyte derangements or anemia. Vital signs stable. UA consistent with UTI, suspect this is source of patient's generalized weakness. - UA: Turbid, 2+ protein, 1+ ketones, 3+ blood, 1+ bilirubin, 3+ leuks, greater than 100 RBC and WBC, 4+ bacteria, yeast present. - UC pending - previous micro reviewed. Patient grew coag-negative staph that was pansensitive in March of 2024. - started on Ceftriaxone on 12/31 - encourage water to drink (2) Seizure: Code(s): R56.9 - Unspecified convulsions Status: Chronic Assessment and Plan: - continue home medication: Lamotrigine 150 mg b.i.d. - Reported that he an episode where he felt weak this morning then his body went limp for 15 minutes. Patient reports that he normally feels weak prior to a seizure. Patient reports that his last seizure was 6 months ago. - Check Lamotrigine level. - Neurology consult. - monitor (3) Hypertension: Qualifiers: Hypertension type: primary hypertension Qualified Code(s): I10 - Essential (primary) hypertension Code(s): I10 - Essential (primary) hypertension Status: Chronic Assessment and Plan: - chronic, currently 147/74. - continue home medications: Losartan - monitor (4) Weakness: Code(s): R53.1 - Weakness Status: Acute Assessment and Plan: * Physical therapy Plan Will continue PT while inpatient to avoid deconditioning. Diet: Heart healthy GI Prophylaxis: Not currently indicated DVT Prophylaxis: SCDs Lines/Tubes: Peripheral IV Code Status: Full code Subjective Date/time seen: 01/02/25 10:29 Interval history: Patient reports having an episode where he felt weak this morning then his body went limp for 15 minutes. Patient reports that he normally feels weak prior to a seizure. Patient reports that his last seizure was 6 months ago. Patient denies chest pain, palpitations, shortness of breath, headache, dizziness, nausea, or vomiting. Reports some burning with urination. Review of Systems Review of Systems: All systems reviewed & are unremarkable except as noted in HPI and below Exam Const: General: comfortable and no acute distress Resp: Effort & Inspection: normal respiratory effort Auscultation: clear to auscultation bilaterally Cardio: Rate: regular rate Rhythm: regular rhythm GI: GI Palp: Yes Soft to palpation Auscultation: normal bowel sounds Neuro: Speech: normal speech Extrem: General: no pedal edema Psych: Mental Status: mental status grossly normal Affect: normal affect Objective Data Vital Signs Vital Signs: Vital Signs - 24 hr 01/01/25 14:19 01/01/25 14:20 01/01/25 20:25 Temperature 97.5 F L 98.2 F Pulse Rate 64 65 Respiratory Rate 18 16 Blood Pressure 115/56 L 142/57 H Pulse Oximetry 99 96 Oxygen Delivery Room Air 01/02/25 05:45 01/02/25 08:00 01/02/25 08:16 Temperature 97.4 F L Pulse Rate 60 Respiratory Rate 20 Blood Pressure 184/89 H Pulse Oximetry 100 97 Oxygen Delivery Room Air Room Air Intake/Output Intake/Output: Intake & Output 12/30/24 12/31/24 01/01/25 01/02/25 23:59 23:59 23:59 23:59 Intake Total 100 4150 1054 Output Total 3300 Balance 425 875 3384 Meds/Results Medications: Active Medications Generic Name Dose Route Start Last Admin Trade Name Freq PRN Reason Stop Dose Admin Acetaminophen 650 mg 12/31/24 18:37 Acetaminophen 325 Mg Tablet PO Q6H PRN Mild Pain (1-3) or Fever Hydrocodone Bitart/Acetaminophen 1 tab 12/31/24 21:38 01/01/25 20:34 Hydrocodone/Acetaminophen (*Crx) 5-325 Mg Tablet PO 1 tab Q4H PRN Administration pain (scale score 4-6) Hydrocodone Bitart/Acetaminophen 1 tab 12/31/24 21:38 Hydrocodone/Acetaminophen (*Crx) 10-325 Mg Tablet PO Q6H PRN pain (scale score 7-10) Alprazolam 0.5 mg 12/31/24 21:38 01/01/25 20:34 Alprazolam (*Crx) 0.5 Mg Tablet PO 0.5 mg TID PRN Administration Anxiety Baclofen 20 mg 12/31/24 21:50 01/02/25 08:56 Baclofen 10 Mg Tablet PO 20 mg BID ESTEFANIA Administration Diclofenac Sodium 75 mg 12/31/24 21:38 Diclofenac Sod 75 Mg Tablet.Ec PO BID PRN hip pain Donepezil HCl 10 mg 01/01/25 21:00 01/01/25 20:35 Donepezil Hcl 10 Mg Tablet PO 10 mg HS ESTEFANIA Administration Fish Oil 1 gm 01/01/25 08:00 01/02/25 08:56 [place] 3 Polyunsat Fatty Acids 1 Gm Cap PO 1 gm BIDWM ESTEFANIA Administration Sodium Chloride 1,000 mls @ 75 mls/hr 12/31/24 16:35 01/02/25 09:48 Normal Saline Iv IV CONT Not Given .[id number] ESTEFANIA Ceftriaxone Sodium 1 gm in 50 mls @ 100 mls/hr 01/01/25 16:00 01/01/25 16:25 Rocephin 1 Gm/Ns 50 Ml IVPB 01/08/25 15:59 Infused Q24H ESTEFANIA Infusion Lamotrigine 100 mg 12/31/24 21:55 01/02/25 08:56 Lamotrigine 100 Mg Tablet PO 100 mg Q12HR ESTEFANIA Administration Lamotrigine 50 mg 12/31/24 21:55 01/02/25 08:56 Lamotrigine 50 Mg Tablet PO 50 mg Q12HR ESTEFANIA Administration Losartan Potassium 50 mg 01/01/25 09:00 01/02/25 08:56 Losartan Potassium 25 Mg Tablet PO 50 mg DAILY ESTEFANIA Administration Magnesium Citrate 296 ml 01/01/25 00:07 Magnesium Citrate 300 Ml Btl PO DAILY PRN constipation Magnesium Hydroxide 30 ml 12/31/24 21:38 Magnesium Hydroxide Susp 30 Ml Udc PO HS PRN constipation Ondansetron HCl 4 mg 12/31/24 18:37 Ondansetron Hcl Odt 4 Mg Tablet PO Q6H PRN Nausea And Vomiting Polyethylene Glycol 17 gm 12/31/24 21:38 Polyethylene Glycol 3350 17 Gm Powd.Pack PO DAILY PRN constipation Quetiapine Fumarate 150 mg 12/31/24 21:50 01/01/25 20:34 Quetiapine Fumarate Xr 50 Mg Tab.Er.24h PO 150 mg HS ESTEFANIA Administration Scopolamine 1 patch 12/31/24 21:40 12/31/24 22:01 Scopolamine 1 Mg Patch TRANSDERM 1 patch Q72HR ESTEFANIA Administration Senna 17.2 mg 12/31/24 21:38 Sennosides 8.6 Mg Tablet PO DAILY PRN constipation Radiology Results: ITS Impressions Chest X-Ray 12/31/24 14:23 IMPRESSION: No acute cardiopulmonary pathology. Labs Labs: Laboratory Results - last 24 hr 01/02/25 01/02/25 00:50 05:17 WBC 4.6 RBC 4.36 L Hgb 12.9 L Hct 41.6 L MCV 95.4 MCH 29.6 MCHC 31.0 L RDW 13.6 Plt Count 162 MPV 11.4 H Immature Gran % (Auto) 0.2 Neut % (Auto) 62.9 Lymph % (Auto) 21.5 [place] % (Auto) 11.9 H Eos % (Auto) 2.4 Baso % (Auto) 1.1 Lymph # (Auto) 0.99 [place] # (Auto) 0.6 Eos # (Auto) 0.1 Baso # (Auto) 0.1 Abs Immat Gran (auto) 0.01 Absolute Neuts (auto) 2.9 Absolute Nucleated RBC 0.000 Nucleated RBC % 0.0 Sodium 139 Potassium 3.7 Chloride 104 Carbon Dioxide 28 Anion Gap 7 BUN 25 H Creatinine 0.91 Estim Creat Clear Calc 73 Estimated GFR > 60 Glucose 83 POC Capillary Glucose 172 H Calcium 8.2 L Total Bilirubin 0.3 AST 21 ALT 26 Alkaline Phosphatase 46 Total Protein 6.0 L Albumin 3.2 L Quality VTE Prophylaxis VTE prophylaxis: mechanical ordered
[2025-01-02 13:38] VITALS: BP 147/74; PULSE 64; RESP 18; TEMP 36.7; O2SAT 99
[2025-01-02] MEDS: HYDROcodone/acetaminophen (*CRX) 5-325 MG TABLET 1 TAB PO ×2 (15:29→21:19)
[2025-01-02] MEDS: ALPRAZolam (*CRX) 0.5 MG TABLET PO (15:29)
--- NOTE | 2025-01-02 16:12 | P.CONNEU_ITS ---
Assessment and Plan Assessment and plan (1) Gait disturbance: Code(s): R26.9 - Unspecified abnormalities of gait and mobility Status: Acute (2) Seizure: Code(s): R56.9 - Unspecified convulsions Status: Chronic (3) Schizophrenia: Code(s): F20.9 - Schizophrenia, unspecified Status: Acute (4) Coronary artery disease: Code(s): I25.10 - Atherosclerotic heart disease of [place] coronary artery without angina pectoris Status: Acute (5) Urinary tract infection: Qualifiers: Hematuria presence: with hematuria Urinary tract infection type: acute cystitis Qualified Code(s): N30.01 - Acute cystitis with hematuria Code(s): N39.0 - Urinary tract infection, site not specified Status: Acute (6) Frequent falls: Code(s): R29.6 - Repeated falls Status: Acute Plan I was unable to get him out to ambulate at this time however he apparently has had problem with walking for more than 5 years. He is also diagnosed to have schizophrenia and dementia. As I noted that he used to be on psychotropic medication in the past. I did not find any significant involuntary movements. Also there is no cogwheeling. A CT scan of the lumbosacral spine was performed on 03/02/2024 which has shown diffuse disc bulging and bilateral narrowing of the foramina and root compression at L4-5 region. He requires a EMG and nerve conduction study of both lower limbs for further evaluation. CT scan of brain was performed on 03/31/2024 which did not show any significant abnormalities. With regard to seizures he should continue with current medications which is lamotrigine 150 mg twice a day. The issue regarding urinary tract infection are being addressed by the hospitalist team. We should continue to work with physical therapy. I will go ahead and order some blood work for peripheral neuromuscular disorders. EMG can be done as an outpatient. I would also suggest an MRI of the cervical thoracic and lumbosacral spine in view of the incontinence and weakness. Consult date: 01/02/25 HPI: Marlon Hicks is a 69 year old male With complaints of difficulty in walking admitted from a rehab facility to the hospital. He also history of seizure disorder and has been on lamotrigine 300 mg a day. Patient is a poor historian and also carries diagnosis of dementia. Noted that he is on Aricept as well as Namenda. He has had a fall in 2023 and subarachnoid hemorrhage. He states that he has not been able to walk for very long time. However his ability to walk does seem to fluctuate. The patient is known to have anxiety, depression, coronary artery disease, dyslipidemia and hypertension. He complains of pain in both eyes. In the past she has complained of pain in the lower back but at this time he says it is mostly the lower limbs. His baseline labs to the emergency room were within normal range. GFR was more than 60. Urinalysis consistent with urinary tract infection. He has a urinary catheter in place. He remembers seeing Dr. Cuellar for seizures long time ago. Noted that he was seen in the office in 2020. Office note indicated that he still was having difficulty in walking. Review of Systems 2 Review of Systems: Patient denies any other specific symptoms All systems reviewed & are unremarkable except as noted in HPI and below PMFSH Past Medical History Medical History Subarachnoid hemorrhage Post fall, January 2024 Dementia Seizure GERD (gastroesophageal reflux disease) Coronary artery disease Hypertension Anxiety and depression Hyperlipidemia Family History Family History Sibling Acute myocardial infarction Sibling Acute myocardial infarction Social History Social History Smoking status: Never smoker Alcohol intake: never Substance use: never Substance use type: does not use Do You Feel Safe in your Home?: Yes Lack of Transportation: No Lack of Food: Never True Current Housing: I Have Housing Concerned About Future Housing: No Difficulty Paying Gas/Electric Bills: No Difficulty Paying for Meds: No Currently Unemployed: No Education: Decline to Answer Difficulty w/ Childcare or Family Care: No Living arrangements: with family Gender identity (if verbalized by the patient): Male Spiritual care concerns: No Agree to blood products: Yes Meds Home Medications and Allergies Home Medications ?Medication ?Instructions ?Recorded ?Confirmed ?Type lamotrigine 100 mg tablet 150 mg PO BID 01/26/21 12/31/24 History baclofen 20 mg tablet 20 mg PO BID 01/23/24 12/31/24 History diclofenac sodium 75 mg 75 mg PO BID PRN hip pain 01/23/24 12/31/24 History tablet,delayed release donepezil 10 mg tablet 10 mg PO HS 01/23/24 12/31/24 History icosapent ethyl 1 gram capsule 1 g PO BIDWMEAL 01/23/24 12/31/24 History (Vascepa) alprazolam 0.5 mg tablet 0.5 mg PO TID PRN Anxiety #7 tabs 01/30/24 12/31/24 Rx hydrocodone 10 mg-acetaminophen 1 tablet PO Q6H PRN pain (scale 12/31/24 12/31/24 History 325 mg tablet score 7-10) hydrocodone 5 mg-acetaminophen 325 1 tablet PO Q4H PRN pain (scale 12/31/24 12/31/24 History mg tablet score 4-6) lamotrigine 100 mg tablet 150 mg PO BID 12/31/24 12/31/24 History (Lamictal) losartan 25 mg tablet 50 mg PO DAILY 12/31/24 12/31/24 History magnesium citrate (Citroma oral 296 ml PO ONCE PRN constipation 12/31/24 12/31/24 History solution) magnesium hydroxide 400 mg/5 mL 30 ml PO HS PRN constipation 12/31/24 12/31/24 History oral suspension (Dulcolax (magnesium hydroxide)) mineral oil ([place] Mineral Oil 118 ml RECTAL DAILY PRN 12/31/24 12/31/24 History enema) constipation polyethylene glycol 3350 17 gram 17 g PO DAILY PRN constipation 12/31/24 12/31/24 History oral powder packet quetiapine 150 mg tablet,extended 150 mg PO HS 12/31/24 12/31/24 History release 24 hr scopolamine base 1 mg over 3 days 1 patch transdermal Q3D SECRECTIONS 12/31/24 12/31/24 History transdermal patch sennosides 8.6 mg tablet (senna) 17.2 mg PO DAILY PRN constipation 12/31/24 12/31/24 History Allergies Allergy/AdvReac Type Severity Reaction Status Date / Time No Known Allergies Allergy Verified 12/31/24 13:34 Vital Signs Vital Signs - 24 hr 01/01/25 20:25 01/02/25 05:45 01/02/25 08:00 Temperature 98.2 F 97.4 F L Pulse Rate 65 60 Respiratory Rate 16 20 Blood Pressure 142/57 H 184/89 H Pulse Oximetry 96 100 Oxygen Delivery Room Air 01/02/25 08:16 01/02/25 13:38 Temperature 98.0 F Pulse Rate 64 Respiratory Rate 18 Blood Pressure 147/74 H Pulse Oximetry 97 99 Oxygen Delivery Room Air Exam 2 Narrative: fully conscious alert however he appears to have some cognitive difficulties. No aphasia or dysarthria. Patient does not cooperate very well. Examination head and neck within normal limits. No evidence of external trauma. Cranial nerves pupils were equal reactive light. Visual jaramillo by confrontation are normal. There is no facial asymmetry. Facial sensation intact. Other cranial normal limits for motor system does not cooperate very well. However mild weakness of the proximal muscles in upper lower limbs was suspected. Deep tendon reflexes did not show any evidence for hyperreflexia or any upper motor neuron features. No spasticity was noted. Overall findings are suggestive of lower motor neuron issue. No sensory loss. Patient points to having pain in the posterior thigh region both sides. Results Labs 01/02/25 05:17 01/02/25 05:17 Labs: Short CBC 01/02/25 Range/Units 05:17 WBC 4.6 (4.5-10.0) K/mm3 Hgb 12.9 L (14.0-18.0) g/dL Hct 41.6 L (42.0-52.0) % Plt Count 162 (150-375) k/mm3 [facility] 01/02/25 05:17 Sodium 139 Potassium 3.7 Chloride 104 Carbon Dioxide 28 BUN 25 H Creatinine 0.91 Glucose 83 Calcium 8.2 L Liver Function 01/02/25 Range/Units 05:17 Total Bilirubin 0.3 (0.2-1.3) mg/dL AST 21 (17-59) U/L ALT 26 (6-50) U/L Alkaline Phosphatase 46 (38-126) U/L Albumin 3.2 L (3.5-5.1) g/dL
[2025-01-02 16:54] LABS: Creatine Kinase < 20 U/L (55-170)
[2025-01-02 16:56] LABS: Hemoglobin A1C 5.3 % (<5.7)
[2025-01-02 17:11] LABS: Vitamin D 25 Hydroxy 16.3 ng/mL
[2025-01-02 18:00] LABS: Folic Acid 7.1 ng/mL (2.76->20)
[2025-01-02 20:10] VITALS: BP 153/86; PULSE 67; RESP 16; TEMP 36.4; O2SAT 98
[2025-01-02 20:45] VITALS: PULSE 62; O2SAT 97
[2025-01-02] MEDS: DONEPEZIL HCL 10 MG TABLET PO (21:19)
[2025-01-02] MEDS: QUEtiapine FUMARATE XR 50 MG TAB.ER.24H 150 MG PO (21:19)
[2025-01-03 05:00] VITALS: BP 164/78; PULSE 63; RESP 20; TEMP 36; O2SAT 100
[2025-01-03 05:36] LABS: Basophils Percent Auto 0.6 % (0.2-1.2); Eosinophils Absolute Auto 0.1 K/mm3 (0-0.3); Eosinophils Percent Auto 3.7 % (0-4.4); Hematocrit 41.9 % (42.0-52.0); Hemoglobin 12.9 g/dL (14.0-18.0); Immature Granulocyte Absolute 0.02 K/mm3 (0.00-0.031); Immature Granulocyte Percent A 0.6 % (0-0.5); Immature Platelet Fraction Pct 5.7 % (0.9-11.2); Lymphocytes Absolute Auto 0.81 K/mm3 (0.9-3.2); Lymphocytes Percent Auto 22.9 % (18.3-44.2); Mean Corpuscular HGB Conc 30.8 g/dl (32-36); Mean Corpuscular Hemoglobin 29.9 pg (26-34); Mean Corpuscular Volume 97.2 fl (80-100); Monocytes Absolute Auto 0.4 K/mm3 (0.1-0.6); Monocytes Percent Auto 11.9 % (2.6-8.5); Neutrophils Absolute Auto 2.1 K/mm3 (1.3-6.7); Neutrophils Percent Auto 60.3 % (45.5-73.1); Platelet Count Result 139 k/mm3 (150-375); Red Blood Count 4.31 M/mm3 (4.6-6.20); Red Cell Distribution Width 13.9 % (11.5-14.5); White Blood Count 3.5 K/mm3 (4.5-10.0)
[2025-01-03 05:56] LABS: Alanine Aminotransferase 25 U/L (6-50); Albumin Level 3.2 g/dL (3.5-5.1); Alkaline Phosphatase 48 U/L (38-126); Anion Gap 0 mmol/L (4-12); Aspartate Amino Transferase 21 U/L (17-59); Bilirubin,Total 0.3 mg/dL (0.2-1.3); Blood Urea Nitrogen 21 mg/dL (9-20); Calcium 8.3 mg/dL (8.4-10.2); Carbon Dioxide 31 mmol/L (22-30); Chloride 107 mmol/L (98-107); Estimated CRCL calculation 68 ml/min; Estimated Glomerular Filt Rate > 60; Glucose 110 mg/dL (65-110); Potassium 3.6 mmol/L (3.4-5.0); Sodium 138 mmol/L (137-145)
[2025-01-03] MEDS: lamoTRIgine 100 MG TABLET PO ×2 (07:54→20:22)
[2025-01-03] MEDS: OMEGA 3 POLYUNSAT FATTY ACIDS 1 GM CAP PO ×2 (07:54→16:39)
[2025-01-03] MEDS: LOSARTAN POTASSIUM 25 MG TABLET 50 MG PO (07:54)
[2025-01-03] MEDS: BACLOFEN 10 MG TABLET 20 MG PO ×2 (07:55→16:39)
[2025-01-03] MEDS: lamoTRIgine 50 MG TABLET PO ×2 (07:55→20:22)
[2025-01-03] MEDS: SCOPOLAMINE 1 MG PATCH 1 PATCH TRANSDERM (07:55)
[2025-01-03 08:00] VITALS: O2SAT 95
[2025-01-03 08:14] VITALS: O2SAT 95
[2025-01-03] MEDS: ERGOCALCIFEROL 50,000 UNITS CAPSULE 50000 UNITS PO (10:52)
--- NOTE | 2025-01-03 11:00 | PM.IMPN ---
Progress Note: A&P Assessment and Plan (1) Acute UTI: Code(s): N39.0 - Urinary tract infection, site not specified Status: Acute Assessment and Plan: - reporting a profound generalized weakness, no significant electrolyte derangements or anemia. Vital signs stable. UA consistent with UTI, suspect this is source of patient's generalized weakness. - UA: Turbid, 2+ protein, 1+ ketones, 3+ blood, 1+ bilirubin, 3+ leuks, greater than 100 RBC and WBC, 4+ bacteria, yeast present. - UC showed greater than 100,000 CFU/mL gram positive organism. Repeat UA with reflex. - previous micro reviewed. Patient grew coag-negative staph that was pansensitive in March of 2024. - started on Ceftriaxone on 12/31 - encourage water to drink (2) Seizure: Code(s): R56.9 - Unspecified convulsions Status: Chronic Assessment and Plan: - continue home medication: Lamotrigine 150 mg b.i.d. - Reported that he an episode where he felt weak this morning then his body went limp for 15 minutes. Patient reports that he normally feels weak prior to a seizure. Patient reports that his last seizure was 6 months ago. - Check Lamotrigine level. - Neurology consult, appreciate recommendations. - MRI cervical, thoracic, and lumbar.. - monitor (3) Hypertension: Qualifiers: Hypertension type: primary hypertension Qualified Code(s): I10 - Essential (primary) hypertension Code(s): I10 - Essential (primary) hypertension Status: Chronic Assessment and Plan: - chronic, currently 147/75. - continue home medications: Losartan - monitor (4) Weakness: Code(s): R53.1 - Weakness Status: Acute Assessment and Plan: Physical therapy (5) Vitamin D deficiency: Code(s): E55.9 - Vitamin D deficiency, unspecified Status: Acute Assessment and Plan: Vitamin D level 16.3. Ergocalciferol 50,000 units subq weekly started. (6) Nasal congestion: Code(s): R09.81 - Nasal congestion Status: Acute Assessment and Plan: Add Loratadine 10 mg PO daily. Add Fluticasone 2 sprays per nostril daily. Plan Will continue PT while inpatient to avoid deconditioning. Diet: Heart healthy GI Prophylaxis: Not currently indicated DVT Prophylaxis: SCDs Lines/Tubes: Peripheral IV Code Status: Full code Subjective Date/time seen: 01/03/25 11:00 Interval history: Patient reports nasal congestion. Patient denies chest pain, palpitations, shortness of breath, headache, dizziness, nausea, or vomiting. Review of Systems Review of Systems: All systems reviewed & are unremarkable except as noted in HPI and below Exam Const: General: comfortable and no acute distress Resp: Effort & Inspection: normal respiratory effort Auscultation: clear to auscultation bilaterally Cardio: Rate: regular rate Rhythm: regular rhythm GI: GI Palp: Yes Soft to palpation Auscultation: normal bowel sounds Neuro: Speech: normal speech Extrem: General: no pedal edema Psych: Mental Status: mental status grossly normal Affect: normal affect Objective Data Vital Signs Vital Signs: Vital Signs - 24 hr 01/02/25 13:38 01/02/25 20:00 01/02/25 20:10 Temperature 98.0 F 97.5 F L Pulse Rate 64 67 Respiratory Rate 18 16 Blood Pressure 147/74 H 153/86 H Pulse Oximetry 99 98 Oxygen Delivery Room Air Fraction of Inspired Oxygen 01/02/25 20:45 01/03/25 05:00 01/03/25 08:00 Temperature 96.8 F L Pulse Rate 62 63 Respiratory Rate 20 Blood Pressure 164/78 H Pulse Oximetry 97 100 95 Oxygen Delivery Room Air Room Air Fraction of Inspired Oxygen 21 01/03/25 08:14 Temperature Pulse Rate Respiratory Rate Blood Pressure Pulse Oximetry 95 Oxygen Delivery Room Air Fraction of Inspired Oxygen 21 Intake/Output Intake/Output: Intake & Output 12/31/24 01/01/25 01/02/25 01/03/25 23:59 23:59 23:59 23:59 Intake Total 100 4150 2526 1144 Output Total 3300 1400 1300 Balance 204 093 2271 -156 Meds/Results Medications: Active Medications Generic Name Dose Route Start Last Admin Trade Name Freq PRN Reason Stop Dose Admin Acetaminophen 650 mg 12/31/24 18:37 Acetaminophen 325 Mg Tablet PO Q6H PRN Mild Pain (1-3) or Fever Hydrocodone Bitart/Acetaminophen 1 tab 12/31/24 21:38 01/02/25 21:19 Hydrocodone/Acetaminophen (*Crx) 5-325 Mg Tablet PO 1 tab Q4H PRN Administration pain (scale score 4-6) Hydrocodone Bitart/Acetaminophen 1 tab 12/31/24 21:38 Hydrocodone/Acetaminophen (*Crx) 10-325 Mg Tablet PO Q6H PRN pain (scale score 7-10) Alprazolam 0.5 mg 12/31/24 21:38 01/02/25 15:29 Alprazolam (*Crx) 0.5 Mg Tablet PO 0.5 mg TID PRN Administration Anxiety Baclofen 20 mg 12/31/24 21:50 01/03/25 07:55 Baclofen 10 Mg Tablet PO 20 mg BID ESTEFANIA Administration Diclofenac Sodium 75 mg 12/31/24 21:38 Diclofenac Sod 75 Mg Tablet.Ec PO BID PRN hip pain Donepezil HCl 10 mg 01/01/25 21:00 01/02/25 21:19 Donepezil Hcl 10 Mg Tablet PO 10 mg HS ESTEFANIA Administration Ergocalciferol 50,000 units 01/03/25 09:00 01/03/25 10:52 Ergocalciferol 50,000 Units Capsule PO 50,000 units Harvey@0900 ESTEFANIA Administration Fish Oil 1 gm 01/01/25 08:00 01/03/25 07:54 [place] 3 Polyunsat Fatty Acids 1 Gm Cap PO 1 gm BIDWM ESTEFANIA Administration Ceftriaxone Sodium 1 gm in 50 mls @ 100 mls/hr 01/01/25 16:00 01/02/25 15:58 Rocephin 1 Gm/Ns 50 Ml IVPB 01/08/25 15:59 Infused Q24H ESTEFANIA Infusion Lamotrigine 100 mg 12/31/24 21:55 01/03/25 07:54 Lamotrigine 100 Mg Tablet PO 100 mg Q12HR ESTEFANIA Administration Lamotrigine 50 mg 12/31/24 21:55 01/03/25 07:55 Lamotrigine 50 Mg Tablet PO 50 mg Q12HR ESTEFANIA Administration Losartan Potassium 50 mg 01/01/25 09:00 01/03/25 07:54 Losartan Potassium 25 Mg Tablet PO 50 mg DAILY ESTEFANIA Administration Magnesium Citrate 296 ml 01/01/25 00:07 Magnesium Citrate 300 Ml Btl PO DAILY PRN constipation Magnesium Hydroxide 30 ml 12/31/24 21:38 Magnesium Hydroxide Susp 30 Ml Udc PO HS PRN constipation Ondansetron HCl 4 mg 12/31/24 18:37 Ondansetron Hcl Odt 4 Mg Tablet PO Q6H PRN Nausea And Vomiting Polyethylene Glycol 17 gm 12/31/24 21:38 Polyethylene Glycol 3350 17 Gm Powd.Pack PO DAILY PRN constipation Quetiapine Fumarate 150 mg 12/31/24 21:50 01/02/25 21:19 Quetiapine Fumarate Xr 50 Mg Tab.Er.24h PO 150 mg HS ESTEFANIA Administration Scopolamine 1 patch 12/31/24 21:40 01/03/25 07:55 Scopolamine 1 Mg Patch TRANSDERM 1 patch Q72HR ESTEFANIA Administration Senna 17.2 mg 12/31/24 21:38 Sennosides 8.6 Mg Tablet PO DAILY PRN constipation Radiology Results: ITS Impressions Chest X-Ray 12/31/24 14:23 IMPRESSION: No acute cardiopulmonary pathology. Labs Labs: Laboratory Results - last 24 hr 01/02/25 01/03/25 06:18 05:21 WBC 3.5 L RBC 4.31 L Hgb 12.9 L Hct 41.9 L MCV 97.2 MCH 29.9 MCHC 30.8 L RDW 13.9 Plt Count 139 L MPV 11.0 H Immature Gran % (Auto) 0.6 H Neut % (Auto) 60.3 Lymph % (Auto) 22.9 [place] % (Auto) 11.9 H Eos % (Auto) 3.7 Baso % (Auto) 0.6 Lymph # (Auto) 0.81 L [place] # (Auto) 0.4 Eos # (Auto) 0.1 Baso # (Auto) 0.0 Abs Immat Gran (auto) 0.02 Absolute Neuts (auto) 2.1 Absolute Nucleated RBC 0.000 Nucleated RBC % 0.0 % Immature Plt Fraction 5.7 Sodium 138 Potassium 3.6 Chloride 107 Carbon Dioxide 31 H Anion Gap 0 L BUN 21 H Creatinine 0.97 Estim Creat Clear Calc 68 Estimated GFR > 60 Glucose 110 Hemoglobin A1c 5.3 Calcium 8.3 L Total Bilirubin 0.3 AST 21 ALT 25 Alkaline Phosphatase 48 Total Creatine Kinase < 20 L Total Protein 6.0 L Albumin 3.2 L Vitamin B12 242.0 Vitamin D 25-Hydroxy 16.3 Folate 7.1 Quality VTE Prophylaxis VTE prophylaxis: mechanical ordered
[2025-01-03] MEDS: LORATADINE 10 MG TABLET PO (12:02)
[2025-01-03] MEDS: FLUTICASONE PROPIONATE 0.05% NA SPR 16 GM BTL (*BKC) 2 SPRAY NASAL (12:02)
[2025-01-03 14:00] VITALS: BP 147/75; PULSE 65; RESP 18; TEMP 36.6; O2SAT 98
[2025-01-03] MEDS: HYDROcodone/acetaminophen (*CRX) 5-325 MG TABLET 1 TAB PO (15:03)
[2025-01-03 20:00] VITALS: BP 137/77; PULSE 67; RESP 18; TEMP 36.8; O2SAT 96
[2025-01-03] MEDS: DONEPEZIL HCL 10 MG TABLET PO (20:22)
[2025-01-03] MEDS: QUEtiapine FUMARATE XR 50 MG TAB.ER.24H 150 MG PO (20:22)
[2025-01-03] MEDS: ALPRAZolam (*CRX) 0.5 MG TABLET PO (20:22)
[2025-01-04] MEDS: HYDROcodone/acetaminophen (*CRX) 5-325 MG TABLET 1 TAB PO ×2 (00:51→09:12)
[2025-01-04 01:29] LABS: Add Urine Microscopic? YES; Appearance Urine Clear (Clear); Bacteria Urine None Seen /hpf; Bilirubin Urine Negative (Negative); Blood Urine 1+ (Negative); Color Urine Yellow (Yellow); Glucose Urine UA Negative (Negative); Ketones Urine Negative (Negative); Leukocyte Esterase Ur Trace LEU/UL (Negative); Nitrate Urine Negative (Negative); Non Pathogenic Casts 0-2; Protein Urine Negative (Negative); Specific Grav Ur 1.011 (1.001-1.035); Squamous Epithelial Cell Urine None Seen /hpf (Few); Urobilinogen Urine 0.2 mg/dL (<2.0); WBC Urine 0-5 /hpf (0-3)
[2025-01-04 06:00] VITALS: BP 109/88; PULSE 58; RESP 18; TEMP 36.1; O2SAT 97
[2025-01-04 06:08] LABS: Basophils Percent Auto 0.7 % (0.2-1.2); Eosinophils Absolute Auto 0.2 K/mm3 (0-0.3); Eosinophils Percent Auto 4.4 % (0-4.4); Hematocrit 39.9 % (42.0-52.0); Hemoglobin 12.6 g/dL (14.0-18.0); Immature Granulocyte Absolute 0.02 K/mm3 (0.00-0.031); Immature Granulocyte Percent A 0.5 % (0-0.5); Immature Platelet Fraction Pct 5.1 % (0.9-11.2); Lymphocytes Absolute Auto 1.03 K/mm3 (0.9-3.2); Lymphocytes Percent Auto 25.4 % (18.3-44.2); Mean Corpuscular HGB Conc 31.6 g/dl (32-36); Mean Corpuscular Hemoglobin 30.1 pg (26-34); Mean Corpuscular Volume 95.5 fl (80-100); Mean Platelet Volume 11.5 fl (7.4-10.4); Monocytes Absolute Auto 0.5 K/mm3 (0.1-0.6); Monocytes Percent Auto 13.3 % (2.6-8.5); Neutrophils Absolute Auto 2.3 K/mm3 (1.3-6.7); Neutrophils Percent Auto 55.7 % (45.5-73.1); Platelet Count Result 134 k/mm3 (150-375); Red Blood Count 4.18 M/mm3 (4.6-6.20); Red Cell Distribution Width 13.9 % (11.5-14.5); White Blood Count 4.1 K/mm3 (4.5-10.0)
[2025-01-04 06:17] LABS: Alanine Aminotransferase 24 U/L (6-50); Albumin Level 3.2 g/dL (3.5-5.1); Alkaline Phosphatase 51 U/L (38-126); Anion Gap 3 mmol/L (4-12); Aspartate Amino Transferase 23 U/L (17-59); Bilirubin,Total 0.2 mg/dL (0.2-1.3); Blood Urea Nitrogen 21 mg/dL (9-20); Calcium 8.5 mg/dL (8.4-10.2); Carbon Dioxide 31 mmol/L (22-30); Chloride 104 mmol/L (98-107); Estimated CRCL calculation 72 ml/min; Estimated Glomerular Filt Rate > 60; Glucose 99 mg/dL (65-110); Potassium 3.9 mmol/L (3.4-5.0); Sodium 138 mmol/L (137-145)
[2025-01-04] MEDS: OMEGA 3 POLYUNSAT FATTY ACIDS 1 GM CAP PO ×2 (09:01→16:29)
[2025-01-04] MEDS: BACLOFEN 10 MG TABLET 20 MG PO ×2 (09:01→16:29)
[2025-01-04] MEDS: LOSARTAN POTASSIUM 25 MG TABLET 50 MG PO (09:01)
[2025-01-04] MEDS: lamoTRIgine 50 MG TABLET PO ×2 (09:01→20:50)
[2025-01-04] MEDS: LORATADINE 10 MG TABLET PO (09:01)
[2025-01-04] MEDS: lamoTRIgine 100 MG TABLET PO ×2 (09:01→20:50)
[2025-01-04] MEDS: FLUTICASONE PROPIONATE 0.05% NA SPR 16 GM BTL (*BKC) 2 SPRAY NASAL (09:02)
[2025-01-04] MEDS: AMOXICILLIN/CLAVULANATE K 875-125 MG TAB 1 TABLET PO ×2 (10:32→20:50)
--- NOTE | 2025-01-04 11:31 | P.PNIM_ITS ---
Progress Note: A&P Assessment and Plan (1) Acute UTI: Code(s): N39.0 - Urinary tract infection, site not specified Status: Acute Assessment and Plan: - reporting a profound generalized weakness, no significant electrolyte derangements or anemia. Vital signs stable. UA consistent with UTI, suspect this is source of patient's generalized weakness. - UA: Turbid, 2+ protein, 1+ ketones, 3+ blood, 1+ bilirubin, 3+ leuks, greater than 100 RBC and WBC, 4+ bacteria, yeast present. - UC showed greater than 100,000 CFU/mL gram positive organism. Repeat UA with reflex. - previous micro reviewed. Patient grew coag-negative staph that was pansensitive in March of 2024. - started on Ceftriaxone on 12/31, 01/04 switch to Augmentin 875-125 mg 1 tablet PO q12. - encourage water to drink (2) Seizure: Code(s): R56.9 - Unspecified convulsions Status: Chronic Assessment and Plan: - continue home medication: Lamotrigine 150 mg b.i.d. - Reported that he an episode where he felt weak this morning then his body went limp for 15 minutes. Patient reports that he normally feels weak prior to a seizure. Patient reports that his last seizure was 6 months ago. - Check Lamotrigine level. - Neurology consult, appreciate recommendations. - MRI cervical, thoracic, and lumbar. Awaiting information about patients loop recorder before able to proceed with MRI. - monitor (3) Hypertension: Qualifiers: Hypertension type: primary hypertension Qualified Code(s): I10 - Essential (primary) hypertension Code(s): I10 - Essential (primary) hypertension Status: Chronic Assessment and Plan: - chronic, currently 109/88. - continue home medications: Losartan - monitor (4) Weakness: Code(s): R53.1 - Weakness Status: Acute Assessment and Plan: * Physical therapy * MRI cervical, thoracic, and lumbar. Awaiting information about patients loop recorder before able to proceed with MRI. (5) Vitamin D deficiency: Code(s): E55.9 - Vitamin D deficiency, unspecified Status: Acute Assessment and Plan: * Vitamin D level 16.3. * Ergocalciferol 50,000 units subq weekly started. (6) Nasal congestion: Code(s): R09.81 - Nasal congestion Status: Acute Assessment and Plan: * Loratadine 10 mg PO daily. * Fluticasone 2 sprays per nostril daily. * Improved with medications. Plan Will continue PT while inpatient to avoid deconditioning. Diet: Heart healthy GI Prophylaxis: Not currently indicated DVT Prophylaxis: SCDs Lines/Tubes: Peripheral IV Code Status: Full code Subjective Date/time seen: 01/04/25 11:31 Interval history: Patient reports pain in both legs that is an 8, constant, and aching with tingling down the back of both legs that is not new. Patient reports multiple falls in the past. Patient reports a headache that is a 6, frequent, and aching. Patient denies chest pain, palpitations, dizziness, nausea, or vomiting. Patient reports a little burning with urination. Review of Systems 2 Review of Systems: All systems reviewed & are unremarkable except as noted in HPI and below Exam Const: General: no acute distress and uncomfortable Resp: Effort & Inspection: normal respiratory effort Auscultation: clear to auscultation bilaterally Cardio: Rate: regular rate Rhythm: regular rhythm GI: GI Palp: Yes Soft to palpation Auscultation: normal bowel sounds Neuro: Speech: normal speech Sensory Exam: normal sensation (patient able to feel me touch lower legs and feet. ) Extrem: General: no pedal edema Psych: Mental Status: mental status grossly normal Affect: normal affect Objective Data Vital Signs Vital Signs: Vital Signs - 24 hr 01/03/25 14:00 01/03/25 20:00 01/04/25 06:00 Temperature 97.9 F 98.3 F 96.9 F L Pulse Rate 65 67 58 L Respiratory Rate 18 18 18 Blood Pressure 147/75 H 137/77 109/88 Pulse Oximetry 98 96 97 Oxygen Delivery 01/04/25 08:00 Temperature Pulse Rate Respiratory Rate Blood Pressure Pulse Oximetry Oxygen Delivery Room Air Intake/Output Intake/Output: Intake & Output 01/01/25 01/02/25 01/03/25 01/04/25 23:59 23:59 23:59 23:59 Intake Total 4150 2526 2994 1235 Output Total 3300 1400 3200 2350 Balance 850 9443 -998 -3211 Meds/Results Medications: Active Medications Generic Name Dose Route Start Last Admin Trade Name Freq PRN Reason Stop Dose Admin Acetaminophen 650 mg 12/31/24 18:37 Acetaminophen 325 Mg Tablet PO Q6H PRN Mild Pain (1-3) or Fever Hydrocodone Bitart/Acetaminophen 1 tab 12/31/24 21:38 01/04/25 09:12 Hydrocodone/Acetaminophen (*Crx) 5-325 Mg Tablet PO 1 tab Q4H PRN Administration pain (scale score 4-6) Hydrocodone Bitart/Acetaminophen 1 tab 12/31/24 21:38 Hydrocodone/Acetaminophen (*Crx) 10-325 Mg Tablet PO Q6H PRN pain (scale score 7-10) Alprazolam 0.5 mg 12/31/24 21:38 01/03/25 20:22 Alprazolam (*Crx) 0.5 Mg Tablet PO 0.5 mg TID PRN Administration Anxiety Amoxicillin/Clavulanate Potassium 1 tablet 01/04/25 10:00 01/04/25 10:32 Amoxicillin/Clavulanate K 875-125 Mg Tab PO 01/08/25 09:01 1 tablet Q12HR ESTEFANIA Administration Baclofen 20 mg 12/31/24 21:50 01/04/25 09:01 Baclofen 10 Mg Tablet PO 20 mg BID ESTEFANIA Administration Diclofenac Sodium 75 mg 12/31/24 21:38 Diclofenac Sod 75 Mg Tablet.Ec PO BID PRN hip pain Donepezil HCl 10 mg 01/01/25 21:00 01/03/25 20:22 Donepezil Hcl 10 Mg Tablet PO 10 mg HS ESTEFANIA Administration Ergocalciferol 50,000 units 01/03/25 09:00 01/03/25 10:52 Ergocalciferol 50,000 Units Capsule PO 50,000 units Harvey@0900 ESTEFANIA Administration Fish Oil 1 gm 01/01/25 08:00 01/04/25 09:01 [place] 3 Polyunsat Fatty Acids 1 Gm Cap PO 1 gm BIDWM ESTEFANIA Administration Fluticasone Propionate 2 spray 01/03/25 11:05 01/04/25 09:02 Fluticasone Propionate 0.05% Na Spr 16 Gm Btl (*Bkc) NASAL 2 spray QAM ESTEFANIA Administration Lamotrigine 100 mg 12/31/24 21:55 01/04/25 09:01 Lamotrigine 100 Mg Tablet PO 100 mg Q12HR ESTEFANIA Administration Lamotrigine 50 mg 12/31/24 21:55 01/04/25 09:01 Lamotrigine 50 Mg Tablet PO 50 mg Q12HR ESTEFANIA Administration Loratadine 10 mg 01/03/25 11:05 01/04/25 09:01 Loratadine 10 Mg Tablet PO 10 mg QAM ESTEFANIA Administration Losartan Potassium 50 mg 01/01/25 09:00 01/04/25 09:01 Losartan Potassium 25 Mg Tablet PO 50 mg DAILY ESTEFANIA Administration Magnesium Citrate 296 ml 01/01/25 00:07 Magnesium Citrate 300 Ml Btl PO DAILY PRN constipation Magnesium Hydroxide 30 ml 12/31/24 21:38 Magnesium Hydroxide Susp 30 Ml Udc PO HS PRN constipation Ondansetron HCl 4 mg 12/31/24 18:37 Ondansetron Hcl Odt 4 Mg Tablet PO Q6H PRN Nausea And Vomiting Polyethylene Glycol 17 gm 12/31/24 21:38 Polyethylene Glycol 3350 17 Gm Powd.Pack PO DAILY PRN constipation Quetiapine Fumarate 150 mg 12/31/24 21:50 01/03/25 20:22 Quetiapine Fumarate Xr 50 Mg Tab.Er.24h PO 150 mg HS ESTEFANIA Administration Scopolamine 1 patch 12/31/24 21:40 01/03/25 07:55 Scopolamine 1 Mg Patch TRANSDERM 1 patch Q72HR ESTEFANIA Administration Senna 17.2 mg 12/31/24 21:38 Sennosides 8.6 Mg Tablet PO DAILY PRN constipation Radiology Results: ITS Impressions Chest X-Ray 12/31/24 14:23 IMPRESSION: No acute cardiopulmonary pathology. Labs Labs: Laboratory Results - last 24 hr 01/04/25 01/04/25 01:17 05:46 WBC 4.1 L RBC 4.18 L Hgb 12.6 L Hct 39.9 L MCV 95.5 MCH 30.1 MCHC 31.6 L RDW 13.9 Plt Count 134 L MPV 11.5 H Immature Gran % (Auto) 0.5 Neut % (Auto) 55.7 Lymph % (Auto) 25.4 [place] % (Auto) 13.3 H Eos % (Auto) 4.4 Baso % (Auto) 0.7 Lymph # (Auto) 1.03 [place] # (Auto) 0.5 Eos # (Auto) 0.2 Baso # (Auto) 0.0 Abs Immat Gran (auto) 0.02 Absolute Neuts (auto) 2.3 Absolute Nucleated RBC 0.000 Nucleated RBC % 0.0 % Immature Plt Fraction 5.1 Sodium 138 Potassium 3.9 Chloride 104 Carbon Dioxide 31 H Anion Gap 3 L BUN 21 H Creatinine 0.92 Estim Creat Clear Calc 72 Estimated GFR > 60 Glucose 99 Calcium 8.5 Total Bilirubin 0.2 AST 23 ALT 24 Alkaline Phosphatase 51 Total Protein 6.0 L Albumin 3.2 L Urine Color Yellow Urine Appearance Clear Urine pH 6.0 Ur Specific [place] 1.011 Urine Protein Negative Urine Glucose (UA) Negative Urine Ketones Negative Ur Blood (Man) 1+ H Urine Nitrate Negative Urine Bilirubin Negative Urine Urobilinogen 0.2 Leukocyte Esterase Rfl Trace H Urine RBC 6-10 H Urine WBC 0-5 Ur Squamous Epith Cells None seen Urine Bacteria None seen Urine Casts 0-2 Quality VTE Prophylaxis VTE prophylaxis: mechanical ordered
[2025-01-04] MEDS: ALPRAZolam (*CRX) 0.5 MG TABLET PO (11:32)
[2025-01-04] MEDS: DICLOFENAC SOD 75 MG TABLET.EC PO (11:32)
--- NOTE | 2025-01-04 12:10 | PC.NURSE ---
Spoke with Michael Hicks, brother, regarding Loop Recorder documentation. Michael stated the patient's Pigment Mixer is Dr. Oden, with [facility].
[2025-01-04 15:16] VITALS: BP 136/65; PULSE 74; RESP 20; TEMP 36.6; O2SAT 97
[2025-01-04 20:40] VITALS: BP 134/77; PULSE 66; RESP 16; TEMP 37.3; O2SAT 96
[2025-01-04] MEDS: QUEtiapine FUMARATE XR 50 MG TAB.ER.24H 150 MG PO (20:50)
[2025-01-04] MEDS: DONEPEZIL HCL 10 MG TABLET PO (20:50)
[2025-01-04] MEDS: HYDROcodone/acetaminophen (*CRX) 10-325 MG TABLET 1 TAB PO (20:57)
[2025-01-05] MEDS: ALPRAZolam (*CRX) 0.5 MG TABLET PO (01:30)
[2025-01-05 06:04] VITALS: BP 111/78; PULSE 52; RESP 16; TEMP 36.8; O2SAT 96
[2025-01-05 06:20] LABS: Basophils Percent Auto 1.2 % (0.2-1.2); Eosinophils Absolute Auto 0.2 K/mm3 (0-0.3); Eosinophils Percent Auto 6.4 % (0-4.4); Hemoglobin 12.5 g/dL (14.0-18.0); Immature Granulocyte Absolute 0.02 K/mm3 (0.00-0.031); Immature Granulocyte Percent A 0.6 % (0-0.5); Immature Platelet Fraction Pct 4.8 % (0.9-11.2); Lymphocytes Absolute Auto 1.11 K/mm3 (0.9-3.2); Lymphocytes Percent Auto 32.5 % (18.3-44.2); Mean Corpuscular HGB Conc 31.3 g/dl (32-36); Mean Corpuscular Hemoglobin 29.8 pg (26-34); Mean Corpuscular Volume 95.2 fl (80-100); Monocytes Absolute Auto 0.4 K/mm3 (0.1-0.6); Monocytes Percent Auto 12.3 % (2.6-8.5); Neutrophils Absolute Auto 1.6 K/mm3 (1.3-6.7); Platelet Count Result 132 k/mm3 (150-375); Red Cell Distribution Width 13.9 % (11.5-14.5); White Blood Count 3.4 K/mm3 (4.5-10.0)
[2025-01-05 06:43] LABS: Alanine Aminotransferase 26 U/L (6-50); Alkaline Phosphatase 52 U/L (38-126); Anion Gap 4 mmol/L (4-12); Aspartate Amino Transferase 21 U/L (17-59); Bilirubin,Total 0.4 mg/dL (0.2-1.3); Blood Urea Nitrogen 25 mg/dL (9-20); Calcium 8.2 mg/dL (8.4-10.2); Carbon Dioxide 29 mmol/L (22-30); Chloride 104 mmol/L (98-107); Estimated CRCL calculation 73 ml/min; Estimated Glomerular Filt Rate > 60; Glucose 90 mg/dL (65-110); Potassium 3.9 mmol/L (3.4-5.0); Sodium 137 mmol/L (137-145)
[2025-01-05] MEDS: lamoTRIgine 50 MG TABLET PO ×2 (09:28→20:57)
[2025-01-05] MEDS: LOSARTAN POTASSIUM 25 MG TABLET 50 MG PO (09:28)
[2025-01-05] MEDS: AMOXICILLIN/CLAVULANATE K 875-125 MG TAB 1 TABLET PO ×2 (09:28→20:56)
[2025-01-05] MEDS: BACLOFEN 10 MG TABLET 20 MG PO ×2 (09:28→17:26)
[2025-01-05] MEDS: OMEGA 3 POLYUNSAT FATTY ACIDS 1 GM CAP PO ×2 (09:28→17:26)
[2025-01-05] MEDS: LORATADINE 10 MG TABLET PO (09:28)
[2025-01-05] MEDS: lamoTRIgine 100 MG TABLET PO ×2 (09:28→20:57)
[2025-01-05] MEDS: FLUTICASONE PROPIONATE 0.05% NA SPR 16 GM BTL (*BKC) 2 SPRAY NASAL (09:29)
--- NOTE | 2025-01-05 11:17 | P.PNIM_ITS ---
Progress Note: A&P Assessment and Plan (1) Acute UTI: Code(s): N39.0 - Urinary tract infection, site not specified Status: Acute Assessment and Plan: - reporting a profound generalized weakness, no significant electrolyte derangements or anemia. Vital signs stable. UA consistent with UTI, suspect this is source of patient's generalized weakness. - UA: Turbid, 2+ protein, 1+ ketones, 3+ blood, 1+ bilirubin, 3+ leuks, greater than 100 RBC and WBC, 4+ bacteria, yeast present. - UC showed greater than 100,000 CFU/mL gram positive organism. - previous micro reviewed. Patient grew coag-negative staph that was pansensitive in March of 2024. - started on Ceftriaxone on 12/31, 01/04 switch to Augmentin 875-125 mg 1 tablet PO q12. - encourage water to drink (2) Seizure: Code(s): R56.9 - Unspecified convulsions Status: Chronic Assessment and Plan: - continue home medication: Lamotrigine 150 mg b.i.d. - Reported that he an episode where he felt weak this morning then his body went limp for 15 minutes. Patient reports that he normally feels weak prior to a seizure. Patient reports that his last seizure was 6 months ago. - Check Lamotrigine level- pending. - Neurology consult, appreciate recommendations. - MRI cervical, thoracic, and lumbar. Awaiting information about patients loop recorder before able to proceed with MRI. - monitor (3) Hypertension: Qualifiers: Hypertension type: primary hypertension Qualified Code(s): I10 - Essential (primary) hypertension Code(s): I10 - Essential (primary) hypertension Status: Chronic Assessment and Plan: - chronic, currently 111/78. - continue home medications: Losartan - monitor (4) Weakness: Code(s): R53.1 - Weakness Status: Acute Assessment and Plan: * Physical therapy * MRI cervical, thoracic, and lumbar. Awaiting information about patients loop recorder before able to proceed with MRI. (5) Vitamin D deficiency: Code(s): E55.9 - Vitamin D deficiency, unspecified Status: Acute Assessment and Plan: * Vitamin D level 16.3. * Ergocalciferol 50,000 units subq weekly started. (6) Nasal congestion: Code(s): R09.81 - Nasal congestion Status: Acute Assessment and Plan: * Loratadine 10 mg PO daily. * Fluticasone 2 sprays per nostril daily. * Improved with medications. Plan Will continue PT while inpatient to avoid deconditioning. Diet: Heart healthy GI Prophylaxis: Not currently indicated DVT Prophylaxis: SCDs Lines/Tubes: Peripheral IV Code Status: Full code Subjective Date/time seen: 01/05/25 11:17 Interval history: Patient sitting up in chair, he had just completed physical therapy. Patient reports pain in both legs that is an 6, constant, and aching with tingling down the back of both legs that is not new. Patient denies chest pain, palpitations, headaches, dizziness, nausea, or vomiting. Review of Systems Review of Systems: All systems reviewed & are unremarkable except as noted in HPI and below Exam Const: General: no acute distress and uncomfortable Resp: Effort & Inspection: normal respiratory effort Auscultation: diminished lung sounds Cardio: Rate: regular rate Rhythm: regular rhythm GI: GI Palp: Yes Soft to palpation Auscultation: normal bowel sounds Neuro: Speech: normal speech Extrem: General: no pedal edema Psych: Mental Status: mental status grossly normal Affect: normal affect Objective Data Vital Signs Vital Signs: Vital Signs - 24 hr 01/04/25 15:16 01/04/25 20:00 01/04/25 20:40 Temperature 97.8 F 99.2 F Pulse Rate 74 66 Respiratory Rate 20 16 Blood Pressure 136/65 134/77 Pulse Oximetry 97 96 Oxygen Delivery Room Air 01/05/25 06:04 Temperature 98.2 F Pulse Rate 52 L Respiratory Rate 16 Blood Pressure 111/78 Pulse Oximetry 96 Oxygen Delivery Intake/Output Intake/Output: Intake & Output 01/02/25 01/03/25 01/04/25 01/05/25 23:59 23:59 23:59 23:59 Intake Total 2526 2994 1715 100 Output Total 1400 3200 3550 1375 Balance 1126 -605 -[phone] -4255 Meds/Results Medications: Active Medications Generic Name Dose Route Start Last Admin Trade Name Freq PRN Reason Stop Dose Admin Acetaminophen 650 mg 12/31/24 18:37 Acetaminophen 325 Mg Tablet PO Q6H PRN Mild Pain (1-3) or Fever Hydrocodone Bitart/Acetaminophen 1 tab 12/31/24 21:38 01/04/25 09:12 Hydrocodone/Acetaminophen (*Crx) 5-325 Mg Tablet PO 1 tab Q4H PRN Administration pain (scale score 4-6) Hydrocodone Bitart/Acetaminophen 1 tab 12/31/24 21:38 01/04/25 20:57 Hydrocodone/Acetaminophen (*Crx) 10-325 Mg Tablet PO 1 tab Q6H PRN Administration pain (scale score 7-10) Alprazolam 0.5 mg 12/31/24 21:38 01/05/25 01:30 Alprazolam (*Crx) 0.5 Mg Tablet PO 0.5 mg TID PRN Administration Anxiety Amoxicillin/Clavulanate Potassium 1 tablet 01/04/25 10:00 01/05/25 09:28 Amoxicillin/Clavulanate K 875-125 Mg Tab PO 01/08/25 09:01 1 tablet Q12HR ESTEFANIA Administration Baclofen 20 mg 12/31/24 21:50 01/05/25 09:28 Baclofen 10 Mg Tablet PO 20 mg BID ESTEFANIA Administration Diclofenac Sodium 75 mg 12/31/24 21:38 01/04/25 11:32 Diclofenac Sod 75 Mg Tablet.Ec PO 75 mg BID PRN Administration hip pain Donepezil HCl 10 mg 01/01/25 21:00 01/04/25 20:50 Donepezil Hcl 10 Mg Tablet PO 10 mg HS ESTEFANIA Administration Ergocalciferol 50,000 units 01/03/25 09:00 01/03/25 10:52 Ergocalciferol 50,000 Units Capsule PO 50,000 units Harvey@0900 ESTEFANIA Administration Fish Oil 1 gm 01/01/25 08:00 01/05/25 09:28 [place] 3 Polyunsat Fatty Acids 1 Gm Cap PO 1 gm BIDWM ESTEFANIA Administration Fluticasone Propionate 2 spray 01/03/25 11:05 01/05/25 09:29 Fluticasone Propionate 0.05% Na Spr 16 Gm Btl (*Bkc) NASAL 2 spray QAM ESTEFANIA Administration Lamotrigine 100 mg 12/31/24 21:55 01/05/25 09:28 Lamotrigine 100 Mg Tablet PO 100 mg Q12HR ESTEFANIA Administration Lamotrigine 50 mg 12/31/24 21:55 01/05/25 09:28 Lamotrigine 50 Mg Tablet PO 50 mg Q12HR ESTEFANIA Administration Loratadine 10 mg 01/03/25 11:05 01/05/25 09:28 Loratadine 10 Mg Tablet PO 10 mg QAM ESTEFANIA Administration Losartan Potassium 50 mg 01/01/25 09:00 01/05/25 09:28 Losartan Potassium 25 Mg Tablet PO 50 mg DAILY ESTEFANIA Administration Magnesium Citrate 296 ml 01/01/25 00:07 Magnesium Citrate 300 Ml Btl PO DAILY PRN constipation Magnesium Hydroxide 30 ml 12/31/24 21:38 Magnesium Hydroxide Susp 30 Ml Udc PO HS PRN constipation Ondansetron HCl 4 mg 12/31/24 18:37 Ondansetron Hcl Odt 4 Mg Tablet PO Q6H PRN Nausea And Vomiting Polyethylene Glycol 17 gm 12/31/24 21:38 Polyethylene Glycol 3350 17 Gm Powd.Pack PO DAILY PRN constipation Quetiapine Fumarate 150 mg 12/31/24 21:50 01/04/25 20:50 Quetiapine Fumarate Xr 50 Mg Tab.Er.24h PO 150 mg HS ESTEFANIA Administration Scopolamine 1 patch 12/31/24 21:40 01/03/25 07:55 Scopolamine 1 Mg Patch TRANSDERM 1 patch Q72HR ESTEFANIA Administration Senna 17.2 mg 12/31/24 21:38 Sennosides 8.6 Mg Tablet PO DAILY PRN constipation Radiology Results: ITS Impressions Chest X-Ray 12/31/24 14:23 IMPRESSION: No acute cardiopulmonary pathology. Labs Labs: Laboratory Results - last 24 hr 01/05/25 05:50 WBC 3.4 L RBC 4.20 L Hgb 12.5 L Hct 40.0 L MCV 95.2 MCH 29.8 MCHC 31.3 L RDW 13.9 Plt Count 132 L MPV 11.0 H Immature Gran % (Auto) 0.6 H Neut % (Auto) 47.0 Lymph % (Auto) 32.5 [place] % (Auto) 12.3 H Eos % (Auto) 6.4 H Baso % (Auto) 1.2 Lymph # (Auto) 1.11 [place] # (Auto) 0.4 Eos # (Auto) 0.2 Baso # (Auto) 0.0 Abs Immat Gran (auto) 0.02 Absolute Neuts (auto) 1.6 Absolute Nucleated RBC 0.000 Nucleated RBC % 0.0 % Immature Plt Fraction 4.8 Sodium 137 Potassium 3.9 Chloride 104 Carbon Dioxide 29 Anion Gap 4 BUN 25 H Creatinine 0.90 Estim Creat Clear Calc 73 Estimated GFR > 60 Glucose 90 Calcium 8.2 L Total Bilirubin 0.4 AST 21 ALT 26 Alkaline Phosphatase 52 Total Protein 6.0 L Albumin 3.0 L Quality VTE Prophylaxis VTE prophylaxis: mechanical ordered
--- NOTE | 2025-01-05 15:04 | PCOTNOTE ---
Attempted to see Patient this afternoon. Patient in bed sleeping. Patient declined participating this session. Per [employer], Patient just was returned to bed.
[2025-01-05 15:21] VITALS: BP 104/62; PULSE 62; RESP 18; TEMP 36.3; O2SAT 97
[2025-01-05] MEDS: HYDROcodone/acetaminophen (*CRX) 5-325 MG TABLET 1 TAB PO (17:26)
[2025-01-05] MEDS: QUEtiapine FUMARATE XR 50 MG TAB.ER.24H 150 MG PO (20:56)
[2025-01-05] MEDS: DONEPEZIL HCL 10 MG TABLET PO (20:57)
[2025-01-05 21:00] VITALS: BP 114/67; PULSE 65; RESP 16; TEMP 36.5; O2SAT 98
[2025-01-06 05:50] VITALS: BP 97/48; PULSE 63; RESP 16; TEMP 36.3; O2SAT 96
[2025-01-06 06:51] LABS: Basophils Percent Auto 0.5 % (0.2-1.2); Eosinophils Absolute Auto 0.3 K/mm3 (0-0.3); Eosinophils Percent Auto 6.3 % (0-4.4); Hematocrit 41.1 % (42.0-52.0); Hemoglobin 12.7 g/dL (14.0-18.0); Immature Granulocyte Absolute 0.03 K/mm3 (0.00-0.031); Immature Granulocyte Percent A 0.8 % (0-0.5); Lymphocytes Absolute Auto 1.42 K/mm3 (0.9-3.2); Lymphocytes Percent Auto 35.9 % (18.3-44.2); Mean Corpuscular HGB Conc 30.9 g/dl (32-36); Mean Corpuscular Hemoglobin 29.3 pg (26-34); Mean Corpuscular Volume 94.7 fl (80-100); Mean Platelet Volume 11.3 fl (7.4-10.4); Monocytes Absolute Auto 0.5 K/mm3 (0.1-0.6); Monocytes Percent Auto 11.6 % (2.6-8.5); Neutrophils Absolute Auto 1.8 K/mm3 (1.3-6.7); Neutrophils Percent Auto 44.9 % (45.5-73.1); Platelet Count Result 151 k/mm3 (150-375); Red Blood Count 4.34 M/mm3 (4.6-6.20); Red Cell Distribution Width 13.7 % (11.5-14.5)
[2025-01-06 06:56] LABS: Alanine Aminotransferase 43 U/L (6-50); Albumin Level 3.3 g/dL (3.5-5.1); Alkaline Phosphatase 51 U/L (38-126); Anion Gap 5 mmol/L (4-12); Aspartate Amino Transferase 35 U/L (17-59); Bilirubin,Total 0.3 mg/dL (0.2-1.3); Blood Urea Nitrogen 30 mg/dL (9-20); Calcium 8.5 mg/dL (8.4-10.2); Carbon Dioxide 27 mmol/L (22-30); Chloride 106 mmol/L (98-107); Estimated CRCL calculation 76 ml/min; Estimated Glomerular Filt Rate > 60; Glucose 97 mg/dL (65-110); Potassium 4.3 mmol/L (3.4-5.0); Sodium 138 mmol/L (137-145)
[2025-01-06 07:31] LABS: Platelet Estimate Adequate (Adequate)
[2025-01-06 07:32] LABS: Atypical Lymphocytes Present; Schistocytes None Seen
[2025-01-06] MEDS: AMOXICILLIN/CLAVULANATE K 875-125 MG TAB 1 TABLET PO ×2 (07:47→19:48)
[2025-01-06] MEDS: OMEGA 3 POLYUNSAT FATTY ACIDS 1 GM CAP PO ×2 (07:47→16:41)
[2025-01-06] MEDS: lamoTRIgine 50 MG TABLET PO ×2 (07:47→19:48)
[2025-01-06] MEDS: LOSARTAN POTASSIUM 25 MG TABLET 50 MG PO (07:48)
[2025-01-06] MEDS: SCOPOLAMINE 1 MG PATCH 1 PATCH TRANSDERM (07:48)
[2025-01-06] MEDS: lamoTRIgine 100 MG TABLET PO ×2 (07:48→19:48)
[2025-01-06] MEDS: LORATADINE 10 MG TABLET PO (07:48)
[2025-01-06] MEDS: BACLOFEN 10 MG TABLET 20 MG PO ×2 (07:48→16:41)
[2025-01-06] MEDS: FLUTICASONE PROPIONATE 0.05% NA SPR 16 GM BTL (*BKC) 2 SPRAY NASAL (07:49)
[2025-01-06 07:55] VITALS: BP 118/66; PULSE 58
--- NOTE | 2025-01-06 08:38 | PM.IMPN ---
Progress Note: A&P Assessment and Plan (1) Acute UTI: Code(s): N39.0 - Urinary tract infection, site not specified Status: Acute Assessment and Plan: - reporting a profound generalized weakness, no significant electrolyte derangements or anemia. Vital signs stable. UA consistent with UTI, suspect this is source of patient's generalized weakness. - UA: Turbid, 2+ protein, 1+ ketones, 3+ blood, 1+ bilirubin, 3+ leuks, greater than 100 RBC and WBC, 4+ bacteria, yeast present. - UC showed greater than 100,000 CFU/mL gram positive organism likely colonizer - previous micro reviewed. Patient grew coag-negative staph that was pansensitive in March of 2024. - started on Ceftriaxone on 12/31, 01/04 switch to Augmentin 875-125 mg 1 tablet PO q12. - encourage water to drink (2) Seizure: Code(s): R56.9 - Unspecified convulsions Status: Chronic Assessment and Plan: - continue home medication: Lamotrigine 150 mg b.i.d. - Reported that he an episode where he felt weak then his body went limp for 15 minutes. Patient reports that he normally feels weak prior to a seizure. Patient reports that his last seizure was 6 months ago. - Check Lamotrigine level- pending. - Neurology consult, appreciate recommendations. - MRI cervical, thoracic, and lumbar. Awaiting information about patients loop recorder before able to proceed with MRI. - monitor (3) Hypertension: Qualifiers: Hypertension type: primary hypertension Qualified Code(s): I10 - Essential (primary) hypertension Code(s): I10 - Essential (primary) hypertension Status: Chronic Assessment and Plan: - continue home medications: Losartan - monitor (4) Weakness: Code(s): R53.1 - Weakness Status: Acute Assessment and Plan: Physical therapy MRI cervical, thoracic, and lumbar. Awaiting information about patients loop recorder before able to proceed with MRI. (5) Vitamin D deficiency: Code(s): E55.9 - Vitamin D deficiency, unspecified Status: Acute Assessment and Plan: Vitamin D level 16.3. Ergocalciferol 50,000 units subq weekly started. (6) Nasal congestion: Code(s): R09.81 - Nasal congestion Status: Acute Assessment and Plan: Loratadine 10 mg PO daily. Fluticasone 2 sprays per nostril daily. Improved with medications. Plan Ambulatory dysfunction chronic Will continue PT while inpatient to avoid deconditioning. Diet: Heart healthy GI Prophylaxis: Not currently indicated DVT Prophylaxis: SCDs Lines/Tubes: Peripheral IV Code Status: Full code Subjective Date/time seen: 01/06/25 08:38 Interval history: No overnight events. Discussed with the nursing staff. Denies any new issues. Denies chest pain shortness of breath. Generalized weakness reported. Review of Systems Review of Systems: All systems reviewed & are unremarkable except as noted in HPI and below Exam Narrative: Const: General: no acute distress and uncomfortable Resp: Effort & Inspection: normal respiratory effort Auscultation: diminished lung sounds Cardio: Rate: regular rate Rhythm: regular rhythm GI: GI Palp: Yes Soft to palpation Auscultation: normal bowel sounds Neuro: Speech: normal speech generalized weakness Extrem: General: no pedal edema Psych: Mental Status: mental status grossly normal Affect: normal affect Objective Data Vital Signs Vital Signs: Vital Signs - 24 hr 01/05/25 15:21 01/05/25 21:00 01/06/25 05:50 Temperature 97.4 F L 97.7 F 97.3 F L Pulse Rate 62 65 63 Respiratory Rate 18 16 16 Blood Pressure 104/62 114/67 97/48 L Pulse Oximetry 97 98 96 01/06/25 07:55 Temperature Pulse Rate 58 L Respiratory Rate Blood Pressure 118/66 Pulse Oximetry Intake/Output Intake/Output: Intake & Output 01/03/25 01/04/25 01/05/25 01/06/25 23:59 23:59 23:59 23:59 Intake Total 2994 1715 1580 Output Total 3200 3470 1644 564 [facility] -206 [phone] -[phone] Meds/Results Medications: Active Medications Generic Name Dose Route Start Last Admin Trade Name Freq PRN Reason Stop Dose Admin Acetaminophen 650 mg 12/31/24 18:37 Acetaminophen 325 Mg Tablet PO Q6H PRN Mild Pain (1-3) or Fever Hydrocodone Bitart/Acetaminophen 1 tab 12/31/24 21:38 01/05/25 17:26 Hydrocodone/Acetaminophen (*Crx) 5-325 Mg Tablet PO 1 tab Q4H PRN Administration pain (scale score 4-6) Hydrocodone Bitart/Acetaminophen 1 tab 12/31/24 21:38 01/04/25 20:57 Hydrocodone/Acetaminophen (*Crx) 10-325 Mg Tablet PO 1 tab Q6H PRN Administration pain (scale score 7-10) Alprazolam 0.5 mg 12/31/24 21:38 01/05/25 01:30 Alprazolam (*Crx) 0.5 Mg Tablet PO 0.5 mg TID PRN Administration Anxiety Amoxicillin/Clavulanate Potassium 1 tablet 01/04/25 10:00 01/06/25 07:47 Amoxicillin/Clavulanate K 875-125 Mg Tab PO 01/08/25 09:01 1 tablet Q12HR ESTEFANIA Administration Baclofen 20 mg 12/31/24 21:50 01/06/25 07:48 Baclofen 10 Mg Tablet PO 20 mg BID ESTEFANIA Administration Diclofenac Sodium 75 mg 12/31/24 21:38 01/04/25 11:32 Diclofenac Sod 75 Mg Tablet.Ec PO 75 mg BID PRN Administration hip pain Donepezil HCl 10 mg 01/01/25 21:00 01/05/25 20:57 Donepezil Hcl 10 Mg Tablet PO 10 mg HS ESTEFANIA Administration Ergocalciferol 50,000 units 01/03/25 09:00 01/03/25 10:52 Ergocalciferol 50,000 Units Capsule PO 50,000 units Harvey@0900 ESTEFANIA Administration Fish Oil 1 gm 01/01/25 08:00 01/06/25 07:47 [place] 3 Polyunsat Fatty Acids 1 Gm Cap PO 1 gm BIDWM ESTEFANIA Administration Fluticasone Propionate 2 spray 01/03/25 11:05 01/06/25 07:49 Fluticasone Propionate 0.05% Na Spr 16 Gm Btl (*Bkc) NASAL 2 spray QAM ESTEFANIA Administration Lamotrigine 100 mg 12/31/24 21:55 01/06/25 07:48 Lamotrigine 100 Mg Tablet PO 100 mg Q12HR ESTEFANIA Administration Lamotrigine 50 mg 12/31/24 21:55 01/06/25 07:47 Lamotrigine 50 Mg Tablet PO 50 mg Q12HR ESTEFANIA Administration Loratadine 10 mg 01/03/25 11:05 01/06/25 07:48 Loratadine 10 Mg Tablet PO 10 mg QAM ESTEFANIA Administration Losartan Potassium 50 mg 01/01/25 09:00 01/06/25 07:48 Losartan Potassium 25 Mg Tablet PO 50 mg DAILY ESTEFANIA Administration Magnesium Citrate 296 ml 01/01/25 00:07 Magnesium Citrate 300 Ml Btl PO DAILY PRN constipation Magnesium Hydroxide 30 ml 12/31/24 21:38 Magnesium Hydroxide Susp 30 Ml Udc PO HS PRN constipation Ondansetron HCl 4 mg 12/31/24 18:37 Ondansetron Hcl Odt 4 Mg Tablet PO Q6H PRN Nausea And Vomiting Polyethylene Glycol 17 gm 12/31/24 21:38 Polyethylene Glycol 3350 17 Gm Powd.Pack PO DAILY PRN constipation Quetiapine Fumarate 150 mg 12/31/24 21:50 01/05/25 20:56 Quetiapine Fumarate Xr 50 Mg Tab.Er.24h PO 150 mg HS ESTEFANIA Administration Scopolamine 1 patch 12/31/24 21:40 01/06/25 07:48 Scopolamine 1 Mg Patch TRANSDERM 1 patch Q72HR ESTEFANIA Administration Senna 17.2 mg 12/31/24 21:38 Sennosides 8.6 Mg Tablet PO DAILY PRN constipation Radiology Results: ITS Impressions Chest X-Ray 12/31/24 14:23 IMPRESSION: No acute cardiopulmonary pathology. Labs Labs: Laboratory Results - last 24 hr 01/06/25 05:58 WBC 4.0 L RBC 4.34 L Hgb 12.7 L Hct 41.1 L MCV 94.7 MCH 29.3 MCHC 30.9 L RDW 13.7 Plt Count 151 MPV 11.3 H Immature Gran % (Auto) 0.8 H Neut % (Auto) 44.9 L Lymph % (Auto) 35.9 [place] % (Auto) 11.6 H Eos % (Auto) 6.3 H Baso % (Auto) 0.5 Lymph # (Auto) 1.42 [place] # (Auto) 0.5 Eos # (Auto) 0.3 Baso # (Auto) 0.0 Abs Immat Gran (auto) 0.03 Absolute Neuts (auto) 1.8 Absolute Nucleated RBC 0.000 Band Neutrophils % Not Reportable Nucleated RBC % 0.0 Atypical Lymphocytes Present Platelet Estimate Adequate Schistocytes None seen Sodium 138 Potassium 4.3 Chloride 106 Carbon Dioxide 27 Anion Gap 5 BUN 30 H Creatinine 0.87 Estim Creat Clear Calc 76 Estimated GFR > 60 Glucose 97 Calcium 8.5 Total Bilirubin 0.3 AST 35 ALT 43 Alkaline Phosphatase 51 Total Protein 6.0 L Albumin 3.3 L
[2025-01-06 10:38] LABS: Homocysteine 10.7 umol/L (< or = 15.2)
[2025-01-06 14:00] VITALS: BP 121/68; PULSE 76; RESP 18; TEMP 36.1; O2SAT 97
[2025-01-06 15:24] LABS: Lamotrigine Lamictal 3.7 mcg/mL (2.5-15.0)
[2025-01-06 18:04] LABS: Vitamin B1 13 nmol/L (8-30)
[2025-01-06 19:08] LABS: Vitamin B6 4.5 ng/mL (2.1-21.7)
[2025-01-06] MEDS: QUEtiapine FUMARATE XR 50 MG TAB.ER.24H 150 MG PO (19:48)
[2025-01-06] MEDS: DONEPEZIL HCL 10 MG TABLET PO (19:48)
[2025-01-06 22:19] VITALS: BP 131/89; PULSE 62; RESP 17; TEMP 36; O2SAT 96
[2025-01-07 06:30] VITALS: BP 143/71; PULSE 55; RESP 17; TEMP 36.1; O2SAT 99
[2025-01-07 06:50] LABS: Basophils Percent Auto 0.8 % (0.2-1.2); Eosinophils Absolute Auto 0.3 K/mm3 (0-0.3); Eosinophils Percent Auto 5.8 % (0-4.4); Hematocrit 42.2 % (42.0-52.0); Immature Granulocyte Absolute 0.04 K/mm3 (0.00-0.031); Immature Granulocyte Percent A 0.8 % (0-0.5); Lymphocytes Absolute Auto 1.48 K/mm3 (0.9-3.2); Lymphocytes Percent Auto 30.7 % (18.3-44.2); Mean Corpuscular HGB Conc 30.8 g/dl (32-36); Mean Corpuscular Hemoglobin 29.2 pg (26-34); Mean Corpuscular Volume 94.8 fl (80-100); Mean Platelet Volume 11.2 fl (7.4-10.4); Monocytes Absolute Auto 0.6 K/mm3 (0.1-0.6); Monocytes Percent Auto 11.4 % (2.6-8.5); Neutrophils Absolute Auto 2.4 K/mm3 (1.3-6.7); Neutrophils Percent Auto 50.5 % (45.5-73.1); Platelet Count Result 163 k/mm3 (150-375); Red Blood Count 4.45 M/mm3 (4.6-6.20); Red Cell Distribution Width 13.8 % (11.5-14.5); White Blood Count 4.8 K/mm3 (4.5-10.0)
[2025-01-07 07:05] LABS: Alanine Aminotransferase 43 U/L (6-50); Albumin Level 3.4 g/dL (3.5-5.1); Alkaline Phosphatase 58 U/L (38-126); Anion Gap 5 mmol/L (4-12); Aspartate Amino Transferase 27 U/L (17-59); Bilirubin,Total 0.4 mg/dL (0.2-1.3); Blood Urea Nitrogen 22 mg/dL (9-20); Calcium 8.8 mg/dL (8.4-10.2); Carbon Dioxide 31 mmol/L (22-30); Chloride 103 mmol/L (98-107); Estimated CRCL calculation 67 ml/min; Estimated Glomerular Filt Rate > 60; Glucose 95 mg/dL (65-110); Potassium 4.3 mmol/L (3.4-5.0); Sodium 139 mmol/L (137-145)
[2025-01-07] MEDS: lamoTRIgine 100 MG TABLET PO ×2 (08:04→20:59)
[2025-01-07] MEDS: LORATADINE 10 MG TABLET PO (08:04)
[2025-01-07] MEDS: OMEGA 3 POLYUNSAT FATTY ACIDS 1 GM CAP PO ×2 (08:04→17:00)
[2025-01-07] MEDS: LOSARTAN POTASSIUM 25 MG TABLET 50 MG PO (08:04)
[2025-01-07] MEDS: lamoTRIgine 50 MG TABLET PO ×2 (08:05→20:59)
[2025-01-07] MEDS: BACLOFEN 10 MG TABLET 20 MG PO ×2 (08:05→17:00)
[2025-01-07] MEDS: AMOXICILLIN/CLAVULANATE K 875-125 MG TAB 1 TABLET PO ×2 (08:05→21:00)
[2025-01-07] MEDS: HYDROcodone/acetaminophen (*CRX) 10-325 MG TABLET 1 TAB PO (08:07)
[2025-01-07] MEDS: FLUTICASONE PROPIONATE 0.05% NA SPR 16 GM BTL (*BKC) 2 SPRAY NASAL (08:08)
--- NOTE | 2025-01-07 10:29 | PM.IMPN ---
Progress Note: A&P Assessment and Plan (1) Acute UTI: Code(s): N39.0 - Urinary tract infection, site not specified Status: Acute Assessment and Plan: - reporting a profound generalized weakness, no significant electrolyte derangements or anemia. Vital signs stable. UA consistent with UTI, suspect this is source of patient's generalized weakness. - UA: Turbid, 2+ protein, 1+ ketones, 3+ blood, 1+ bilirubin, 3+ leuks, greater than 100 RBC and WBC, 4+ bacteria, yeast present. - UC showed greater than 100,000 CFU/mL gram positive organism likely colonizer - previous micro reviewed. Patient grew coag-negative staph that was pansensitive in March of 2024. - started on Ceftriaxone on 12/31, 01/04 switch to Augmentin 875-125 mg 1 tablet PO q12. - encourage water to drink (2) Seizure: Code(s): R56.9 - Unspecified convulsions Status: Chronic Assessment and Plan: - continue home medication: Lamotrigine 150 mg b.i.d. - Reported that he an episode where he felt weak then his body went limp for 15 minutes. Patient reports that he normally feels weak prior to a seizure. Patient reports that his last seizure was 6 months ago. - Check Lamotrigine level- pending. - Neurology consult, appreciate recommendations. - MRI cervical, thoracic, and lumbar. Awaiting information about patients loop recorder before able to proceed with MRI. - monitor (3) Hypertension: Qualifiers: Hypertension type: primary hypertension Qualified Code(s): I10 - Essential (primary) hypertension Code(s): I10 - Essential (primary) hypertension Status: Chronic Assessment and Plan: - continue home medications: Losartan - monitor (4) Weakness: Code(s): R53.1 - Weakness Status: Acute Assessment and Plan: Physical therapy MRI cervical, thoracic, and lumbar. Awaiting information about patients loop recorder before able to proceed with MRI. (5) Vitamin D deficiency: Code(s): E55.9 - Vitamin D deficiency, unspecified Status: Acute Assessment and Plan: Vitamin D level 16.3. Ergocalciferol 50,000 units subq weekly started. (6) Nasal congestion: Code(s): R09.81 - Nasal congestion Status: Acute Assessment and Plan: Loratadine 10 mg PO daily. Fluticasone 2 sprays per nostril daily. Improved with medications. Plan Ambulatory dysfunction chronic Will continue PT while inpatient to avoid deconditioning. Diet: Heart healthy GI Prophylaxis: Not currently indicated DVT Prophylaxis: SCDs Lines/Tubes: Peripheral IV Code Status: Full code Subjective Date/time seen: 01/07/25 10:29 Interval history: No overnight events. Feels weak. Working with therapy. Review of Systems Review of Systems: All systems reviewed & are unremarkable except as noted in HPI and below Exam Narrative: Const: General: no acute distress and uncomfortable Resp: Effort & Inspection: normal respiratory effort Auscultation: diminished lung sounds Cardio: Rate: regular rate Rhythm: regular rhythm GI: GI Palp: Yes Soft to palpation Auscultation: normal bowel sounds Neuro: Speech: normal speech generalized weakness Extrem: General: no pedal edema Psych: Mental Status: mental status grossly normal Affect: normal affect Objective Data Vital Signs Vital Signs: Vital Signs - 24 hr 01/06/25 14:00 01/06/25 22:19 01/07/25 06:30 Temperature 96.9 F L 96.8 F L 97.0 F L Pulse Rate 76 62 55 L Respiratory Rate 18 17 17 Blood Pressure 121/68 131/89 143/71 H Pulse Oximetry 97 96 99 Intake/Output Intake/Output: Intake & Output 01/04/25 01/05/25 01/06/25 01/07/25 23:59 23:59 23:59 23:59 Intake Total 1715 1580 720 830 Output Total 3550 1359 2175 250 Balance -5109 -453 -9355 224 Meds/Results Medications: Active Medications Generic Name Dose Route Start Last Admin Trade Name Freq PRN Reason Stop Dose Admin Acetaminophen 650 mg 12/31/24 18:37 Acetaminophen 325 Mg Tablet PO Q6H PRN Mild Pain (1-3) or Fever Hydrocodone Bitart/Acetaminophen 1 tab 12/31/24 21:38 01/05/25 17:26 Hydrocodone/Acetaminophen (*Crx) 5-325 Mg Tablet PO 1 tab Q4H PRN Administration pain (scale score 4-6) Hydrocodone Bitart/Acetaminophen 1 tab 12/31/24 21:38 01/07/25 08:07 Hydrocodone/Acetaminophen (*Crx) 10-325 Mg Tablet PO 1 tab Q6H PRN Administration pain (scale score 7-10) Alprazolam 0.5 mg 12/31/24 21:38 01/05/25 01:30 Alprazolam (*Crx) 0.5 Mg Tablet PO 0.5 mg TID PRN Administration Anxiety Amoxicillin/Clavulanate Potassium 1 tablet 01/04/25 10:00 01/07/25 08:05 Amoxicillin/Clavulanate K 875-125 Mg Tab PO 01/08/25 09:01 1 tablet Q12HR ESTEFANIA Administration Baclofen 20 mg 12/31/24 21:50 01/07/25 08:05 Baclofen 10 Mg Tablet PO 20 mg BID ESTEFANIA Administration Diclofenac Sodium 75 mg 12/31/24 21:38 01/04/25 11:32 Diclofenac Sod 75 Mg Tablet.Ec PO 75 mg BID PRN Administration hip pain Donepezil HCl 10 mg 01/01/25 21:00 01/06/25 19:48 Donepezil Hcl 10 Mg Tablet PO 10 mg HS ESTEFANIA Administration Ergocalciferol 1,250 mcg 01/10/25 09:00 Ergocalciferol (Vitamin D2) 1,250 Mcg (50,000 Units) Capsule PO Harvey@0900 ESTEFANIA Fish Oil 1 gm 01/01/25 08:00 01/07/25 08:04 [place] 3 Polyunsat Fatty Acids 1 Gm Cap PO 1 gm BIDWM ESTEFANIA Administration Fluticasone Propionate 2 spray 01/03/25 11:05 01/07/25 08:08 Fluticasone Propionate 0.05% Na Spr 16 Gm Btl (*Bkc) NASAL 2 spray QAM ESTEFANIA Administration Lamotrigine 100 mg 12/31/24 21:55 01/07/25 08:04 Lamotrigine 100 Mg Tablet PO 100 mg Q12HR ESTEFANIA Administration Lamotrigine 50 mg 12/31/24 21:55 01/07/25 08:05 Lamotrigine 50 Mg Tablet PO 50 mg Q12HR ESTEFANIA Administration Loratadine 10 mg 01/03/25 11:05 01/07/25 08:04 Loratadine 10 Mg Tablet PO 10 mg QAM ESTEFANIA Administration Losartan Potassium 50 mg 01/01/25 09:00 01/07/25 08:04 Losartan Potassium 25 Mg Tablet PO 50 mg DAILY ESTEFANIA Administration Magnesium Citrate 296 ml 01/01/25 00:07 Magnesium Citrate 300 Ml Btl PO DAILY PRN constipation Magnesium Hydroxide 30 ml 12/31/24 21:38 Magnesium Hydroxide Susp 30 Ml Udc PO HS PRN constipation Ondansetron HCl 4 mg 12/31/24 18:37 Ondansetron Hcl Odt 4 Mg Tablet PO Q6H PRN Nausea And Vomiting Polyethylene Glycol 17 gm 12/31/24 21:38 Polyethylene Glycol 3350 17 Gm Powd.Pack PO DAILY PRN constipation Quetiapine Fumarate 150 mg 12/31/24 21:50 01/06/25 19:48 Quetiapine Fumarate Xr 50 Mg Tab.Er.24h PO 150 mg HS ESTEFANIA Administration Scopolamine 1 patch 12/31/24 21:40 01/06/25 07:48 Scopolamine 1 Mg Patch TRANSDERM 1 patch Q72HR ESTEFANIA Administration Senna 17.2 mg 12/31/24 21:38 Sennosides 8.6 Mg Tablet PO DAILY PRN constipation Radiology Results: ITS Impressions Chest X-Ray 12/31/24 14:23 IMPRESSION: No acute cardiopulmonary pathology. Labs Labs: Laboratory Results - last 24 hr 01/02/25 01/03/25 01/07/25 10:41 05:21 06:15 WBC 4.8 RBC 4.45 L Hgb 13.0 L Hct 42.2 MCV 94.8 MCH 29.2 MCHC 30.8 L RDW 13.8 Plt Count 163 MPV 11.2 H Immature Gran % (Auto) 0.8 H Neut % (Auto) 50.5 Lymph % (Auto) 30.7 [place] % (Auto) 11.4 H Eos % (Auto) 5.8 H Baso % (Auto) 0.8 Lymph # (Auto) 1.48 [place] # (Auto) 0.6 Eos # (Auto) 0.3 Baso # (Auto) 0.0 Abs Immat Gran (auto) 0.04 H Absolute Neuts (auto) 2.4 Absolute Nucleated RBC 0.000 Nucleated RBC % 0.0 Sodium 139 Potassium 4.3 Chloride 103 Carbon Dioxide 31 H Anion Gap 5 BUN 22 H Creatinine 0.99 Estim Creat Clear Calc 67 Estimated GFR > 60 Glucose 95 Calcium 8.8 Total Bilirubin 0.4 AST 27 ALT 43 Alkaline Phosphatase 58 Total Protein 6.0 L Albumin 3.4 L Vitamin B1 13 Vitamin B6 4.5 Homocysteine 10.7 Lamotrigine 3.7
[2025-01-07 14:00] VITALS: BP 109/59; PULSE 62; RESP 14; TEMP 36.4; O2SAT 96
[2025-01-07] MEDS: ACETAMINOPHEN 325 MG TABLET 650 MG PO (16:52)
[2025-01-07] MEDS: QUEtiapine FUMARATE XR 50 MG TAB.ER.24H 150 MG PO (20:59)
[2025-01-07] MEDS: DONEPEZIL HCL 10 MG TABLET PO (20:59)
[2025-01-07 21:55] VITALS: BP 124/64; PULSE 66; RESP 20; TEMP 36.5; O2SAT 97
[2025-01-07 22:00] VITALS: PULSE 90; RESP 14; O2SAT 95
[2025-01-08 06:00] VITALS: BP 126/78; PULSE 55; RESP 20; TEMP 36.4; O2SAT 96
[2025-01-08 06:20] LABS: Basophils Absolute Auto 0.1 K/mm3 (0.0-0.1); Basophils Percent Auto 0.9 % (0.2-1.2); Eosinophils Absolute Auto 0.3 K/mm3 (0-0.3); Eosinophils Percent Auto 5.2 % (0-4.4); Hematocrit 42.2 % (42.0-52.0); Hemoglobin 12.8 g/dL (14.0-18.0); Immature Granulocyte Absolute 0.04 K/mm3 (0.00-0.031); Immature Granulocyte Percent A 0.7 % (0-0.5); Lymphocytes Absolute Auto 1.42 K/mm3 (0.9-3.2); Lymphocytes Percent Auto 26.2 % (18.3-44.2); Mean Corpuscular HGB Conc 30.3 g/dl (32-36); Mean Corpuscular Hemoglobin 29.3 pg (26-34); Mean Corpuscular Volume 96.6 fl (80-100); Mean Platelet Volume 10.9 fl (7.4-10.4); Monocytes Absolute Auto 0.5 K/mm3 (0.1-0.6); Monocytes Percent Auto 8.8 % (2.6-8.5); Neutrophils Absolute Auto 3.2 K/mm3 (1.3-6.7); Neutrophils Percent Auto 58.2 % (45.5-73.1); Platelet Count Result 163 k/mm3 (150-375); Red Blood Count 4.37 M/mm3 (4.6-6.20); Red Cell Distribution Width 13.7 % (11.5-14.5); White Blood Count 5.4 K/mm3 (4.5-10.0)
[2025-01-08 06:28] LABS: Alanine Aminotransferase 36 U/L (6-50); Albumin Level 3.4 g/dL (3.5-5.1); Alkaline Phosphatase 59 U/L (38-126); Anion Gap 6 mmol/L (4-12); Aspartate Amino Transferase 25 U/L (17-59); Bilirubin,Total 0.4 mg/dL (0.2-1.3); Blood Urea Nitrogen 21 mg/dL (9-20); Calcium 8.9 mg/dL (8.4-10.2); Carbon Dioxide 27 mmol/L (22-30); Chloride 105 mmol/L (98-107); Estimated CRCL calculation 74 ml/min; Estimated Glomerular Filt Rate > 60; Glucose 98 mg/dL (65-110); Potassium 4.1 mmol/L (3.4-5.0); Sodium 138 mmol/L (137-145)
[2025-01-08] MEDS: lamoTRIgine 50 MG TABLET PO ×2 (08:37→20:55)
[2025-01-08] MEDS: OMEGA 3 POLYUNSAT FATTY ACIDS 1 GM CAP PO ×2 (08:37→16:19)
[2025-01-08] MEDS: LOSARTAN POTASSIUM 25 MG TABLET 50 MG PO (08:38)
[2025-01-08] MEDS: LORATADINE 10 MG TABLET PO (08:38)
[2025-01-08] MEDS: guaiFENesin 12 HR 600 MG TABCR PO ×2 (08:38→20:55)
[2025-01-08] MEDS: BACLOFEN 10 MG TABLET 20 MG PO ×2 (08:38→16:19)
[2025-01-08] MEDS: lamoTRIgine 100 MG TABLET PO ×2 (08:38→20:55)
[2025-01-08] MEDS: AMOXICILLIN/CLAVULANATE K 875-125 MG TAB 1 TABLET PO (08:38)
[2025-01-08] MEDS: FLUTICASONE PROPIONATE 0.05% NA SPR 16 GM BTL (*BKC) 2 SPRAY NASAL (08:40)
[2025-01-08] MEDS: HYDROcodone/acetaminophen (*CRX) 10-325 MG TABLET 1 TAB PO (09:44)
--- NOTE | 2025-01-08 11:38 | PCNWS ---
Weekly nutritional screen. Patient is tolerating current Heart healthy diet with adequate intake, 100% all meals. No weight loss reported. No nutritional needs at this time.
[2025-01-08 14:00] VITALS: BP 113/64; PULSE 66; RESP 20; TEMP 36.6; O2SAT 100
--- NOTE | 2025-01-08 14:24 | PM.IMPN ---
Progress Note: A&P Assessment and Plan (1) Acute UTI: Code(s): N39.0 - Urinary tract infection, site not specified Status: Acute Assessment and Plan: - reporting a profound generalized weakness, no significant electrolyte derangements or anemia. Vital signs stable. UA consistent with UTI, suspect this is source of patient's generalized weakness. - UA: Turbid, 2+ protein, 1+ ketones, 3+ blood, 1+ bilirubin, 3+ leuks, greater than 100 RBC and WBC, 4+ bacteria, yeast present. - UC showed greater than 100,000 CFU/mL gram positive organism likely colonizer - previous micro reviewed. Patient grew coag-negative staph that was pansensitive in March of 2024. - started on Ceftriaxone on 12/31, 01/04 switch to Augmentin 875-125 mg 1 tablet PO q12. - encourage water to drink (2) Seizure: Code(s): R56.9 - Unspecified convulsions Status: Chronic Assessment and Plan: - continue home medication: Lamotrigine 150 mg b.i.d. - Reported that he an episode where he felt weak then his body went limp for 15 minutes. Patient reports that he normally feels weak prior to a seizure. Patient reports that his last seizure was 6 months ago. - Check Lamotrigine level- pending. - Neurology consult, appreciate recommendations. - MRI cervical, thoracic, and lumbar. Awaiting information about patients loop recorder before able to proceed with MRI. - monitor (3) Hypertension: Qualifiers: Hypertension type: primary hypertension Qualified Code(s): I10 - Essential (primary) hypertension Code(s): I10 - Essential (primary) hypertension Status: Chronic Assessment and Plan: - continue home medications: Losartan - monitor (4) Weakness: Code(s): R53.1 - Weakness Status: Acute Assessment and Plan: Physical therapy MRI cervical, thoracic, and lumbar. Awaiting information about patients loop recorder before able to proceed with MRI. (5) Vitamin D deficiency: Code(s): E55.9 - Vitamin D deficiency, unspecified Status: Acute Assessment and Plan: Vitamin D level 16.3. Ergocalciferol 50,000 units subq weekly started. (6) Nasal congestion: Code(s): R09.81 - Nasal congestion Status: Acute Assessment and Plan: Loratadine 10 mg PO daily. Fluticasone 2 sprays per nostril daily. Improved with medications. Plan Ambulatory dysfunction chronic Will continue PT while inpatient to avoid deconditioning. Diet: Heart healthy GI Prophylaxis: Not currently indicated DVT Prophylaxis: SCDs Lines/Tubes: Peripheral IV Code Status: Full code Subjective Date/time seen: 01/08/25 14:24 Interval history: No Overnight event. Denies any new complaints. Has some cough which is still persist. Some leg discomfort and weakness persist. Review of Systems Review of Systems: All systems reviewed & are unremarkable except as noted in HPI and below Exam Narrative: Const: General: no acute distress and uncomfortable Resp: Effort & Inspection: normal respiratory effort Auscultation: diminished lung sounds Cardio: Rate: regular rate Rhythm: regular rhythm GI: GI Palp: Yes Soft to palpation Auscultation: normal bowel sounds Neuro: Speech: normal speech generalized weakness Extrem: General: no pedal edema Psych: Mental Status: mental status grossly normal Affect: normal affect Objective Data Vital Signs Vital Signs: Vital Signs - 24 hr 01/07/25 20:00 01/07/25 21:55 01/07/25 22:00 Temperature 97.7 F Pulse Rate 66 90 Respiratory Rate 20 14 Blood Pressure 124/64 Pulse Oximetry 97 95 Oxygen Delivery Room Air Room Air Fraction of Inspired Oxygen 21 21 01/08/25 06:00 01/08/25 08:00 Temperature 97.5 F L Pulse Rate 55 L Respiratory Rate 20 Blood Pressure 126/78 Pulse Oximetry 96 Oxygen Delivery Room Air Fraction of Inspired Oxygen Intake/Output Intake/Output: Intake & Output 01/05/25 01/06/25 01/07/25 01/08/25 23:59 23:59 23:59 23:59 Intake Total 0100 281 6845 1598 Output Total 5362 7302 3350 1900 Balance -346 -1455 -2040 -302 Meds/Results Medications: Active Medications Generic Name Dose Route Start Last Admin Trade Name Freq PRN Reason Stop Dose Admin Acetaminophen 650 mg 12/31/24 18:37 01/07/25 16:52 Acetaminophen 325 Mg Tablet PO 650 mg Q6H PRN Administration Mild Pain (1-3) or Fever Hydrocodone Bitart/Acetaminophen 1 tab 12/31/24 21:38 01/05/25 17:26 Hydrocodone/Acetaminophen (*Crx) 5-325 Mg Tablet PO 1 tab Q4H PRN Administration pain (scale score 4-6) Hydrocodone Bitart/Acetaminophen 1 tab 12/31/24 21:38 01/08/25 09:44 Hydrocodone/Acetaminophen (*Crx) 10-325 Mg Tablet PO 1 tab Q6H PRN Administration pain (scale score 7-10) Alprazolam 0.5 mg 12/31/24 21:38 01/05/25 01:30 Alprazolam (*Crx) 0.5 Mg Tablet PO 0.5 mg TID PRN Administration Anxiety Baclofen 20 mg 12/31/24 21:50 01/08/25 08:38 Baclofen 10 Mg Tablet PO 20 mg BID ESTEFANIA Administration Diclofenac Sodium 75 mg 12/31/24 21:38 01/04/25 11:32 Diclofenac Sod 75 Mg Tablet.Ec PO 75 mg BID PRN Administration hip pain Donepezil HCl 10 mg 01/01/25 21:00 01/07/25 20:59 Donepezil Hcl 10 Mg Tablet PO 10 mg HS ESTEFANIA Administration Ergocalciferol 1,250 mcg 01/10/25 09:00 Ergocalciferol (Vitamin D2) 1,250 Mcg (50,000 Units) Capsule PO Harvey@0900 ESTEFANIA Fish Oil 1 gm 01/01/25 08:00 01/08/25 08:37 [place] 3 Polyunsat Fatty Acids 1 Gm Cap PO 1 gm BIDWM ESTEFANIA Administration Fluticasone Propionate 2 spray 01/03/25 11:05 01/08/25 08:40 Fluticasone Propionate 0.05% Na Spr 16 Gm Btl (*Bkc) NASAL 2 spray QAM ESTEFANIA Administration Guaifenesin 600 mg 01/08/25 09:00 01/08/25 08:38 Guaifenesin 12 Hr 600 Mg Tabcr PO 600 mg Q12HR ESTEFANIA Administration Lamotrigine 100 mg 12/31/24 21:55 01/08/25 08:38 Lamotrigine 100 Mg Tablet PO 100 mg Q12HR ESTEFANIA Administration Lamotrigine 50 mg 12/31/24 21:55 01/08/25 08:37 Lamotrigine 50 Mg Tablet PO 50 mg Q12HR ESTEFANIA Administration Loratadine 10 mg 01/03/25 11:05 01/08/25 08:38 Loratadine 10 Mg Tablet PO 10 mg QAM ESTEFANIA Administration Losartan Potassium 50 mg 01/01/25 09:00 01/08/25 08:38 Losartan Potassium 25 Mg Tablet PO 50 mg DAILY ESTEFANIA Administration Magnesium Citrate 296 ml 01/01/25 00:07 Magnesium Citrate 300 Ml Btl PO DAILY PRN constipation Magnesium Hydroxide 30 ml 12/31/24 21:38 Magnesium Hydroxide Susp 30 Ml Udc PO HS PRN constipation Ondansetron HCl 4 mg 12/31/24 18:37 Ondansetron Hcl Odt 4 Mg Tablet PO Q6H PRN Nausea And Vomiting Polyethylene Glycol 17 gm 12/31/24 21:38 Polyethylene Glycol 3350 17 Gm Powd.Pack PO DAILY PRN constipation Quetiapine Fumarate 150 mg 12/31/24 21:50 01/07/25 20:59 Quetiapine Fumarate Xr 50 Mg Tab.Er.24h PO 150 mg HS ESTEFANIA Administration Scopolamine 1 patch 12/31/24 21:40 01/06/25 07:48 Scopolamine 1 Mg Patch TRANSDERM 1 patch Q72HR ESTEFANIA Administration Senna 17.2 mg 12/31/24 21:38 Sennosides 8.6 Mg Tablet PO DAILY PRN constipation Sodium Chloride 1 spray 01/07/25 22:41 Saline 0.65% [place] 44 Ml Btl NASAL Q6HR PRN Congestion Radiology Results: ITS Impressions Chest X-Ray 12/31/24 14:23 IMPRESSION: No acute cardiopulmonary pathology. Labs Labs: Laboratory Results - last 24 hr 01/08/25 05:35 WBC 5.4 RBC 4.37 L Hgb 12.8 L Hct 42.2 MCV 96.6 MCH 29.3 MCHC 30.3 L RDW 13.7 Plt Count 163 MPV 10.9 H Immature Gran % (Auto) 0.7 H Neut % (Auto) 58.2 Lymph % (Auto) 26.2 [place] % (Auto) 8.8 H Eos % (Auto) 5.2 H Baso % (Auto) 0.9 Lymph # (Auto) 1.42 [place] # (Auto) 0.5 Eos # (Auto) 0.3 Baso # (Auto) 0.1 Abs Immat Gran (auto) 0.04 H Absolute Neuts (auto) 3.2 Absolute Nucleated RBC 0.000 Nucleated RBC % 0.0 Sodium 138 Potassium 4.1 Chloride 105 Carbon Dioxide 27 Anion Gap 6 BUN 21 H Creatinine 0.89 Estim Creat Clear Calc 74 Estimated GFR > 60 Glucose 98 Calcium 8.9 Total Bilirubin 0.4 AST 25 ALT 36 Alkaline Phosphatase 59 Total Protein 6.0 L Albumin 3.4 L
[2025-01-08] MEDS: HYDROcodone/acetaminophen (*CRX) 5-325 MG TABLET 1 TAB PO (14:58)
[2025-01-08] MEDS: DONEPEZIL HCL 10 MG TABLET PO (20:55)
[2025-01-08] MEDS: QUEtiapine FUMARATE XR 50 MG TAB.ER.24H 150 MG PO (20:55)
[2025-01-08 21:18] VITALS: BP 119/64; PULSE 60; RESP 20; TEMP 36.7; O2SAT 94
[2025-01-09 06:00] VITALS: BP 136/68; PULSE 58; RESP 16; TEMP 36.4; O2SAT 97
[2025-01-09] MEDS: lamoTRIgine 100 MG TABLET PO ×2 (08:43→20:44)
[2025-01-09] MEDS: OMEGA 3 POLYUNSAT FATTY ACIDS 1 GM CAP PO ×2 (08:43→16:57)
[2025-01-09] MEDS: LORATADINE 10 MG TABLET PO (08:43)
[2025-01-09] MEDS: BACLOFEN 10 MG TABLET 20 MG PO ×2 (08:43→16:57)
[2025-01-09] MEDS: LOSARTAN POTASSIUM 25 MG TABLET 50 MG PO (08:43)
[2025-01-09] MEDS: lamoTRIgine 50 MG TABLET PO ×2 (08:43→20:44)
[2025-01-09] MEDS: guaiFENesin 12 HR 600 MG TABCR PO ×2 (08:44→20:43)
[2025-01-09] MEDS: SCOPOLAMINE 1 MG PATCH 1 PATCH TRANSDERM (08:44)
[2025-01-09] MEDS: FLUTICASONE PROPIONATE 0.05% NA SPR 16 GM BTL (*BKC) 2 SPRAY NASAL (08:45)
[2025-01-09] MEDS: ALPRAZolam (*CRX) 0.5 MG TABLET PO ×3 (09:28→17:05)
--- NOTE | 2025-01-09 12:47 | P.PNIM_ITS ---
Progress Note: A&P Assessment and Plan (1) Acute UTI: Code(s): N39.0 - Urinary tract infection, site not specified Status: Acute Assessment and Plan: - reporting a profound generalized weakness, no significant electrolyte derangements or anemia. Vital signs stable. UA consistent with UTI, suspect this is source of patient's generalized weakness. - UA: Turbid, 2+ protein, 1+ ketones, 3+ blood, 1+ bilirubin, 3+ leuks, greater than 100 RBC and WBC, 4+ bacteria, yeast present. - UC showed greater than 100,000 CFU/mL gram positive organism likely colonizer - previous micro reviewed. Patient grew coag-negative staph that was pansensitive in March of 2024. - started on Ceftriaxone on 12/31, 01/04 switch to Augmentin 875-125 mg 1 tablet PO q12. - encourage water to drink (2) Seizure: Code(s): R56.9 - Unspecified convulsions Status: Chronic Assessment and Plan: - continue home medication: Lamotrigine 150 mg b.i.d. - Reported that he an episode where he felt weak then his body went limp for 15 minutes. Patient reports that he normally feels weak prior to a seizure. Patient reports that his last seizure was 6 months ago. - Check Lamotrigine level- pending. - Neurology consult, appreciate recommendations. - MRI cervical, thoracic, and lumbar. Awaiting information about patients loop recorder before able to proceed with MRI. - monitor (3) Hypertension: Qualifiers: Hypertension type: primary hypertension Qualified Code(s): I10 - Essential (primary) hypertension Code(s): I10 - Essential (primary) hypertension Status: Chronic Assessment and Plan: - continue home medications: Losartan - monitor (4) Weakness: Code(s): R53.1 - Weakness Status: Acute Assessment and Plan: * Physical therapy * MRI cervical, thoracic, and lumbar. Awaiting information about patients loop recorder before able to proceed with MRI. (5) Vitamin D deficiency: Code(s): E55.9 - Vitamin D deficiency, unspecified Status: Acute Assessment and Plan: * Vitamin D level 16.3. * Ergocalciferol 50,000 units subq weekly started. (6) Nasal congestion: Code(s): R09.81 - Nasal congestion Status: Acute Assessment and Plan: * Loratadine 10 mg PO daily. * Fluticasone 2 sprays per nostril daily. Improved with medications. Still has some cough with rhonchi in lung neck pain get CT chest to further evaluate Plan Ambulatory dysfunction chronic Will continue PT while inpatient to avoid deconditioning. Diet: Heart healthy GI Prophylaxis: Not currently indicated DVT Prophylaxis: SCDs Lines/Tubes: Peripheral IV Code Status: Full code Subjective Date/time seen: 01/09/25 12:47 Interval history: Working with therapy. Able to ambulate some. Still has cough with expectoration. Chest x-ray reviewed. Review of Systems Review of Systems: All systems reviewed & are unremarkable except as noted in HPI and below Exam Narrative: Const: General: no acute distress and uncomfortable Resp: Effort & Inspection: normal respiratory effort Auscultation: diminished lung sounds Cardio: Rate: regular rate Rhythm: regular rhythm GI: GI Palp: Yes Soft to palpation Auscultation: normal bowel sounds Neuro: Speech: normal speech generalized weakness Extrem: General: no pedal edema Psych: Mental Status: mental status grossly normal Affect: normal affect Objective Data Vital Signs Vital Signs: Vital Signs - 24 hr 01/08/25 14:00 01/08/25 20:00 01/08/25 21:18 Temperature 98 F 98.1 F Pulse Rate 66 60 Respiratory Rate 20 20 Blood Pressure 113/64 119/64 Pulse Oximetry 100 94 Oxygen Delivery Room Air Fraction of Inspired Oxygen 21 01/09/25 06:00 01/09/25 08:00 Temperature 97.5 F L Pulse Rate 58 L Respiratory Rate 16 Blood Pressure 136/68 Pulse Oximetry 97 Oxygen Delivery Room Air Fraction of Inspired Oxygen Intake/Output Intake/Output: Intake & Output 01/06/25 01/07/25 01/08/25 01/09/25 23:59 23:59 23:59 23:59 Intake Total 720 1310 2978 340 Output Total 2176 3350 3300 1550 [id number] -[id number] -[phone] Meds/Results Medications: Active Medications Generic Name Dose Route Start Last Admin Trade Name Freq PRN Reason Stop Dose Admin Acetaminophen 650 mg 12/31/24 18:37 01/07/25 16:52 Acetaminophen 325 Mg Tablet PO 650 mg Q6H PRN Administration Mild Pain (1-3) or Fever Hydrocodone Bitart/Acetaminophen 1 tab 12/31/24 21:38 01/08/25 14:58 Hydrocodone/Acetaminophen (*Crx) 5-325 Mg Tablet PO 1 tab Q4H PRN Administration pain (scale score 4-6) Hydrocodone Bitart/Acetaminophen 1 tab 12/31/24 21:38 01/08/25 09:44 Hydrocodone/Acetaminophen (*Crx) 10-325 Mg Tablet PO 1 tab Q6H PRN Administration pain (scale score 7-10) Alprazolam 0.5 mg 12/31/24 21:38 01/09/25 09:28 Alprazolam (*Crx) 0.5 Mg Tablet PO 0.5 mg TID PRN Administration Anxiety Baclofen 20 mg 12/31/24 21:50 01/09/25 08:43 Baclofen 10 Mg Tablet PO 20 mg BID ESTEFANIA Administration Diclofenac Sodium 75 mg 12/31/24 21:38 01/04/25 11:32 Diclofenac Sod 75 Mg Tablet.Ec PO 75 mg BID PRN Administration hip pain Donepezil HCl 10 mg 01/01/25 21:00 01/08/25 20:55 Donepezil Hcl 10 Mg Tablet PO 10 mg HS ESTEFANIA Administration Ergocalciferol 1,250 mcg 01/10/25 09:00 Ergocalciferol (Vitamin D2) 1,250 Mcg (50,000 Units) Capsule PO Harvey@0900 ESTEFANIA Fish Oil 1 gm 01/01/25 08:00 01/09/25 08:43 [place] 3 Polyunsat Fatty Acids 1 Gm Cap PO 1 gm BIDWM ESTEFANIA Administration Fluticasone Propionate 2 spray 01/03/25 11:05 01/09/25 08:45 Fluticasone Propionate 0.05% Na Spr 16 Gm Btl (*Bkc) NASAL 2 spray QAM ESTEFANIA Administration Guaifenesin 600 mg 01/08/25 09:00 01/09/25 08:44 Guaifenesin 12 Hr 600 Mg Tabcr PO 600 mg Q12HR ESTEFANIA Administration Lamotrigine 100 mg 12/31/24 21:55 01/09/25 08:43 Lamotrigine 100 Mg Tablet PO 100 mg Q12HR ESTEFANIA Administration Lamotrigine 50 mg 12/31/24 21:55 01/09/25 08:43 Lamotrigine 50 Mg Tablet PO 50 mg Q12HR ESTEFANIA Administration Loratadine 10 mg 01/03/25 11:05 01/09/25 08:43 Loratadine 10 Mg Tablet PO 10 mg QAM ESTEFANIA Administration Losartan Potassium 50 mg 01/01/25 09:00 01/09/25 08:43 Losartan Potassium 25 Mg Tablet PO 50 mg DAILY ESTEFANIA Administration Magnesium Citrate 296 ml 01/01/25 00:07 Magnesium Citrate 300 Ml Btl PO DAILY PRN constipation Magnesium Hydroxide 30 ml 12/31/24 21:38 Magnesium Hydroxide Susp 30 Ml Udc PO HS PRN constipation Ondansetron HCl 4 mg 12/31/24 18:37 Ondansetron Hcl Odt 4 Mg Tablet PO Q6H PRN Nausea And Vomiting Polyethylene Glycol 17 gm 12/31/24 21:38 Polyethylene Glycol 3350 17 Gm Powd.Pack PO DAILY PRN constipation Quetiapine Fumarate 150 mg 12/31/24 21:50 01/08/25 20:55 Quetiapine Fumarate Xr 50 Mg Tab.Er.24h PO 150 mg HS ESTEFANIA Administration Scopolamine 1 patch 12/31/24 21:40 01/09/25 08:44 Scopolamine 1 Mg Patch TRANSDERM 1 patch Q72HR ESTEFANIA Administration Senna 17.2 mg 12/31/24 21:38 Sennosides 8.6 Mg Tablet PO DAILY PRN constipation Sodium Chloride 1 spray 01/07/25 22:41 Saline 0.65% [place] 44 Ml Btl NASAL Q6HR PRN Congestion Radiology Results: ITS Impressions Chest X-Ray 01/08/25 14:44 Impression: 1: Lingular infiltrate, most likely atelectasis/scarring.
[2025-01-09 13:47] LABS: Immunofixation, Serum Normal pattern.
[2025-01-09 14:00] VITALS: BP 127/79; PULSE 72; RESP 16; TEMP 35.6; O2SAT 98
[2025-01-09 14:28] LABS: Methylmalonic Acid 417 nmol/L (69-390)
[2025-01-09] MEDS: CYANOCOBALAMIN INJ 1,000 MCG/ML VIAL 1000 MCG IM (16:56)
[2025-01-09] MEDS: QUEtiapine FUMARATE XR 50 MG TAB.ER.24H 150 MG PO (20:43)
[2025-01-09] MEDS: DONEPEZIL HCL 10 MG TABLET PO (20:43)
[2025-01-09 21:38] VITALS: BP 130/64; PULSE 66; RESP 20; TEMP 36.5; O2SAT 96
[2025-01-09 21:58] VITALS: O2SAT 96
[2025-01-10 05:39] VITALS: BP 111/64; PULSE 51; RESP 16; TEMP 36.6; O2SAT 99
[2025-01-10] MEDS: OMEGA 3 POLYUNSAT FATTY ACIDS 1 GM CAP PO ×2 (07:35→16:21)
[2025-01-10] MEDS: BACLOFEN 10 MG TABLET 20 MG PO ×2 (07:35→16:20)
[2025-01-10] MEDS: LORATADINE 10 MG TABLET PO (07:36)
[2025-01-10] MEDS: guaiFENesin 12 HR 600 MG TABCR PO ×2 (07:36→20:40)
[2025-01-10] MEDS: lamoTRIgine 100 MG TABLET PO ×2 (07:36→20:39)
[2025-01-10] MEDS: lamoTRIgine 50 MG TABLET PO ×2 (07:36→20:40)
[2025-01-10] MEDS: LOSARTAN POTASSIUM 25 MG TABLET 50 MG PO (07:36)
[2025-01-10] MEDS: CYANOCOBALAMIN 1,000 MCG TABLET 1000 MCG PO (07:36)
[2025-01-10] MEDS: ERGOCALCIFEROL (VITAMIN D2) 1,250 MCG (50,000 UNITS) CAPSULE 1250 MCG PO (07:40)
[2025-01-10] MEDS: ALPRAZolam (*CRX) 0.5 MG TABLET PO ×3 (07:40→20:50)
[2025-01-10] MEDS: DOXYCYCLINE HYCLATE 100 MG TABLET PO ×2 (13:57→20:40)
[2025-01-10 14:00] VITALS: BP 128/78; PULSE 98; RESP 20; TEMP 36.3; O2SAT 99
--- NOTE | 2025-01-10 15:33 | P.PNIM_ITS ---
Progress Note: A&P Assessment and Plan (1) Acute UTI: Code(s): N39.0 - Urinary tract infection, site not specified Status: Acute Assessment and Plan: - reporting a profound generalized weakness, no significant electrolyte derangements or anemia. Vital signs stable. UA consistent with UTI, suspect this is source of patient's generalized weakness. - UA: Turbid, 2+ protein, 1+ ketones, 3+ blood, 1+ bilirubin, 3+ leuks, greater than 100 RBC and WBC, 4+ bacteria, yeast present. - UC showed greater than 100,000 CFU/mL gram positive organism likely colonizer - previous micro reviewed. Patient grew coag-negative staph that was pansensitive in March of 2024. - started on Ceftriaxone on 12/31, 01/04 switch to Augmentin 875-125 mg 1 tablet PO q12. - encourage water to drink (2) Seizure: Code(s): R56.9 - Unspecified convulsions Status: Chronic Assessment and Plan: - continue home medication: Lamotrigine 150 mg b.i.d. - Reported that he an episode where he felt weak then his body went limp for 15 minutes. Patient reports that he normally feels weak prior to a seizure. Patient reports that his last seizure was 6 months ago. - Check Lamotrigine level- pending. - Neurology consult, appreciate recommendations. - MRI cervical, thoracic, and lumbar. Awaiting information about patients loop recorder before able to proceed with MRI. - monitor (3) Hypertension: Code(s): I10 - Essential (primary) hypertension Status: Chronic Assessment and Plan: - continue home medications: Losartan - monitor (4) Weakness: Code(s): R53.1 - Weakness Status: Acute Assessment and Plan: * Physical therapy * MRI cervical, thoracic, and lumbar. Awaiting information about patients loop recorder before able to proceed with MRI. (5) Vitamin D deficiency: Code(s): E55.9 - Vitamin D deficiency, unspecified Status: Acute Assessment and Plan: * Vitamin D level 16.3. * Ergocalciferol 50,000 units subq weekly started. (6) Nasal congestion: Code(s): R09.81 - Nasal congestion Status: Acute Assessment and Plan: * Loratadine 10 mg PO daily. * Fluticasone 2 sprays per nostril daily. Improved with medications. Still has some cough with rhonchi in lung neck pain get CT chest to further evaluate ct chest with bronchiolitis. add doxycycline. albuterol scheduled Plan Ambulatory dysfunction chronic Will continue PT while inpatient to avoid deconditioning. Diet: Heart healthy GI Prophylaxis: Not currently indicated DVT Prophylaxis: SCDs Lines/Tubes: Peripheral IV Code Status: Full code Subjective Date/time seen: 01/10/25 15:33 Interval history: no new compalints. still has some cough. ct chest reviewed. Review of Systems Review of Systems: All systems reviewed & are unremarkable except as noted in HPI and below Exam Narrative: Const: General: no acute distress and uncomfortable Resp: Effort & Inspection: normal respiratory effort Auscultation: diminished lung sounds Cardio: Rate: regular rate Rhythm: regular rhythm GI: GI Palp: Yes Soft to palpation Auscultation: normal bowel sounds Neuro: Speech: normal speech generalized weakness Extrem: General: no pedal edema Psych: Mental Status: mental status grossly normal Affect: normal affect Objective Data Vital Signs Vital Signs: Vital Signs - 24 hr 01/09/25 20:00 01/09/25 21:38 01/09/25 21:58 Temperature 97.7 F Pulse Rate 66 Respiratory Rate 20 Blood Pressure 130/64 Pulse Oximetry 96 96 Oxygen Delivery Room Air Room Air 01/10/25 05:39 01/10/25 08:00 Temperature 97.9 F Pulse Rate 51 L Respiratory Rate 16 Blood Pressure 111/64 Pulse Oximetry 99 Oxygen Delivery Room Air Intake/Output Intake/Output: Intake & Output 01/07/25 01/08/25 01/09/25 01/10/25 23:59 23:59 23:59 23:59 Intake Total 1310 2978 340 1000 Output Total 3350 3300 1750 350 Balance -4887 -958 -9262 650 Meds/Results Medications: Active Medications Generic Name Dose Route Start Last Admin Trade Name Freq PRN Reason Stop Dose Admin Acetaminophen 650 mg 12/31/24 18:37 01/07/25 16:52 Acetaminophen 325 Mg Tablet PO 650 mg Q6H PRN Administration Mild Pain (1-3) or Fever Hydrocodone Bitart/Acetaminophen 1 tab 12/31/24 21:38 01/08/25 14:58 Hydrocodone/Acetaminophen (*Crx) 5-325 Mg Tablet PO 1 tab Q4H PRN Administration pain (scale score 4-6) Hydrocodone Bitart/Acetaminophen 1 tab 12/31/24 21:38 01/08/25 09:44 Hydrocodone/Acetaminophen (*Crx) 10-325 Mg Tablet PO 1 tab Q6H PRN Administration pain (scale score 7-10) Albuterol 2 puff 01/10/25 14:00 Albuterol Sulfate (*Sp) Aerosol 1 Puff INHALATION Q6HRT [facility] Alprazolam 0.5 mg 12/31/24 21:38 01/10/25 12:51 Alprazolam (*Crx) 0.5 Mg Tablet PO 0.5 mg TID PRN Administration Anxiety Baclofen 20 mg 12/31/24 21:50 01/10/25 07:35 Baclofen 10 Mg Tablet PO 20 mg BID ESTEFANIA Administration Cyanocobalamin 1,000 mcg 01/16/25 09:00 Cyanocobalamin Inj 1,000 Mcg/Ml Vial IM WEEKLY ESTEFANIA Cyanocobalamin 1,000 mcg 01/10/25 09:00 01/10/25 07:36 Cyanocobalamin 1,000 Mcg Tablet PO 1,000 mcg QAM [facility] Administration Diclofenac Sodium 75 mg 12/31/24 21:38 01/04/25 11:32 Diclofenac Sod 75 Mg Tablet.Ec PO 75 mg BID PRN Administration hip pain Donepezil HCl 10 mg 01/01/25 21:00 01/09/25 20:43 Donepezil Hcl 10 Mg Tablet PO 10 mg HS ESTEFANIA Administration Doxycycline Hyclate 100 mg 01/10/25 13:45 01/10/25 13:57 Doxycycline Hyclate 100 Mg Tablet PO 100 mg Q12HR ESTEFANIA Administration Ergocalciferol 1,250 mcg 01/10/25 09:00 01/10/25 07:40 Ergocalciferol (Vitamin D2) 1,250 Mcg (50,000 Units) Capsule PO 1,250 mcg Harvey@0900 ESTEFANIA Administration Fish Oil 1 gm 01/01/25 08:00 01/10/25 07:35 [place] 3 Polyunsat Fatty Acids 1 Gm Cap PO 1 gm BIDWM ESTEFANIA Administration Fluticasone Propionate 2 spray 01/03/25 11:05 01/10/25 07:36 Fluticasone Propionate 0.05% Na Spr 16 Gm Btl (*Bkc) NASAL Not Given QAM [facility] Guaifenesin 600 mg 01/08/25 09:00 01/10/25 07:36 Guaifenesin 12 Hr 600 Mg Tabcr PO 600 mg Q12HR ESTEFANIA Administration Lamotrigine 100 mg 12/31/24 21:55 01/10/25 07:36 Lamotrigine 100 Mg Tablet PO 100 mg Q12HR ESTEFANIA Administration Lamotrigine 50 mg 12/31/24 21:55 01/10/25 07:36 Lamotrigine 50 Mg Tablet PO 50 mg Q12HR [facility] Administration Loratadine 10 mg 01/03/25 11:05 01/10/25 07:36 Loratadine 10 Mg Tablet PO 10 mg QAM [facility] Administration Losartan Potassium 50 mg 01/01/25 09:00 01/10/25 07:36 Losartan Potassium 25 Mg Tablet PO 50 mg DAILY [facility] Administration Magnesium Citrate 296 ml 01/01/25 00:07 Magnesium Citrate 300 Ml Btl PO DAILY PRN constipation Magnesium Hydroxide 30 ml 12/31/24 21:38 Magnesium Hydroxide Susp 30 Ml Udc PO HS PRN constipation Ondansetron HCl 4 mg 12/31/24 18:37 Ondansetron Hcl Odt 4 Mg Tablet PO Q6H PRN Nausea And Vomiting Polyethylene Glycol 17 gm 12/31/24 21:38 Polyethylene Glycol 3350 17 Gm Powd.Pack PO DAILY PRN constipation Quetiapine Fumarate 150 mg 12/31/24 21:50 01/09/25 20:43 Quetiapine Fumarate Xr 50 Mg Tab.Er.24h PO 150 mg HS [facility] Administration Scopolamine 1 patch 12/31/24 21:40 01/09/25 08:44 Scopolamine 1 Mg Patch TRANSDERM 1 patch Q72HR [facility] Administration Senna 17.2 mg 12/31/24 21:38 Sennosides 8.6 Mg Tablet PO DAILY PRN constipation Sodium Chloride 1 spray 01/07/25 22:41 Saline 0.65% [place] 44 Ml Btl NASAL Q6HR PRN Congestion Radiology Results: ITS Impressions Chest X-Ray 01/08/25 14:44 Impression: 1: Lingular infiltrate, most likely atelectasis/scarring.
[2025-01-10 19:49] VITALS: PULSE 98; RESP 16
[2025-01-10] MEDS: ALBUTEROL SULFATE (*SP) AEROSOL 1 PUFF 2 PUFF INHALATION (19:53)
[2025-01-10] MEDS: QUEtiapine FUMARATE XR 50 MG TAB.ER.24H 150 MG PO (20:39)
[2025-01-10] MEDS: DONEPEZIL HCL 10 MG TABLET PO (20:40)
[2025-01-10 20:54] VITALS: BP 131/55; PULSE 74; RESP 16; TEMP 36.2; O2SAT 97
[2025-01-10 20:57] VITALS: O2SAT 99
[2025-01-11] VITALS (8 sets, daily range): BP systolic 120–166; BP diastolic 68–78; PULSE 59–98; RESP 14–20; TEMP 36.1–37.3; O2SAT 93–99
[2025-01-11] MEDS: ALBUTEROL SULFATE (*SP) AEROSOL 1 PUFF 2 PUFF INHALATION ×4 (02:02→19:37)
[2025-01-11 06:31] LABS: Basophils Absolute Auto 0.1 K/mm3 (0.0-0.1); Basophils Percent Auto 1.2 % (0.2-1.2); Eosinophils Absolute Auto 0.3 K/mm3 (0-0.3); Eosinophils Percent Auto 4.2 % (0-4.4); Hematocrit 41.8 % (42.0-52.0); Hemoglobin 12.9 g/dL (14.0-18.0); Immature Granulocyte Absolute 0.06 K/mm3 (0.00-0.031); Immature Granulocyte Percent A 0.9 % (0-0.5); Lymphocytes Absolute Auto 1.72 K/mm3 (0.9-3.2); Lymphocytes Percent Auto 26.5 % (18.3-44.2); Mean Corpuscular HGB Conc 30.9 g/dl (32-36); Mean Corpuscular Hemoglobin 29.5 pg (26-34); Mean Corpuscular Volume 95.7 fl (80-100); Mean Platelet Volume 10.6 fl (7.4-10.4); Monocytes Absolute Auto 0.6 K/mm3 (0.1-0.6); Monocytes Percent Auto 9.1 % (2.6-8.5); Neutrophils Absolute Auto 3.8 K/mm3 (1.3-6.7); Neutrophils Percent Auto 58.1 % (45.5-73.1); Platelet Count Result 196 k/mm3 (150-375); Red Blood Count 4.37 M/mm3 (4.6-6.20); Red Cell Distribution Width 13.5 % (11.5-14.5); White Blood Count 6.5 K/mm3 (4.5-10.0)
[2025-01-11 06:38] LABS: Alanine Aminotransferase 41 U/L (6-50); Albumin Level 3.3 g/dL (3.5-5.1); Alkaline Phosphatase 56 U/L (38-126); Anion Gap 7 mmol/L (4-12); Aspartate Amino Transferase 26 U/L (17-59); Bilirubin,Total 0.3 mg/dL (0.2-1.3); Blood Urea Nitrogen 21 mg/dL (9-20); Calcium 8.8 mg/dL (8.4-10.2); Carbon Dioxide 26 mmol/L (22-30); Chloride 105 mmol/L (98-107); Estimated CRCL calculation 75 ml/min; Estimated Glomerular Filt Rate > 60; Glucose 132 mg/dL (65-110); Potassium 3.7 mmol/L (3.4-5.0); Sodium 138 mmol/L (137-145)
[2025-01-11] MEDS: DOXYCYCLINE HYCLATE 100 MG TABLET PO ×2 (08:36→20:37)
[2025-01-11] MEDS: CYANOCOBALAMIN 1,000 MCG TABLET 1000 MCG PO (08:36)
[2025-01-11] MEDS: LOSARTAN POTASSIUM 25 MG TABLET 50 MG PO (08:36)
[2025-01-11] MEDS: LORATADINE 10 MG TABLET PO (08:36)
[2025-01-11] MEDS: lamoTRIgine 100 MG TABLET PO ×2 (08:36→20:36)
[2025-01-11] MEDS: BACLOFEN 10 MG TABLET 20 MG PO ×2 (08:36→17:01)
[2025-01-11] MEDS: OMEGA 3 POLYUNSAT FATTY ACIDS 1 GM CAP PO ×2 (08:36→17:01)
[2025-01-11] MEDS: guaiFENesin 12 HR 600 MG TABCR PO (08:36)
[2025-01-11] MEDS: lamoTRIgine 50 MG TABLET PO ×2 (08:37→20:37)
[2025-01-11] MEDS: predniSONE 20 MG TABLET 40 MG PO (12:32)
--- NOTE | 2025-01-11 14:36 | P.PNIM_ITS ---
Progress Note: A&P Assessment and Plan (1) Acute UTI: Code(s): N39.0 - Urinary tract infection, site not specified Status: Acute Assessment and Plan: - reporting a profound generalized weakness, no significant electrolyte derangements or anemia. Vital signs stable. UA consistent with UTI, suspect this is source of patient's generalized weakness. - UA: Turbid, 2+ protein, 1+ ketones, 3+ blood, 1+ bilirubin, 3+ leuks, greater than 100 RBC and WBC, 4+ bacteria, yeast present. - UC showed greater than 100,000 CFU/mL gram positive organism likely colonizer - previous micro reviewed. Patient grew coag-negative staph that was pansensitive in March of 2024. - started on Ceftriaxone on 12/31, 01/04 switch to Augmentin 875-125 mg 1 tablet PO q12. - encourage water to drink (2) Seizure: Code(s): R56.9 - Unspecified convulsions Status: Chronic Assessment and Plan: - continue home medication: Lamotrigine 150 mg b.i.d. - Reported that he an episode where he felt weak then his body went limp for 15 minutes. Patient reports that he normally feels weak prior to a seizure. Patient reports that his last seizure was 6 months ago. - Check Lamotrigine level- pending. - Neurology consult, appreciate recommendations. - MRI cervical, thoracic, and lumbar. Awaiting information about patients loop recorder before able to proceed with MRI. - monitor (3) Hypertension: Qualifiers: Hypertension type: primary hypertension Qualified Code(s): I10 - Essential (primary) hypertension Code(s): I10 - Essential (primary) hypertension Status: Chronic Assessment and Plan: - continue home medications: Losartan - monitor (4) Weakness: Code(s): R53.1 - Weakness Status: Acute Assessment and Plan: * Physical therapy * MRI cervical, thoracic, and lumbar. Awaiting information about patients loop recorder before able to proceed with MRI. (5) Vitamin D deficiency: Code(s): E55.9 - Vitamin D deficiency, unspecified Status: Acute Assessment and Plan: * Vitamin D level 16.3. * Ergocalciferol 50,000 units subq weekly started. (6) Nasal congestion: Code(s): R09.81 - Nasal congestion Status: Acute Assessment and Plan: * Loratadine 10 mg PO daily. * Fluticasone 2 sprays per nostril daily. Improved with medications. Still has some cough with rhonchi in lung neck pain get CT chest to further evaluate ct chest with bronchiolitis. add doxycycline. albuterol scheduled (7) Pneumonia: Code(s): J18.9 - Pneumonia, unspecified organism Status: Acute Assessment and Plan: Chest x-ray on CT with bronchiolitis/pneumonia Added doxycycline Rhonchorous chest sounds Add prednisone Plan Ambulatory dysfunction chronic Will continue PT while inpatient to avoid deconditioning. Diet: Heart healthy GI Prophylaxis: Not currently indicated DVT Prophylaxis: SCDs Lines/Tubes: Peripheral IV Code Status: Full code Subjective Date/time seen: 01/11/25 14:36 Interval history: No overnight events. Still has some cough. Weakness persists working with therapy. Review of Systems Review of Systems: All systems reviewed & are unremarkable except as noted in HPI and below Exam Narrative: Const: General: no acute distress and uncomfortable Resp: Effort & Inspection: normal respiratory effort Auscultation: diminished lung sounds Cardio: Rate: regular rate Rhythm: regular rhythm GI: GI Palp: Yes Soft to palpation Auscultation: normal bowel sounds Neuro: Speech: normal speech generalized weakness Extrem: General: no pedal edema Psych: Mental Status: mental status grossly normal Affect: normal affect Objective Data Vital Signs Vital Signs: Vital Signs - 24 hr 01/10/25 19:49 01/10/25 20:00 01/10/25 20:54 Temperature 97.2 F L Pulse Rate 98 74 Respiratory Rate 16 16 Blood Pressure 131/55 L Pulse Oximetry 97 Oxygen Delivery Room Air Fraction of Inspired Oxygen 01/10/25 20:57 01/11/25 02:05 01/11/25 06:00 Temperature 97.0 F L Pulse Rate 98 59 L Respiratory Rate 16 16 Blood Pressure 120/68 Pulse Oximetry 99 97 Oxygen Delivery Room Air Fraction of Inspired Oxygen 01/11/25 08:35 01/11/25 09:53 01/11/25 09:53 Temperature Pulse Rate 90 Respiratory Rate 16 Blood Pressure Pulse Oximetry 97 Oxygen Delivery Room Air Room Air Fraction of Inspired Oxygen 21 Intake/Output Intake/Output: Intake & Output 01/08/25 01/09/25 01/10/25 01/11/25 23:59 23:59 23:59 23:59 Intake Total 2978 340 1490 960 Output Total 3300 9150 1150 650 Balance -322 -1410 340 310 Meds/Results Medications: Active Medications Generic Name Dose Route Start Last Admin Trade Name Freq PRN Reason Stop Dose Admin Acetaminophen 650 mg 12/31/24 18:37 01/07/25 16:52 Acetaminophen 325 Mg Tablet PO 650 mg Q6H PRN Administration Mild Pain (1-3) or Fever Hydrocodone Bitart/Acetaminophen 1 tab 12/31/24 21:38 01/08/25 14:58 Hydrocodone/Acetaminophen (*Crx) 5-325 Mg Tablet PO 1 tab Q4H PRN Administration pain (scale score 4-6) Hydrocodone Bitart/Acetaminophen 1 tab 12/31/24 21:38 01/08/25 09:44 Hydrocodone/Acetaminophen (*Crx) 10-325 Mg Tablet PO 1 tab Q6H PRN Administration pain (scale score 7-10) Albuterol 2 puff 01/10/25 14:00 01/11/25 09:53 Albuterol Sulfate (*Sp) Aerosol 1 Puff INHALATION 2 puff Q6HRT ESTEFANIA Administration Alprazolam 0.5 mg 12/31/24 21:38 01/10/25 20:50 Alprazolam (*Crx) 0.5 Mg Tablet PO 0.5 mg TID PRN Administration Anxiety Baclofen 20 mg 12/31/24 21:50 01/11/25 08:36 Baclofen 10 Mg Tablet PO 20 mg BID ESTEFANIA Administration Cyanocobalamin 1,000 mcg 01/16/25 09:00 Cyanocobalamin Inj 1,000 Mcg/Ml Vial IM WEEKLY ESTEFANIA Cyanocobalamin 1,000 mcg 01/10/25 09:00 01/11/25 08:36 Cyanocobalamin 1,000 Mcg Tablet PO 1,000 mcg QAM ESTEFANIA Administration Diclofenac Sodium 75 mg 12/31/24 21:38 01/04/25 11:32 Diclofenac Sod 75 Mg Tablet.Ec PO 75 mg BID PRN Administration hip pain Donepezil HCl 10 mg 01/01/25 21:00 01/10/25 20:40 Donepezil Hcl 10 Mg Tablet PO 10 mg HS ESTEFANIA Administration Doxycycline Hyclate 100 mg 01/10/25 13:45 01/11/25 08:36 Doxycycline Hyclate 100 Mg Tablet PO 100 mg Q12HR [facility] Administration Ergocalciferol 1,250 mcg 01/10/25 09:00 01/10/25 07:40 Ergocalciferol (Vitamin D2) 1,250 Mcg (50,000 Units) Capsule PO 1,250 mcg Harvey@0900 [facility] Administration Fish Oil 1 gm 01/01/25 08:00 01/11/25 08:36 [place] 3 Polyunsat Fatty Acids 1 Gm Cap PO 1 gm BIDWM [facility] Administration Fluticasone Propionate 2 spray 01/03/25 11:05 01/11/25 08:35 Fluticasone Propionate 0.05% Na Spr 16 Gm Btl (*Bkc) NASAL Not Given QAM [facility] Guaifenesin 1,200 mg 01/11/25 21:00 Guaifenesin 12 Hr 600 Mg Tabcr PO Q12HR [facility] Lamotrigine 100 mg 12/31/24 21:55 01/11/25 08:36 Lamotrigine 100 Mg Tablet PO 100 mg Q12HR [facility] Administration Lamotrigine 50 mg 12/31/24 21:55 01/11/25 08:37 Lamotrigine 50 Mg Tablet PO 50 mg Q12HR [facility] Administration Loratadine 10 mg 01/03/25 11:05 01/11/25 08:36 Loratadine 10 Mg Tablet PO 10 mg QAM [facility] Administration Losartan Potassium 50 mg 01/01/25 09:00 01/11/25 08:36 Losartan Potassium 25 Mg Tablet PO 50 mg DAILY [facility] Administration Magnesium Citrate 296 ml 01/01/25 00:07 Magnesium Citrate 300 Ml Btl PO DAILY PRN constipation Magnesium Hydroxide 30 ml 12/31/24 21:38 Magnesium Hydroxide Susp 30 Ml Udc PO HS PRN constipation Ondansetron HCl 4 mg 12/31/24 18:37 Ondansetron Hcl Odt 4 Mg Tablet PO Q6H PRN Nausea And Vomiting Polyethylene Glycol 17 gm 12/31/24 21:38 Polyethylene Glycol 3350 17 Gm Powd.Pack PO DAILY PRN constipation Prednisone 40 mg 01/12/25 08:00 Prednisone 20 Mg Tablet PO DAILY@0800 [facility] Quetiapine Fumarate 150 mg 12/31/24 21:50 01/10/25 20:39 Quetiapine Fumarate Xr 50 Mg Tab.Er.24h PO 150 mg HS [facility] Administration Scopolamine 1 patch 12/31/24 21:40 01/09/25 08:44 Scopolamine 1 Mg Patch TRANSDERM 1 patch Q72HR ESTEFANIA Administration Senna 17.2 mg 12/31/24 21:38 Sennosides 8.6 Mg Tablet PO DAILY PRN constipation Sodium Chloride 1 spray 01/07/25 22:41 Saline 0.65% [place] Soln 44 Ml Btl NASAL Q6HR PRN Congestion Radiology Results: ITS Impressions Chest X-Ray 01/08/25 14:44 Impression: 1: Lingular infiltrate, most likely atelectasis/scarring. Chest CT 01/10/25 15:40 IMPRESSION: 1. Tree-in-bud opacities in the basilar left lower lobe consistent with endobronchial spread of disease and age-indeterminate pneumonia. There is however some associated bronchial wall thickening and some mucous plugging in the bilateral lower lobes suggesting this is more likely acute. Labs Labs: Laboratory Results - last 24 hr 01/11/25 05:52 WBC 6.5 RBC 4.37 L Hgb 12.9 L Hct 41.8 L MCV 95.7 MCH 29.5 MCHC 30.9 L RDW 13.5 Plt Count 196 MPV 10.6 H Immature Gran % (Auto) 0.9 H Neut % (Auto) 58.1 Lymph % (Auto) 26.5 [place] % (Auto) 9.1 H Eos % (Auto) 4.2 Baso % (Auto) 1.2 Lymph # (Auto) 1.72 [place] # (Auto) 0.6 Eos # (Auto) 0.3 Baso # (Auto) 0.1 Abs Immat Gran (auto) 0.06 H Absolute Neuts (auto) 3.8 Absolute Nucleated RBC 0.000 Nucleated RBC % 0.0 Sodium 138 Potassium 3.7 Chloride 105 Carbon Dioxide 26 Anion Gap 7 BUN 21 H Creatinine 0.88 Estim Creat Clear Calc 75 Estimated GFR > 60 Glucose 132 H Calcium 8.8 Magnesium 2.0 Total Bilirubin 0.3 AST 26 ALT 41 Alkaline Phosphatase 56 Total Protein 6.0 L Albumin 3.3 L
[2025-01-11] MEDS: ALPRAZolam (*CRX) 0.5 MG TABLET PO ×2 (15:36→20:36)
--- NOTE | 2025-01-11 16:56 | P.PNNEUR_ITS ---
Progress Note: A&P Assessment and Plan (1) Gait disturbance: Code(s): R26.9 - Unspecified abnormalities of gait and mobility Status: Acute Assessment and Plan: I would suggest an EMG nerve can study of the lower limbs to further investigate for possible peripheral neurologic problem. I understand that we cannot get MRI on account of his cardiac status. CT scan of the lumbosacral spine has shown disc bulge at L4-5 and this study was done in February of 2020 4. He should continue to work with the physical therapist and a after the EMG nerve can study I shall be glad to review him in the office. (2) Seizure: Code(s): R56.9 - Unspecified convulsions Status: Chronic Assessment and Plan: These are controlled with the current medications (3) Frequent falls: Code(s): R29.6 - Repeated falls Status: Acute Plan as discussed above out suggest EMG nerve can study of both lower limbs. These findings were discussed with the hospitalist also. Subjective Date/time seen: 01/11/25 16:56 Interval history: Patient is more awake and alert and states that he is able to walk with the help of physical therapy and walker. He does complain of pain in the back and the right leg. Patient has history of fall leading to subarachnoid hemorrhage in 2023. He has history of seizure disorder and is on lamotrigine. His also on Aricept and Namenda for memory loss. MRI could not be done since there is some issue with the cardiac treatments which is a in place from [facility]. He had CT scan of the lumbosacral spine done in February 2024 which has shown a diffuse disc bulge with narrowing of the neural foramina at L4-5 and root compression. Review of Systems Review of Systems: All systems reviewed & are unremarkable except as noted in HPI and below Exam Narrative: Alert or and oriented to self time place and person. Examination of cranial nerves did not show any focal deficit. Motor system normal power in both upper limbs however in lower limbs he appears to have mild atrophy of the muscles and deep tendon reflexes are decreased at knees and ankles. There is no definite sensory loss however is able to move his both legs power grade 4 +over 5. Objective Data Vital Signs Vital Signs: Vital Signs - 24 hr 01/10/25 19:49 01/10/25 20:00 01/10/25 20:54 Temperature 97.2 F L Pulse Rate 98 74 Respiratory Rate 16 16 Blood Pressure 131/55 L Pulse Oximetry 97 Oxygen Delivery Room Air Fraction of Inspired Oxygen 01/10/25 20:57 01/11/25 02:05 01/11/25 06:00 Temperature 97.0 F L Pulse Rate 98 59 L Respiratory Rate 16 16 Blood Pressure 120/68 Pulse Oximetry 99 97 Oxygen Delivery Room Air Fraction of Inspired Oxygen 01/11/25 08:35 01/11/25 09:53 01/11/25 09:53 Temperature Pulse Rate 90 Respiratory Rate 16 Blood Pressure Pulse Oximetry 97 Oxygen Delivery Room Air Room Air Fraction of Inspired Oxygen 21 01/11/25 15:08 01/11/25 15:12 01/11/25 15:27 Temperature 96.9 F L Pulse Rate 84 83 93 Respiratory Rate 16 17 14 Blood Pressure 166/78 H Pulse Oximetry 93 99 Oxygen Delivery Room Air Fraction of Inspired Oxygen Intake/Output Intake/Output: Intake & Output 01/08/25 01/09/25 01/10/25 01/11/25 23:59 23:59 23:59 23:59 Intake Total 2978 340 1490 960 Output Total 3300 1750 1150 650 Balance -322 -1410 340 310 Meds/Results Medications: Active Medications Generic Name Dose Route Start Last Admin Trade Name Freq PRN Reason Stop Dose Admin Acetaminophen 650 mg 12/31/24 18:37 01/07/25 16:52 Acetaminophen 325 Mg Tablet PO 650 mg Q6H PRN Administration Mild Pain (1-3) or Fever Hydrocodone Bitart/Acetaminophen 1 tab 12/31/24 21:38 01/08/25 14:58 Hydrocodone/Acetaminophen (*Crx) 5-325 Mg Tablet PO 1 tab Q4H PRN Administration pain (scale score 4-6) Hydrocodone Bitart/Acetaminophen 1 tab 12/31/24 21:38 01/08/25 09:44 Hydrocodone/Acetaminophen (*Crx) 10-325 Mg Tablet PO 1 tab Q6H PRN Administration pain (scale score 7-10) Albuterol 2 puff 01/10/25 14:00 01/11/25 15:08 Albuterol Sulfate (*Sp) Aerosol 1 Puff INHALATION 2 puff Q6HRT ESTEFANIA Administration Alprazolam 0.5 mg 12/31/24 21:38 01/11/25 15:36 Alprazolam (*Crx) 0.5 Mg Tablet PO 0.5 mg TID PRN Administration Anxiety Baclofen 20 mg 12/31/24 21:50 01/11/25 08:36 Baclofen 10 Mg Tablet PO 20 mg BID ESTEFANIA Administration Cyanocobalamin 1,000 mcg 01/16/25 09:00 Cyanocobalamin Inj 1,000 Mcg/Ml Vial IM WEEKLY ESTEFANIA Cyanocobalamin 1,000 mcg 01/10/25 09:00 01/11/25 08:36 Cyanocobalamin 1,000 Mcg Tablet PO 1,000 mcg QAM ESTEFANIA Administration Diclofenac Sodium 75 mg 12/31/24 21:38 01/04/25 11:32 Diclofenac Sod 75 Mg Tablet.Ec PO 75 mg BID PRN Administration hip pain Donepezil HCl 10 mg 01/01/25 21:00 01/10/25 20:40 Donepezil Hcl 10 Mg Tablet PO 10 mg HS ESTEFANIA Administration Doxycycline Hyclate 100 mg 01/10/25 13:45 01/11/25 08:36 Doxycycline Hyclate 100 Mg Tablet PO 100 mg Q12HR ESTEFANIA Administration Ergocalciferol 1,250 mcg 01/10/25 09:00 01/10/25 07:40 Ergocalciferol (Vitamin D2) 1,250 Mcg (50,000 Units) Capsule PO 1,250 mcg Harvey@0900 ESTEFANIA Administration Fish Oil 1 gm 01/01/25 08:00 01/11/25 08:36 [place] 3 Polyunsat Fatty Acids 1 Gm Cap PO 1 gm BIDWM ESTEFANIA Administration Fluticasone Propionate 2 spray 01/03/25 11:05 01/11/25 08:35 Fluticasone Propionate 0.05% Na Spr 16 Gm Btl (*Bkc) NASAL Not Given QAM [facility] Guaifenesin 1,200 mg 01/11/25 21:00 Guaifenesin 12 Hr 600 Mg Tabcr PO Q12HR ESTEFANIA Lamotrigine 100 mg 12/31/24 21:55 01/11/25 08:36 Lamotrigine 100 Mg Tablet PO 100 mg Q12HR ESTEFANIA Administration Lamotrigine 50 mg 12/31/24 21:55 01/11/25 08:37 Lamotrigine 50 Mg Tablet PO 50 mg Q12HR ESTEFANIA Administration Loratadine 10 mg 01/03/25 11:05 01/11/25 08:36 Loratadine 10 Mg Tablet PO 10 mg QAM ESTEFANIA Administration Losartan Potassium 50 mg 01/01/25 09:00 01/11/25 08:36 Losartan Potassium 25 Mg Tablet PO 50 mg DAILY ESTEFANIA Administration Magnesium Citrate 296 ml 01/01/25 00:07 Magnesium Citrate 300 Ml Btl PO DAILY PRN constipation Magnesium Hydroxide 30 ml 12/31/24 21:38 Magnesium Hydroxide Susp 30 Ml Udc PO HS PRN constipation Ondansetron HCl 4 mg 12/31/24 18:37 Ondansetron Hcl Odt 4 Mg Tablet PO Q6H PRN Nausea And Vomiting Polyethylene Glycol 17 gm 12/31/24 21:38 Polyethylene Glycol 3350 17 Gm Powd.Pack PO DAILY PRN constipation Prednisone 40 mg 01/12/25 08:00 Prednisone 20 Mg Tablet PO DAILY@0800 ESTEFANIA Quetiapine Fumarate 150 mg 12/31/24 21:50 01/10/25 20:39 Quetiapine Fumarate Xr 50 Mg Tab.Er.24h PO 150 mg HS ESTEFANIA Administration Scopolamine 1 patch 12/31/24 21:40 01/09/25 08:44 Scopolamine 1 Mg Patch TRANSDERM 1 patch Q72HR ESTEFANIA Administration Senna 17.2 mg 12/31/24 21:38 Sennosides 8.6 Mg Tablet PO DAILY PRN constipation Sodium Chloride 1 spray 01/07/25 22:41 Saline 0.65% [place] 44 Ml Btl NASAL Q6HR PRN Congestion Radiology Results: ITS Impressions Chest X-Ray 01/08/25 14:44 Impression: 1: Lingular infiltrate, most likely atelectasis/scarring. Chest CT 01/10/25 15:40 IMPRESSION: 1. Tree-in-bud opacities in the basilar left lower lobe consistent with endobronchial spread of disease and age-indeterminate pneumonia. There is however some associated bronchial wall thickening and some mucous plugging in the bilateral lower lobes suggesting this is more likely acute. Labs Labs: Laboratory Results - last 24 hr 01/11/25 05:52 WBC 6.5 RBC 4.37 L Hgb 12.9 L Hct 41.8 L MCV 95.7 MCH 29.5 MCHC 30.9 L RDW 13.5 Plt Count 196 MPV 10.6 H Immature Gran % (Auto) 0.9 H Neut % (Auto) 58.1 Lymph % (Auto) 26.5 [place] % (Auto) 9.1 H Eos % (Auto) 4.2 Baso % (Auto) 1.2 Lymph # (Auto) 1.72 [place] # (Auto) 0.6 Eos # (Auto) 0.3 Baso # (Auto) 0.1 Abs Immat Gran (auto) 0.06 H Absolute Neuts (auto) 3.8 Absolute Nucleated RBC 0.000 Nucleated RBC % 0.0 Sodium 138 Potassium 3.7 Chloride 105 Carbon Dioxide 26 Anion Gap 7 BUN 21 H Creatinine 0.88 Estim Creat Clear Calc 75 Estimated GFR > 60 Glucose 132 H Calcium 8.8 Magnesium 2.0 Total Bilirubin 0.3 AST 26 ALT 41 Alkaline Phosphatase 56 Total Protein 6.0 L Albumin 3.3 L
[2025-01-11] MEDS: guaiFENesin 12 HR 600 MG TABCR 1200 MG PO (20:37)
[2025-01-11] MEDS: QUEtiapine FUMARATE XR 50 MG TAB.ER.24H 150 MG PO (20:37)
[2025-01-11] MEDS: DONEPEZIL HCL 10 MG TABLET PO (20:37)
[2025-01-12] MEDS: ALBUTEROL SULFATE (*SP) AEROSOL 1 PUFF 2 PUFF INHALATION ×2 (02:25→15:23)
[2025-01-12 06:00] VITALS: BP 119/73; PULSE 69; RESP 20; TEMP 36.5; O2SAT 95
[2025-01-12 08:00] VITALS: PULSE 69; RESP 20; O2SAT 95
[2025-01-12] MEDS: SALINE 0.65% NAS SOLN 44 ML BTL 1 SPRAY NASAL (09:11)
[2025-01-12] MEDS: guaiFENesin 12 HR 600 MG TABCR 1200 MG PO (09:11)
[2025-01-12] MEDS: predniSONE 20 MG TABLET 40 MG PO (09:12)
[2025-01-12] MEDS: LOSARTAN POTASSIUM 25 MG TABLET 50 MG PO (09:12)
[2025-01-12] MEDS: SCOPOLAMINE 1 MG PATCH 1 PATCH TRANSDERM (09:12)
[2025-01-12] MEDS: LORATADINE 10 MG TABLET PO (09:12)
[2025-01-12] MEDS: OMEGA 3 POLYUNSAT FATTY ACIDS 1 GM CAP PO (09:13)
[2025-01-12] MEDS: DOXYCYCLINE HYCLATE 100 MG TABLET PO (09:13)
[2025-01-12] MEDS: BACLOFEN 10 MG TABLET 20 MG PO (09:13)
[2025-01-12] MEDS: FLUTICASONE PROPIONATE 0.05% NA SPR 16 GM BTL (*BKC) 2 SPRAY NASAL (09:13)
[2025-01-12] MEDS: lamoTRIgine 50 MG TABLET PO (09:13)
[2025-01-12] MEDS: CYANOCOBALAMIN 1,000 MCG TABLET 1000 MCG PO (09:14)
[2025-01-12] MEDS: lamoTRIgine 100 MG TABLET PO (09:36)
--- NOTE | 2025-01-12 09:37 | PCRCNOTE ---
Window of time for administration has passed. See next scheduled administration.
[2025-01-12] MEDS: HYDROcodone/acetaminophen (*CRX) 10-325 MG TABLET 1 TAB PO (10:34)
--- NOTE | 2025-01-12 12:33 | P.DS_ITS ---
DS: Admitting Diagnosis Discharge Date 01/12/2025 Admitting Diagnosis Weakness DS: Discharge Diagnosis Discharge Diagnosis (1) Acute UTI: Code(s): N39.0 - Urinary tract infection, site not specified Status: Acute (2) Seizure: Code(s): R56.9 - Unspecified convulsions Status: Chronic (3) Hypertension: Qualifiers: Hypertension type: primary hypertension Qualified Code(s): I10 - Essential (primary) hypertension Code(s): I10 - Essential (primary) hypertension Status: Chronic (4) Weakness: Code(s): R53.1 - Weakness Status: Acute (5) Vitamin D deficiency: Code(s): E55.9 - Vitamin D deficiency, unspecified Status: Acute (6) Nasal congestion: Code(s): R09.81 - Nasal congestion Status: Acute (7) Pneumonia: Code(s): J18.9 - Pneumonia, unspecified organism Status: Acute DS: Summary Hospital Course Hospital Course: # Acute UTI: - reporting a profound generalized weakness, no significant electrolyte derangements or anemia. Vital signs stable. UA consistent with UTI, suspect this is source of patient's generalized weakness. - UA: Turbid, 2+ protein, 1+ ketones, 3+ blood, 1+ bilirubin, 3+ leuks, greater than 100 RBC and WBC, 4+ bacteria, yeast present. - UC showed greater than 100,000 CFU/mL gram positive organism likely colonizer - previous micro reviewed. Patient grew coag-negative staph that was pansensitive in March of 2024. - started on Ceftriaxone on 12/31, 01/04 switch to Augmentin 875-125 mg 1 tablet PO q12. - encourage water to drink # Seizure: - continue home medication: Lamotrigine 150 mg b.i.d. - Reported that he an episode where he felt weak then his body went limp for 15 minutes. Patient reports that he normally feels weak prior to a seizure. Patient reports that his last seizure was 6 months ago. - Check Lamotrigine level-therapeutic - Neurology consult, appreciate recommendations. - MRI cervical, thoracic, and lumbar.: Moderate degenerate spondylosis of the lower thoracic spine with multilevel neural narrowing. Severe degenerative spondylosis at L3-L4 and L4-L5 with moderate to advanced degenerative spondylosis at L5-S1. Mild compression deformities at L1 chronic. Severe cervical spondylosis. Follow-up with neuro Surgery as outpatient basis. Physical therapy to continue and follow up in Neurology - monitor # Hypertension: - continue home medications: Losartan - monitor # Weakness: * Physical therapy * - MRI cervical, thoracic, and lumbar.: Moderate degenerate spondylosis of the lower thoracic spine with multilevel neural narrowing. Severe degenerative spondylosis at L3-L4 and L4-L5 with moderate to advanced degenerative spondylosis at L5-S1. Mild compression deformities at L1 chronic. Severe cervical spondylosis. Follow-up with neuro Surgery as outpatient basis. # Vitamin D deficiency: * Vitamin D level 16.3. * Ergocalciferol 50,000 units subq weekly started. # Nasal congestion: * Loratadine 10 mg PO daily. * Fluticasone 2 sprays per nostril daily. Improved with medications. Still has some cough with rhonchi in lung neck pain get CT chest to further evaluate ct chest with bronchiolitis and pneumonia. add doxycycline. albuterol scheduled added prednisone finish 5 days course # Pneumonia: Chest x-ray on CT with bronchiolitis/pneumonia Added doxycycline Rhonchorous chest sounds Add prednisone with improved # Ambulatory dysfunction chronic Will continue PT while inpatient to avoid deconditioning. # Diet: Heart healthy # DVT Prophylaxis: SCDs # Code Status: Full code Time Spent with Patient Time attestation: Total time spent providing and/or coordinating discharge services: 40 minutes Exam Narrative: Const: General: no acute distress and uncomfortable Resp: Effort & Inspection: normal respiratory effort Auscultation: diminished lung sounds Cardio: Rate: regular rate Rhythm: regular rhythm GI: GI Palp: Yes Soft to palpation Auscultation: normal bowel sounds Neuro: Speech: normal speech generalized weakness Extrem: General: no pedal edema Psych: Mental Status: mental status grossly normal Affect: normal affect DS: Data Imaging Radiologist's impression: ITS Impressions Chest X-Ray 12/31/24 14:23 IMPRESSION: No acute cardiopulmonary pathology. Chest X-Ray 01/08/25 14:44 Impression: 1: Lingular infiltrate, most likely atelectasis/scarring. Chest CT 01/10/25 15:40 IMPRESSION: 1. Tree-in-bud opacities in the basilar left lower lobe consistent with endobronchial spread of disease and age-indeterminate pneumonia. There is however some associated bronchial wall thickening and some mucous plugging in the bilateral lower lobes suggesting this is more likely acute. Cervical Spine MRI 01/12/25 09:09 IMPRESSION: 1. No significant change in severe cervical spondylosis. Lumbar Spine MRI 01/12/25 10:07 Impression: Severe degenerative spondylosis at L3-L4 and L4-L5, as detailed above. Moderate to advanced degenerative spondylosis at L5-S1, as detailed above. Mild chronic compression deformity of L1. Thoracic Spine MRI 01/12/25 10:09 Impression: Moderate degenerative spondylosis of the lower thoracic spine, as detailed above, with multilevel neural foraminal narrowing. Discharge Plan Discharge Attending physician on discharge: Rober Bustillo Consulting providers: Ton Lewis Discharging Clinician: Rober Bustillo Anticipated Discharge Date/Time: 01/12/25 12:46 Patient Disposition: SNF Activity: as tolerated Diet: heart healthy Patient Instructions: Antibiotic Form Patient Language: [place] Stand Alone Forms: General Discharge Information, Jail Discharge Follow-up/Referrals: Ash Steel MD [Primary Care Provider] - 1 Week Ton Lewis MD [Physician] - 4 Weeks Bryson Gonzalez MD [Physician] - 2 Weeks Discharge Medications: New cyanocobalamin (vitamin B-12) [Vitamin B-12] 1,000 mcg Tablet 1,000 mcg PO QAM Qty: 30 0RF prednisone 20 mg Tablet 40 mg PO DAILY@0800 Qty: 6 0RF ergocalciferol (vitamin D2) 1,250 mcg (50,000 unit) Capsule 1,250 mcg PO Harvey@0900 Qty: 4 0RF fluticasone propionate 50 mcg/actuation [place],Suspension 2 spray intranasal QAM Qty: 30 0RF doxycycline hyclate 100 mg Tablet 100 mg PO Q12HR Qty: 9 0RF loratadine 10 mg Tablet 10 mg PO QAM Qty: 30 0RF guaifenesin [Mucus Relief ER] 600 mg Tablet Extended Release 12hr 1,200 mg PO Q12HR Qty: 30 0RF albuterol sulfate [Ventolin HFA] 90 mcg/actuation HFA aerosol inhaler 2 puff inhalation QID PRN (Reason: shortness of breath or wheezing) Qty: 8.5 0RF Continued donepezil 10 mg tablet 10 mg PO HS baclofen 20 mg tablet 20 mg PO BID diclofenac sodium 75 mg tablet,delayed release (DR/EC) 75 mg PO BID PRN (Reason: hip pain) icosapent ethyl [Vascepa] 1 gram capsule 1 g PO BIDWMEAL alprazolam 0.5 mg tablet 0.5 mg PO TID PRN (Reason: Anxiety) Qty: 7 0RF sennosides [senna] 8.6 mg tablet 17.2 mg PO DAILY PRN (Reason: constipation) polyethylene glycol 3350 17 gram powder in packet 17 g PO DAILY PRN (Reason: constipation) hydrocodone-acetaminophen 5-325 mg tablet 1 tablet PO Q4H PRN (Reason: pain (scale score 4-6)) quetiapine 150 mg tablet extended release 24 hr 150 mg PO HS losartan 25 mg tablet 50 mg PO DAILY magnesium citrate [Citroma] Solution 296 ml PO ONCE PRN (Reason: constipation) hydrocodone-acetaminophen 10-325 mg tablet 1 tablet PO Q6H PRN (Reason: pain (scale score 7-10)) lamotrigine [Lamictal] 100 mg tablet 150 mg PO BID scopolamine base 1 mg over 3 days patch 3 day 1 patch transdermal Q3D magnesium hydroxide [Dulcolax (magnesium hydroxide)] 400 mg/5 mL suspension 30 ml PO HS PRN (Reason: constipation) mineral oil [Fleet Mineral Oil] Enema 118 ml RECTAL DAILY PRN (Reason: constipation) Rx Instructions: discard any unused portion Discontinued lamotrigine 100 mg tablet 150 mg PO BID Date of admission: 01/01/25 16:14 Primary Care Provider: Ash Steel Admitting Provider: Apollo Hess Attending physician on admission: Apollo Hess Condition: Stable
[2025-01-12 15:25] VITALS: BP 153/87; PULSE 79; RESP 17; TEMP 36.7; O2SAT 97
== END 2025-01-12 15:40 | DRG 689 ==
LOC: ANHED 16:29 → ANH3MEDSUR 18:11
PROVIDERS: Emergency Medicine; Nurse Practitioner Family; Psychiatry & Neurology Neurology; Student in an Organized Health Care Education/Training Program; Admitting Provider Family Medicine; Emergency Provider Emergency Medicine; PCP Internal Medicine; Visit Provider Internal Medicine
DX: N39.0 Urinary tract infection, site not specified (principal); J18.9 Pneumonia, unspecified organism; I10 Essential (primary) hypertension; G40.909 Epilepsy, unspecified, not intractable, without status epilepticus; E55.9 Vitamin D deficiency, unspecified; R09.81 Nasal congestion; F03.90 Unspecified dementia, unspecified severity, without behavioral disturbance, psychotic disturbance, mood disturbance, and anxiety; I25.10 Atherosclerotic heart disease of native coronary artery without angina pectoris; K21.9 Gastro-esophageal reflux disease without esophagitis; E78.5 Hyperlipidemia, unspecified; D64.9 Anemia, unspecified; F41.8 Other specified anxiety disorders; F20.9 Schizophrenia, unspecified; B95.7 Other staphylococcus as the cause of diseases classified elsewhere; M47.816 Spondylosis without myelopathy or radiculopathy, lumbar region; M47.814 Spondylosis without myelopathy or radiculopathy, thoracic region; M47.812 Spondylosis without myelopathy or radiculopathy, cervical region; R29.6 Repeated falls
CPT/HCPCS: 36415; 71045; 71046; 71250; 72141; 72146; 72148; 80048; 80053; 80175; 81001; 82306; 82550; 82607; 82746; 82948; 83036; 83090; 83735; 83921; 84207; 84425; 85025; 85055; 86334; 87086; 93005; 94640; 96365; 97110; 97161; 97165; 97530; 97535; 99285; A9270; G0378; J0696; J3420; J7030; J7512

== ENCOUNTER 2025-02-06 11:48 | Emergency (ER) | payer MEDICARE, SELFPAY ==
[2025-02-06 12:07] VITALS: BP 124/64; PULSE 57; RESP 16; TEMP 37.1; O2SAT 96
--- NOTE | 2025-02-06 17:33 | PC.NURSE ---
MD used one nitrate stick.
--- NOTE | 2025-02-06 17:34 | ED_ITS ---
HPI - Epistaxis General Chief complaint: Epistaxis Stated complaint: SOB, Cough Time Seen by Provider: 02/06/25 16:56 History of Present Illness HPI Narrative: Patient is a 61-year-old male who presents ER with epistaxis from his [place] [facility]. He has had 5 days of intermittent nose bleeding. He is not on blood thinners. Denies sinus congestion or postnasal drip. He has not been picking his nose or blowing his nose excessively. Bleeding typically comes from the right nostril. Patient also reports chronic cough and chronic leg pain ongoing for year. Patient does have some mild dementia. Related Data Home Medications ?Medication ?Instructions ?Recorded ?Confirmed ?Last Taken ?Type baclofen 20 mg tablet 20 mg PO BID 01/23/24 12/31/24 12/30/24 History diclofenac sodium 75 mg 75 mg PO BID PRN hip pain 01/23/24 12/31/24 Unknown History tablet,delayed release donepezil 10 mg tablet 10 mg PO HS 01/23/24 12/31/24 12/30/24 History icosapent ethyl 1 gram capsule 1 g PO BIDWMEAL 01/23/24 12/31/24 12/30/24 History (Vascepa) hydrocodone 10 mg-acetaminophen 1 tablet PO Q6H PRN pain (scale 12/31/24 12/31/24 Unknown History 325 mg tablet score 7-10) hydrocodone 5 mg-acetaminophen 325 1 tablet PO Q4H PRN pain (scale 12/31/24 12/31/24 12/30/24 History mg tablet score 4-6) lamotrigine 100 mg tablet 150 mg PO BID 12/31/24 12/31/24 Unknown History (Lamictal) losartan 25 mg tablet 50 mg PO DAILY 12/31/24 12/31/24 12/30/24 History magnesium citrate (Citroma oral 296 ml PO ONCE PRN constipation 12/31/24 12/31/24 Unknown History solution) magnesium hydroxide 400 mg/5 mL 30 ml PO HS PRN constipation 12/31/24 12/31/24 Unknown History oral suspension (Dulcolax (magnesium hydroxide)) mineral oil (Fleet Mineral Oil 118 ml RECTAL DAILY PRN 12/31/24 12/31/24 Unknown History enema) constipation polyethylene glycol 3350 17 gram 17 g PO DAILY PRN constipation 12/31/24 12/31/24 12/30/24 History oral powder packet quetiapine 150 mg tablet,extended 150 mg PO HS 12/31/24 12/31/24 12/30/24 History release 24 hr scopolamine base 1 mg over 3 days 1 patch transdermal Q3D SECRECTIONS 12/31/24 12/31/24 Unknown History transdermal patch sennosides 8.6 mg tablet (senna) 17.2 mg PO DAILY PRN constipation 12/31/24 12/31/24 12/30/24 History Allergies Allergy/AdvReac Type Severity Reaction Status Date / Time No Known Allergies Allergy Verified 02/06/25 12:09 Review of Systems Constitutional: Constitutional: Reports no additional constitutional complaints ENT: Reports system reviewed and no additional complaints, except as documented Musculoskeletal: Musculoskeletal: Reports no additional musculoskeletal complaints Comments: Leg aches chronic PMFSH Past Medical History Medical History Subarachnoid hemorrhage Post fall, January 2024 Dementia Seizure GERD (gastroesophageal reflux disease) Coronary artery disease Hypertension Anxiety and depression Hyperlipidemia Family History Family History Sibling Acute myocardial infarction Sibling Acute myocardial infarction Social History Social History Smoking status: Never smoker Alcohol intake: never Substance use: never Substance use type: does not use Do You Feel Safe in your Home?: Yes Lack of Transportation: No Lack of Food: Never True Current Housing: I Have Housing Concerned About Future Housing: No Difficulty Paying Gas/Electric Bills: No Difficulty Paying for Meds: No Currently Unemployed: No Education: Decline to Answer Difficulty w/ Childcare or Family Care: No Living arrangements: with family Gender identity (if verbalized by the patient): Male Spiritual care concerns: No Agree to blood products: Yes Exam Narrative: GENERAL: Well-appearing, well-nourished, and in no acute distress. HEAD: Normocephalic, atraumatic. ENT: Mucous membranes moist. Right nostril with evidence of recent bleed, clot evacuated, the septum displays 2 areas of increased vascularity. NECK: Supple. CHEST: Clear to auscultation. No respiratory distress. HEART: Regular rate and rhythm. Normal peripheral pulses. EXTREMITIES: Normal range of motion. No edema. SKIN: Warm, dry, no rash. NEURO: Alert and oriented x3. PSYCH: Normal mood and affect. Course Course Emergency Course: Patient underwent cautery of the likely bleeding vessels. Discharge. Vital Signs Vital signs: Vital Signs Temperature 98.7 F 02/06/25 12:07 Pulse Rate 57 L 02/06/25 12:07 Respiratory Rate 16 02/06/25 12:07 Blood Pressure 124/64 02/06/25 12:07 Pulse Oximetry 96 02/06/25 12:07 Oxygen Delivery Room Air 02/06/25 12:07 Temperature 98.7 F 02/06/25 12:07 Pulse Rate 57 L 02/06/25 12:07 Respiratory Rate 16 02/06/25 12:07 Blood Pressure 124/64 02/06/25 12:07 Pulse Oximetry 96 02/06/25 12:07 Oxygen Delivery Room Air 02/06/25 12:07 Procedures Epistaxis Control right: Direct Inspection: anterior source identified Clots Removed by: manually Cautery Used: silver nitrate Patient Tolerated Procedure: well Discharge Plan Discharge Clinical Impression: Epistaxis Patient Disposition: Home Condition: Stable Instructions: Nosebleed (ED) Additional Instructions: Return to the ER if you have severe uncontrolled bleeding that lasts longer than 20 minutes, you lose consciousness, or you are not able to breathe. After a severe episode of nosebleeding you may have a bowel movement that appears to have blood in it. This is due to the fact that you have swallowed a lot of blood. In order to prevent nosebleeds it is recommended that you use Octavia nasal spray to increase moisture in your nose, you apply Vaseline as a barrier cream with a Q-tip, and that you use a humidifier/vaporizer in your bedroom at night. If you have oxymetazoline (Afrin) available, this can be used twice a day for no longer than 3 days. It can help control your bleeding. You may use claritin or zyrtec as nasal decongestants if your have a runny/stuffy nose. Patient Language: Telugu Prescriptions: No Action donepezil 10 mg tablet 10 mg PO HS baclofen 20 mg tablet 20 mg PO BID diclofenac sodium 75 mg tablet,delayed release (DR/EC) 75 mg PO BID PRN (Reason: hip pain) icosapent ethyl [Vascepa] 1 gram capsule 1 g PO BIDWMEAL alprazolam 0.5 mg tablet 0.5 mg PO TID PRN (Reason: Anxiety) Qty: 7 0RF sennosides [senna] 8.6 mg tablet 17.2 mg PO DAILY PRN (Reason: constipation) polyethylene glycol 3350 17 gram powder in packet 17 g PO DAILY PRN (Reason: constipation) hydrocodone-acetaminophen 5-325 mg tablet 1 tablet PO Q4H PRN (Reason: pain (scale score 4-6)) quetiapine 150 mg tablet extended release 24 hr 150 mg PO HS losartan 25 mg tablet 50 mg PO DAILY magnesium citrate [Citroma] Solution 296 ml PO ONCE PRN (Reason: constipation) hydrocodone-acetaminophen 10-325 mg tablet 1 tablet PO Q6H PRN (Reason: pain (scale score 7-10)) lamotrigine [Lamictal] 100 mg tablet 150 mg PO BID scopolamine base 1 mg over 3 days patch 3 day 1 patch transdermal Q3D magnesium hydroxide [Dulcolax (magnesium hydroxide)] 400 mg/5 mL suspension 30 ml PO HS PRN (Reason: constipation) mineral oil [Fleet Mineral Oil] Enema 118 ml RECTAL DAILY PRN (Reason: constipation) Rx Instructions: discard any unused portion cyanocobalamin (vitamin B-12) [Vitamin B-12] 1,000 mcg Tablet 1,000 mcg PO QAM Qty: 30 0RF prednisone 20 mg Tablet 40 mg PO DAILY@0800 Qty: 6 0RF ergocalciferol (vitamin D2) 1,250 mcg (50,000 unit) Capsule 1,250 mcg PO Harvey@0900 Qty: 4 0RF fluticasone propionate 50 mcg/actuation [place],Suspension 2 spray intranasal QAM Qty: 30 0RF doxycycline hyclate 100 mg Tablet 100 mg PO Q12HR Qty: 9 0RF loratadine 10 mg Tablet 10 mg PO QAM Qty: 30 0RF guaifenesin [Mucus Relief ER] 600 mg Tablet Extended Release 12hr 1,200 mg PO Q12HR Qty: 30 0RF albuterol sulfate [Ventolin HFA] 90 mcg/actuation HFA aerosol inhaler 2 puff inhalation QID PRN (Reason: shortness of breath or wheezing) Qty: 8.5 0RF Follow-up/Referrals: Justen Sarmiento MD [Physician] - 1 Week Ash Steel MD [Primary Care Provider] -
[2025-02-06 17:54] VITALS: BP 152/100; PULSE 65; RESP 20; TEMP 36.4; O2SAT 100
--- NOTE | 2025-02-06 18:00 | PC.NURSE ---
Attempted to call report back to Dimas DANIELS with no answer.
== END 2025-02-06 18:00 ==
PROVIDERS: Emergency Provider Emergency Medicine; PCP Internal Medicine
DX: R04.0 Epistaxis (principal); F03.90 Unspecified dementia, unspecified severity, without behavioral disturbance, psychotic disturbance, mood disturbance, and anxiety; K21.9 Gastro-esophageal reflux disease without esophagitis; I25.10 Atherosclerotic heart disease of native coronary artery without angina pectoris; I10 Essential (primary) hypertension; E78.5 Hyperlipidemia, unspecified; F41.8 Other specified anxiety disorders
CPT/HCPCS: 30901; 99283

== ENCOUNTER 2025-02-16 01:51 | Emergency (ER) | payer MEDICARE, SELFPAY ==
--- NOTE | ~2025-02-16 | CT_ITS ---
Noncontrast CT scan of the cervical spine Technique: Multiple contiguous axial [address] images of the cervical spine were obtained and rec onstructed in 2D sagittal and coronal planes on the acquisition scanner. Dose reduction technique was used on this scan by utilizing automated exposure control, adjustment of the mA and/or kV according to patient size. The dose-length product (DLP) was 525.83 mGy-cm. Clinical History: Pain COMPARISON: 03/31/2024 Findings: No fractures or dislocations. There is advanced emphysematous narrowing at C6-C7. There is mild degenerative disc narrowing narrowing the cervical spine. There are anterior osteophytes extend ing from C2 through C7. There is bilateral neural foraminal narrowing, right worse than left, at C3-C 4 with mild disc osteophyte complex present. There is bilateral neural foraminal narrowing, right wor se than left, at C4-C5. There is bilateral neural foraminal narrowing at C6-C7, with disc osteophyte complex. There is probable mild to moderate canal stenosis at this level. No prevertebral soft tissue swelling. Impression: No fracture or subluxation of the cervical spine. Degenerative changes, as above. Reviewed, dictated and finalized at location . Impression: No fracture or subluxation of the cervical spine. Degenerative changes, as above.
--- NOTE | ~2025-02-16 | CT_ITS ---
Non-contrast Head CT History: Trauma COMPARISON: 03/31/2024 Technique: Axial non-contrast imaging of the brain was performed. Dose reduction technique was used on this scan by utilizing automated exposure control and iterative reconstruction technique. The dose -length product (DLP) was 605.33 mGy-cm. Findings: There is no evidence of intracranial hemorrhage, mass lesion, or acute infarct. Brain par enchyma appears normal. The ventricles and subarachnoid spaces are normal in size. The calvarium ap pears normal. The visualized paranasal sinuses and left mastoid air cells are clear.] Right mastoid effusion noted. Impression: No intracranial abnormality seen. Right mastoid effusion. Reviewed, dictated and finalized at [facility]. Impression: No intracranial abnormality seen. Right mastoid effusion.
[2025-02-16 01:51] VITALS: BP 128/79; PULSE 50; RESP 14; TEMP 36.5; O2SAT 97
[2025-02-16 02:00] VITALS: BP 148/81; PULSE 51; RESP 13; TEMP 36.5; O2SAT 97
--- OUTSIDE RECORDS SUMMARY | 2025-02-16 02:48 | XMS_ITS | Encounter Summary ---
Author Organization [facility] Address [address] [place] [address] Phone Care Team Providers Care Fresh Food Manager Name Role Phone Unkown, Unknown Primary Care Provider Unavailabl e Encounter Details Date Type Department Care Team (Late st Contact Info) Description 12/05/2017 Orders Only [facility] ProviderMary MD [address] [place] [address] Social History Tobacco Use Types Packs/Day Years Used Date Smoking Tobacco: Former Alcohol Use Standard Drinks/Week Comments No 0 (1 standard drink = 0.6 oz pur e alcohol) Sex and Gender Information Value Date Recorded Sex Assigned at Not on file 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 us Historical Provider LAB BLOOD ORDERABLES Eneida l Result documented in this encounter Visit Diagnoses Not on filedocumented in this encounter Care Teams Fresh Food Manager Relationship Specialty Start Date End Date Unkown, Unknown PCP - General 01/01/17 documented as of this encounter
--- OUTSIDE RECORDS SUMMARY | 2025-02-16 02:49 | XMS_ITS | Referral Summary ---
Author Organization [facility] Address [address] [place] [address] Care Team Providers Care Crew Scheduler Name Role Phone Unkown, Unknown Primary Care Provider Unavailabl e Allergies No known active allergies Medications HYDROcodone-domingo taminophen (NORCO) 5-325 mg per tablet take 1 tablet by oral route every 6 hours as needed for pain 40 0 7 Active benztropine (COGENTIN) 1 mg tablet take 1 tablet by oral route 2 times every day 0 0 7 Active bisoprolol-hydr oCHLOROthiazide (ZIAC) 10-6.25 mg per tablet take 1 tablet by oral route every day 0 0 7 Active QUEtiapine XR (SEROquel XR) 300 mg 24 hr tablet take 1 tablet by oral route every day at bedtime 0 0 7 Active nabumetone (RELAFEN) 500 mg tablet take 1 tablet by oral route 2 times every day 0 0 7 Active allopurinol (ZYLOPRIM) 100 mg tablet take 1 tablet by oral route 3 times every day 0 0 7 Active FLUoxetine (FLUoxetine) 10 mg capsule take 2 capsule by oral route every day 0 0 7 Active traZODone (DESYREL) 50 mg tablet take 1 tablet by oral route 3 times every day after meals 0 0 7 Active docusate sodium (COLACE) 100 mg capsule take 1 capsule by oral route every day at bedtime as needed 0 0 7 Active raNITIdine (ZANTAC) 150 mg tablet take 1 tablet by oral route 2 times every day 0 0 7 Active simvastatin (ZOCOR) 40 mg tablet take 1 tablet by oral route every day in the evening 0 0 7 Active lamoTRIgine (LaMICtal) 100 mg tablet take 1 tablet by oral route every day 0 0 7 Active fluPHENAZine decanoate (PROLIXIN) 25 mg/mL injection inject 1 milliliter by subcutaneous route every 2 weeks 0 vial 0 7 Active meclizine (ANTIVERT) 12.5 mg tablet take 2 tablet by oral route 3 times every day as needed 0 0 7 Active ALPRAZolam (XANAX) 0.5 mg tablet Take 0.5 mg by mouth nightly as needed for anxiety. Active baclofen (LIORESAL) 10 mg tablet Take 10 mg by mouth 3 (three) times a day. Active colesevelam (WELCHOL) 625 mg tablet Take 1,875 mg by mouth 2 (two) times a day with meals. Active aspirin 81 mg tablet Take 81 mg by mouth daily. Active cholecalciferol (VITAMIN D-3) 5,000 unit tablet Active clindamycin (CLEOCIN) 300 mg capsule Take 300 mg by mouth 3 (three) times a day. Active traMADol (ULTRAM) 50 mg tablet Take 1 tablet (50 mg total) by mouth every 6 (six) hours as needed for pain. 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 Gender Identity Not on file Sexual Orientation Not on file Last Filed Vital Signs Vital Sign Reading Time Taken Comments Blood Pressure 158/88 04/18/2017 10:39 AM CDT Pulse 77 04/18/2017 10:39 AM CDT Temperature - - Respiratory Rate - - Oxygen Saturation - - Inhaled Oxygen Concentration - - Weight 128.8 kg (284 lb) 04/18/2017 10:39 AM CDT Height 180.3 cm (5' 11) 04/18/2017 10:39 AM CDT Body Mass Index 39.61 04/18/2017 10:39 AM CDT Plan of Treatment Not on file Insurance IDPA MEDICARE IDPA IDMS MEDICARE [facility] Address: [address] [address] [place] [address] Care Teams Crew Scheduler Relationship Specialty Start Date End Date Unkown, Unknown PCP - General 01/01/17
--- OUTSIDE RECORDS SUMMARY | 2025-02-16 02:49 | XMS_ITS | Data Portability ---
Author Organization [place] [facility], Main Office Address [address] [place] [address] Assessment Encounter Date Assessment Date Assessment LastModified by Organization Details LastModified Time 10/30/2023 10/30/2023 Assessment: Moderate OSAHS, AHI = 21 PLMD Hypoventilation Plan: The following were reviewed and explained to the patient: primary care/referral note [facility] split night sleep study 10/18/22 HI = 22, supine HI = 62, [employer] large Vitera full face mask @ 8 cmH2O [facility] diagnostic sleep study 10/14/23 AHI = 21, [...] Dementia Mood disorders Rhinitis Prediabetes Hypertension CHF ME MADELEINE Urge urinary incontinence Educated the patient [...] This note is dictated and transcribed by [employer] Fluency Direct Software. Sequ[employer] Slinger variances may occur. Despite proofreading, typographical errors may occur. Occasional wrong-word or 'icyic-i-npdb' substitutions may have occurred due to the [...] or more view 2024 025 [email or web address] [facility] Podiatry Chapito Hooks, [address], [place], [address], 5 15:37:04 polysomnog jonas, titration study 2023 024 [email or web address] [facility] [place], [address] [place], [address], 4 09:23:35 Medication Orders None recorded. Patient [...] view No observ ation record ed. [email or web address] [facility] Chapito Hooks [address], [place], [address], 10/08/2024 15:37:03 Result Notes None recorded. Problems Name Problem SNOMED Code Status Onset Date Resolution Date Notes Provider Name and Address Organization Details Recorded Time Acquired trigger finger 2812795 Active Not Available [facility] 3 05:55:41 Hypertensi ve disorder 65694037 Active 2019 Not Available [facility] 3 05:55:41 Onychomyco sis 211221762 Active 2019 Not Available [facility] 3 05:55:41 Heart disease 44523523 Active 2017 Not Available [facility] 3 05:55:41 Mental disorder 55243175 Active 1980 Not Available [facility] 3 05:55:41 Obstructiv e sleep apnea syndrome 27576236 Active 2023 Jose Daniel Alejandro MD [address], [place], [address] , [employer] 4 11:59:01 Avulsion of toenail of right foot 5708362954203 9102 Active 2024 Hussain Nation DPM [address], [address], [place], [address] , [employer] 5 14:53:15 Open wound of toe of right foot 6615316034052 9100 Active 2024 Hussain Nation DPM [address], [place], [address] , [employer] [facility] 5 14:53:22 Notes:Medical History: Epile psy Dementia Anxiety/Depression/Schizophrenia Bilateral tinnitus Rhinitis with postnasal drip Obesity with mod OSAHS, AHI = 21, 10/14/23 Prediabetes Hyperlipidemia Hypertension with LVH Diastolic CHF CAD s/p ME MADELEINE BPH Urge urinary incontinence Vit D deficiency Gout Onychomycosis Procedure History: Coronary angioplasty/stent placement 2017 Bilateral cataract extraction 2018 Nasoseptal surgery 2019 Left 3rd trigger finger release 2020 Biotronik implantable loop recorder implantation 2020 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 Procedures Surgical History Date Name Laterality Status Provider Name and Address Organization Details Recorded Time 5 Nail Debridement completed Hussain Nation DPM [address], [place], [address], [employer] 10/08/2024 14:52:15 3 Nail Debridement completed Hussain Nation DPM [address], [place], [address], [employer] 04/30/2023 16:08:42 Imaging Results None recorded. Procedure Notes None recorded. Medical Equipment None [...] administe red by the provider 09/16 completed [facility]: [id number] Not Available Not Available [...] administe red by the provider 09/16 completed [facility]: [id number] Not Available Not Available [...] in Arterial blood by Pulse oximetry Systolic And Diastolic Provider Name and Address Organization Details Last Updated DateTime 5 180.34 cm 32.4 kg/m2 697441. 43 g 71 /min 14 /min 97 % 97 % 130/77 mm[Hg] Sarah Snyder [facility] [place] [facility] 5 14:18:50 Date Recorded Heart rate Respiratory rate Provider N jenn and Address Organization Details Last Updated DateTime 10/30/2023 87 /min 15 /min Jose Daniel Alejandro MD [address] [facility] [facility] [address], [place], [address], [facility] [place] [facility] 10/30/2023 12:08:19 Date Recorded Body height Body mass index (BMI) Body weight Body temperature Heart rate Oxygen saturation Oxygen saturation in Arterial blood by Pulse oximetry Systolic And Diastolic Provider Name and Address Organization Details Last Updated DateTime 4 180.34 cm 32.4 kg/m2 009398. 43 g 97.5 [degF] 87 /min 96 % 96 % 126/72 mm[Hg] Nancy Castro MA [facility] Dole Tian [facility] 4 11:15:55 Date Recorded Body mass index (BMI) Body height Body weight Provider Name and Address Organization Details Last Updated DateTime 04/27/2022 38.4 kg/m2 175.26 cm 758645.02 g Not Available [facility] 10/10/2022 05:53:32 Date Recorded Heart rate Respiratory rate Oxygen saturation Oxygen saturation in Arterial blood by Pulse oximetry Systolic And Diastolic Provider Name and Address Organization Details Last Updated DateTime 3 81 /min 14 /min 98 % 98 % 134/79 mm[Hg] Sarah Snyder [facility] [place] [facility] 3 16:00:05 Date Recorded Body mass index (BMI) Body height Oxygen saturation Oxygen saturation in Arterial blood by Pulse oximetry Heart rate Respiratory rate Body temperature Body weight Provider Name and Address Organization Details Last Updated DateTime 1 38.4 kg/m2 175.26 cm 98 % 98 % 75 /min 18 /min 97.9 [degF] 696635. 02 g Not Available [facility] 3 05:53:31 Social History Question Answer Notes LastModified by Organizat ion Details LastModified Time Tobacco Smoking Status Never Smoker Not Available [facility] 10/10/2022 05:52:03 What Is Your Level Of [...] 10/30/2023 Have You Recently Traveled Abroad? No [id number] Information not available 10/10/2022 Do You Have [...] anxious, or unable to sleep at night)? [id number] Information not available 10/30/2023 Family History Relationship Description Onset Age of this Age Resolved Age Notes LastModified by Organization Details LastModified Time Mother Cerebrovascu lar accident [facility] Not available 11:58:10 Mother Open heart surgery [facility] Not available 2023 11:58:20 Mother Fracture of lower leg [facility] Not available 2023 11:58:33 Brother Congestive heart failure [facility] Not available 2023 12:00:04 Brother Osteoarthrit is [facility] Not available 2023 12:00:31 Notes:Unable to say Medical History Condition Response HEART DISEASE/HEART PROBLEMS Y Immunizations Vaccine Type Date Status Note Provider Nam e and Address Organization Details Recorded Time Influenza, split virus, quadrivalent, preservative 9 completed Not Available [facility] 10/10/2022 06:04:45 Past Encounters Encounter ID Performer Location Encounter Start Date Encounter Closed Date Diagnosis/Indication Diagnosis SNOMED-CT Code Diagnosis ICD10 Code Diagnosis Note [id number] [facility]_ DEFAULT_1 _1 , 05/05/2021 00:00:00 05/07/2021 20:59:11 [id number] [facility]_ DEFAULT_1 _1 , 04/27/2022 00:00:00 04/29/2022 14:15:51 [id number] Hussain Nation DPM [facility] [place] [address] [facility] [address] [place] [address] 04/30/2023 15:57:41 04/30/2023 16:36:27 Onychomycosis 017016738 B35.1 M79.676 Z74.1 recommend over-the-c ounter topical antifungal medication Nails were debrided without incidentFo llow-up in 3 months for nail care [id number] Jose Daniel Alejandro MD [facility] Pulmonolo gy [place] [address] [facility] [address] [place] [address] 10/30/2023 10:55:51 10/31/2023 09:11:58 Obstructive sleep apnea syndrome 32303067 G47.33 G47.36 G47.61 G47.30 [id number] Hussain Nation DPM [facility] Pod[facility]ry [place] [address] [place] [address] 10/08/2024 14:13:31 10/09/2024 13:58:48 Onychomycosis 507870197 B35.1 M79.676 Z74.1 recommend over-the-c ounter topical antifungal medication Nails were debrided without incidentFo llow-up in 3 months for nail care Open wound of toe of right foot 5736491504 7194068 S91.201A apply topical antibiotic ointment with Band-Aid daily until healedmoni tor for infection at present seek medical attention immediatel yfollow-up 1 week Avulsion o f toenail of right foot 3001948845 1757280 S91.201A right great toenail as above Health Concerns Section Related Observation LastModified by Organization Detai ls LastModified Time None Recorded Concern Status LastModified by Organization Details LastModified Time None Recorded Advance Directives Directive None Recorded Payers Insurance Date Sequence Insurance Name Policy Number Policy B[place] Covered Member ID B[place] Member ID Guarantor Name 02/09/2025 1 [place] [employer] [facility] - DUAL ELIGIBLE (MEDICARE REPLACEMENT/AD VANTAGE - HMO) Marlon Hicks [id number] Marlon Hicks 06/30/2024 1 [employer] (MEDICARE REPLACEMENT/AD VANTAGE - PPO) Marlon Hicks [id number] Marlon Hicks 10/28/2024 [place] Marlon Hicks [id number] Marlon Hicks 10/19/2024 [facility] - DOS ON OR AFTER 21 (MEDICAID REPLACEMENT - HMO) Marlon Loera Kurt [id number] Marlon Hicks 10/30/2023 1 [employer] (MEDICARE REPLACEMENT/AD VANTAGE - [place]) [id number] Marlon Loera [place] [id number] Marlon Loera [place] 10/19/2024 1 [place] WHEN MEDICARE OR MEDICARE REPLACEMENT PRIMARY) Marlon Loera Kurt [id number] Marlon Loera Kurt 10/27/2024 [facility] ON OR AFTER 02/09/21 (MEDICAID REPLACEMENT - HMO) Marlon Loera Kurt [id number] Marlon Loera Kurt Notes Date Note Type Note Provider Name [...] Patient denies any other complaints. Hussain Nation, [place] [address], [address], [place] [facility] 04/30/2023 16:09:10 10/30/2023 text/html Primary care/Referring provider: Juan Carlos Oden MD; Terrance Rucker MD; Ash Steel MD During the [facility] split night sleep study on 10/18/22, HI = 22, supine HI = 62. A [employer] large Vitera full face mask was applied @ 8 cmH2O. He returned his CPAP unit because his [id number] full face mask was smashing his nose. During the [facility] diagnostic sleep study on 10/14/23, AHI = [...] chance of dozing. Jose Daniel Alejandro MD [address] [place] [address], [address], [place] [facility] [employer] [facility] [employer] [facility] 10/30/2023 12:08:42 10/08/2024 text/html . Patient is [...] any other complaints. Hussain Nation DPM [address] [facility] [address], [place], [address], [place] [facility] 10/08/2024 15:38:58
--- OUTSIDE RECORDS SUMMARY | 2025-02-16 02:49 | XMS_ITS | Data Portability ---
Author Organization [facility] Address [address] [place] [address] Assessment No assessment recorded. Plan of Treatment Reminders Order Date Submit Date Provider Last Modified By Organization Details Last Modified Time Details Appointments None recorded . Lab PSA, serum or plasma 2019 020 [email or web address] [facility], [address] [place] [address], [address], [place], [address], 0 09:52:37 vitamin D, 25-hydro xy, total, serum 2019 020 MAREK [facility], [address] [facility], [address], [place], [address], 0 16:11:54 vitamin B12, serum 2019 020 MAREK [facility], [address] [facility], [address], [place], [address], 0 16:11:55 Referral sleep medicine referral - Please call patient to schedule appt. Thank you 2019 020 [facility], [address] [facility], [address], [place], [address], 0 15:38:33 Procedures None recorded . Surgeries None recorded . Imaging None recorded . Medication Orders nystatin 100,000 unit/gra m topical cream 2019 020 INTERFACE [facility] [place]- [address] N[address] Pr[address], [address], [place], [place], [id number], 0 10:56:16 Vascepa 1 gram capsule 2019 020 INTERFACE [facility] [place]- [address] , [address], [place], [place], [id number], 0 10:56:17 Pennsaid 20 mg/gram/ actuatio n (2 %) topical soln in metered- dose pump 2019 020 INTERFACE Not available 0 16:09:02 Patient TargetsNo targets recorded. 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 reviewed portion sizes .... , avoid sweets ..... [email or web address] Not available 10/15/2019 17:00:51 Reason for Referral Sleep Medicine Referral for Apnea snores , wakes up gasping for air at times Please call patient to schedule appt. Thank you Referring Physician: Eduard Gilbert, Family Medicine, Encounter Date: 09/15/2019 Results Created Date Observation Date Name Description Value Unit Range Abnormal Flag Note LastModifiedBy Organization Detail LastModifiedTime 09/17/1909/17/2024 Drugs ident ified in Urine by Scree [...] Not Available 09/22/2024 21:03:41 09/17/19 25 09/17/2024 [facility] 1999 panel - Serum or Plasm a anion gap in serum or plasma 6.9 mmol/ L low: 14mmol /Lhigh : 22mmol /L low Not Available Not Available 09/22/2024 21:03:41 09/17/19 25 09/17/2024 [facility] - Serum or Plasm a glucose [mass/volume ] in serum or plasma 90 mg/dL low: 70mg/d Lhigh: 99mg/d L normal Not Available Not Available 09/22/2024 21:03:41 09/17/19 25 09/17/2024 [facility] 1999 panel - Serum or Plasm a urea nitrogen [mass or moles/volume ] in serum or plasma 20 mg/dL low: 8mg/dL high: 19mg/d L high Not Available Not Available 09/22/2024 21:03:41 09/17/19 25 09/17/2024 [facility] [place] [address] panel - Serum or Plasm a creatinine [mass/volume ] in serum or plasma 0.98 mg/dL low: 0.66mg /dLhig h: 1.25mg /dL normal Not Available Not Available 09/22/2024 21:03:41 09/17/19 25 09/17/2024 [facility] 1999 panel - Serum or Plasm a glomerular filtration rate/1.73 sq M.predicted [volume rate/area] in serum, plasma or blood >60 normal Not Available Not Available 09/12 21:03:41 09/17/19 25 09/17/2024 [facility] 1999 panel - Serum or Plasm a alkaline phosphatase [enzymatic activity/vol ume] in serum or plasma 52 U/L low: 38U/Lh igh: 126U/L normal Not Available Not Available 09/22/2024 21:03:41 09/17/19 25 09/17/2024 [facility] [place] [address] panel - Serum or Plasm a alanine aminotransfe rase [enzymatic activity/vol ume] in serum or plasma 16 U/L low: 0U/Lhi gh: 50U/L normal Not Available Not Available 09/22/2024 21:03:41 02/06/20 25 09/17/2024 [facility] [employer] cruzito [facility] 1999 panel - Serum or Plasm a aspartate aminotransfe rase [enzymatic activity/vol ume] in serum or plasma 19 U/L low: 15U/Lh igh: 46U/L normal Not Available Not Available 09/22/2024 21:03:41 09/17/19 25 09/17/2024 [facility] 1999 panel - Serum or Plasm a bilirubin.to valerie [mass/volume ] in serum or plasma 0.7 mg/dL low: 0.2mg/ dLhigh : 1.3mg/ dL normal Not Available Not Available 09/22/2024 21:03:41 09/17/19 25 09/17/2024 [facility] [employer] [facility] 1999 panel - Serum or Plasm a calcium [mass/volume ] in serum or plasma 8.7 mg/dL low: 8.4mg/ dLhigh : 10.2mg /dL normal Not Available Not Available 09/22/2024 21:03:41 09/17/19 25 09/17/2024 [facility] 1999 panel - Serum or Plasm a protein [mass/volume ] in serum or plasma 6 g/dL low: 6.3g/d Lhigh: 8.2g/d L low Not Available Not Available 09/22/2024 21:03:41 09/17/19 25 09/17/2024 [facility] 1999 panel - Serum or Plasm a albumin [mass/volume ] in serum or plasma 3.6 g/dL low: 3g/dLh igh: 4.4g/d L normal Not Available Not Available 09/22/2024 21:03:41 09/17/19 25 09/17/2024 [facility] [employer] [facility] 1999 panel - Serum or Plasm a globulin [mass/volume ] in serum 2.4 g/dL low: 2.6g/d Lhigh: 4.2g/d L low Not Available Not Available 09/22/2024 21:03:41 09/17/19 25 09/17/2024 [facility] 1999 panel - Serum or Plasm a albumin/glob [...] contr ast No observ ation record ed. [email or web address] (Imaging) [address] [place], [address], 03/14/2020 17:40:36 03/22/20 20 03/18/2020 sergio r ECG patie nt diary * No observ ation record ed. [facility] [address], [place], [address], 04/22/2020 10:53:19 03/28/20 20 03/28/2020 trans -thor acic echoc ardio gram (TTE) (PROC ) No observ ation record ed. [facility] [address], [place], [address], 04/22/2020 10:53:31 10/23/19 23 10/18/2022 polys omnog jonas No observ ation record ed. [facility] [address], [place], [address], 10/24/2022 14:12:04 11/09/19 23 11/08/2022 CT, head, w/o contr ast No observ ation record ed. [email or web address] [address] [place], [address], 11/08/2022 13:41:03 11/10/19 23 11/09/2022 XR, hip + pelvi s, bilat eral No observ ation record ed. [facility] [address] [place], [address], 11/13/2022 11:12:53 01/12/20 23 01/11/2023 XR, pelvi s, 1 or 2 view No observ ation record ed. [facility] [address] [place], [address], 01/14/2023 13:20:14 03/14/20 23 03/13/2023 LDCT, chest , for lung cance r scree marco No observ ation record ed. [facility] [address] [place], [address], 03/15/2023 16:39:28 04/07/20 23 04/07/2023 CT, head, w/o contr ast No observ ation record ed. [facility] [address] [place], [address], 04/08/2023 12:42:41 04/07/20 23 04/07/2023 imagi ng/di agnos tic resul t No observ ation record ed. [facility] [address] [place], [address], 04/08/2023 12:45:37 05/22/20 23 05/22/2023 CT, head, w/o contr ast No observ ation record ed. [facility] [address] [place], [address], 05/23/2023 16:16:46 09/05/19 24 09/05/2023 XR, hip + pelvi s, bilat eral, 2 view No observ ation record ed. [facility] Not Available 2023 11:19:46 04/29/20 24 04/29/2024 XR, ribs, unila teral , w/ PA chest No observ ation record ed. [facility] [address] [place], [address], 04/30/2024 10:38:33 09/17/19 25 09/16/2024 XR, chest No observ ation record ed. [facility] [address] [place], [address], 09/18/2024 09:29:25 09/17/19 25 09/16/2024 CT, head + brain , w/o contr ast [facility] ed[facility] [address] [place], [address], 09/17/2024 10:15:52 12/09/19 25 12/08/2024 XR, chest No observ ation record ed. [facility] [address] [place], [address], 12/10/2024 09:48:55 12/09/19 25 12/08/2024 CT, head, w/wo contr ast No observ ation record ed. [facility] [address] [place], [address], 12/10/2024 09:48:43 12/09/19 25 12/08/2024 CT, cervi arturo spine , w/o contr ast No observ ation record ed. [facility] [address] [place], [address], 12/10/2024 09:48:03 Result Notes None recorded. Problems Name Problem SNOMED Code Status Onset Date Resolution Date Notes Provider Name and Address Organization Details Recorded Time Impaired glucose tolerance 2530521 Active 2016 Not Available [facility] 3 03:51:06 Acquired trigger finger 2007199 Active Not Available [facility] 3 03:51:06 Gastroeso phageal reflux disease 851487175 Active Not Available [facility] 3 03:51:06 Hypertens cruzito disorder 27011181 Active Not Available [facility] 3 03:51:06 Hyperlipi demia 37857641 Active Not Available [facility] 3 03:51:06 Seizure 84000676 Active Not Available [facility] 3 03:51:06 Obesity 216039277 Active Not Available [facility] 3 03:51:06 Constipat ion 59644614 Active Not Available [facility] 3 03:51:06 Screening colonosco py Completed 201710/21/2017 Eduard Gilbert PA-C Attn: Accounting ,[address] [place], [address] , [facility] 8 16:11:18 Screening for malignant neoplasm of colon Active 2017 Not Available [facility] 3 03:51:06 Pain of left wrist 02975389279 9102 Active 2017 Not Available [facility] 3 03:51:06 Chronic idiopathi c constipat ion 12476964 Active 2017 Not Available [facility] 3 03:51:06 Administr ation of influenza vaccine Active 2017 Not Available [facility] 3 03:51:06 Depressiv e disorder 26261969 Active 2017 Not Available [facility] 3 03:51:06 Insomnia 607489161 Active 2017 Not Available [facility] 3 03:51:06 Vitamin D deficienc y 44777283 Active 2018 Not Available [facility] 3 03:51:06 Acute urinary tract infection 135486805 Active Not Available [facility] 3 03:51:06 Immunizat ion/vacci nation managemen t Completed 201812/10/2018 [place], [place] - [facility] 9 12:46:10 Immunizat ion status unknown 695301082 Active 2018 Not Available [facility] 3 03:51:06 Acute otitis media 6548336 Active 2018 Not Available [facility] 3 03:51:06 Low back pain 013757516 Active 2018 Not Available [facility] 3 03:51:06 Obese 148501209 Active 2018 Not Available [facility] 3 03:51:06 Apnea 1043405 Active 2019 Not Available [facility] 3 03:51:06 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 e Active Not Available [facility] 3 03:51:06 First degree atriovent ricular block 328426973 Active Not Available [facility] 3 03:51:06 Ingrowing nail 900336195 Active Not Available [facility] 3 03:51:06 Dizziness 754391464 Active Not Available [facility] 3 03:51:06 Low back strain 129811842 Active Not Available [facility] 3 03:51:06 Candidias is 14281311 Active Not Available [facility] 3 03:51:06 Pain in right arm 036276844 Active Not Available [facility] 3 03:51:06 Traumatic rupture of biceps tendon 177737532 Active Not Available [facility] 3 03:51:06 Painful urging to urinate 51467556 Active Not Available [facility] 3 03:51:06 Excessive thirst 49287541 Active Not Available [facility] 3 03:51:06 High hemoglobi n A1c level 352542429 Active Not Available [facility] 3 03:51:06 Syncope 903225257 Active Not Available [facility] 3 03:51:06 Otitis media 67748751 Active 2016 Not Available [facility] 3 03:51:06 Cramp in lower limb 078834974 Active 2016 Not Available [facility] 3 03:51:06 Screening for malignant neoplasm of prostate Active 2016 Not Available [facility] 3 03:51:06 Administr ation of pneumococ arturo vaccine Active 2016 Not Available [facility] 3 03:51:06 Urinary incontine nce 333740865 Active 2016 Not Available [facility] 3 03:51:06 Prediabet es 420253724 Active 2016 Not Available [facility] 3 03:51:06 Notes:PFTs WNL on 12/12/2017, and previously on 11/26/2013 Problem Notes None recorded. Procedures Surgical History Date Name Laterality Status Provider Name and Address Organization Details Recorded Time Heart Surgery completed Debbie Escalona MA [place] - [facility] 09/08/2014 12:16:24 Imaging Results None recorded. Procedure Notes None [...] Available Not Available Not Available nystatin cre 908278pvq tatin active Not Available Not Available Not [...] Pulse oximetry Heart rate Body temperature Systolic And Diastolic Provider Name and Address Organization Details Last Updated DateTime 0 180.34 cm 38.7 kg/m2 369305. 52 g 95 % 95 % 92 /min 98.2 [degF] 152/82 mm[Hg] Marichuy Pathak MA [facility] 0 15:40:40 Date Recorded Body height Body mass index (BMI) Body weight Oxygen saturation Oxygen saturation in Arterial blood by Pulse oximetry Heart rate Body temperature Systolic And Diastolic Provider Name and Address Organization Details Last Updated DateTime 0 180.34 cm 38.4 kg/m2 182804. 9 g 95 % 95 % 80 /min 98.5 [degF] 152/82 mm[Hg] Marichuy Patahk MA [facility] 0 15:04:51 Date Recorded Body height Provider Name an d Address Organization Details Last Updated DateTime 12/16/2019 180.34 cm Marichuyaditya Cooper MA [facility] 12/16/2019 10:58:06 Date Recorded Body height Provider Name an d Address Organization Details Last Updated DateTime 03/24/2020 180.34 cm Marichuy De Pamela Cr [address] carvalho [facility] 03/24/2020 10:35:30 Social History Question Answer Notes LastModified by Organizat ion Details LastModified Time Tobacco Smoking Status Never Smoker Debbie Escalona MA [facility] [place], [place] - [facility] 09/08/2014 12:16:23 Do You Have An [...] Organization Details LastModified Time Sister Heart disease [email or web address] Not available 2015 10:22:49 Sister Asthma Not available 12/16/2015 10:22:49 Sister Sleep apnea Not avail able 12/16/2015 10:22:49 Medical History Condition Response Coronary Artery Disease Y High Blood Pressure Y Depression Y Anxiety Disorder Y Acid Reflux (GERD) Y Headaches Y Heart Attack (AK) Y Immunizations Vaccine Type Date Status Note Provider Nam e and Address Organization Details Recorded Time Influenza, split virus, quadrivalent, preservative 6 completed Not Available [facility] 08/29/2019 02:43:39 Influenza, split virus, quadrivalent, preservative 7 completed Not Available [facility] 08/29/2019 02:34:22 Influenza, split virus, quadrivalent, preservative 9 completed Not Available [facility] 08/29/2019 02:38:42 Influenza, split virus, quadrivalent, preservative 5 completed Not Available [facility] 08/29/2019 02:50:31 Past Encounters Encounter ID Performer Location Encounter Start Date Encounter Closed Date Diagnosis/Indication Diagnosis SNOMED-CT Code Diagnosis ICD10 Code Diagnosis Note [id number] Wendy Mckenna MD [facility] (Adult Med) [address] [place] [address] 09/08/2014 11:57:16 09/08/2014 12:41:13 Acquired trigger finger 3409528 Gastroesop hageal reflux disease 974631277 Hypertensive disorder 42996177 Hyperlipidemia 51119982 Seizure 01046237 Obesity 716025375 Constipation 02843914 [id number] CUR[facility] Salguero (Adult Med) [address] [place] [id number] 01/14/2015 14:49:39 01/14/2015 15:57:12 Acquired trigger finger 7667659 Constipation 94357181 Gastroesop hageal reflux disease 453054135 Hyperlipidemia 04343162 Hypertensive disorder 16710548 Obesity 818840970 Seizure 02425191 Bladder mu scle dysfunction - overactive 052493295 [id number] [facility] Salguero (Adult Med) [address] [place] [id number] 0 03/18/2015 15:40:13 03/18/2015 17:51:19 First degree atrioventricular block 275619476 Bladder mu scle dysfunction - overactive 156503421 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 8909372 Obesity 359579194 Acute urin mark tract infection 137266600 Hypertensive disorder 99723047 Gastroesop hageal reflux disease 100710748 Seizure 93859262 Constipation 82483795 Hyperlipidemia 91236200 Ingrowing nail 324292923 for one year : great toe on the right [id number] MD Dianne Gibson (Adult Med) [address] [place] [id number] 0 04/14/2015 15:45:50 04/14/2015 17:53:03 Acquired trigger finger 7053283 Low back strain 625450738 Gastroesop hageal reflux disease 707307596 [id number] [facility] Salguero (Adult Med) [address] [place] [id number] 0 05/24/2015 13:43:26 05/24/2015 16:54:50 Acquired trigger finger 4974175 M65.30 Acute urin mark tract infection 503015782 N39.0 Bladder mu scle dysfunction - overactive 610889707 N32.81 Constipation 06897078 K5 9.00 Dizziness 759810551 R42 First degr ee atrioventricular block 484930793 I44.0 Gastroesop hageal reflux disease 986673285 K21.9 Hyperlipidemia 02570399 E78.5 Hypertensive disorder 38 740029 I10 Low back strain 18876860 1 S39.012D Obesity 524174609 E66.9 Seizure 29269884 R56.9 Active or passive immunization 972907968 Z23 [id number] [facility] Salguero (Adult Med) [address] [place] [id number] 0 07/25/2015 14:16:08 07/25/2015 14:54:08 Candidiasis 36127697 B37.9 right groin 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 5424834 M65.30 Gastroesop hageal reflux disease 339700730 K21.9 Hyperlipidemia 29356518 E78.5 Hypertensive disorder 38 856026 I10 Low back strain 10034416 1 S39.012D Obesity 759023297 E66.9 First degr ee atrioventricular block 449297750 I44.0 Seizure 47938720 R56.9 [id number] CURRY Salguero (Adult Med) [address] [place] [id number] 0 10/06/2015 14:14:08 10/06/2015 14:50:05 Pain in right arm 181281967 M79.601 upper arm , distal lateral aspect , no contusion Gastroesop hageal reflux disease 755229490 K21.9 Hyperlipidemia 39826189 E78.5 Constipation 20253494 K5 9.00 Obesity 092758171 E66.9 Seizure 25591539 R56.9 [id number] [facility] Salguero (Adult Med) [address] [place] [id number] 0 12/02/2015 16:12:26 12/02/2015 17:04:44 First degree atrioventricular block 018346359 I44.0 Gastroesop hageal reflux disease 447542089 K21.9 Hyperlipidemia 34291165 E78.5 Diabetes m ellitus screening 393282356 Z13.1 Administra tion of pneumococcal vaccine 97667810 Z23 Traumatic rupture of biceps tendon 119901824 S46.211S at physical therapy 6 months ago [id number] CUR[facility] Salguero (Adult Med) [address] [place] [id number] 0 12/16/2015 10:04:07 12/16/2015 10:35:14 Excessive thirst 32098722 R63.1 Constipation 56051098 K5 9.00 First degr ee atrioventricular block 893722592 I44.0 Gastroesop hageal reflux disease 702314358 K21.9 Hyperlipidemia 66922888 E78.5 Hypertensive disorder 38 619040 I10 Low back strain 76771206 1 S39.012D Obesity 781555764 E66.9 Pain in right arm 511311 004 M79.601 upper arm , distal lateral aspect , no contusion Seizure 75418687 R56.9 High hemog lobin A1c level 514527312 R73.09 [id number] Wendy Mckenna MD [facility] (Adult Med) [address] [place] [id number] 02/03/2016 14:21:14 02/09/2016 03:48:13 Painful urging to urinate 55854795 R30.0 Candidiasis 50430750 B37 .9 left groin worse than right Constipation 99150393 K5 9.00 [id number] MD Dianne Gibson (Adult Med) [address] [place] [id number] 0 02/16/2016 16:51:57 02/17/2016 09:18:02 First degree atrioventricular block 578451913 I44.0 Gastroesop hageal reflux disease 146334810 K21.9 High hemog lobin A1c level 621344253 R73.09 Hyperlipidemia 03146174 E78.5 Hypertensive disorder 38 880252 I10 Low back strain 74006932 1 S39.012D Obesity 620680668 E66.9 Seizure 10677445 R56.9 [id number] Wendy Mckenna MD Dianne (Adult Med) [address] [place] [address] [id number] 0 04/30/2016 14:40:39 04/30/2016 18:00:22 Dizziness 713593446 R42 Syncope 928349331 R55 Administra tion of influenza vaccine 17127749 Z23 [id number] MD Dianne Gibson (Adult Med) [address] [place] [address] [id number] 0 09/13/2016 10:45:26 09/13/2016 14:05:55 Gastroesophageal reflux disease 947291493 K21.9 Syncope 760060468 R55 Hypertensive disorder 38 336546 I10 High hemog lobin A1c level 929970582 R73.09 Hyperlipidemia 42599208 E78.5 Seizure 82630819 R56.9 Otitis media 85898651 H6 6.93 Cramp in lower limb 4499 70393 R25.2 [id number] [facility] [address] [place] [id number] 0 11/12/2016 14:48:39 11/12/2016 16:10:46 Administration of pneumococcal vaccine 10641262 Z23 High hemog lobin A1c level 676801593 R73.09 [id number] MD Dianne Gibson (Adult Med) [address] [place] [id number] 0 03/14/2017 13:46:35 03/18/2017 10:58:39 Urinary incontinence 776762354 R32 twice yesterday Seizure 75972216 R56.9 Hyperlipidemia 48366299 E78.5 High hemog lobin A1c level 151475839 R73.09 Obesity 926127012 E66.9 Hypertensive disorder 38 719298 I10 Low back strain 27105682 1 S39.012D [id number] MD Dianne Gibson (Adult Med) [address] [place] [address] [id number] 0 05/23/2017 12:13:21 05/27/2017 10:48:22 High hemoglobin A1c level 149679090 R73.09 Prediabetes 273461636 R7 3.03 [id number] MD Dianne Gibson (Adult Med) [address] [place] [address] [id number] 0 05/27/2017 14:03:47 05/27/2017 14:41:12 Administration of influenza vaccine 80345332 Z23 [id number] MD Dianne Gibson (Adult Med) [address] [place] [address] [id number] 0 07/03/2017 10:40:19 07/03/2017 13:39:39 First degree atrioventricular block 293807519 I44.0 Hyperlipidemia 27307263 E78.5 Seizure 15861846 R56.9 Gastroesop hageal reflux disease 339390932 K21.9 Constipation 18972933 K5 9.00 [id number] [facility] [address] [place] [address] [id number] 0 10/21/2017 15:18:57 10/21/2017 16:40:11 Candidiasis 42071463 B37.9 left groin worse than right Screening for malignant neoplasm of colon 950474444 Z12.11 Screening for malignant neoplasm of prostate 372099276 Z12.5 Hypertensive disorder 38 610907 I10 Obesity 544853348 E66.9 Seizure 02435670 R56.9 Hyperlipidemia 45988353 E78.5 Gastroesop hageal reflux disease 550451063 K21.9 [id number] Wendy Mckenna MD [facility] (Adult Med) [address] [place] [address] [id number] 0 12/31/2017 13:05:34 12/31/2017 13:44:01 Pain of left wrist 1047906635 34743 M25.532 Seizure 64875404 R56.9 Gastroesop hageal reflux disease 051583800 K21.9 Hyperlipidemia 75660369 E78.5 Obesity 228571212 E66.9 Hypertensive disorder 38 675551 I10 [id number] Wendy Mckenan MD [facility] (Adult Med) [address] [place] [address] [id number] 0 03/31/2018 10:59:02 03/31/2018 12:18:51 Chronic idiopathic constipation 61491430 K59.04 High hemog lobin A1c level 105360016 R73.09 Seizure 38321023 R56.9 Hyperlipidemia 23712967 E78.5 Obesity 908964189 E66.9 Hypertensive disorder 38 546091 I10 Constipation 48570610 K5 9.00 Impaired g lucose tolerance 1980638 R73.02 [id number] Wendy Mckenna MD [facility] (Adult Med) [address] [place] [address] [id number] 0 06/16/2018 15:10:43 06/16/2018 16:23:40 Candidiasis 03220000 B37.9 left groin worse than right High hemog lobin A1c level 019424126 R73.09 Administra tion of influenza vaccine 71570502 Z23 Chronic id iopathic constipation 47480748 K59.04 Seizure 87620828 R56.9 Hyperlipidemia 98634304 E78.5 Obesity 382805171 E66.9 Gastroesop hageal reflux disease 238832324 K21.9 Depressive disorder 3548 9007 F33.8 Hypertensive disorder 38 226807 I10 Low back strain 60599650 1 S39.012D Bladder mu scle dysfunction - overactive 146800036 N32.81 Dizziness [id number] R42 Insomnia 099649785 G47.0 0 Impaired g lucose tolerance 9227845 R73.02 [id number] CURRY Salguero (Adult Med) [address] [place] [address] [phone] 0 09/16/2018 08:50:58 09/16/2018 11:08:37 Vitamin D deficiency 20928965 E55.9 Hypertensive disorder 38 971963 I10 Hyperlipidemia 10518162 E78.5 Seizure 54070908 R56.9 Obesity 172781803 E66.9 Gastroesop hageal reflux disease 758898552 K21.9 Impaired g lucose tolerance 2598517 R73.02 Screening for malignant neoplasm of prostate 321431451 Z12.5 Candidiasis 78284384 B37 .9 left groin worse than right Insomnia 046090203 G47.0 0 Depressive disorder 3548 9007 F33.8 Chronic id iopathic constipation 75171098 K59.04 [id number] MD Dianne Gibson (Adult Med) [address] [place] [address] [phone] 0 12/10/2018 12:14:55 12/11/2018 08:58:24 Immunization status unknown 443976800 Z76.89 Screening for malignant neoplasm of colon 151609415 Z12.11 Acute otitis media 42889 03 H66.93 Vitamin D deficiency 347 36824 E55.9 Insomnia 654226973 G47.0 0 Depressive disorder 3548 9007 F33.8 Chronic id iopathic constipation 80281521 K59.04 Impaired g lucose tolerance 4472994 R73.02 Gastroesop hageal reflux disease 194841628 K21.9 First degr ee atrioventricular block 776283283 I44.0 Seizure 46043876 R56.9 Hyperlipidemia 04535817 E78.5 Obesity 623900094 E66.9 Hypertensive disorder 38 160136 I10 [id number] MD Dianne Gibson (Adult Med) [address] [place] [address] [phone] 0 02/18/2019 09:26:01 02/19/2019 08:42:15 Candidiasis 47704911 B37.9 left groin worse than right Depressive disorder 3548 9007 F33.8 Hypertensive disorder 38 616779 I10 Dizziness 334468429 R42 Insomnia 560287762 G47.0 0 Cramp in lower limb 4499 95941 R25.2 Low back pain 800570355 M54.5 Urinary incontinence 165 317896 R32 twice yesterday Gastroesop hageal reflux disease 947519078 K21.9 Hyperlipidemia 09193084 E78.5 Vitamin D deficiency 347 01665 E55.9 Impaired g lucose tolerance 3818995 R73.02 Obese 346033924 E66.9 [id number] MD Dianne Gibson (Adult Med) [address] [place] [address] [phone] 0 04/20/2019 10:10:37 04/22/2019 09:22:42 Obese 587679767 E66.9 Low back pain 467098927 M54.5 Vitamin D deficiency 347 22506 E55.9 Insomnia 813853183 G47.0 0 Depressive disorder 3548 9007 F33.8 Gastroesop hageal reflux disease 841870466 K21.9 Hypertensive disorder 38 611162 I10 Hyperlipidemia 11942506 E78.5 Seizure 78093085 R56.9 [id number] MD Dianne Gibson (Adult Med) [address] [place] [address] [phone] 0 06/04/2019 14:50:46 06/05/2019 08:40:17 Administration of influenza vaccine 58697942 Z23 [id number] MD Dianne Gibson (Adult Med) [address] [place] [address] [phone] 0 09/15/2019 14:58:55 09/15/2019 16:11:08 Apnea 0752218 R06.81 Gastroesop hageal reflux disease 141880575 K21.9 Hyperlipidemia 26153033 E78.5 Hypertensive disorder 38 355252 I10 Insomnia 876752767 G47.0 0 Low back pain 246754839 M54.5 Vitamin D deficiency 347 69578 E55.9 Screening for malignant neoplasm of prostate 535679202 Z12.5 Seizure 10293391 R56.9 Obese 009034599 E66.9 First degr ee atrioventricular block 083309728 I44.0 Depressive disorder 3548 9007 F33.8 Chronic id iopathic constipation 75915480 K59.04 [id number] MD Dianne Gibson (Adult Med) [address] [place] [address] [phone] 0 10/13/2019 14:22:54 10/13/2019 15:38:29 Hyperlipidemia 81891114 E78.5 Obese 167901886 E66.9 Vitamin D deficiency 347 91039 E55.9 Low back pain 542152531 M54.5 Insomnia 773021453 G47.0 0 Gastroesop hageal reflux disease 461342261 K21.9 Chronic id iopathic constipation 20126867 K59.04 Impaired g lucose tolerance 4021222 R73.02 First degr ee atrioventricular block 183489455 I44.0 Depressive disorder 3548 9007 F33.8 Bladder mu scle dysfunction - overactive 696467949 N32.81 [id number] [facility] [address] [place] [address] [phone] 0 12/16/2019 10:26:42 12/16/2019 11:54:16 Vitamin D deficiency 17707975 E55.9 High hemog lobin A1c level 034331772 R73.09 Hyperlipidemia 79311398 E78.5 Hypertensive disorder 38 579066 I10 Obese 091538055 E66.9 [id number] [facility] [address] [place] [address] [phone] 0 03/24/2020 09:35:54 03/24/2020 10:44:20 Gastroesophageal reflux disease 319590958 K21.9 Hyperlipidemia 42083937 E78.5 Vitamin D deficiency 347 39847 E55.9 Low back pain 446491367 M54.5 Candidiasis 18506809 B37 .9 left groin worse than right Health Concerns Section Related Observation LastModified by Organization Detai ls LastModified Time None Recorded Concern Status LastModified by Organization Details LastModified Time None Recorded Advance Directives Directive N: Payers Insurance Date Sequence Insurance Name Policy Number Policy Benton Covered Member ID Benton Member ID Guarantor Name 10/23/2022 [place] Marlon Hicks [id number] Marlon Hicks 10/23/2022 2 [place] WHEN MEDICARE OR MEDICARE REPLACEMENT PRIMARY) Marlon Hicks [id number] Marlon Hicks 11/13/2016 1 [place] Marlon Hicks [id number] Marlon Hicks 09/15/2019 [place] Marlon Hicks [id number] Marlon Hicks 11/13/2016 [place] Marlon Hicks [id number] Marlon Hicks 09/04/2023 1 [place] Marlon Hicks [id number] Marlon Hicks Notes Date Note Type Note Provider Name and Address Organization Details Recorded Time 09/15/2019 text/html snores , wakes up gasping for air at times Eduard Gilbert PA-C Attn: [address] [place], [address], [facility] 09/17/2019 20:36:40 12/16/2019 text/html no changes Eduard Gilbert PA-C Attn: [address] [place], [address], [facility] 12/17/2019 20:32:50 03/24/2020 text/html Is going to start Prozac from Dr. Guerrero. Eduard Gilbert PA-C Attn: [address]ing,[address] [place], [address], [facility] 03/26/2020 10:27:01
--- OUTSIDE RECORDS SUMMARY | 2025-02-16 02:49 | XMS_ITS | Clinical Summary ---
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 Name Role Phone Unkown, Unknown Primary Care [...] of radius 01/29/2017 Great toe pain 01/29/2017 Surgical History Surgery Date Site/Laterality Comments OTHER SURGICAL HISTORY bilateral wrist Medical History Medical History Date Comments Hx Other Medical htn Hx Other Medical diabetes Hx Other Medical emphysema Hx Other Medical gastric reflux Osteoporosis Osteoporosis Depression Depression Family History Medical History Relation Name Comments Other Other 1 Family history of htn; Arthritis Other 2 Family history of arthritis; Mental illness Other 3 Family histor y of Mental illness; Other Other 4 Family history of Diabetes mellitus type 1; Relation Name Status Comments Other 1 Other 2 Other 3 Other 4 Social History Tobacco Use Types Packs/Day Years Used Date Smoking Tobacco: Former Alcohol Use Standard Drinks/Week Comments No 0 (1 standard drink = 0.6 oz pur e alcohol) Personal Safety Answer Date Recorded Getting School Help Needed Not on file 10/25 Sex and Gender Information Value Date Recorded Sex Assigned at Not on file 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 Gender Identity Not on file Sexual Orientation Not on file Obstetrics History Last Filed Vital Signs Vital Sign Reading [...] 04/18/2017 10:39 AM CDT Plan of Treatment Health Maintenance Due Date Last Done Comments Colon Cancer Screening-Colonoscopy 1955 Depression Screening 1956 Fall Risk Assessment 1955 Hepatitis C Screening 1955 Prostate Cancer Screening-PSA 1956 DTaP/Tdap/Td Vaccine (1 - Tdap) 1967 Hepatitis B Screening 1974 Zoster Vaccine (2 of 3) 12/29/2015 11/03/2015 Pneumococcal vaccine 65+ (2 of 2 - PCV) 05/10/2019 05/10/2018 Abdominal Aortic Aneurysm (A AA) Screen 2021 Well Visit 65+ 2021 Covid-19 Vaccine (5 - 2023-2 5 season) 2024 06/06/2023, 06/07/2021, 12/22/2020, Additional history exists Influenza Vaccine (Season Ended) 2025 06/07/2021, 06/04/2019, 09/04/2018, Additional history exists Insurance MEDICARE IDPA MEDICARE IDPA IDPA MEDICARE Care Teams Stereotype Finisher Relationship Specialty Start Date End Date Unkown, Unknown PCP - General 01/01/17
--- NOTE | 2025-02-16 02:57 | ED_ITS ---
HPI - Fall General Chief Complaint: Fall Stated Complaint: NECK PAIN S/P FALL OUT OF BED Time Seen by Provider: 02/16/25 01:55 History of Present Illness HPI Narrative: Patient is a 69-year-old male who presents to the emergency department this evening from level a long-term status post an unwitnessed ground level fall. Patient denies loss of questions and denies any blood thinner use. He was complaining of neck pain and EMS was called. Patient was placed in a C-collar and brought to our facility for further evaluation. Patient is alert oriented x2 which is his baseline. Upon arrival to the ED, patient states that his neck pain has resolved. Denies any additional symptoms or concerns. Related Data Home Medications ?Medication ?Instructions ?Recorded ?Confirmed ?Last Taken ?Type baclofen 20 mg tablet 20 mg PO BID 01/23/24 12/31/24 12/30/24 History diclofenac sodium 75 mg 75 mg PO BID PRN hip pain 01/23/24 12/31/24 Unknown History tablet,delayed release donepezil 10 mg tablet 10 mg PO HS 01/23/24 12/31/24 12/30/24 History icosapent ethyl 1 gram capsule 1 g PO BIDWMEAL 01/23/24 12/31/24 12/30/24 History (Vascepa) hydrocodone 10 mg-acetaminophen 1 tablet PO Q6H PRN pain (scale 12/31/24 12/31/24 Unknown History 325 mg tablet score 7-10) hydrocodone 5 mg-acetaminophen 325 1 tablet PO Q4H PRN pain (scale 12/31/24 12/31/24 12/30/24 History mg tablet score 4-6) lamotrigine 100 mg tablet 150 mg PO BID 12/31/24 12/31/24 Unknown History (Lamictal) losartan 25 mg tablet 50 mg PO DAILY 12/31/24 12/31/24 12/30/24 History magnesium citrate (Citroma oral 296 ml PO ONCE PRN constipation 12/31/24 12/31/24 Unknown History solution) magnesium hydroxide 400 mg/5 mL 30 ml PO HS PRN constipation 12/31/24 12/31/24 Unknown History oral suspension (Dulcolax (magnesium hydroxide)) mineral oil (Fleet Mineral Oil 118 ml RECTAL DAILY PRN 12/31/24 12/31/24 Unknown History enema) constipation polyethylene glycol 3350 17 gram 17 g PO DAILY PRN constipation 12/31/24 12/31/24 12/30/24 History oral powder packet quetiapine 150 mg tablet,extended 150 mg PO HS 12/31/24 12/31/24 12/30/24 History release 24 hr scopolamine base 1 mg over 3 days 1 patch transdermal Q3D SECRECTIONS 12/31/24 12/31/24 Unknown History transdermal patch sennosides 8.6 mg tablet (senna) 17.2 mg PO DAILY PRN constipation 12/31/24 12/31/24 12/30/24 History Allergies Allergy/AdvReac Type Severity Reaction Status Date / Time No Known Allergies Allergy Verified 02/16/25 02:12 Review of Systems Review of Systems: All systems are reviewed and are negative unless stated otherwise in the HPI. [facility] Past Medical History Medical History Subarachnoid hemorrhage Post fall, January 2024 Dementia Seizure GERD (gastroesophageal reflux disease) Coronary artery disease Hypertension Anxiety and depression Hyperlipidemia Family History Family History Sibling Acute myocardial infarction Sibling Acute myocardial infarction Social History Social History Smoking status: Never smoker Alcohol intake: never Substance use: never Substance use type: does not use Do You Feel Safe in your Home?: Yes Lack of Transportation: No Lack of Food: Never True Current Housing: I Have Housing Concerned About Future Housing: No Difficulty Paying Gas/Electric Bills: No Difficulty Paying for Meds: No Currently Unemployed: No Education: Decline to Answer Difficulty w/ Childcare or Family Care: No Living arrangements: with family Gender identity (if verbalized by the patient): Male Spiritual care concerns: No Agree to blood products: Yes Exam Narrative: General: Alert, awake, afebrile, in no acute distress. HEENT: PERRL, no rhinorrhea, no post nasal drip, oropharynx clear. Neck: Trachea midline, no JVD, no lymphadenopathy, C-collar in place, no midline tenderness to palpation over the cervical spine. Cardiovascular: Regular rate and rhythm, no murmurs, rubs or gallops, no peripheral edema. Respiratory: Clear to auscultation bilaterally, no tachypnea, no wheezing, no rhonchi, no rubs, no respiratory distress. Abdomen: Soft, nontender, nondistended, no rebound, no guarding, no peritoneal signs. Musculoskeletal: No joint swelling or deformity, normal muscle tone. Skin: No rashes or petechia, no signs of infection. Psychiatric: Alert and oriented, normal behavior and judgment for situation. Neurological: Alert and oriented to person, place, and time. Follows all commands. No focal deficits, speech is clear and fluent. Course Vital Signs Vital signs: Vital Signs Temperature 97.7 F 02/16/25 01:51 Pulse Rate 50 L 02/16/25 01:51 Respiratory Rate 14 02/16/25 01:51 Blood Pressure 128/79 02/16/25 01:51 Pulse Oximetry 97 02/16/25 01:51 Oxygen Delivery Room Air 02/16/25 01:51 Temperature 97.7 F 02/16/25 02:00 Pulse Rate 51 L 02/16/25 02:00 Respiratory Rate 13 02/16/25 02:00 Blood Pressure 148/81 H 02/16/25 02:00 Pulse Oximetry 97 02/16/25 02:00 Oxygen Delivery Room Air 02/16/25 01:51 MDM - Fall MDM Narrative Medical decision making narrative: The patient was evaluated by myself in the emergency department. History is obtained from patient who is an independent historian along with EMS report and physical exam was performed. External medical records were reviewed at this time. EMS reported hematoma to the back of the head, however, I did not appreciate any scalp hematoma. Imaging studies obtained included CT brain and C-spine without IV contrast which was independently interpreted by me revealing no acute intracranial process, no acute fractures or subluxation of the cervical spine, which is pending final radiology interpretation. Differential diagnosis considerations include intracranial hemorrhage, cervical spinal fracture. Comorbidities impacting this visit include none. I have evaluated and discussed social determinants of health with the patient that could potentially impact subsequent diagnosis and treatment plans. On repeat assessment of the patient, reevaluation revealed that the patient is doing well and is in no acute distress. Patient symptoms have improved since he arrived to our emergency department. Repeat vital signs were all reviewed and noted to be stable. Differential diagnosis and treatment plan were discussed with the patient at bedside. Patient agrees with discussion and after shared medical decision making agrees with discharge. All questions were answered to the patient's satisfaction. Patient will follow up with his PCP in 3-5 days. Patient was provided with strict return precautions and instructed to return to the emergency department if any new or worsening symptoms develop. The patient was discharged in stable condition. Lab Data Labs: Lab Results 02/16/25 Range/Units 01:56 POC Capillary Glucose 96 (65-105) mg/dl Discharge Plan Discharge Clinical Impression: Fall from ground level, Neck pain Patient Disposition: SNF Condition: Improved Instructions: Fall Prevention for Older Adults (ED) Additional Instructions: Please follow-up with your family doctor within the next 3-5 days. Return to emergency department if any new or worsening symptoms develop. Patient Language: Armenian Prescriptions: No Action donepezil 10 mg tablet 10 mg PO HS baclofen 20 mg tablet 20 mg PO BID diclofenac sodium 75 mg tablet,delayed release (DR/EC) 75 mg PO BID PRN (Reason: hip pain) icosapent ethyl [Vascepa] 1 gram capsule 1 g PO BIDWMEAL alprazolam 0.5 mg tablet 0.5 mg PO TID PRN (Reason: Anxiety) Qty: 7 0RF sennosides [senna] 8.6 mg tablet 17.2 mg PO DAILY PRN (Reason: constipation) polyethylene glycol 3350 17 gram powder in packet 17 g PO DAILY PRN (Reason: constipation) hydrocodone-acetaminophen 5-325 mg tablet 1 tablet PO Q4H PRN (Reason: pain (scale score 4-6)) quetiapine 150 mg tablet extended release 24 hr 150 mg PO HS losartan 25 mg tablet 50 mg PO DAILY magnesium citrate [Citroma] Solution 296 ml PO ONCE PRN (Reason: constipation) hydrocodone-acetaminophen 10-325 mg tablet 1 tablet PO Q6H PRN (Reason: pain (scale score 7-10)) lamotrigine [Lamictal] 100 mg tablet 150 mg PO BID scopolamine base 1 mg over 3 days patch 3 day 1 patch transdermal Q3D magnesium hydroxide [Dulcolax (magnesium hydroxide)] 400 mg/5 mL suspension 30 ml PO HS PRN (Reason: constipation) mineral oil [Fleet Mineral Oil] Enema 118 ml RECTAL DAILY PRN (Reason: constipation) Rx Instructions: discard any unused portion cyanocobalamin (vitamin B-12) [Vitamin B-12] 1,000 mcg Tablet 1,000 mcg PO QAM Qty: 30 0RF prednisone 20 mg Tablet 40 mg PO DAILY@0800 Qty: 6 0RF ergocalciferol (vitamin D2) 1,250 mcg (50,000 unit) Capsule 1,250 mcg PO Harvey@0900 Qty: 4 0RF fluticasone propionate 50 mcg/actuation [place],Suspension 2 spray intranasal QAM Qty: 30 0RF doxycycline hyclate 100 mg Tablet 100 mg PO Q12HR Qty: 9 0RF loratadine 10 mg Tablet 10 mg PO QAM Qty: 30 0RF guaifenesin [Mucus Relief ER] 600 mg Tablet Extended Release 12hr 1,200 mg PO Q12HR Qty: 30 0RF albuterol sulfate [Ventolin HFA] 90 mcg/actuation HFA aerosol inhaler 2 puff inhalation QID PRN (Reason: shortness of breath or wheezing) Qty: 8.5 0RF Follow-up/Referrals: Ash Steel MD [Primary Care Provider] - 3 Days Time of Disposition: 02:59
--- NOTE | 2025-02-16 03:25 | PC.NURSE ---
This RN attempted to call Pamela Guerrero of [facility] to give report on pt. This RN was on hold for 10 minutes. Will call back.
[2025-02-16 03:29] VITALS: BP 158/75; PULSE 51; RESP 13; O2SAT 99
== END 2025-02-16 03:47 ==
PROVIDERS: Emergency Provider Emergency Medicine; PCP Internal Medicine
DX: M54.2 Cervicalgia (principal); F03.90 Unspecified dementia, unspecified severity, without behavioral disturbance, psychotic disturbance, mood disturbance, and anxiety; K21.9 Gastro-esophageal reflux disease without esophagitis; I25.10 Atherosclerotic heart disease of native coronary artery without angina pectoris; I10 Essential (primary) hypertension; F41.9 Anxiety disorder, unspecified; F32.A Depression, unspecified; E78.5 Hyperlipidemia, unspecified; W19.XXXA Unspecified fall, initial encounter
CPT/HCPCS: 70450; 72125; 82948; 99284

== ENCOUNTER 2025-07-19 12:45 | Outpatient (CLI) | payer MEDICARE, MEDICAID, SELFPAY ==
--- NOTE | 2025-07-20 12:48 | WPDNEUROLOGY ---
Neurology EEG Report General Information Date of Study: 07/19/25 TEST EEG DIAGNOSIS Seizure disorder CONDITION OF RECORDING awake, drowsy and asleep. EEG NUMBER [id number] CLINICAL HISTORY 69 years old female has ongoing history of seizure disorder. Patient seemed really anxious and somewhat of a poor historian patient stated that 2 weeks ago he came to the hospital and had a seizure on the table. He said he can feel them coming on and it usually happens when he is using too much brain activity. He has 2 kinds his arms and legs start flailing all over the place and states started chattering. He also informed that he has schizophrenia.
--- NOTE | 2025-07-20 12:55 | P.NEURO_ITS ---
Neurology EEG Report General Information Date of Study: 07/19/25 TEST EEG DIAGNOSIS Seizure disorder CONDITION OF RECORDING awake, drowsy and asleep. EEG NUMBER [id number] CLINICAL HISTORY 69 years old who has history of seizure disorder patient seemed really anxious and somewhat of a poor historian patient stated that 2 weeks ago he came to the hospital and had a seizure on the table. He said he can feel them coming on and usually happens when he is using too much brain activity. He has 2 kinds. His arms and legs start flailing all over the place and states started chattering. He also informed that he has his schizophrenia. EEG DESCRIPTION Background rhythm consists of low to medium voltage 9 to 11 hertz per 2nd alpha posteriorly mixed with multiple movement artifacts intermittently. During drowsiness, low-voltage beta activity seen vaccine and waning admixed with low- voltage alpha activity. Photic stimulation produced poor drive. Hyperventilation not done. Non paroxysmal. Nonfocal. Nonlateralizing. IMPRESSION No significant abnormalities noted but the normal EEG does not rule out the possibility of seizure disorder clinical correlation recommended.
== END 2025-07-19 12:46 | disposition home or self-care (01) ==
PROVIDERS: PCP Internal Medicine; Visit Provider Internal Medicine
DX: G56.03 Carpal tunnel syndrome, bilateral upper limbs (principal); G40.909 Epilepsy, unspecified, not intractable, without status epilepticus
CPT/HCPCS: 95816